=== PATIENT | female | born 1945 | race Caucasian/White ===

== ENCOUNTER 2016-05-26 06:30 | Day surgery (SDC) | payer MEDICARE, OTHER ==
[~2016-05-26] VITALS: Ht 168.9 cm; Wt 72.6 kg
[~2016-05-26 06:30] MED LIST: ASPI-808 PO; INSU100V6 SQ; MAGN250T13 PO; METF1000 PO; OMG1KC PO; POTA99TA7 PO; PRAV40TA2 PO
--- NOTE | 2016-05-26 06:47 | Progress Note-Pre Operative ---
Pre-Operative Progress Note H&P Reviewed The H&P was reviewed, patient examined and no changes noted. Date H&P Reviewed: May 26, 2016 Time H&P Reviewed: 06:35 Pre-Operative Diagnosis: Deviated Nasal Septum, Bialt HYper of INf Turbs NELA CHAVEZ MD May 26, 2016 6:47 am
[2016-05-26] MEDS ORDERED: LACTATED RINGERS 1,000 ML IV PRN (07:08)
[2016-05-26] MEDS ORDERED: NORMAL SALINE (BAXTER MINI) 50 ML IV ONE (07:16)
[2016-05-26] MEDS ORDERED: AMPICILL/SULB 1.5 GM VIAL (UNASYN) ONE (07:16)
[2016-05-26] MEDS ORDERED: AMPICILLIN/SULBACTAM 1.5 GM/NS 50 ML IVPB IV ONE ×2 (07:30)
[2016-05-26 07:32] VITALS: BP 140/63
[2016-05-26] MEDS ORDERED: BSS 15 ML ONE (07:41)
[2016-05-26] MEDS ORDERED: LIDOCAINE PF 2% 10 ML (XYLOCAINE) AMP ONE (07:44)
[2016-05-26] MEDS ORDERED: SUCCINYLCHOLINE INJ 100 MG/5 ML SYR ONE (07:44)
[2016-05-26] MEDS ORDERED: fentaNYL INJECTION 100 MCG/2 ML AMP ONE (07:44)
[2016-05-26] MEDS ORDERED: LACTATED RINGERS 1,000 ML IV ONE (07:44)
[2016-05-26] MEDS ORDERED: proPOfol 200 MG/20 ML (DIPRIVAN) VIAL IV ONE (07:44)
[2016-05-26] MEDS ORDERED: ROCURONIUM 50 MG/5 ML (ZEMURON) VIAL IV ONE (07:44)
[2016-05-26] MEDS ORDERED: ONDANSETRON 4 MG/2 ML (SDV) Z0FRAN ONE (07:44)
[2016-05-26] MEDS ORDERED: COCAINE HCL 4% 2 ML SYR TOP ONE (08:31)
[2016-05-26] MEDS ORDERED: LIDOCAINE/EPI 1%-1:100,000 (XYLOCAINE) 20ML INJ ONE (08:31)
[2016-05-26] MEDS ORDERED: PHENYLEPHRINE 0.5% NASAL SPR (NEO-SYNEPHRINE) REG ONE (08:32)
[2016-05-26] MEDS ORDERED: SEVOFLURANE (ULTANE) 15 ML INHAL SOLN ONE (09:02)
[2016-05-26] MEDS ORDERED: morphine INJ 10 MG/ML 1ML (SYR OR VIAL) ONE (09:04)
[2016-05-26] MEDS ORDERED: D5 1/2 NS W/KCL 20 MEQ/L 1,000 ML IV SCH (09:07)
--- NOTE | 2016-05-26 09:07 | Progress Note-Post Operative ---
Post-Operative Progess Note Pre-Operative Diagnosis Deviated Nasal Septum, Bialt HYper of INf Turbs Post-Operative Diagnosis same Post-Op Procedure Note Date of Procedure: May 26, 2016 Name of Procedure: Nasal Septoplasty, Bialt Red of INf Turbs Anesthesia Type get Estimated blood loss (mL): minimal Specimen(s) collected nasal septum NELA CHAVEZ MD May 26, 2016 9:07 am
[2016-05-26] MEDS ORDERED: ACETAMINOPHEN 325 MG TABLET/CAPLET (TYLENOL) PO PRN (09:15)
[2016-05-26] MEDS ORDERED: PROMETHAZINE INJ 25 MG/ML (PHENERGAN) AMP IVP PRN (09:15)
[2016-05-26] MEDS ORDERED: ONDANSETRON 4 MG/2 ML (SDV) Z0FRAN IVP PRN (09:30)
[2016-05-26] MEDS ORDERED: MEPERIDINE (DEMEROL) INJ 50 MG/ML IVP PRN (09:30)
[2016-05-26] MEDS ORDERED: morphine INJ 10 MG/ML 1ML (SYR OR VIAL) IVP PRN (09:30)
[2016-05-26 10:15] VITALS: BP 167/86
[2016-05-26] MEDS ORDERED: AMOX-355 PO (10:24)
[2016-05-26] MEDS ORDERED: TRAM50TA2 PO (10:24)
[2016-05-26 10:45] VITALS: BP 162/98
[2016-05-26 11:15] VITALS: BP 162/98
== END 2016-05-26 11:15 | disposition home or self-care (01) ==
LOC: SDC 06:30
PROVIDERS: ATTEND Otolaryngology Otolaryngology/Facial Plastic Surgery
DX: J34.2 Deviated nasal septum (principal); J34.3 Hypertrophy of nasal turbinates; E11.9 Type 2 diabetes mellitus without complications; Z79.84 Long term (current) use of oral hypoglycemic drugs
CPT/HCPCS: 82962

== ENCOUNTER 2020-11-28 09:30 | Inpatient (IN) | payer MEDICARE, OTHER ==
[~2020-11-28] VITALS: Ht 167.7 cm; Wt 70.6 kg
[~2020-11-28 09:30] MED LIST changes: +ACET-93 PO; +ACETAMINOPHEN 325 MG TABLET PO PRN; +ALPRAZolam 0.25 MG (XANAX) TAB PO PRN; +AMOX-355 PO; +APAP 300 MG/CODEINE 30 MG (TYLENOL #3) TAB PO PRN; +ASPI-1238 PO; +BISACODYL 10 MG SUPP (DULCOLAX) PR PRN; +CALC-901 PO; +CALCIUM CARBONATE 500 MG (TUMS) TAB.CHEW PO PRN; +CARV12.53 PO; +DOCU-143 PO; +DOCUSATE SODIUM 100 MG (COLACE) CAP PO PRN; +FLEET ENEMA ADULT 1 EA BTL PR PRN; +INSU100I10 SQ; +LACTULOSE SYRUP 10GM/15ML (ENULOSE) 30ML UDC PO PRN; +LISI40TA9 PO; +LOPERAMIDE 2 MG (IMODIUM) TABLET PO PRN; +MELA3TAB39 PO; +MELATONIN 3 MG TABLET PO PRN; +METF-397 PO; +METF-399 PO; -METF1000 PO; +MOM10U PO; +MULT-1136 PO; +PRAV80TA2 PO; +SENN-40 PO; +TRM50T PO; +diphenhydrAMINE 25 MG TAB (BENADRYL) PO PRN; +guaiFENesin/CODEINE (ROBITUSSIN AC) 10ML UDC PO PRN
[2020-11-28] MEDS: DOCUSATE SODIUM 100 MG (COLACE) CAP PO SCH ×3 (10:12→20:36)
[2020-11-28] MEDS: polyethylene glycoL POWDER 17 GM (MIRALAX) PACK PO SCH ×3 (10:12→20:36)
[2020-11-28] MEDS: SENNA W/DOCUSATE (SENOKOT S) TABLET PO SCH ×2 (10:13→20:36)
[2020-11-28] MEDS: MECLIZINE 25 MG (ANTIVERT) TAB PO SCH ×2 (11:22→20:36)
[2020-11-28] MEDS: metFORMIN 500 MG (GLUCOPHAGE) TAB PO SCH ×2 (11:57→17:47)
--- NOTE | 2020-11-28 13:05 | Physical Therapy Evaluation ---
PT Evaluation-General Medical Diagnosis Admission Date Nov 28, 2020 at 09:30 Medical Diagnosis: CVA Onset Date: Nov 21, 2020 Therapy Diagnosis Therapy Diagnosis: Impaired mobility Height/Weight Height (Feet): 5 Height (Inches): 6.50 Weight (Pounds): 160 Weight (Ounces): 1.0 Precautions Precautions/Isolations: Seizure, Fall Prevention, Standard Precautions Referral Physician: Dr. Sabiha Laboy DO Reason for Referral: Evaluation/Treatment Medical History Pertinent Medical History: CVA Current History Pt had a recent CVA and was treated at [facility] in . She was transferred this AM to our IP Rehab. Reviewed History: Yes Social History Home: Single Level Current Living Status: Significant Other Entry Into Home: Stairs With Railing PT Steps Into Home: 4 PT Steps Inside Home: 4 Prior Prior Level of Function SCALE: Activities may be completed with or without assistive devices. 2-Ccirtlgkva-qwnwztw completes the activity by him/herself with no assistance from a helper. 5-Set-up or Clean-up Assistance-helper sets up or cleans up; patient completes activity. [place] assists only prior to or following the activity. 4-Supervision or Touching Assistance-helper provides verbal cues and/or touching/steadying and/or contact guard assistance as patient completes activity. Assistance may be provided throughout the activity or intermittently. 3-Partial/Moderate Assistance-helper does LESS THAN HALF the effort. [place] lifts, holds or supports trunk or limbs, but provides less than half the effort. 2-Substantial/Maximal Assistance-helper does MORE THAN HALF the effort. [place] lifts or holds trunk or limbs and provides more than half the effort. 4-Cnxvmeckz-evpfzj does ALL the effort. Patient does none of the effort to complete the activity. Or, the assistance of 2 or more helpers is required for the patient to complete the activity. If activity was not attempted, code reason: 7-Patient Refused. 9-Not Applicable-not attempted and the patient did not perform the activity bef ore the current illness, exacerbation or injury. 10-Not Attempted due to Environmental Limitations-(lack of equipment, weather r estraints, etc.). 88-Not Attempted due to Medical Conditions or Safety Concerns. Bed Mobility: 6 Transfers (B,C,W/C): 6 Gait: 6 Stairs: 6 Indoor Mobility (Ambulation): Independent Stairs: Independent Prior Devices Use: None PT Evaluation-Current Subjective Pt reports dizziness with position change. No pain reported with evaluation. Pain Numeric Pain Scale: 0-No Pain Objective Patient Orientation: Person, Place, Time, Situation ROM/Strength ROM Upper Extremities WFL ROM Lower Extremities WFL Strength Upper Extremities WFL Strength Lower Extremities (B) hip flexion MMT 4-/5. All other (B) hip, knee, lower leg MMT 4+/5. Integumentary/Posture Bowel Incontinence: No Bladder Incontinence: No Neuromuscular (Tone, Coordination, Reflexes) Pt was able to perform ocular testing and tracking with consistency, but had issues with (L) neglect when ambulating. Sensory Vision: Neglect Left Hearing: Functional Hand Dominance: Right Sensation Right Upper Extremit: Intact Sensation Left Upper Extremity: Intact Sensation Right Lower Extremit: Intact Sensation Left Lower Extremity: Intact Transfers Roll Left & Right (QC): 6 Sit to Lying (QC): 6 Lying to Sitting/Side of Bed(Q: 6 Sit to Stand (QC): 3 Chair/Sdc-lq-Uwerg Xfer(QC): 3 Toilet Transfer (QC): 3 Car Transfer (QC): 3 Gait Does the Patient Walk?: Yes Mode of Locomotion: Walk Anticipated Mode of Locomotion: Walk Walk 10 feet (QC): 4 Walk 50 ft with 2 Turns(QC): 4 Walk 150 ft (QC): 88 Walking 10ft/uneven surface-QC: 4 Distance: 80ft Gait Assistive Device: FWW Comments/Gait Description Pt had multiple episodes of retropulsive loss of balance and to the left, requiring constant assistance. Wheelchair Training Does the Pt Use a Wheelchair?: No Wheel 50 ft with 2 turns (QC): 9 Wheel 150 ft (QC): 9 Stairs #of Steps: 1 1 Step (curb) (QC): 3 4 Steps (QC): 88 12 Steps (QC): 88 Walking Assistive Device: Walker Balance Sitting Static: Normal Sitting Dynamic: Normal Standing Static: Fair Standing Dynamic: Poor Picking up an Object (QC): 88 Special Test Comments Did not test for picking up an item due to dizziness with trunk flexion. Assessment/Needs Pt has diminished balance, (L) visual neglect, usteady gait, and (B) hip flexion weakness. Rehab Potential: Good PT Cargo Surveyor Goals Cargo Surveyor Goals PT Cargo Surveyor Goals Time Frame: Dec 19, 2020 Roll Left & Right (QC): 6 Sit to Lying (QC): 6 Lying-Sitting on Side/Bed(QC): 6 Sit to Stand (QC): 6 Chair/Tlg-ge-Kzmke Xfer(QC): 6 Toilet Transfer (QC): 6 Car Transfer (QC): 6 Does the Patient Walk: Yes Walk 10 feet (QC): 6 Walk 50ft with 2 Turns (QC): 6 Walk 150 ft (QC): 6 Walking 10ft on Uneven Surface: 6 1 Step (curb) (QC): 6 4 Steps (QC): 6 12 Steps (QC): 6 Picking up an Object (QC): 6 Does the Pt use WC or Scooter?: No Wheel 50 feet with 2 turns (QC: 9 Wheel 150 feet: 9 PT Plan Problem List Problem List: Activity Tolerance, Functional Strength, Safety, Balance, Gait, Transfer, Bed Mobility, ROM Treatment/Plan Treatment Plan: Continue Plan of Care Treatment Plan: Bed Mobility, Concurrent Therapy, Education, Functional Activity Miguel, Functional Strength, Group Therapy, Gait, Safety, Therapeutic Exercise, Transfers Treatment Duration: Dec 19, 2020 Frequency: At least 5 of 7 days/Wk (IRF) Estimated Hrs Per Day: 1.5 hours per day Patient and/or Family Agrees t: Yes Time/GCodes Time In: 1105 Time Out: 1135 Total Billed Treatment Time: 30 Total Billed Treatment 1, saleem 30 KAYLEE RUANO PT Nov 28, 2020 13:05
--- NOTE | 2020-11-28 14:17 | History & Physical-Hospitalist ---
History of Present Illness HPI/Chief Complaint Virgen Bermeo is a 75 year old female with PMH T2DM, HLD, who was admitted to with cerebrovascular accident and intracranial hemorhage. She was found to have a large right cerebellar hemorrhage. She was admitted to the ICU. She underwent craniotomy with hematoma evacuation and had an EVD placed. She was stabilized but remained debilitated. She was deemed to require ongoing acute cares along with PT/OT/ST. She was transferred from to the inpatient rehabilitation unit on 11/28/2020. Her course was complicated by hypertension and she was started on medication. She also had issues with orthostatic hypotension. Upon my examination, she had arrived in her room and was ordering food. She reports having some double vision. She also has some uncoordination and balance issues. She is not having any focal weakness. She denies headaches. She is not having fevers or chills. She denies chest pain and palpitations. She denies shortness of breath and cough. She denies abdominal pain. She had issues with nausea and vomiting while driving here due to motion sickness. She denies diarrhea. She denies dysuria. She previously had been on aspirin and a cholesterol medicine daily, as well as 18 units of long acting insulin daily. Source: patient Date Seen 11/28/20 Time Seen by a Provider: 11:30 Attending Physician Sabiha Laboy DO PCP No,Local Physician Referring Physician Date of Admission Nov 28, 2020 at 09:30 Home Medications & Allergies Home Medications Reviewed patient Home Medication Reconciliation performed by pharmacy medication reconciliations hospital technician and/or nursing. Patients Allergies have been reviewed. Allergies Allergies Coded Allergies hydrocodone (Verified Allergy, Intermediate, VOMITTING, 05/19/16) oxycodone (Verified Allergy, Intermediate, VOMITTING, 05/19/16) Past Tuwmugj-Mxysdp-Vhzyld Hx Patient Social History Tobacco Use?: No Substance use?: No Alcohol Use?: No Pt feels they are or have been: No Immunizations Up To Date Date of Influenza Vaccine: Mar 28, 2016 First/Initial COVID19 Vaccinat: HAS HAD BOTH COVID VACCINES Date of Pneumonia Vaccine: Mar 28, 2016 Seasonal Allergies Seasonal Allergies: No Current Status Advance Directives: Yes Communicates: Verbally Primary Language: Romansh Preferred Spoken Language: Romansh Is interpretation needed?: No Past Medical History High Cholesterol Headaches /Migraines, Stroke Sexually Transmitted Disease: No HIV/AIDS: No Polyps Chronic Back Pain Diabetes, Insulin dep Loss of Vision: Bilateral Hearing Impairment: Denies Adverse Reaction/Blood Tranf: No (N/A) Family Medical History No Pertinent Family Hx Review of Systems Constitutional: no symptoms reported EENTM: double vision Respiratory: no symptoms reported Cardiovascular: no symptoms reported Gastrointestinal: nausea, vomiting Genitourinary: no symptoms reported Musculoskeletal: no symptoms reported Skin: no symptoms reported Psychiatric/Neurological: No Symptoms Reported Physical Exam Physical Exam Vital Signs Vital Signs - First Documented 11/28/20 10:28 Pulse Ox 98 O2 Delivery Room Air Capillary Refill : Height, Weight, BMI Height: 5'6.50" Weight: 160lbs. 1.0oz. [id number]; 24.42 BMI Method: General Appearance: No Apparent Distress, WD/WN HEENT: PERRL/EOMI, Pharynx Normal; No Photophobia Neck: Normal Inspection, Non Tender, Supple Respiratory: Lungs Clear, Normal Breath Sounds, No Respiratory Distress Cardiovascular: Regular Rate, Rhythm, No Edema, No Murmur Gastrointestinal: Normal Bowel Sounds, Non Tender, Soft Extremity: Normal Inspection, Non Tender, No Pedal Edema Neurologic/Psychiatric: Alert, Oriented x3, Normal Mood/Affect, customer support analyst II-XII Norm as Tested, Other (dysmetria) Skin: Normal Color, Warm/Dry, Other (right parietal EVD incision and occipital craniotomy incision well appearing) Lymphatic: No Adenopathy Results Results/Procedures Labs Patient resulted labs reviewed. Imaging: Reviewed Imaging Report Assessment/Plan Admission Diagnosis CVA Admission Status: Inpatient Order (span 2 midnights) Reason for Inpatient Admission: Post-CVA/craniotomy/hematoma evacuation requiring ongoing PT/OT/ST Assessment and Plan CVA Intracranial hemorrhage s/p craniotomy s/p hematoma evacuation Diplopia Dysmetria Orthostatic hypotension HTN Debility T2DM HLD Admitted to with intracranial hemorrhage s/p craniotomy, hematoma evacuation and EVD Transferred for inpatient rehab 11/28 Lisinopril and Coreg for hypertension Metformin, Levemir and sliding scale for diabetes Lipitor for hyperlipidemia PT/OT/ST Diagnosis/Problems Diagnosis/Problems (1) CVA (cerebral vascular accident) Status: Acute (2) Intracranial hemorrhage Status: Acute (3) Status post craniotomy Status: Acute (4) Status post evacuation of hematoma Status: Acute (5) Dysmetria Status: Acute (6) Diplopia Status: Acute (7) HTN (hypertension) Status: Acute Qualifiers: Hypertension type: essential hypertension Qualified Codes: I10 - Essential (primary) hypertension (8) Orthostatic hypotension Status: Acute (9) Debility (10) HLD (hyperlipidemia) Status: Chronic (11) T2DM (type 2 diabetes mellitus) Status: Chronic Qualifiers: Diabetes mellitus snf insulin use: with snf use CHIKIS PEREZ MD Nov 28, 2020 14:16
[2020-11-28] MEDS: inSUlin ASPART (NovoLOG) 1 UNIT/0.01 ML (CHARGE PER UNIT) SC SCH ×2 (16:10→20:36)
[2020-11-28 20:00] VITALS: BP 174/78
[2020-11-28] MEDS: CALCIUM CARB + VIT D 600 MG (CALCARB + D) TAB PO SCH (20:35)
[2020-11-28] MEDS: MELATONIN 3 MG TABLET PO SCH (20:36)
[2020-11-28] MEDS ORDERED: NON-FORMULARY MEDICATION 1 EA EA (Magnesium Oxide (Magnesium) 250 MG) PO SCH (21:00)
[2020-11-29] MEDS: inSUlin ASPART (NovoLOG) 1 UNIT/0.01 ML (CHARGE PER UNIT) SC SCH ×4 (06:14→20:37)
[2020-11-29] MEDS: MULTIVIT W/MINERALS TAB (THERAGRAN M) PO SCH (06:14)
[2020-11-29 06:17] LABS: BASOPHILS # (AUTO) 0.1 10^3/uL (0.0-0.1); BASOPHILS % (AUTO) 1 % (0-10); EOSINOPHILS # (AUTO) 0.2 10^3/uL (0.0-0.3); EOSINOPHILS % (AUTO) 3 % (0-10); HEMATOCRIT 37 % (35-52); HEMOGLOBIN 11.8 g/dL (11.5-16.0); LYMPHOCYTES # (AUTO) 2.7 10^3/uL (1.0-4.0); LYMPHOCYTES % (AUTO) 30 % (12-44); MEAN CORPUSCULAR HEMOGLOBIN 28 pg (25-34); MEAN CORPUSCULAR HGB CONC 32 g/dL (32-36); MEAN CORPUSCULAR VOLUME 88 fL (80-99); MEAN PLATELET VOLUME 9.8 fL (9.0-12.2); MONOCYTES # (AUTO) 0.7 10^3/uL (0.0-1.0); MONOCYTES % (AUTO) 8 % (0-12); NEUTROPHILS % (AUTO) 56 % (42-75); PLATELET COUNT 343 10^3/uL (130-400); WHITE BLOOD COUNT 8.8 10^3/uL (4.3-11.0)
[2020-11-29 06:29] LABS: ALBUMIN 3.3 GM/DL (3.2-4.5); CHLORIDE 99 MMOL/L (98-107); POTASSIUM 4.2 MMOL/L (3.6-5.0); SODIUM 135 MMOL/L (135-145)
[2020-11-29 06:30] LABS: CALCIUM 9.6 MG/DL (8.5-10.1)
[2020-11-29 06:31] LABS: GLUCOSE 154 MG/DL (70-105); TOTAL PROTEIN 5.9 GM/DL (6.4-8.2)
[2020-11-29 06:32] LABS: CARBON DIOXIDE 26 MMOL/L (21-32)
[2020-11-29 06:33] LABS: BILIRUBIN,TOTAL 0.4 MG/DL (0.1-1.0)
[2020-11-29 06:35] LABS: ALKALINE PHOSPHATASE 59 U/L (40-136); GFR ESTIMATED > 60
[2020-11-29 06:36] LABS: BUN/CREATININE RATIO 14
[2020-11-29 06:38] LABS: ALANINE AMINOTRANSFERASE 25 U/L (0-55)
[2020-11-29 07:03] VITALS: BP 168/77
--- NOTE | 2020-11-29 07:39 | Progress Note ---
Progress Note REHAB/MEDICAL ASSESSMENT AND PLAN: REHAB IMPAIRMENT GROUP: CVA ETIOLOGIC DIAGNOSIS: CVA The comorbidities that impact the patients function and/or functional outcome by: Prior stroke effects, orthostatic hypotension, urinary retention, confusion REHAB PLAN: The patient is being admitted to our comprehensive inpatient rehabilitation facility and can tolerate the intensity of service consisting of at least: 180 minutes of therapy a day, 5 out of 7 days a week Rehab treatment will consist of: PT and OT will help with ambulatory skills and increase independence in ADLs in order to regain enough function to return to independent living The patient/family has a good understanding of our discharge process and will benefit from an interdisciplinary inpatient rehabilitation program. The patient has potential to make improvement and is in need of at least two of the following multidisciplinary therapies including but not limited to physical, occupational, speech, and prosthetics and orthotics. Additionally the patient will need services from respiratory, nutritional services, wound care, psychology, etc. (Customize this to each patient). Given the patients complex condition and risk of further medical complications, rehabilitation services cannot be safely or effectively provided at a lower level of care such as a alf facility. BARRIERS TO DISCHARGE: Confusion with severe balance dysfunction ESTIMATED LOS: 14 days DISPOSITION: Home with RELEVANT CHANGES SINCE PREADMISSION SCREENING: I have compared the patients medical and functional status at the time of the preadmission screening and there are: no changes PROGNOSIS: Fair REHABILITATION GOALS: 1. PT and OT will help with ambulatory skills and increase independence in ADLs in order to regain enough function to return to independent living All the above goals were reviewed with the patient and he/she is in agreement. By signing this document, I acknowledge that I have personally performed a full physical examination on this patient within 24 hours of admission to this inpatient rehabilitation facility and have determined the patient to be able to tolerate the above course of treatment at an intensive level for a reasonable period of time. I will be completing a detailed individualized Plan of Care for this patient by day #4 of the patients stay based upon the Preadmission Screen, the Post-Admission Evaluation, and the therapy evaluations. ELSY ORNELAS DO Nov 29, 2020 07:39
--- NOTE | 2020-11-29 07:42 | PM&R Progress Note ---
Subjective HPI/CC On Admission Date Seen by Provider: Nov 29, 2020 Time Seen by Provider: 12:45 Virgen Bermeo is a 75 year old female with PMH T2DM, HLD, who was admitted to with cerebrovascular accident and intracranial hemorhage. She was found to have a large right cerebellar hemorrhage. She was admitted to the ICU. She underwent craniotomy with hematoma evacuation and had an EVD placed. She was stabilized but remained debilitated. She was deemed to require ongoing acute cares along with PT/OT/ST. She was transferred from to the inpatient rehabilitation unit on 11/28/2020. Her course was complicated by hypertension and she was started on medication. She also had issues with orthostatic hypotension. Upon my examination, she had arrived in her room and was ordering food. She reports having some double vision. She also has some uncoordination and balance issues. She is not having any focal weakness. She denies headaches. She is not having fevers or chills. She denies chest pain and palpitations. She denies shortness of breath and cough. She denies abdominal pain. She had issues with nausea and vomiting while driving here due to motion sickness. She denies diarrhea. She denies dysuria. She previously had been on aspirin and a cholesterol medicine daily, as well as 18 units of long acting insulin daily. Subjective/Events-last exam 11/29/2020: This visit is via video chat due to Covid related restriction for this provider Reviewed history and physical information Met with nurse and discussed all meds and issues Patient feels pretty good No major concerns per patient Bowels are moving sluggishly will maintain laxatives No impulsiveness Balance is definitely deficient Had to straight cath her x1 due to urinary retention Low-grade fever 99.3 Urine is very cloudy We will obtain urine and urine culture from cath specimen and place on antibiotic empirically Monitoring closely Review of Systems General: Fatigue, Malaise Genitourinary: Frequency, Retention Neurological: Weakness, Incoordination, Confusion Objective Exam Vital Signs Vital Signs Date Time Temp Pulse Resp B/P (MAP) Pulse Ox O2 Delivery O2 Flow Rate FiO2 11/29/20 09:45 Room Air 11/29/20 08:16 92 148/64 (92) 11/29/20 07:03 36.9 16 96 Capillary Refill : General Appearance: No Apparent Distress, WD/WN HEENT: PERRL/EOMI, Pharynx Normal; No Photophobia Neck: Normal Inspection, Non Tender, Supple Respiratory: Lungs Clear, Normal Breath Sounds, No Respiratory Distress Cardiovascular: Regular Rate, Rhythm, No Edema, No Murmur Gastrointestinal: Normal Bowel Sounds, Non Tender, Soft Extremity: Normal Inspection, Non Tender, No Pedal Edema Neurologic/Psychiatric: Alert, Oriented x3, Normal Mood/Affect, clinical biochemical geneticist II-XII Norm as Tested, Other (dysmetria) Skin: Normal Color, Warm/Dry, Other (right parietal EVD incision and occipital craniotomy incision well appearing) Lymphatic: No Adenopathy Results/Procedures Lab Laboratory Tests 11/29/20 05:15 Patient resulted labs reviewed. Imaging: Reviewed Imaging Report FIM Transfers Therapy Code Descriptions/Definitions Functional [place] Measure: 0=Not Assessed/NA 4=Minimal Assistance 1=Total Assistance 5=Supervision or Setup 2=Maximal Assistance 6=Modified [place] 3=Moderate Assistance 7=Complete IndependenceSCALE: Activities may be completed with or without assistive devices. 8-Eujtntwvfa-gmdsjbo completes the activity by him/herself with no assistance from a helper. 5-Set-up or Clean-up Assistance-helper sets up or cleans up; patient completes activity. [place] assists only prior to or following the activity. 4-Supervision or Touching Assistance-helper provides verbal cues and/or touchin g/steadying and/or contact guard assistance as patient completes activity. Assistance may be provided throughout the activity or intermittently. 3-Partial/Moderate Assistance-helper does LESS THAN HALF the effort. [place] lifts, holds or supports trunk or limbs, but provides less than half the effort. 2-Substantial/Maximal Assistance-helper does MORE THAN HALF the effort. [place] lifts or holds trunk or limbs and provides more than half the effort. 9-Szgjiswgv-eedfys does ALL the effort. Patient does none of the effort to complete the activity. Or, the assistance of 2 or more helpers is required for the patient to complete the activity. If activity was not attempted, code reason: 7-Patient Refused. 9-Not Applicable-not attempted and the patient did not perform the activity before the current illness, exacerbation or injury. 10-Not Attempted due to Environmental Limitations-(lack of equipment, weather restraints, etc.). 88-Not Attempted due to Medical Conditions or Safety Concerns. Roll Left to Right (QC): 6 Sit to Lying (QC): 6 Sit to Stand (QC): 3 Chair/Rlm-sc-Znwbp Xfer(QC): 3 Car Transfer (QC): 3 Gait Training Does the Patient Walk?: Yes Walk 10 feet (QC): 4 Walk 50 ft with 2 Turns(QC): 4 Walk 150 ft (QC): 88 Walking 10ft/uneven surface-QC: 4 Gait Assistive Device: FWW Wheelchair Training Does the Pt Use a Wheelchair?: No Wheel 50 ft with 2 turns (QC): 9 Wheel 150 ft (QC): 9 Stair Training #of Steps: 1 1 Step (curb) (QC): 3 4 Steps (QC): 88 12 Steps (QC): 88 Balance Picking up an Object (QC): 88 Assessment/Plan Assessment and Plan Assess & Plan/Chief Complaint Assessment: (1) CVA (cerebral vascular accident) (2) Intracranial hemorrhage (3) Status post craniotomy (4) Status post evacuation of hematoma (5) Dysmetria (6) Diplopia (7) HTN (hypertension) (8) Orthostatic hypotension (9) Debility (10) HLD (hyperlipidemia) (11) T2DM (type 2 diabetes mellitus) (12) Acute UTI placed on antibiotic empirically on 11/29/2020 (13) acute urinary retention requiring caths Plan: Intensive rehab protocol Empiric antibiotic treatment Monitor sugar Add Urecholine (1) CVA (cerebral vascular accident) Status: Acute (2) Intracranial hemorrhage Status: Acute (3) Status post craniotomy Status: Acute (4) Status post evacuation of hematoma Status: Acute (5) Dysmetria Status: Acute (6) Diplopia Status: Acute (7) HTN (hypertension) Status: Acute Qualifiers: Hypertension type: essential hypertension Qualified Codes: I10 - Essential (primary) hypertension (8) Orthostatic hypotension Status: Acute (9) Debility (10) HLD (hyperlipidemia) Status: Chronic (11) T2DM (type 2 diabetes mellitus) Status: Chronic Qualifiers: Diabetes mellitus terminal operations manager insulin use: with senior care use ELSY ORNELAS DO Nov 29, 2020 07:42
[2020-11-29] MEDS: DOCUSATE SODIUM 100 MG (COLACE) CAP PO SCH ×2 (08:10→20:56)
[2020-11-29] MEDS: lisINopril 40 MG (PRINIVIL) TABLET PO SCH (08:10)
[2020-11-29] MEDS: CALCIUM CARB + VIT D 600 MG (CALCARB + D) TAB PO SCH ×2 (08:10→20:56)
[2020-11-29] MEDS: ASPIRIN E.C. 81 MG (ECOTRIN) TAB PO SCH (08:10)
[2020-11-29] MEDS: MECLIZINE 25 MG (ANTIVERT) TAB PO SCH ×3 (08:10→20:56)
[2020-11-29] MEDS: SENNA W/DOCUSATE (SENOKOT S) TABLET PO SCH ×2 (08:11→20:56)
[2020-11-29] MEDS: polyethylene glycoL POWDER 17 GM (MIRALAX) PACK PO SCH ×2 (08:11→22:20)
[2020-11-29] MEDS: ACETAMINOPHEN 500 MG TAB (TYLENOL) PO SCH (08:11)
[2020-11-29] MEDS: metFORMIN 500 MG (GLUCOPHAGE) TAB PO SCH ×3 (08:11→17:55)
[2020-11-29] MEDS: MILK OF MAGNESIA 400 MG/5 ML 30 ML UDC PO SCH (08:11)
[2020-11-29] MEDS: MAGNESIUM OXIDE (MAG-OX)400 MG TAB PO SCH (08:11)
[2020-11-29 08:16] VITALS: BP 148/64
[2020-11-29] MEDS: BETHANECHOL 10 MG (URECHOLINE) TAB PO SCH ×2 (15:57→20:57)
[2020-11-29 17:28] LABS: BILIRUBIN,URINE NEGATIVE (NEGATIVE); CLARITY,URINE SL CLOUDY; COLOR,URINE YELLOW; GLUCOSE, URINE (UA) NEGATIVE (NEGATIVE); KETONES,URINE NEGATIVE (NEGATIVE); LEUKOCYTE ESTERASE ,URINE 1+ (NEGATIVE); NITRITE,URINE NEGATIVE (NEGATIVE); PROTEIN,URINE NEGATIVE (NEGATIVE)
[2020-11-29 17:35] LABS: BACTERIA,URINE MODERATE /HPF; SQUAMOUS EPITHELIAL CELL,UR 0-2 /HPF; WBC,URINE 50-100 /HPF
[2020-11-29 20:00] VITALS: BP 141/65
[2020-11-29] MEDS ORDERED: NITROFURANTOIN 50 MG (MACRODANTIN) CAP ONE (20:47)
[2020-11-29] MEDS: NITROFURANTOIN 100 MG (MACROBID) CAPSULE PO SCH (20:56)
[2020-11-29] MEDS: MELATONIN 3 MG TABLET PO SCH (20:57)
[2020-11-30] MEDS: inSUlin ASPART (NovoLOG) 1 UNIT/0.01 ML (CHARGE PER UNIT) SC SCH ×4 (05:40→21:55)
[2020-11-30] MEDS: MULTIVIT W/MINERALS TAB (THERAGRAN M) PO SCH (06:42)
[2020-11-30] MEDS: BETHANECHOL 10 MG (URECHOLINE) TAB PO SCH ×4 (06:42→21:52)
--- NOTE | 2020-11-30 07:03 | PM&R Progress Note ---
Subjective HPI/CC On Admission Date Seen by Provider: Nov 30, 2020 Time Seen by Provider: 12:45 Virgen Bermeo is a 75 year old female with PMH T2DM, HLD, who was admitted to with cerebrovascular accident and intracranial hemorhage. She was found to have a large right cerebellar hemorrhage. She was admitted to the ICU. She underwent craniotomy with hematoma evacuation and had an EVD placed. She was stabilized but remained debilitated. She was deemed to require ongoing acute cares along with PT/OT/ST. She was transferred from to the inpatient rehabilitation unit on 11/28/2020. Her course was complicated by hypertension and she was started on medication. She also had issues with orthostatic hypotension. Upon my examination, she had arrived in her room and was ordering food. She reports having some double vision. She also has some uncoordination and balance issues. She is not having any focal weakness. She denies headaches. She is not having fe vers or chills. She denies chest pain and palpitations. She denies shortness of breath and cough. She denies abdominal pain. She had issues with nausea and vomiting while driving here due to motion sickness. She denies diarrhea. She denies dysuria. She previously had been on aspirin and a cholesterol medicine daily, as well as 18 units of long acting insulin daily. Subjective/Events-last exam 11/30/2020: This visit is via video chat due to Covid related restriction for this provider Patient doing well No major concerns Macrobid empirically started, UCx pending Updated patient on the UTI treatment wanted Melatonin Xanax and Codeine DC so I did that In/Out cath once per 24 hours Urecholine started BM 11/2911/29/2020: This visit is via video chat due to Covid related restriction for this provider Reviewed history and physical information Met with nurse and discussed all meds and issues Patient feels pretty good No major concerns per patient Bowels are moving sluggishly will maintain laxatives No impulsiveness Balance is definitely deficient Had to straight cath her x1 due to urinary retention Low-grade fever 99.3 Urine is very cloudy We will obtain urine and urine culture from cath specimen and place on antibiotic empirically Monitoring closely Review of Systems General: Fatigue, Malaise Genitourinary: Retention Neurological: Weakness, Incoordination Objective Exam Vital Signs Vital Signs Date Time Temp Pulse Resp B/P (MAP) Pulse Ox O2 Delivery O2 Flow Rate FiO2 11/30/20 09:00 Room Air 11/30/20 07:24 36.8 76 12 161/72 (101) 96 Capillary Refill : General Appearance: No Apparent Distress, WD/WN, Chronically ill HEENT: PERRL/EOMI, Normal ENT Inspection, Pharynx Normal; No Photophobia Neck: Normal Inspection, Non Tender, Supple Respiratory: Lungs Clear, Normal Breath Sounds, No Respiratory Distress Cardiovascular: Regular Rate, Rhythm, No Edema, No Murmur Gastrointestinal: Normal Bowel Sounds, Non Tender, Soft Extremity: Normal Inspection, Non Tender, No Pedal Edema Neurologic/Psychiatric: Alert, Oriented x3, Normal Mood/Affect, e learning manager II-XII Norm as Tested, Motor Weakness (generalized), Other (dysmetria) Skin: Normal Color, Warm/Dry, Other (right parietal EVD incision and occipital craniotomy incision well appearing) Lymphatic: No Adenopathy Results/Procedures Lab Patient resulted labs reviewed. Imaging: Reviewed Imaging Report FIM Transfers Therapy Code Descriptions/Definitions Functional [place] Measure: 0=Not Assessed/NA 4=Minimal Assistance 1=Total Assistance 5=Supervision or Setup 2=Maximal Assistance 6=Modified [place] 3=Moderate Assistance 7=Complete IndependenceSCALE: Activities may be completed with or without assistive devices. 9-Hnpnngmgtd-bairmdw completes the activity by him/herself with no assistance from a helper. 5-Set-up or Clean-up Assistance-helper sets up or cleans up; patient completes activity. [place] assists only prior to or following the activity. 4-Supervision or Touching Assistance-helper provides verbal cues and/or touching/steadying and/or contact guard assistance as patient completes activity. Assistance may be provided throughout the activity or intermittently. 3-Partial/Moderate Assistance-helper does LESS THAN HALF the effort. [place] lifts, holds or supports trunk or limbs, but provides less than half the effort. 2-Substantial/Maximal Assistance-helper does MORE THAN HALF the effort. [place] lifts or holds trunk or limbs and provides more than half the effort. 2-Wwzwkgcsd-zppaua does ALL the effort. Patient does none of the effort to complete the activity. Or, the assistance of 2 or more helpers is required for the patient to complete the activity. If activity was not attempted, code reason: 7-Patient Refused. 9-Not Applicable-not attempted and the patient did not perform the activity before the current illness, exacerbation or injury. 10-Not Attempted due to Environmental Limitations-(lack of equipment, weather restraints, etc.). 88-Not Attempted due to Medical Conditions or Safety Concerns. Roll Left to Right (QC): 6 Sit to Lying (QC): 6 Sit to Stand (QC): 3 Chair/Ujm-gj-Nmkwi Xfer(QC): 3 Car Transfer (QC): 3 Gait Training Does the Patient Walk?: Yes Walk 10 feet (QC): 4 Walk 50 ft with 2 Turns(QC): 4 Walk 150 ft (QC): 88 Walking 10ft/uneven surface-QC: 4 Gait Assistive Device: FWW Wheelchair Training Does the Pt Use a Wheelchair?: No Wheel 50 ft with 2 turns (QC): 9 Wheel 150 ft (QC): 9 Stair Training #of Steps: 1 1 Step (curb) (QC): 3 4 Steps (QC): 88 12 Steps (QC): 88 Balance Picking up an Object (QC): 88 Assessment/Plan Assessment and Plan Assess & Plan/Chief Complaint Assessment: (1) CVA (cerebral vascular accident) (2) Intracranial hemorrhage (3) Status post craniotomy (4) Status post evacuation of hematoma (5) Dysmetria (6) Diplopia (7) HTN (hypertension) (8) Orthostatic hypotension (9) Debility (10) HLD (hyperlipidemia) (11) T2DM (type 2 diabetes mellitus) (12) Acute UTI placed on antibiotic empirically on 11/29/2020 (13) acute urinary retention requiring caths Plan: Intensive rehab protocol Empiric antibiotic treatment Monitor sugar Add Urecholine 11/30/20: Urecholine maintained In/Out caths prn Abx empirically DC meds at request (1) CVA (cerebral vascular accident) Status: Acute (2) Intracranial hemorrhage Status: Acute (3) Status post craniotomy Status: Acute (4) Status post evacuation of hematoma Status: Acute (5) Dysmetria Status: Acute (6) Diplopia Status: Acute (7) HTN (hypertension) Status: Acute Qualifiers: Hypertension type: essential hypertension Qualified Codes: I10 - Essential (primary) hypertension (8) Orthostatic hypotension Status: Acute (9) Debility (10) HLD (hyperlipidemia) Status: Chronic (11) T2DM (type 2 diabetes mellitus) Status: Chronic Qualifiers: Diabetes mellitus chcf insulin use: with chcf use ELSY ORNELAS DO Nov 30, 2020 07:03
[2020-11-30 07:24] VITALS: BP 161/72
[2020-11-30] MEDS: polyethylene glycoL POWDER 17 GM (MIRALAX) PACK PO SCH ×2 (08:52→21:50)
[2020-11-30] MEDS: NITROFURANTOIN 100 MG (MACROBID) CAPSULE PO SCH ×2 (09:22→21:51)
[2020-11-30] MEDS: CALCIUM CARB + VIT D 600 MG (CALCARB + D) TAB PO SCH ×2 (09:22→21:52)
[2020-11-30] MEDS: lisINopril 40 MG (PRINIVIL) TABLET PO SCH (09:22)
[2020-11-30] MEDS: MECLIZINE 25 MG (ANTIVERT) TAB PO SCH ×3 (09:22→21:52)
[2020-11-30] MEDS: SENNA W/DOCUSATE (SENOKOT S) TABLET PO SCH ×2 (09:22→21:52)
[2020-11-30] MEDS: ACETAMINOPHEN 500 MG TAB (TYLENOL) PO SCH (09:22)
[2020-11-30] MEDS: DOCUSATE SODIUM 100 MG (COLACE) CAP PO SCH ×2 (09:22→21:52)
[2020-11-30] MEDS: MAGNESIUM OXIDE (MAG-OX)400 MG TAB PO SCH (09:22)
[2020-11-30] MEDS: ASPIRIN E.C. 81 MG (ECOTRIN) TAB PO SCH (09:22)
[2020-11-30] MEDS: metFORMIN 500 MG (GLUCOPHAGE) TAB PO SCH ×3 (09:23→18:29)
[2020-11-30] MEDS: MILK OF MAGNESIA 400 MG/5 ML 30 ML UDC PO SCH (09:23)
--- NOTE | 2020-11-30 09:33 | ST Cognitive Linguistic Eval ---
Speech Evaluation-General Medical Diagnosis CVA Onset Date: Nov 21, 2020 Therapy Diagnosis Therapy Diagnosis: Cognitive-communication Referral Referring Physician: Dr. Laboy Medical History Pertinent Medical History: CVA Reviewed History: Yes Social History Current Living Status: Spouse Speech PLF-Current Status Prior Level of Function Patient lives in her home with her who assists her when needed. Subjective Patient was resting in her recliner when I entered her room. Patient was plea vivian and cooperative with the cognitive assessment. Language Eval: Auditory Comprehends Simple Yes/No Ques: Functional Indent/Objects [place]: Functional Ident/Pics in [place]: Mild Follows 1-Step Commands: Mild Follows Complex Directions: Moderate Follows General Conversations: Moderate Language Eval: Verbal Language Completes Spontaneous Greeting: Functional Produces Auto, Serial Info: Functional Imitates Simple Words/Phrases: Moderate Word Finding: Mild Requests Basic Needs: Moderate Expresses Complex Ideas: Severe Objective Cognitive Domain Attention: Mild Memory: Moderate Problem Solving: Mild Executive Functions: Moderate Visuospatial Skills: Moderate Composite Severity Rating: Moderate Clock Drawing Severity Rating: Moderate Objective Formal/Standardized Tests [facility] Mental Status ([facility]) Results 8/30, Moderate Dementia range of function Oral Motor/Speech Production Within Normal Limits Impression Patient is a pleasant 75 y/o female who was admitted to the ARU s/p CVA , craniotomy due to intracranial hemorrhage. Patient states she's had trouble with her memory since her first CVA 5 yrs. ago. Patient was given the SLUMS with a score of 8/30 obtained. This score is within the moderate dementia range of function. Patient is noted to realize she is confused and tries to correct her answers to simple questions. Patient's level of function would benefit from skilled ST services with focus on safety awareness and memory strategies for a safer return home. Speech Patient Assess Expression of Ideas/Wants: Frequently (2) Understanding Verbal Content: Usually Understands (3) Brief Interview-Mental Status: Yes Repetition of Three Words: Two (2) Temporal Orientation: Year: Correct (3) Temporal Orientation: Month: Accurate within 5 days(2) Temporal Orientation: Day: Incorrect or No Answer(0) Recall : Wear to say "Sock": No, could not recall (0) Recall : Color: No, could not recall (0) Recall : Bed: No, could not recall (0) Memory/Recall Ability: That he or she is in a hsp/hsp unit Speech Short Term Goals Short Term Goals Short Term Goals 1) Patient will complete memory tasks related to her daily needs with 75% or greater given minimal cues. 2) Patient will complete safety awareness tasks related to her daily needs with 75% or greater given minimal cues. Speech Prison Goals Medical Assembly Goals Patient will utilize memory and safety awareness strategies as trained in order to require decreased assist. Speech-Plan Patient/Family Goals Patient/Family Goals: Patient plans on returning to her home where she lives with her . Treatment Plan Speech Therapy Treatment Plan: Continue Plan of Care Treatment Duration: Dec 11, 2020 Frequency: 4 times per week (Patient will receive skilled ST services 4-5x per week) Estimated Hrs Per Day: .5 hour per day Rehab Potential: Good Barriers to Learning: Patient's moderate memory/cognitive deficits Pt/Family Agrees to Plan: Yes Safety Risks/Education Teaching Recipient: Patient Teaching Methods: Discussion Response to Teaching: Verbalize Understanding Education Topics Provided: Safety within her room, utilization of call light for wants/needs Time Speech Therapy Time In: 08:30 Speech Therapy Time Out: 09:00 Total Billed Time: 30 Billed Treatment Time 1, HOME [facility] Nov 30, 2020 09:33
--- NOTE | 2020-11-30 09:54 | Physical Therapy Daily Note ---
PT Daily Note-Current Subjective Pt sitting in recliner upon arrival. Pt agrees to PT and asks to use BR. Mental Status Patient Orientation: Person, Place Attachments: IV Pt is confused and needs VC & TC for tasks at times. Transfers SCALE: Activities may be completed with or without assistive devices. 8-Amqvxwgvjk-lhoesqv completes the activity by him/herself with no assistance from a helper. 5-Set-up or Clean-up Assistance-helper sets up or cleans up; patient completes activity. [place] assists only prior to or following the activity. 4-Supervision or Touching Assistance-helper provides verbal cues and/or touching/steadying and/or contact guard assistance as patient completes activity. Assistance may be provided throughout the activity or intermittently. 3-Partial/Moderate Assistance-helper does LESS THAN HALF the effort. [place] lifts, holds or supports trunk or limbs, but provides less than half the effort. 2-Substantial/Maximal Assistance-helper does MORE THAN HALF the effort. [place] lifts or holds trunk or limbs and provides more than half the effort. 4-Ttmhsopnn-sfpldo does ALL the effort. Patient does none of the effort to complete the activity. Or, the assistance of 2 or more helpers is required for the patient to complete the activity. If activity was not attempted, code reason: 7-Patient Refused. 9-Not Applicable-not attempted and the patient did not perform the activity before the current illness, exacerbation or injury. 10-Not Attempted due to Environmental Limitations-(lack of equipment, weather restraints, etc.). 88-Not Attempted due to Medical Conditions or Safety Concerns. Sit to Stand (QC): 4 Toilet Transfer (QC): 4 Weight Bearing Full Weight Bearing Full Weight Bearing Gait Training Does the Patient Walk?: Yes Distance: 100' Walk 10 feet (QC): 4 Walk 50 ft with 2 Turns(QC): 4 Gait Persons Needed: 1 Gait Assistive Device: FWW VC for sequencing of task. Wheelchair Training Does the Pt Use a Wheelchair?: No Exercises Seated Therapy Exercises: Ankle pumps, Long arc quads, Hip flexion, Glut set Seated Reps: 15 Treatments TF to standing and uses BR. Pt returns to recliner to rest and take morning meds. Pt reports dizziness so vitals monitored during tx. Pt completes Seated Ex. Pt takes short amb. in hallway before OT arrives. All needs met, call light in hand. Assessment Current Status: Fair Progress Pt reports dizziness when standing. BP is monitored (Seated- 169/77 & Pulse- 75, O2-97%; Standing- 153/67, Pulse- 88). PT Television Script Writer Goals Television Script Writer Goals PT Television Script Writer Goals Time Frame: Dec 19, 2020 Roll Left & Right (QC): 6 Sit to Lying (QC): 6 Lying-Sitting on Side/Bed(QC): 6 Sit to Stand (QC): 6 Chair/Bcx-iv-Nloqj Xfer(QC): 6 Toilet Transfer (QC): 6 Car Transfer (QC): 6 Does the Patient Walk: Yes Walk 10 feet (QC): 6 Walk 50ft with 2 Turns (QC): 6 Walk 150 ft (QC): 6 Walking 10ft on Uneven Surface: 6 1 Step (curb) (QC): 6 4 Steps (QC): 6 12 Steps (QC): 6 Picking up an Object (QC): 6 Does the Pt use WC or Scooter?: No Wheel 50 feet with 2 turns (QC: 9 Wheel 150 feet: 9 PT Plan Problem List Problem List: Activity Tolerance, Safety, Balance Treatment/Plan Treatment Plan: Continue Plan of Care Treatment Plan: Bed Mobility, Concurrent Therapy, Education, Functional Activity Miguel, Functional Strength, Group Therapy, Gait, Safety, Therapeutic Exercise, Transfers Treatment Duration: Dec 19, 2020 Frequency: At least 5 of 7 days/Wk (IRF) Estimated Hrs Per Day: 1.5 hours per day Patient and/or Family Agrees t: Yes Safety Risks/Education Patient Education: Gait Training, Transfer Techniques, Correct Positioning, Safety Issues Teaching Recipient: Patient Teaching Methods: Discussion Response to Teaching: Reinforcement Needed Time/GCodes Time In: 900 Time Out: 945 Total Billed Treatment Time: 45 Total Billed Treatment 1, FA x2 (25m) & EX (20m) HAYLEE ERYES PTA Nov 30, 2020 09:54
--- NOTE | 2020-11-30 10:43 | Occupational Therapy Eval ---
OT Evaluation-General/PLF Medical Diagnosis Admission Date Nov 28, 2020 at 09:30 Medical Diagnosis: CVA Onset Date: Nov 21, 2020 Therapy Diagnosis Therapy Diagnosis: Decreased ADL status Height/Weight Height (Feet): 5 Height (Inches): 6.50 Weight (Pounds): 160 Weight (Ounces): 1.0 Precautions Precautions/Isolations: Seizure, Fall Prevention, Standard Precautions Referral Physician: Dr. Sabiha Laboy DO Referral Reason: Activity Tolerance, Self Care, Evaluation/Treatment, Strengthening/ROM Medical History Pertinent Medical History: CVA Current History R cerebellar CVA with craniotomy and hematoma evacuation. EVD placement. Able to wash stitches. Admits November 28, from [facility]. Reviewed History: Yes Social History Home: Single Level Current Living Status: Spouse Entry Into Home: Stairs With Railing Steps Into Home: 4 Steps Inside Home: 4 ADL-Prior Level of Function SCALE: Activities may be completed with or without assistive devices. 2-Brpeuwpnqk-idalify completes the activity by him/herself with no assistance from a helper. 5-Set-up or Clean-up Assistance-helper sets up or cleans up; patient completes activity. [place] assists only prior to or following the activity. 4-Supervision or Touching Assistance-helper provides verbal cues and/or touching/steadying and/or contact guard assistance as patient completes activity. Assistance may be provided throughout the activity or intermittently. 3-Partial/Moderate Assistance-helper does LESS THAN HALF the effort. [place] lifts, holds or supports trunk or limbs, but provides less than half the effort. 2-Substantial/Maximal Assistance-helper does MORE THAN HALF the effort. [place] lifts or holds trunk or limbs and provides more than half the effort. 6-Nsvhhpsug-yepqgz does ALL the effort. Patient does none of the effort to complete the activity. Or, the assistance of 2 or more helpers is required for the patient to complete the activity. If activity was not attempted, code reason: 7-Patient Refused. 9-Not Applicable-not attempted and the patient did not perform the activity before the current illness, exacerbation or injury. 10-Not Attempted due to Environmental Limitations-(lack of equipment, weather restraints, etc.). 88-Not Attempted due to Medical Conditions or Safety Concerns. ADL PLOF Comments Expresses IND without AD. Unsure if she still has walker or not from knee surg toshia. Responsible for driving (both her and spouse drive), grocery shopping, cooking/ cleaning/ laundry and self care. Self Care: Independent Functional Cognition: Independent DME/Equipment: Tub/Shower DME/Equipment Comments none, unsure of walker. Occupation: retired Drive Self: Yes OT Current Status Subjective Pt seen from [id number], pt alert/ oriented, though forgetful intermittently. Pt agrees to tx post-PT session. Pt expresses dizziness in sit and in stance/ movement, nauseated and vomits during session. Nursing notified and sprite zero given. Pt's PT addresses BP due to dizziness with 169/77 in sit and 153/67 in stance (slight ortho hypotension). Mental Status/Objective Patient Orientation: Person, Place, Situation Current Glasses/Contacts: Yes Hearing Aids: No Dentures/Partials: No Hand Dominance: Right Upper Extremity ROM WFL BUE Upper Extremity Coordination WFL BUE Upper Extremity Sensation WFL BUE Upper Extremity Strength WFL BUE (4/5 bilaterally) Edema: none noted. ADL-Treatment Eating (QC): 6 Oral Hygiene (QC): 4 Shower/Bathe Self (QC): 4 Upper Body Dressing (QC): 5 Lower Body Dressing (QC): 4 On/Off Footwear (QC): 4 Toileting Hygiene (QC): 4 Other Treatments Educated on ARU and OT role. Pt expresses she understands why she is in rehab, expresses she is aware of slight memory issues and tells people to "Tell Isai," as he will remember. Pt expresses no issues with MMT, WFL seen. Pt states she is "always dizzy," in sit and in stance. Pt ambulates with CGA, slight retropulsion. Pt runs into door frame on R side, able to correct without cues. Sits with increased cues for problem solving on sc. Pt completes showering with good ability to reach all areas, however, becomes nauseous and vomits during shower. Pt requires increased time. Pt dresses in shower after RB, expresses water does not assist in N/V but sprite 0 does. Pt is given this. Pt places deodorant on 2x, forgetting first session. Stands at sink to complete oral care with SBA / CGA- decreased safety in stance, grabbing at sink intermittent due to slight LOB. Denies sitting. Returns to chair: Pt's vision assessed: able to scan WFL and track, decreased L eye convergence, c/o double vision intermittently though not consistent, decreased L side peripheral vision though scans L to R WFL and able to state items placed at 90* with good ability. No L side neglect noted during session. Education OT Patient Education: Correct positioning, Modified ADL techniques, Purpose of tx/functional activities, Rehab process, Safety issues, Transfer techniques Teaching Recipient: Patient Teaching Methods: Demonstration, Discussion Response to Teaching: Verbalize Understanding, Return Demonstration, Reinforcement Needed OT [place] Goals Senior Living Goals Time Frame: Dec 14, 2020 Eating (QC): 6 Oral Hygiene (QC): 6 Toileting Hygiene (QC): 6 Shower/Bathe Self (QC): 6 Upper Body Dressing (QC): 6 Lower Body Dressing (QC): 6 On/Off Footwear (QC): 6 Additional Goals: 1-Demonstrate ADL Tasks, 2-Verbalize Understanding, 3- ImproveStrength/Miguel 1=Demonstrate adherence to instructed precautions during ADL tasks. 2=Patient will verbalize/demonstrate understanding of assistive devices/modif ications for ADL. 3=Patient will improve strength/tolerance for activity to enable patient to perform ADL's. OT Education/Plan Problem List/Assessment Assessment: Decreased Activ Tolerance, Decreased Safety Aware, Dependent Transfers, Impaired Cognition, Impaired Funct Balance, Impaired I ADL's, Impaired Self-Care Skills Discharge Recommendations Plan/Recommendations: Continue POC Therapy Discharge Recommendati: Home & Family, Post Acute OT Equpiment Recommendations-D/C: Extended Bath Bench, Rails on Tub/Shower Treatment Plan/Plan of Care Treatment,Training & Education: Yes Patient would benefit from OT for education, treatment and training to promote independence in ADL's, mobility, safety and/or upper extremity function for AD L's. Plan of Care: ADL Retraining, Caregiver Training, Cognitive Retraining, Functional Mobility, Group Exercise/Act as Ind, UE Funct Exercise/Act, UE Neuromus Re-Ed/Coord, Visual/Perceptual Retrain, W/C Management Training Treatment Duration: Dec 14, 2020 Frequency: At least 5 of 7 days/Wk (IRF) Estimated Hrs Per Day: .25 hour per day Agreement: Yes Rehab Potential: Fair Time/GCodes Start Time: 09:45 Stop Time: 10:45 Total Time Billed (hr/min): 60 Billed Treatment Time 1, EVM, ADL 3 (60) MARCIO OCONENLL OTR Nov 30, 2020 10:43
--- NOTE | 2020-11-30 12:26 | Individualized Plan of Care ---
Individualized Plan of Care Rehab Nursing IPOC Order Admission Date Nov 28, 2020 at 09:30 Current Orders Orders Admission Order(Inpt,Obs,Sdc) (11/27/20 16:15) Vital Signs: Per Unit Policy ( ,,00 (11/27/20 16:15) Solomon Troncoso (11/27/20 16:15) Sequential Compression Device .admit (11/27/20 16:15) Green Plumber-Inpt Rehab Con (11/27/20 16:15) Rehab Nursing Orders-Ipoc (11/27/20 16:15) Physical Therapy Rehab Orders (11/27/20 16:15) Occupational Therapy Rehab Ord (11/27/20 16:15) Speech Therapy Rehab Orders (11/27/20 16:15) Cbc With Automated Diff (11/29/20 06:00) Comprehensive Metabolic Panel (11/29/20 06:00) Precautions (Aru) (11/27/20 16:15) Seizure Precautions (11/27/20 16:15) Rehab-Intensity Of Therapy (11/27/20 16:15) Initiate Admission Nursing Pro .admission (11/27/20 16:15) Acetaminophen Tablet/Caplet (Tylenol T (11/27/20 16:15) Alprazolam Tablet (Xanax Tablet) (11/27/20 16:15) Calcium Carbonate Chew Tablet (Antacid C (11/27/20 16:15) Diphenhydramine Tablet (Benadryl Tablet) (11/27/20 16:15) Docusate Sodium Capsule (Colace Capsule) (11/27/20 21:00) Docusate Sodium Capsule (Colace Capsule) (11/27/20 16:15) Bisacodyl Suppository (Dulcolax Supposit (11/27/20 16:15) Lactulose Oral Solution (Enulose Oral So (11/27/20 16:15) Na Phos/Na Biphos Enema (Fleet Enema Jay (11/27/20 16:15) Guaifenesin/Codeine Syrup (Robitussin Ac (11/27/20 16:15) Loperamide Tablet (Imodium Tablet) (11/27/20 16:15) Melatonin Tablet (Melatonin Tablet) (11/27/20 16:15) Polyethylene Glycol Powder Pkt (Miralax (11/27/20 21:00) Ondansetron Oral Dissolve Tab (Zofran (11/27/20 16:15) Senna S Tablet (Senokot S Tablet) (11/27/20 21:00) Initiate Admission Nursing Pro .admission (11/27/20 16:15) Acetaminophen/Codeine Tablet (Tylenol W/ (11/27/20 16:15) Admission Arrival Bed Request (11/28/20 09:37) Acetaminophen Tablet (Tylenol Tablet) (11/29/20 09:00) Aspirin Enteric Coated Tablet (Ecotrin T (11/29/20 09:00) Carvedilol Tablet (Coreg Tablet) (11/28/20 21:00) Docusate Sodium Capsule (Colace Capsule) (11/28/20 21:00) Lisinopril Tablet (Zestril Tablet) (11/29/20 09:00) Melatonin Tablet (Melatonin Tablet) (11/28/20 21:00) Metformin Tablet (Glucophage Tablet) (11/28/20 12:00) Senna S Tablet (Senokot S Tablet) (11/28/20 21:00) Calcium Carbonate W/Vitamin D3 (Calcarb (11/28/20 21:00) Insulin Determir (Per Unit) (Levemir (Pe (11/29/20 09:00) Magnesium Hydroxide Oral Susp (Mom Oral (11/29/20 09:00) (Nf) Magnesium Oxide (Magnesium) (11/28/20 21:00) Metformin Tablet (Glucophage Tablet) (11/28/20 18:00) Therapeutic Multivitamin Tab (Vitamins, (11/29/20 07:00) Atorvastatin Tablet (Lipitor Tablet) (11/28/20 21:00) Meclizine Tablet (Antivert Tablet) (11/28/20 13:00) General/Regular (11/28/20 Lunch) Follow-Up Appointment (11/28/20 11:17) Nursing Communication (Order) (11/28/20 11:17) Patient Visit (11/28/20 ) Pt Eval Low Complexity (11/28/20 ) Bladder Scan-Straight Cath-Pos (11/28/20 12:34) Accucheck Achs ACHS (11/28/20 12:35) Insulin Aspart (Novolog) (Novolog (Charg (11/28/20 16:00) Magnesium Oxide Tablet (Mag Ox Tablet) (11/29/20 09:00) Urinalysis (11/29/20 17:21) Straight Cath (Urinary) (11/29/20 12:36) Bethanechol Tablet (Urecholine Tablet) (11/29/20 16:00) Urine Culture (11/29/20 17:21) Nitrofurantoin Capsule,Macro (Macrobid C (11/29/20 21:00) Nitrofurantoin Capsule (Macrodantin Caps (11/29/20 20:47) Patient Visit (11/30/20 ) Functional Activities, Ea 15 (11/30/20 ) Exercise Therap, Ea 15 Min (11/30/20 ) Patient Visit (11/30/20 ) Speech Sound Lang Comp (11/30/20 ) Treat. Speech/Lang/Voice (11/30/20 ) Patient Visit (11/30/20 ) Therapeutic, Group (11/30/20 ) Rehab Nursing Orders: Ongoing Assess. of Cognitive Status, Ongoing Assess. of Function Status, Bladder Management, Bladder Scan, Bladder Training, Bowel Management, Bowel Training, Disease Management & Educaiton, DVT Prophylaxis, Fall Prevention, Fluid/Electrolyte/Nutrition Mgmt, Infection Prevention, Medication Management & Education, Management of Risks & Complications, Management of Skin Intergrity, Nutrition Management, Pain Management, Patient/Family Support, Safety Management, Swallow Precautions Intensity of Therapy to be met Patient to be seen: Min.3h per day/5 of 7d PT IPOC Problem List: Activity Tolerance, Safety, Balance Treatment Plan: Continue Plan of Care Bed Mobility, Concurrent Therapy, Education, Functional Activity Miguel, Functional Strength, Group Therapy, Gait, Safety, Therapeutic Exercise, Transfers Treatment Duration: Dec 19, 2020 Frequency: At least 5 of 7 days/Wk (IRF) Estimated Hrs Per Day: 1.5 hours per day OT IPOC Problems: Decreased Activ Tolerance, Decreased Safety Aware, Dependent Transfers, Impaired Cognition, Impaired Funct Balance, Impaired I ADL's, Impaired Self-Care Skills OT Treatment, Training and Edu: Yes Plan of Care: ADL Retraining, Caregiver Training, Cognitive Retraining, Functional Mobility, Group Exercise/Act as Ind, UE Funct Exercise/Act, UE Logan romus Re-Ed/Coord, Visual/Perceptual Retrain, W/C Management Training Treatment Duration: Dec 14, 2020 Frequency: At least 5 of 7 days/Wk (IRF) Estimated Hrs Per Day: .[address] IPOC Speech Therapy Treatment Plan: Continue Plan of Care Treatment Duration: Dec 11, 2020 Frequency: 4 times per week (Patient will receive skilled ST services 4-5x per week) Estimated Hrs Per Day: .5 hour per day Green Plumber/Case Mgmt Green Plumber/Case Managemen: Discharge Planning Dietitian/Supervisor Poultry Farm Dietitian/Supervisor [employer]oultry [employer] to monitor nutritional status and make changes and/or recommendations as needed and work with speech pathology on dietary upgrades as the occur. Physician IPOC Medical Issues being managed closely and that require the 24 hour availability of a physician: Recent CVA with h/o CVA 6 yrs ago will be at high risk for decompensation especially given the fact of orthostasis and fall risk due to CVA. Medical Issues: Bowel/Bladder Function, DVT Prophylaxis, Falls Precautions, Fluid/Electrolyte/Nutrition Balance, Infection Protection, Pain Management Brief Synthesis of Preadmission Screen, Post-Admission Evaluation, and Therapy Evaluations: PT OT will focus on regaining function and ambulation in order to return to independent living while focusing on fall risk due to orthostasis and chronic on-going dizziness since CVA Medical Prognosis: Fair Anticipated Length of Stay: 14 days ELSY ORNELAS DO Nov 30, 2020 12:26
--- NOTE | 2020-11-30 14:37 | Therapy Group Daily Note ---
Therapy Daily Group Note Patient Education Topic Other List Below (Transfers, Hospital Bed Education & Mobility) Exercises LE Seated Exercise, UE Exercise Session Ratio (pt:therapist): 4:1 Goal of Session: UE/LE Strengthing, Use of Adaptive Equipment Goal Met for this Session: No Pt Benefit of Group: Contributions to Others, F/U Use of Strategies @Home, I ncreased Functional Safety, Increased Functional Strength, Improved Cognition, Recognition of Peers, Socialization Other/Notes Pt ambulated using FWW to [facility] for OT/PT group. Group consisted of introductions (name, place born, favorite restaurant), socialization, B LE/UE seated exercises, transfers, education on hospital bed and mobility. Pt needed VC & TC at times for both Seated LE/UE Exercises as well as Introductions for what to say. Pt needed woken up as pt continued to nod off during Group. After session, pt sitting in recliner with call light/phone in reach. All needs met in room. Start Time: 13:00 Stop Time: 14:00 Total Billed Treatment Time: 60 Total Billed Treatment 1, GRP (60m) HAYLEE REYES TABLE AND DESK FINISHER Nov 30, 2020 14:37
[2020-11-30] MEDS: ONDANSETRON 4 MG (ZOFRAN) ORAL DISSOLVE TAB PO PRN ×2 (16:41→22:58)
[2020-11-30 20:00] VITALS: BP 140/63
[2020-12-01] MEDS: ONDANSETRON 4 MG (ZOFRAN) ORAL DISSOLVE TAB PO PRN ×2 (05:46→12:26)
[2020-12-01] MEDS: inSUlin ASPART (NovoLOG) 1 UNIT/0.01 ML (CHARGE PER UNIT) SC SCH ×4 (06:00→20:46)
[2020-12-01] MEDS: MULTIVIT W/MINERALS TAB (THERAGRAN M) PO SCH (06:33)
[2020-12-01] MEDS: BETHANECHOL 10 MG (URECHOLINE) TAB PO SCH ×2 (06:33→11:17)
[2020-12-01 07:45] VITALS: BP 152/62
--- NOTE | 2020-12-01 08:06 | Speech Therapy Daily Note ---
Speech Daily Progress Note Subjective Date Seen by Provider: Dec 01, 2020 Time Seen by Provider: 00:30 Patient was resting in bed after getting ill. She states when her BP goes up she typically gets sick like this. Objective Patient completed a series of questions related to her daily needs with 85% given minimal cues. The patient is much more lucid this am. Assessment Assessment Current Status: Good Progress Treatment Plan Continue Plan of Care Speech Short Term Goals Short Term Goals Short Term Goals 1) Patient will complete memory tasks related to her daily needs with 75% or greater given minimal cues. 2) Patient will complete safety awareness tasks related to her daily needs with 75% or greater given minimal cues. Speech Director Of Global Marketing Goals Assisted Goals Patient will utilize memory and safety awareness strategies as trained in order to require decreased assist. Speech-Plan Patient/Family Goals Patient/Family Goals: Patient plans on returning to her home where she lives with her . Treatment Plan Speech Therapy Treatment Plan: Continue Plan of Care Treatment Duration: Dec 11, 2020 Frequency: 4 times per week (Patient will receive skilled ST services 4-5x per week) Estimated Hrs Per Day: .5 hour per day Rehab Potential: Fair Barriers to Learning: Patient's recent CVA with brain surgery, times of confusion Pt/Family Agrees to Plan: Yes Safety Risks/Education Teaching Recipient: Patient Teaching Methods: Demonstration, Discussion Response to Teaching: Verbalize Understanding, Return Demonstration Education Topics Provided: Continued safety within her room, communication Time Speech Therapy Time In: 08:00 Speech Therapy Time Out: 08:30 Total Billed Time: 30 Billed Treatment Time 1, YAMILA Bellamy Dec 01, 2020 08:06
[2020-12-01] MEDS: lisINopril 40 MG (PRINIVIL) TABLET PO SCH (08:27)
[2020-12-01] MEDS: MAGNESIUM OXIDE (MAG-OX)400 MG TAB PO SCH (08:27)
[2020-12-01] MEDS: SENNA W/DOCUSATE (SENOKOT S) TABLET PO SCH ×2 (08:27→21:27)
[2020-12-01] MEDS: ASPIRIN E.C. 81 MG (ECOTRIN) TAB PO SCH (08:27)
[2020-12-01] MEDS: MECLIZINE 25 MG (ANTIVERT) TAB PO SCH ×3 (08:27→21:27)
[2020-12-01] MEDS: NITROFURANTOIN 100 MG (MACROBID) CAPSULE PO SCH (08:27)
[2020-12-01] MEDS: CALCIUM CARB + VIT D 600 MG (CALCARB + D) TAB PO SCH ×2 (08:27→21:27)
[2020-12-01] MEDS: DOCUSATE SODIUM 100 MG (COLACE) CAP PO SCH ×2 (08:27→21:27)
[2020-12-01] MEDS: ACETAMINOPHEN 500 MG TAB (TYLENOL) PO SCH (08:27)
[2020-12-01] MEDS: metFORMIN 500 MG (GLUCOPHAGE) TAB PO SCH ×3 (08:27→18:11)
[2020-12-01] MEDS: MILK OF MAGNESIA 400 MG/5 ML 30 ML UDC PO SCH (08:28)
[2020-12-01] MEDS: polyethylene glycoL POWDER 17 GM (MIRALAX) PACK PO SCH ×2 (08:28→19:39)
--- NOTE | 2020-12-01 09:04 | PM&R Progress Note ---
Subjective HPI/CC On Admission Date Seen by Provider: Dec 01, 2020 Time Seen by Provider: 12:45 Virgen Bermeo is a 75 year old female with PMH T2DM, HLD, who was admitted to with cerebrovascular accident and intracranial hemorhage. She was found to have a large right cerebellar hemorrhage. She was admitted to the ICU. She underwent craniotomy with hematoma evacuation and had an EVD placed. She was stabilized but remained debilitated. She was deemed to require ongoing acute cares along with PT/OT/ST. She was transferred from to the inpatient rehabilitation unit on 11/28/2020. Her course was complicated by hypertension and she was started on medication. She also had issues with orthostatic hypotension. Upon my examination, she had arrived in her room and was ordering food. She reports having some double vision. She also has some uncoordination and balance issues. She is not having any focal weakness. She denies headaches. She is not having fevers or chills. She denies chest pain and palpitations. She denies shortness of breath and cough. She denies abdominal pain. She had issues with nausea and vomiting while driving here due to motion sickness. She denies diarrhea. She denies dysuria. She previously had been on aspirin and a cholesterol medicine daily, as well as 18 units of long acting insulin daily. Subjective/Events-last exam 12/01/2020: This visit is via video chat due to Covid related restriction for this provider Patient having some issues today Nausea and vomiting noted Severe vertigo We will shift to Rocephin IV and give gentle IV fluids Scopolamine patch was replaced Check meds and labs Updated patient on the plan The vertigo and severe dizziness from the stroke because the reluctance of admission to the inpatient rehab unit so we will monitor closely Neuro was not very optimistic the symptoms would resolve quickly or at all and may very well require wheelchair bound status Urine culture showed Morganella Davidgagni 11/30/2020: This visit is via video chat due to Covid related restriction for this provider Patient doing well No major concerns Macrobid empirically started, UCx pending Updated patient on the UTI treatment wanted Melatonin Xanax and Codeine DC so I did that In/Out cath once per 24 hours Urecholine started BM 11/2911/29/2020: This visit is via video chat due to Covid related restriction for this provider Reviewed history and physical information Met with nurse and discussed all meds and issues Patient feels pretty good No major concerns per patient Bowels are moving sluggishly will maintain laxatives No impulsiveness Balance is definitely deficient Had to straight cath her x1 due to urinary retention Low-grade fever 99.3 Urine is very cloudy We will obtain urine and urine culture from cath specimen and place on antibiotic empirically Monitoring closely Review of Systems General: Fatigue, Malaise Neurological: Weakness, Incoordination Focused Exam Lactate Level 12/01/20 13:30: Lactic Acid Level 0.94 Objective Exam Vital Signs Vital Signs Date Time Temp Pulse Resp B/P (MAP) Pulse Ox O2 Delivery O2 Flow Rate FiO2 12/01/20 21:36 Room Air 12/01/20 20:11 36.9 88 18 177/83 (114) 95 Capillary Refill : General Appearance: No Apparent Distress, WD/WN, Chronically ill HEENT: PERRL/EOMI, Normal ENT Inspection, Pharynx Normal; No Photophobia Neck: Normal Inspection, Non Tender, Supple Respiratory: Lungs Clear, Normal Breath Sounds, No Respiratory Distress Cardiovascular: Regular Rate, Rhythm, No Edema, No Murmur Gastrointestinal: Normal Bowel Sounds, Non Tender, Soft Extremity: Normal Inspection, Non Tender, No Pedal Edema Neurologic/Psychiatric: Alert, Oriented x3, Normal Mood/Affect, residential nurse II-XII Norm as Tested, Motor Weakness (generalized), Other (dysmetria) Skin: Normal Color, Warm/Dry, Other (right parietal EVD incision and occipital craniotomy incision well appearing) Lymphatic: No Adenopathy Results/Procedures Lab Laboratory Tests 12/01/20 13:30 Patient resulted labs reviewed. Imaging: Reviewed Imaging Report FIM Transfers Therapy Code Descriptions/Definitions Functional [place] Measure: 0=Not Assessed/NA 4=Minimal Assistance 1=Total Assistance 5=Supervision or Setup 2=Maximal Assistance 6=Modified [place] 3=Moderate Assistance 7=Complete IndependenceSCALE: Activities may be completed with or without assistive devices. 6-Fhfstxhmlw-jlantbl completes the activity by him/herself with no assistance from a helper. 5-Set-up or Clean-up Assistance-helper sets up or cleans up; patient completes activity. [place] assists only prior to or following the activity. 4-Supervision or Touching Assistance-helper provides verbal cues and/or touching/steadying and/or contact guard assistance as patient completes activity. Assistance may be provided throughout the activity or intermittently. 3-Partial/Moderate Assistance-helper does LESS THAN HALF the effort. [place] lifts, holds or supports trunk or limbs, but provides less than half the effort. 2-Substantial/Maximal Assistance-helper does MORE THAN HALF the effort. [place] lifts or holds trunk or limbs and provides more than half the effort. 1-Mlgkszuep-yxpbns does ALL the effort. Patient does none of the effort to complete the activity. Or, the assistance of 2 or more helpers is required for the patient to complete the activity. If activity was not attempted, code reason: 7-Patient Refused. 9-Not Applicable-not attempted and the patient did not perform the activity before the current illness, exacerbation or injury. 10-Not Attempted due to Environmental Limitations-(lack of equipment, weather restraints, etc.). 88-Not Attempted due to Medical Conditions or Safety Concerns. Roll Left to Right (QC): 6 Sit to Lying (QC): 6 Sit to Stand (QC): 4 Chair/Lrv-rc-Mlkdx Xfer(QC): 3 Car Transfer (QC): 3 Gait Training Does the Patient Walk?: Yes Distance: 100' Walk 10 feet (QC): 4 Walk 50 ft with 2 Turns(QC): 4 Walk 150 ft (QC): 88 Walking 10ft/uneven surface-QC: 4 Gait Persons Needed: 1 Gait Assistive Device: FWW Wheelchair Training Does the Pt Use a Wheelchair?: No Wheel 50 ft with 2 turns (QC): 9 Wheel 150 ft (QC): 9 Stair Training #of Steps: 1 1 Step (curb) (QC): 3 4 Steps (QC): 88 12 Steps (QC): 88 Balance Picking up an Object (QC): 88 ADL-Treatment Eating (QC): 6 Oral Hygiene (QC): 4 Shower/Bathe Self (QC): 4 Upper Body Dressing (QC): 5 Lower Body Dressing (QC): 4 On/Off Footwear (QC): 4 Toileting Hygiene (QC): 4 Assessment/Plan Assessment and Plan Assess & Plan/Chief Complaint Assessment: (1) CVA (cerebral vascular accident) (2) Intracranial hemorrhage (3) Status post craniotomy (4) Status post evacuation of hematoma (5) Dysmetria (6) Diplopia (7) HTN (hypertension) (8) Orthostatic hypotension (9) Debility (10) HLD (hyperlipidemia) (11) T2DM (type 2 diabetes mellitus) (12) Acute UTI placed on antibiotic empirically on 11/29/2020 but DC'd Macrobid due to resistance of Morganella Davidgagni placed on Omnicef then shifted to Rocephin due to nausea and vomiting 12/01/2020 (13) acute urinary retention requiring caths (14) nausea and vomiting episode requiring IV fluids 12/01/2020 Plan: Intensive rehab protocol Empiric antibiotic treatment Monitor sugar Add Urecholine 11/30/20: Urecholine maintained In/Out caths prn Abx empirically DC meds at request 12/01/2020: IV fluids IV antibiotics DC Macrobid due to resistance on urine culture Very complex case Scopolamine patch (1) CVA (cerebral vascular accident) Status: Acute (2) Intracranial hemorrhage Status: Acute (3) Status post craniotomy Status: Acute (4) Status post evacuation of hematoma Status: Acute (5) Dysmetria Status: Acute (6) Diplopia Status: Acute (7) HTN (hypertension) Status: Acute Qualifiers: Hypertension type: essential hypertension Qualified Codes: I10 - Essential (primary) hypertension (8) Orthostatic hypotension Status: Acute (9) Debility (10) HLD (hyperlipidemia) Status: Chronic (11) T2DM (type 2 diabetes mellitus) Status: Chronic Qualifiers: Diabetes mellitus termite treater insulin use: with fpc use ELSY ORNELAS DO Dec 01, 2020 09:04
--- NOTE | 2020-12-01 10:22 | Physical Therapy Daily Note ---
PT Daily Note-Current Subjective Pt agreeable, denies pain. Pt became nauseated during therapy. Pt vomited 2x after positional change. Pt agreeable to ther ex in bed this morning. Able to complete therapy in supine. Nurse was notified. Mental Status Patient Orientation: Person, Place, Situation Transfers SCALE: Activities may be completed with or without assistive devices. 1-Zcutdjiyan-dqisatq completes the activity by him/herself with no assistance from a helper. 5-Set-up or Clean-up Assistance-helper sets up or cleans up; patient completes activity. [place] assists only prior to or following the activity. 4-Supervision or Touching Assistance-helper provides verbal cues and/or touching/steadying and/or contact guard assistance as patient completes activity. Assistance may be provided throughout the activity or intermittently. 3-Partial/Moderate Assistance-helper does LESS THAN HALF the effort. [place] lifts, holds or supports trunk or limbs, but provides less than half the effort. 2-Substantial/Maximal Assistance-helper does MORE THAN HALF the effort. [place] lifts or holds trunk or limbs and provides more than half the effort. 7-Wbjwpziyz-yusshv does ALL the effort. Patient does none of the effort to complete the activity. Or, the assistance of 2 or more helpers is required for the patient to complete the activity. If activity was not attempted, code reason: 7-Patient Refused. 9-Not Applicable-not attempted and the patient did not perform the activity before the current illness, exacerbation or injury. 10-Not Attempted due to Environmental Limitations-(lack of equipment, weather restraints, etc.). 88-Not Attempted due to Medical Conditions or Safety Concerns. Pt transfered to EOB mod (I), became nauseated and layed back down. Weight Bearing Full Weight Bearing Full Weight Bearing Exercises Supine Ex: Ankle pumps, Pelvic tilt, Quad Set, Glut sets, Lower trunk rotation, Heel Slides, Short Arc Quads, Straight leg raise, Hip abd/add Supine Reps: 20 Treatments Pt performed resisted PF, S/L clamshell and hip abd, TA contraction, Bent knee fall out, hooklying july all x 20 reps. Assessment Current Status: Good Progress, Fair Progress Limited participation due to nausea. Pt able to complete therapy in supine position. Pt resting with call light and all needs met. PT Usp Goals Usp Goals PT Carder Blankets Goals Time Frame: Dec 19, 2020 Roll Left & Right (QC): 6 Sit to Lying (QC): 6 Lying-Sitting on Side/Bed(QC): 6 Sit to Stand (QC): 6 Chair/Flt-wq-Rvmbh Xfer(QC): 6 Toilet Transfer (QC): 6 Car Transfer (QC): 6 Does the Patient Walk: Yes Walk 10 feet (QC): 6 Walk 50ft with 2 Turns (QC): 6 Walk 150 ft (QC): 6 Walking 10ft on Uneven Surface: 6 1 Step (curb) (QC): 6 4 Steps (QC): 6 12 Steps (QC): 6 Picking up an Object (QC): 6 Does the Pt use WC or Scooter?: No Wheel 50 feet with 2 turns (QC: 9 Wheel 150 feet: 9 PT Plan Treatment/Plan Treatment Plan: Continue Plan of Care Treatment Plan: Bed Mobility, Concurrent Therapy, Education, Functional Activity Miguel, Functional Strength, Group Therapy, Gait, Safety, Therapeutic Exercise, Transfers Treatment Duration: Dec 19, 2020 Frequency: At least 5 of 7 days/Wk (IRF) Estimated Hrs Per Day: 1.5 hours per day Patient and/or Family Agrees t: Yes Time/GCodes Time In: 845 Time Out: 945 Total Billed Treatment Time: 60 Total Billed Treatment 1, ther ex 60' KATI REED CPTA Dec 01, 2020 10:22
[2020-12-01] MEDS ORDERED: CEFDINIR 300 MG (OMNICEF) CAP PO SCH (11:00)
[2020-12-01] MEDS ORDERED: SCOPOLAMINE 1.5 MG (TRANSDERM-SCOP) PATCH TD NR (13:00)
--- NOTE | 2020-12-01 13:12 | Occupational Ther Daily Note ---
OT Current Status-Daily Note Subjective Pt. states that she is very nauseated. She has already vomited twice this a.m. Nursing aware and will speak with physician. Appearance Pt. in bed. Pt. has basin next to her. Does agree to UE exercises at bed level only. Mental Status/Objective Patient Orientation: Person ADL-Treatment Therapy Code Descriptions/Definitions Functional [place] Measure: 0=Not Assessed/NA 4=Minimal Assistance 1=Total Assistance 5=Supervision or Setup 2=Maximal Assistance 6=Modified [place] 3=Moderate Assistance 7=Complete IndependenceSCALE: Activities may be completed with or without assistive devices. 5-Jcmsmpvnln-mlrdmqx completes the activity by him/herself with no assistance from a helper. 5-Set-up or Clean-up Assistance-helper sets up or cleans up; patient completes activity. [place] assists only prior to or following the activity. 4-Supervision or Touching Assistance-helper provides verbal cues and/or touching/steadying and/or contact guard assistance as patient completes activity. Assistance may be provided throughout the activity or intermittently. 3-Partial/Moderate Assistance-helper does LESS THAN HALF the effort. [place] lifts, holds or supports trunk or limbs, but provides less than half the effort. 2-Substantial/Maximal Assistance-helper does MORE THAN HALF the effort. [place] lifts or holds trunk or limbs and provides more than half the effort. 6-Ugicsorfo-isbvrk does ALL the effort. Patient does none of the effort to complete the activity. Or, the assistance of 2 or more helpers is required for the patient to complete the activity. If activity was not attempted, code reason: 7-Patient Refused. 9-Not Applicable-not attempted and the patient did not perform the activity before the current illness, exacerbation or injury. 10-Not Attempted due to Environmental Limitations-(lack of equipment, weather restraints, etc.). 88-Not Attempted due to Medical Conditions or Safety Concerns. Toileting Hygiene (QC): 4 (CGA seated on toilet.) Toilet Transfer (QC): 3 (Min assist for balance.) Other Treatment Pt. completed 4 bilateral UE exercises with pink therapy sponge, and then red theraband, x 20 reps, in all planes for increased UE strengthening. Pt. encouraged to take her time, keeping head straight. Pt. verbalizes that when she turns her head to the right, she becomes very nauseated. Pt. does indicate that she needs to use the bathroom. Transfers supine-sit with min assist. Stands with min assist, and then ambulates with walker slowly into bathroom with min assist for balance. After toileting, pt washes hands and then transfers back to bed. Pt. immediately requests vomit basin as she is becoming ill again. Nursing aware and all needs are met. Education OT Patient Education: Correct positioning, Modified ADL techniques, Progress toward Goal/Update tx plan, Purpose of tx/functional activities, Reviewed precautions, Rehab process, Transfer techniques Teaching Recipient: Patient Teaching Methods: Demonstration, Discussion Response to Teaching: Verbalize Understanding, Return Demonstration OT Electroplating Technician Goals [facility] Goals Time Frame: Dec 14, 2020 Eating (QC): 6 Oral Hygiene (QC): 6 Toileting Hygiene (QC): 6 Shower/Bathe Self (QC): 6 Upper Body Dressing (QC): 6 Lower Body Dressing (QC): 6 On/Off Footwear (QC): 6 Additional Goals: 1-Demonstrate ADL Tasks, 2-Verbalize Understanding, 3- ImproveStrength/Miguel 1=Demonstrate adherence to instructed precautions during ADL tasks. 2=Patient will verbalize/demonstrate understanding of assistive devices/modifications for ADL. 3=Patient will improve strength/tolerance for activity to enable patient to perform ADL's. OT Education/Plan Problem List/Assessment Assessment: Decreased Activ Tolerance, Dependent Transfers, Impaired Funct Balance, Impaired I ADL's, Impaired Self-Care Skills Discharge Recommendations Plan/Recommendations: Continue POC Therapy Discharge Recommendati: Post Acute OT Treatment Plan/Plan of Care Treatment,Training & Education: Yes Patient would benefit from OT for education, treatment and training to promote independence in ADL's, mobility, safety and/or upper extremity function for ADL's. Plan of Care: ADL Retraining, Caregiver Training, Cognitive Retraining, Functional Mobility, Group Exercise/Act as Ind, UE Funct Exercise/Act, UE Neuromus Re-Ed/Coord, Visual/Perceptual Retrain, W/C Management Training Treatment Duration: Dec 14, 2020 Frequency: At least 5 of 7 days/Wk (IRF) Estimated Hrs Per Day: .25 hour per day Agreement: Yes Rehab Potential: Fair Time/GCodes Start Time: 10:15 Stop Time: 10:45 Total Time Billed (hr/min): 30 Billed Treatment Time 1, Ex x 15minutes, ADL x 15minutes JASMINE PONCE OT Dec 01, 2020 13:12
[2020-12-01] MEDS: NS IV 1000 ML 1,000 ML IV SCH (13:23)
[2020-12-01 13:43] LABS: BASOPHILS # (AUTO) 0.1 10^3/uL (0.0-0.1); BASOPHILS % (AUTO) 1 % (0-10); EOSINOPHILS # (AUTO) 0.2 10^3/uL (0.0-0.3); EOSINOPHILS % (AUTO) 2 % (0-10); HEMATOCRIT 39 % (35-52); HEMOGLOBIN 12.7 g/dL (11.5-16.0); LYMPHOCYTES # (AUTO) 1.8 10^3/uL (1.0-4.0); LYMPHOCYTES % (AUTO) 20 % (12-44); MEAN CORPUSCULAR HEMOGLOBIN 29 pg (25-34); MEAN CORPUSCULAR HGB CONC 32 g/dL (32-36); MEAN CORPUSCULAR VOLUME 90 fL (80-99); MEAN PLATELET VOLUME 9.5 fL (9.0-12.2); MONOCYTES # (AUTO) 0.5 10^3/uL (0.0-1.0); MONOCYTES % (AUTO) 6 % (0-12); NEUTROPHILS # (AUTO) 6.6 10^3/uL (1.8-7.8); NEUTROPHILS % (AUTO) 71 % (42-75); PLATELET COUNT 358 10^3/uL (130-400); WHITE BLOOD COUNT 9.2 10^3/uL (4.3-11.0)
[2020-12-01 13:55] LABS: ALBUMIN 3.7 GM/DL (3.2-4.5); CHLORIDE 93 MMOL/L (98-107); POTASSIUM 4.1 MMOL/L (3.6-5.0); SODIUM 137 MMOL/L (135-145)
[2020-12-01 13:56] LABS: CALCIUM 9.9 MG/DL (8.5-10.1)
[2020-12-01 13:57] LABS: GLUCOSE 135 MG/DL (70-105)
[2020-12-01 13:58] LABS: TOTAL PROTEIN 6.6 GM/DL (6.4-8.2)
[2020-12-01 13:59] LABS: BILIRUBIN,TOTAL 0.4 MG/DL (0.1-1.0); CARBON DIOXIDE 31 MMOL/L (21-32)
[2020-12-01 14:01] LABS: ALKALINE PHOSPHATASE 66 U/L (40-136); CREATININE SERUM 0.74 MG/DL (0.60-1.30); GFR ESTIMATED > 60
[2020-12-01 14:02] LABS: BUN/CREATININE RATIO 14
[2020-12-01] MEDS: ONDANSETRON 4 MG/2 ML (SDV) Z0FRAN IVP PRN (14:02)
[2020-12-01] MEDS: cefTRIAXone 1,000 MG in WATER (STERILE) FOR INJECTION 10 ML IV SCH (14:03)
[2020-12-01 14:04] LABS: ALANINE AMINOTRANSFERASE 22 U/L (0-55)
--- NOTE | 2020-12-01 14:31 | Physical Therapy Daily Note ---
PT Daily Note-Current Subjective Pt denies pain and nausea upon arrival. Pt has not had Meclizine yet as she was vomiting. Opted to perform ther ex in bed only. No c/o during ther ex. At end of treatment pt requested BR privileges. Once pt returned to bed pt became nauseated and vomited. Nurse present and aware. Mental Status Patient Orientation: Person, Place Attachments: IV Transfers SCALE: Activities may be completed with or without assistive devices. 0-Haiezwncxn-tpgaecb completes the activity by him/herself with no assistance from a helper. 5-Set-up or Clean-up Assistance-helper sets up or cleans up; patient completes activity. [place] assists only prior to or following the activity. 4-Supervision or Touching Assistance-helper provides verbal cues and/or touching/steadying and/or contact guard assistance as patient completes activity. Assistance may be provided throughout the activity or intermittently. 3-Partial/Moderate Assistance-helper does LESS THAN HALF the effort. [place] lifts, holds or supports trunk or limbs, but provides less than half the effort. 2-Substantial/Maximal Assistance-helper does MORE THAN HALF the effort. [place] lifts or holds trunk or limbs and provides more than half the effort. 5-Xmrbvmeij-gsufny does ALL the effort. Patient does none of the effort to complete the activity. Or, the assistance of 2 or more helpers is required for the patient to complete the activity. If activity was not attempted, code reason: 7-Patient Refused. 9-Not Applicable-not attempted and the patient did not perform the activity before the current illness, exacerbation or injury. 10-Not Attempted due to Environmental Limitations-(lack of equipment, weather restraints, etc.). 88-Not Attempted due to Medical Conditions or Safety Concerns. Min A -Mod A to steady during transfers and ambulation Weight Bearing Full Weight Bearing Full Weight Bearing Gait Training Gait Assistive Device: FWW Pt amb with FWW 2 x 15ft, min A to steady pt Exercises Supine Ex: Ankle pumps, Quad Set, Heel Slides, Short Arc Quads, Straight leg raise, Hip abd/add Supine Reps: 20 Assessment Current Status: Poor Progress Poor tolerance to upright activity. Pt limited by nausea. Pt back to bed with call light and all needs met. Nurse present. PT Branch Account Executive Goals Branch Account Executive Goals PT Branch Account Executive Goals Time Frame: Dec 19, 2020 Roll Left & Right (QC): 6 Sit to Lying (QC): 6 Lying-Sitting on Side/Bed(QC): 6 Sit to Stand (QC): 6 Chair/Seb-mx-[place] Xfer(QC): 6 Toilet Transfer (QC): 6 Car Transfer (QC): 6 Does the Patient Walk: Yes Walk 10 feet (QC): 6 Walk 50ft with 2 Turns (QC): 6 Walk 150 ft (QC): 6 Walking 10ft on Uneven Surface: 6 1 Step (curb) (QC): 6 4 Steps (QC): 6 12 Steps (QC): 6 Picking up an Object (QC): 6 Does the Pt use WC or Scooter?: No Wheel 50 feet with 2 turns (QC: 9 Wheel 150 feet: 9 PT Plan Treatment/Plan Treatment Plan: Continue Plan of Care Treatment Plan: Bed Mobility, Concurrent Therapy, Education, Functional Activity Miguel, Functional Strength, Group Therapy, Gait, Safety, Therapeutic Exercise, Transfers Treatment Duration: Dec 19, 2020 Frequency: At least 5 of 7 days/Wk (IRF) Estimated Hrs Per Day: 1.5 hours per day Patient and/or Family Agrees t: Yes Time/GCodes Time In: 1330 Time Out: 1405 Total Billed Treatment Time: 35 Total Billed Treatment 1, ther ex 15', FA 20' KATI REED CPTA Dec 01, 2020 14:31
[2020-12-01 15:19] VITALS: BP_SYST 151; BP_SYST 188; BP_SYST 189; BP_SYST 191; BP_SYST 198; BP_DIAS 75; BP_DIAS 88; BP_DIAS 91; BP_DIAS 93
--- NOTE | 2020-12-01 15:38 | Occupational Ther Daily Note ---
OT Current Status-Daily Note Subjective Pt. states that she is still nauseated. Agrees to work with OT to have blood pressures taken during transfers. These were reported to nursing. Appearance Pt. in bed. Agrees to work with OT. Mental Status/Objective Patient Orientation: Person, Place ADL-Treatment Therapy Code Descriptions/Definitions Functional [place] Measure: 0=Not Assessed/NA 4=Minimal Assistance 1=Total Assistance 5=Supervision or Setup 2=Maximal Assistance 6=Modified [place] 3=Moderate Assistance 7=Complete IndependenceSCALE: Activities may be completed with or without assistive devices. 0-Unytyutxzz-swjdgjz completes the activity by him/herself with no assistance from a helper. 5-Set-up or Clean-up Assistance-helper sets up or cleans up; patient completes activity. [place] assists only prior to or following the activity. 4-Supervision or Touching Assistance-helper provides verbal cues and/or touching/steadying and/or contact guard assistance as patient completes activity. Assistance may be provided throughout the activity or intermittently. 3-Partial/Moderate Assistance-helper does LESS THAN HALF the effort. [place] lifts, holds or supports trunk or limbs, but provides less than half the effort. 2-Substantial/Maximal Assistance-helper does MORE THAN HALF the effort. [place] lifts or holds trunk or limbs and provides more than half the effort. 4-Gpcmgpfhc-mwezoa does ALL the effort. Patient does none of the effort to complete the activity. Or, the assistance of 2 or more helpers is required for the patient to complete the activity. If activity was not attempted, code reason: 7-Patient Refused. 9-Not Applicable-not attempted and the patient did not perform the activity before the current illness, exacerbation or injury. 10-Not Attempted due to Environmental Limitations-(lack of equipment, weather restraints, etc.). 88-Not Attempted due to Medical Conditions or Safety Concerns. Pt. in bed. OT takes bp. Supine it is 198/88. Pt. transfers supine-sit with min assist. BP is 191/91. After sitting for a little bit, she is able to stand at walker with CGA. BP is taken again and it is 151/75. Pt. sits and BP is 189/93. She rests and then lays down. Pt.'s BP is taken one more time and is 188/93. Pt. reports feeling nauseated the whole time during transfers. Declines further treatment or food. Pt. currently getting IV fluids. BP readings given to nursing. All needs met in room. Education OT Patient Education: Correct positioning, Modified ADL techniques, Progress toward Goal/Update tx plan, Purpose of tx/functional activities, Reviewed precautions, Rehab process, Transfer techniques Teaching Recipient: Patient, Family Teaching Methods: Demonstration, Discussion Response to Teaching: Verbalize Understanding OT Flower Shop Manager Goals Flower Shop Manager Goals Time Frame: Dec 14, 2020 Eating (QC): 6 Oral Hygiene (QC): 6 Toileting Hygiene (QC): 6 Shower/Bathe Self (QC): 6 Upper Body Dressing (QC): 6 Lower Body Dressing (QC): 6 On/Off Footwear (QC): 6 Additional Goals: 1-Demonstrate ADL Tasks, 2-Verbalize Understanding, 3- ImproveStrength/Miguel 1=Demonstrate adherence to instructed precautions during ADL tasks. 2=Patient will verbalize/demonstrate understanding of assistive devices/modifications for ADL. 3=Patient will improve strength/tolerance for activity to enable patient to perform ADL's. OT Education/Plan Problem List/Assessment Assessment: Decreased Activ Tolerance Discharge Recommendations Plan/Recommendations: Continue POC Therapy Discharge Recommendati: Post Acute OT Treatment Plan/Plan of Care Treatment,Training & Education: Yes Patient would benefit from OT for education, treatment and training to promote independence in ADL's, mobility, safety and/or upper extremity function for ADL's. Plan of Care: ADL Retraining, Caregiver Training, Cognitive Retraining, Functional Mobility, Group Exercise/Act as Ind, UE Funct Exercise/Act, UE Neuromus Re-Ed/Coord, Visual/Perceptual Retrain, W/C Management Training Treatment Duration: Dec 14, 2020 Frequency: At least 5 of 7 days/Wk (IRF) Estimated Hrs Per Day: .25 hour per day Agreement: Yes Rehab Potential: Fair Time/GCodes Start Time: 14:50 Stop Time: 15:15 Total Time Billed (hr/min): 25 Billed Treatment Time 1, FA x 2 JASMINE PONCE OT Dec 01, 2020 15:38
[2020-12-01 20:11] VITALS: BP 177/83
[2020-12-02] MEDS: NS IV 1000 ML 1,000 ML IV SCH (03:45)
[2020-12-02] MEDS: inSUlin ASPART (NovoLOG) 1 UNIT/0.01 ML (CHARGE PER UNIT) SC SCH ×4 (06:22→20:27)
[2020-12-02] MEDS: MULTIVIT W/MINERALS TAB (THERAGRAN M) PO SCH (06:26)
[2020-12-02 07:54] VITALS: BP 138/68
--- NOTE | 2020-12-02 08:23 | PM&R Progress Note ---
Subjective HPI/CC On Admission Date Seen by Provider: Dec 02, 2020 Time Seen by Provider: 12:45 Virgen Bermeo is a 75 year old female with PMH T2DM, HLD, who was admitted to with cerebrovascular accident and intracranial hemorhage. She was found to have a large right cerebellar hemorrhage. She was admitted to the ICU. She underwent craniotomy with hematoma evacuation and had an EVD placed. She was stabilized but remained debilitated. She was deemed to require ongoing acute cares along with PT/OT/ST. She was transferred from to the inpatient rehabilitation unit on 11/28/2020. Her course was complicated by hypertension and she was started on medication. She also had issues with orthostatic hypotension. Upon my examination, she had arrived in her room and was ordering food. She reports having some double vision. She also has some uncoordination and balance issues. She is not having any focal weakness. She denies headaches. She is not having fevers or chills. She denies chest pain and palpitations. She denies shortness of breath and cough. She denies abdominal pain. She had issues with nausea and vomiting while driving here due to motion sickness. She denies diarrhea. She denies dysuria. She previously had been on aspirin and a cholesterol medicine daily, as well as 18 units of long acting insulin daily. Subjective/Events-last exam 12/02/2020: This visit is via video chat due to Covid related restriction for this provider Improved status today She ate bfast today Zofran given prophylactically before PT Rocephin IV started and maintained due to inadequate PO intake from N/V yesterday E coli noted as second organism so will need to evaluate that for ESBL BM treatment maintained, she seems to nort recall if her bowels are moving well or not very attentive 12/01/2020: This visit is via video chat due to Covid related restriction for this provider Patient having some issues today Nausea and vomiting noted Severe vertigo We will shift to Rocephin IV and give gentle IV fluids Scopolamine patch was replaced Check meds and labs Updated patient on the plan The vertigo and severe dizziness from the stroke because the reluctance of admission to the inpatient rehab unit so we will monitor closely Neuro was not very optimistic the symptoms would resolve quickly or at all and may very well require wheelchair bound status Urine culture showed Morganella Morgagni 11/30/2020: This visit is via video chat due to Covid related restriction for this provider Patient doing well No major concerns Macrobid empirically started, UCx pending Updated patient on the UTI treatment wanted Melatonin Xanax and Codeine DC so I did that In/Out cath once per 24 hours Urecholine started BM 11/2911/29/2020: This visit is via video chat due to Covid related restriction for this provider Reviewed history and physical information Met with nurse and discussed all meds and issues Patient feels pretty good No major concerns per patient Bowels are moving sluggishly will maintain laxatives No impulsiveness Balance is definitely deficient Had to straight cath her x1 due to urinary retention Low-grade fever 99.3 Urine is very cloudy We will obtain urine and urine culture from cath specimen and place on antibiotic empirically Monitoring closely Review of Systems General: Fatigue, Malaise Neurological: Weakness, Incoordination Focused Exam Lactate Level 12/01/20 13:30: Lactic Acid Level 0.94 Objective Exam Vital Signs Vital Signs Date Time Temp Pulse Resp B/P (MAP) Pulse Ox O2 Delivery O2 Flow Rate FiO2 12/02/20 11:11 63 18 178/74 (108) 94 Room Air 12/02/20 07:54 36.4 Capillary Refill : General Appearance: No Apparent Distress, WD/WN, Chronically ill HEENT: PERRL/EOMI, Normal ENT Inspection, Pharynx Normal; No Photophobia Neck: Normal Inspection, Non Tender, Supple Respiratory: Lungs Clear, Normal Breath Sounds, No Respiratory Distress Cardiovascular: Regular Rate, Rhythm, No Edema, No Murmur Gastrointestinal: Normal Bowel Sounds, Non Tender, Soft Extremity: Normal Inspection, Non Tender, No Pedal Edema Neurologic/Psychiatric: Alert, Oriented x3, Normal Mood/Affect, base remover II-XII Norm as Tested, Motor Weakness (generalized), Other (dysmetria) Skin: Normal Color, Warm/Dry, Other (right parietal EVD incision and occipital craniotomy incision well appearing) Lymphatic: No Adenopathy Results/Procedures Lab Laboratory Tests 12/02/20 08:08 Patient resulted labs reviewed. Imaging: Reviewed Imaging Report FIM Transfers Therapy Code Descriptions/Definitions Functional [place] Measure: 0=Not Assessed/NA 4=Minimal Assistance 1=Total Assistance 5=Supervision or Setup 2=Maximal Assistance 6=Modified [place] 3=Moderate Assistance 7=Complete IndependenceSCALE: Activities may be completed with or without assistive devices. 0-Oycnqetvuq-rnccxdn completes the activity by him/herself with no assistance from a helper. 5-Set-up or Clean-up Assistance-helper sets up or cleans up; patient completes a ctivity. [place] assists only prior to or following the activity. 4-Supervision or Touching Assistance-helper provides verbal cues and/or touching/steadying and/or contact guard assistance as patient completes activity. Assistance may be provided throughout the activity or intermittently. 3-Partial/Moderate Assistance-helper does LESS THAN HALF the effort. [place] lifts, holds or supports trunk or limbs, but provides less than half the effort. 2-Substantial/Maximal Assistance-helper does MORE THAN HALF the effort. [place] lifts or holds trunk or limbs and provides more than half the effort. 5-Mouuapdwd-oyqrvo does ALL the effort. Patient does none of the effort to complete the activity. Or, the assistance of 2 or more helpers is required for the patient to complete the activity. If activity was not attempted, code reason: 7-Patient Refused. 9-Not Applicable-not attempted and the patient did not perform the activity before the current illness, exacerbation or injury. 10-Not Attempted due to Environmental Limitations-(lack of equipment, weather restraints, etc.). 88-Not Attempted due to Medical Conditions or Safety Concerns. Roll Left to Right (QC): 6 Sit to Lying (QC): 6 Sit to Stand (QC): 4 Chair/Qpw-iz-Rdjvj Xfer(QC): 3 Car Transfer (QC): 3 Gait Training Does the Patient Walk?: Yes Distance: 100' Walk 10 feet (QC): 4 Walk 50 ft with 2 Turns(QC): 4 Walk 150 ft (QC): 88 Walking 10ft/uneven surface-QC: 4 Gait Persons Needed: 1 Gait Assistive Device: FWW Wheelchair Training Does the Pt Use a Wheelchair?: No Wheel 50 ft with 2 turns (QC): 9 Wheel 150 ft (QC): 9 Stair Training #of Steps: 1 1 Step (curb) (QC): 3 4 Steps (QC): 88 12 Steps (QC): 88 Balance Picking up an Object (QC): 88 ADL-Treatment Eating (QC): 6 Oral Hygiene (QC): 4 Shower/Bathe Self (QC): 4 Upper Body Dressing (QC): 5 Lower Body Dressing (QC): 4 On/Off Footwear (QC): 4 Toileting Hygiene (QC): 4 (CGA seated on toilet.) Toilet Transfer (QC): 3 (Min assist for balance.) Assessment/Plan Assessment and Plan Assess & Plan/Chief Complaint Assessment: (1) CVA (cerebral vascular accident) (2) Intracranial hemorrhage (3) Status post craniotomy (4) Status post evacuation of hematoma (5) Dysmetria (6) Diplopia (7) HTN (hypertension) (8) Orthostatic hypotension (9) Debility (10) HLD (hyperlipidemia) (11) T2DM (type 2 diabetes mellitus) (12) Acute UTI placed on antibiotic empirically on 11/29/2020 but DC'd Macrobid due to resistance of Morganella Morgagni placed on Omnicef then shifted to Rocephin due to nausea and vomiting 12/01/2020 (13) Acute urinary retention requiring caths (14) Nausea and vomiting episode requiring IV fluids 12/01/2020 and heplocked 12/02/20 Plan: Intensive rehab protocol Empiric antibiotic treatment Monitor sugar Add Urecholine 11/30/20: Urecholine maintained In/Out caths prn Abx empirically DC meds at request 12/01/2020: IV fluids IV antibiotics DC Macrobid due to resistance on urine culture Very complex case Scopolamine patch 12/02/20: HLIVF IV abx Await second gram negative organism on UCx just noted today on report BM regimen (1) CVA (cerebral vascular accident) Status: Acute (2) Intracranial hemorrhage Status: Acute (3) Status post craniotomy Status: Acute (4) Status post evacuation of hematoma Status: Acute (5) Dysmetria Status: Acute (6) Diplopia Status: Acute (7) HTN (hypertension) Status: Acute Qualifiers: Hypertension type: essential hypertension Qualified Codes: I10 - Essential (primary) hypertension (8) Orthostatic hypotension Status: Acute (9) Debility (10) HLD (hyperlipidemia) Status: Chronic (11) T2DM (type 2 diabetes mellitus) Status: Chronic Qualifiers: Diabetes mellitus senior care insulin use: with senior care use ELSY ORNELAS DO Dec 02, 2020 08:23
[2020-12-02 08:27] LABS: BASOPHILS # (AUTO) 0.1 10^3/uL (0.0-0.1); BASOPHILS % (AUTO) 1 % (0-10); EOSINOPHILS # (AUTO) 0.2 10^3/uL (0.0-0.3); EOSINOPHILS % (AUTO) 2 % (0-10); HEMATOCRIT 36 % (35-52); HEMOGLOBIN 11.6 g/dL (11.5-16.0); LYMPHOCYTES # (AUTO) 1.6 X 10^3 (1.0-4.0); LYMPHOCYTES % (AUTO) 19 % (12-44); MEAN CORPUSCULAR HEMOGLOBIN 29 pg (25-34); MEAN CORPUSCULAR HGB CONC 32 g/dL (32-36); MEAN CORPUSCULAR VOLUME 90 fL (80-99); MEAN PLATELET VOLUME 9.2 fL (9.0-12.2); MONOCYTES # (AUTO) 0.5 X 10^3 (0.0-1.0); MONOCYTES % (AUTO) 6 % (0-12); NEUTROPHILS % (AUTO) 72 % (42-75); PLATELET COUNT 333 10^3/uL (130-400); WHITE BLOOD COUNT 8.4 10^3/uL (4.3-11.0)
[2020-12-02] MEDS: ASPIRIN E.C. 81 MG (ECOTRIN) TAB PO SCH (08:28)
[2020-12-02] MEDS: MAGNESIUM OXIDE (MAG-OX)400 MG TAB PO SCH (08:28)
[2020-12-02] MEDS: MECLIZINE 25 MG (ANTIVERT) TAB PO SCH ×3 (08:28→20:27)
[2020-12-02] MEDS: ACETAMINOPHEN 500 MG TAB (TYLENOL) PO SCH (08:29)
[2020-12-02] MEDS: CALCIUM CARB + VIT D 600 MG (CALCARB + D) TAB PO SCH ×2 (08:29→20:27)
[2020-12-02] MEDS: metFORMIN 500 MG (GLUCOPHAGE) TAB PO SCH ×3 (08:29→17:48)
[2020-12-02] MEDS: SENNA W/DOCUSATE (SENOKOT S) TABLET PO SCH ×2 (08:37→20:27)
[2020-12-02] MEDS: DOCUSATE SODIUM 100 MG (COLACE) CAP PO SCH ×2 (08:37→20:27)
[2020-12-02] MEDS: MILK OF MAGNESIA 400 MG/5 ML 30 ML UDC PO SCH (08:38)
[2020-12-02 08:39] VITALS: BP 196/87
[2020-12-02] MEDS: lisINopril 40 MG (PRINIVIL) TABLET PO SCH (08:39)
[2020-12-02 08:45] LABS: ALANINE AMINOTRANSFERASE 20 U/L (0-55); ALBUMIN 3.5 GM/DL (3.2-4.5); ALKALINE PHOSPHATASE 57 U/L (40-136); BILIRUBIN,TOTAL 0.4 MG/DL (0.1-1.0); BUN/CREATININE RATIO 14; CALCIUM 9.3 MG/DL (8.5-10.1); CARBON DIOXIDE 30 MMOL/L (21-32); CHLORIDE 95 MMOL/L (98-107); CREATININE SERUM 0.78 MG/DL (0.60-1.30); GFR ESTIMATED > 60; GLUCOSE 180 MG/DL (70-105); POTASSIUM 3.7 MMOL/L (3.6-5.0); SODIUM 135 MMOL/L (135-145); TOTAL PROTEIN 6.3 GM/DL (6.4-8.2)
[2020-12-02] MEDS: polyethylene glycoL POWDER 17 GM (MIRALAX) PACK PO SCH ×2 (08:46→21:22)
[2020-12-02] MEDS: ONDANSETRON 4 MG/2 ML (SDV) Z0FRAN IVP PRN (08:46)
--- NOTE | 2020-12-02 09:47 | Speech Therapy Daily Note ---
Speech Daily Progress Note Subjective Date Seen by Provider: Dec 02, 2020 Time Seen by Provider: 00:30 Patient was resting in her recliner following her PT session. Patient is having high BP and nausea issues today. Objective Patient completed memory skills related to her personal information at 80% with 20% cues. Assessment Assessment Current Status: Good Progress Treatment Plan Continue Plan of Care Speech Short Term Goals Short Term Goals Short Term Goals 1) Patient will complete memory tasks related to her daily needs with 75% or greater given minimal cues. 2) Patient will complete safety awareness tasks related to her daily needs with 75% or greater given minimal cues. Speech Group Home Goals Group Home Goals Patient will utilize memory and safety awareness strategies as trained in order to require decreased assist. Speech-Plan Patient/Family Goals Patient/Family Goals: Patient will return home where she lives with her . She will have other family/friends support. Treatment Plan Speech Therapy Treatment Plan: Continue Plan of Care Treatment Duration: Dec 11, 2020 Frequency: 4 times per week (Patient will receive skilled ST services 4-5x per week) Estimated Hrs Per Day: .5 hour per day Rehab Potential: Fair Barriers to Learning: Patient's recent CVA, brain surgery Pt/Family Agrees to Plan: Yes Safety Risks/Education Teaching Recipient: Patient Teaching Methods: Demonstration, Discussion Response to Teaching: Verbalize Understanding, Return Demonstration Education Topics Provided: Continued safety within her room, communication of wants/needs Time Speech Therapy Time In: 09:30 Speech Therapy Time Out: 10:00 Total Billed Time: 30 Billed Treatment Time [address] Dec 02, 2020 09:47
--- NOTE | 2020-12-02 10:05 | Physical Therapy Daily Note ---
PT Daily Note-Current Subjective Pt reports she is doing "okay". Pt continues to experience double vision and blurry vision. Pt denied nausea throughout but did experience dizziness. present for therapy session. Pt denied pain. Mental Status Patient Orientation: Person, Place, Situation Transfers SCALE: Activities may be completed with or without assistive devices. 5-Nhvhvwrxtq-cjbgwor completes the activity by him/herself with no assistance from a helper. 5-Set-up or Clean-up Assistance-helper sets up or cleans up; patient completes activity. [place] assists only prior to or following the activity. 4-Supervision or Touching Assistance-helper provides verbal cues and/or touching/steadying and/or contact guard assistance as patient completes activity. Assistance may be provided throughout the activity or intermittently. 3-Partial/Moderate Assistance-helper does LESS THAN HALF the effort. [place] lifts, holds or supports trunk or limbs, but provides less than half the effort. 2-Substantial/Maximal Assistance-helper does MORE THAN HALF the effort. [place] lifts or holds trunk or limbs and provides more than half the effort. 6-Edmjdeptw-nvfxmz does ALL the effort. Patient does none of the effort to complete the activity. Or, the assistance of 2 or more helpers is required for the patient to complete the activity. If activity was not attempted, code reason: 7-Patient Refused. 9-Not Applicable-not attempted and the patient did not perform the activity before the current illness, exacerbation or injury. 10-Not Attempted due to Environmental Limitations-(lack of equipment, weather restraints, etc.). 88-Not Attempted due to Medical Conditions or Safety Concerns. CGA for all sit to stand transfers. Mod (I) bed mobility Weight Bearing Full Weight Bearing Full Weight Bearing Gait Training Gait Assistive Device: FWW Pt amb with FWW and CGA 6ft to recliner. Pt stood at recliner and walked in place x 2' after a rest. Exercises Supine Ex: Ankle pumps, Quad Set, Glut sets, Heel Slides, Short Arc Quads, Straight leg raise, Hip abd/add Supine Reps: 20 Seated Therapy Exercises: Ankle pumps, Long arc quads, Hip abd/add Seated Reps: 20 Treatments Pt was able to dress self with set up only and assist hooking bra at EOB. BP and Pulse rate monitored throughout treatment: Prior to beginning therapy pt supine 196/87 at 77bpm, sitting 191/84, 71bpm at 0900,standing 127/95, 88bpm at 0910, reclined position 203/89 and sitting BP 190/93 at 0930. Assessment Current Status: Good Progress Improved tolerance to activity today. Monitored BP throuhout treatment. Nursing notified of BPs taken. Pt up in recliner with call light and all needs met. PT Nutrition Associate Goals Nutrition Associate Goals PT Nutrition Associate Goals Time Frame: Dec 19, 2020 Roll Left & Right (QC): 6 Sit to Lying (QC): 6 Lying-Sitting on Side/Bed(QC): 6 Sit to Stand (QC): 6 Chair/Nxx-gj-Jhfxv Xfer(QC): 6 Toilet Transfer (QC): 6 Car Transfer (QC): 6 Does the Patient Walk: Yes Walk 10 feet (QC): 6 Walk 50ft with 2 Turns (QC): 6 Walk 150 ft (QC): 6 Walking 10ft on Uneven Surface: 6 1 Step (curb) (QC): 6 4 Steps (QC): 6 12 Steps (QC): 6 Picking up an Object (QC): 6 Does the Pt use WC or Scooter?: No Wheel 50 feet with 2 turns (QC: 9 Wheel 150 feet: 9 PT Plan Treatment/Plan Treatment Plan: Continue Plan of Care Treatment Plan: Bed Mobility, Concurrent Therapy, Education, Functional Activity Miguel, Functional Strength, Group Therapy, Gait, Safety, Therapeutic Exercise, Transfers Treatment Duration: Dec 19, 2020 Frequency: At least 5 of 7 days/Wk (IRF) Estimated Hrs Per Day: 1.5 hours per day Patient and/or Family Agrees t: Yes Time/GCodes Time In: 830 Time Out: 930 Total Billed Treatment Time: 60 Total Billed Treatment 1, ther ex 30', gait 15', FA 15' KATI REED CPTA Dec 02, 2020 10:05
[2020-12-02 11:11] VITALS: BP 178/74
--- NOTE | 2020-12-02 11:51 | Occupational Ther Daily Note ---
OT Current Status-Daily Note Subjective Pt. does not report pain, but states that she is having nausea at end of treatment. Nursing notified. Mental Status/Objective Patient Orientation: Person Attachments: IV ADL-Treatment Therapy Code Descriptions/Definitions Functional [place] Measure: 0=Not Assessed/NA 4=Minimal Assistance 1=Total Assistance 5=Supervision or Setup 2=Maximal Assistance 6=Modified [place] 3=Moderate Assistance 7=Complete IndependenceSCALE: Activities may be completed with or without assistive devices. 4-Tubtkldorw-ujpsdxx completes the activity by him/herself with no assistance from a helper. 5-Set-up or Clean-up Assistance-helper sets up or cleans up; patient completes activity. [place] assists only prior to or following the activity. 4-Supervision or Touching Assistance-helper provides verbal cues and/or touching/steadying and/or contact guard assistance as patient completes activity. Assistance may be provided throughout the activity or intermittently. 3-Partial/Moderate Assistance-helper does LESS THAN HALF the effort. [place] lifts, holds or supports trunk or limbs, but provides less than half the effort. 2-Substantial/Maximal Assistance-helper does MORE THAN HALF the effort. [place] lifts or holds trunk or limbs and provides more than half the effort. 6-Ogqduysfg-bmonbx does ALL the effort. Patient does none of the effort to complete the activity. Or, the assistance of 2 or more helpers is required for the patient to complete the activity. If activity was not attempted, code reason: 7-Patient Refused. 9-Not Applicable-not attempted and the patient did not perform the activity before the current illness, exacerbation or injury. 10-Not Attempted due to Environmental Limitations-(lack of equipment, weather restraints, etc.). 88-Not Attempted due to Medical Conditions or Safety Concerns. On/Off Footwear: 4 (SBA and cues for sequencing to use sock aide and dressing stick to doff/don slipper socks. This is to ensure that pt. does not have to bend over, making her more nauseated and dizzy.) Toileting Hygiene (QC): 4 (CGA during toileting.) Toilet Transfer (QC): 3 (Min assist.) Other Treatment Pt. up in chair. She is already dressed. States that PT assisted her. Pt. declines showering or practicing clothing. Agrees to work with OT in therapy gym. Stands with CGA and ambulates with min assist due to balance into bathroom. Toilets with CGA, and stands to wash hands. Pt. encouraged to take her time and ambulate slowly, keeping eyes forward. Noted several small losses of balance, but able to correct self. In therapy gym, OT took BP twice while seated. They were 182/77, and then 188/85. Pt. completed 3 bilateral UE exercises x 15 reps each, x 2 lb. dumbbells in all planes. Practiced socks with AE, and encouraged to not bend over. Pt. has increased difficulty sequencing steps with new activities. Requires frequent cues to use sock aide, even after it is shown to her. Pt. ambulates back to room with CGA. BP taken again and is 200/84. Nursing notified and all needs met. Education OT Patient Education: Correct positioning, Exercise program, Modified ADL techniques, Progress toward Goal/Update tx plan, Purpose of tx/functional activities, Reviewed precautions, Rehab process, Transfer techniques, Use of adapted equipment Teaching Recipient: Patient Teaching Methods: Demonstration, Discussion Response to Teaching: Verbalize Understanding, Return Demonstration OT Environmental Studies Program Director Goals Environmental Studies Program Director Goals Time Frame: Dec 14, 2020 Eating (QC): 6 Oral Hygiene (QC): 6 Toileting Hygiene (QC): 6 Shower/Bathe Self (QC): 6 Upper Body Dressing (QC): 6 Lower Body Dressing (QC): 6 On/Off Footwear (QC): 6 Additional Goals: 1-Demonstrate ADL Tasks, 2-Verbalize Understanding, 3- ImproveStrength/Miguel 1=Demonstrate adherence to instructed precautions during ADL tasks. 2=Patient will verbalize/demonstrate understanding of assistive devices/modifications for ADL. 3=Patient will improve strength/tolerance for activity to enable patient to perform ADL's. OT Education/Plan Problem List/Assessment Assessment: Decreased Activ Tolerance, Impaired Cognition, Impaired Funct Balance, Impaired I ADL's, Impaired Self-Care Skills Discharge Recommendations Plan/Recommendations: Continue POC Therapy Discharge Recommendati: Post Acute OT Treatment Plan/Plan of Care Treatment,Training & Education: Yes Patient would benefit from OT for education, treatment and training to promote independence in ADL's, mobility, safety and/or upper extremity function for ADL's. Plan of Care: ADL Retraining, Caregiver Training, Cognitive Retraining, Functional Mobility, Group Exercise/Act as Ind, UE Funct Exercise/Act, UE Neuromus Re-Ed/Coord, Visual/Perceptual Retrain, W/C Management Training Treatment Duration: Dec 14, 2020 Frequency: At least 5 of 7 days/Wk (IRF) Estimated Hrs Per Day: .25 hour per day Agreement: Yes Rehab Potential: Fair Time/GCodes Start Time: 10:00 Stop Time: 10:45 Total Time Billed (hr/min): 45 Billed Treatment Time 1, FA x 30minutes, ADL x 15minutes JASMINE PONCE OT Dec 02, 2020 11:51
[2020-12-02] MEDS: cefTRIAXone 1,000 MG in WATER (STERILE) FOR INJECTION 10 ML IV SCH (13:52)
--- NOTE | 2020-12-02 13:52 | Physical Therapy Daily Note ---
PT Daily Note-Current Subjective Pt denies pain and nausea. Pt does c/o dizziness upon sitting EOB. Pt requests to not go to group at this time. Pt agreeable to co-treat with OT/EVENT MARKETING REPRESENTATIVE performing ther ex in bed. Mental Status Patient Orientation: Person, Place Transfers SCALE: Activities may be completed with or without assistive devices. 4-Oclivmjpud-pstzsxo completes the activity by him/herself with no assistance from a helper. 5-Set-up or Clean-up Assistance-helper sets up or cleans up; patient completes activity. [place] assists only prior to or following the activity. 4-Supervision or Touching Assistance-helper provides verbal cues and/or touching/steadying and/or contact guard assistance as patient completes activity. Assistance may be provided throughout the activity or intermittently. 3-Partial/Moderate Assistance-helper does LESS THAN HALF the effort. [place] lifts, holds or supports trunk or limbs, but provides less than half the effort. 2-Substantial/Maximal Assistance-helper does MORE THAN HALF the effort. [place] lifts or holds trunk or limbs and provides more than half the effort. 8-Ttriiehhy-xojbwu does ALL the effort. Patient does none of the effort to complete the activity. Or, the assistance of 2 or more helpers is required for the patient to complete the activity. If activity was not attempted, code reason: 7-Patient Refused. 9-Not Applicable-not attempted and the patient did not perform the activity before the current illness, exacerbation or injury. 10-Not Attempted due to Environmental Limitations-(lack of equipment, weather restraints, etc.). 88-Not Attempted due to Medical Conditions or Safety Concerns. Mod (I) with transfers supine <-> EOB. Pt dizzy upon sitting EOB so pt layed back down. Weight Bearing Full Weight Bearing Full Weight Bearing Exercises Supine Ex: Ankle pumps, Quad Set, Short Arc Quads, Hip abd/add Supine Reps: 20 Treatments Pt became dizzy with sitting EOB and BP found to be elevated. Treatment modified. OT/PT Co-treat and BP monitored throughout treatment due to elevated BP with positional change and subsequent dizziness. Pt seen for UE strengthening by OT and LE strengthening by EVENT MARKETING REPRESENTATIVE in supine. BP monitored: sitting EOB 204/87, 87bpm at 1300, supine BP 132/92, 77bpm [id number], supine 178/ 79, 74bpm at 1335. Nurse notified. Assessment Current Status: Fair Progress Pt limited by elevated BP with positional changes. Pt iglesia ther ex in supine well without complaint. Pt resting with call light and all needs met post therapy. PT Jail Goals Jail Goals PT Jail Goals Time Frame: Dec 19, 2020 Roll Left & Right (QC): 6 Sit to Lying (QC): 6 Lying-Sitting on Side/Bed(QC): 6 Sit to Stand (QC): 6 Chair/Clu-ol-Bysoi Xfer(QC): 6 Toilet Transfer (QC): 6 Car Transfer (QC): 6 Does the Patient Walk: Yes Walk 10 feet (QC): 6 Walk 50ft with 2 Turns (QC): 6 Walk 150 ft (QC): 6 Walking 10ft on Uneven Surface: 6 1 Step (curb) (QC): 6 4 Steps (QC): 6 12 Steps (QC): 6 Picking up an Object (QC): 6 Does the Pt use WC or Scooter?: No Wheel 50 feet with 2 turns (QC: 9 Wheel 150 feet: 9 PT Plan Treatment/Plan Treatment Plan: Continue Plan of Care Treatment Plan: Bed Mobility, Concurrent Therapy, Education, Functional Activity Miguel, Functional Strength, Group Therapy, Gait, Safety, Therapeutic Exercise, Transfers Treatment Duration: Dec 19, 2020 Frequency: At least 5 of 7 days/Wk (IRF) Estimated Hrs Per Day: 1.5 hours per day Patient and/or Family Agrees t: Yes Time/GCodes Time In: 1300 Time Out: 1340 Total Billed Treatment Time: 40 Total Billed Treatment 1, Ther ex 40' (Co- treat with OT x 30' [id number]) KATI REED CPTA Dec 02, 2020 13:52
[2020-12-02] MEDS ORDERED: METF-399 PO (14:18)
[2020-12-02] MEDS ORDERED: INSU100I34 SC (14:18)
[2020-12-02] MEDS ORDERED: ACET-2267 PO (14:19)
--- NOTE | 2020-12-02 15:33 | Occupational Ther Daily Note ---
OT Current Status-Daily Note Subjective Pt AxO, seen with PT this afternoon 2* BP issues. Pt sitting BP: 204/87, supine: 132/92 and post session: 178/79. OT/ PT co-treat with OT addressing UE ex and PT addressing LE ex. Mental Status/Objective Patient Orientation: Person, Place, Situation ADL-Treatment Therapy Code Descriptions/Definitions Functional [place] Measure: 0=Not Assessed/NA 4=Minimal Assistance 1=Total Assistance 5=Supervision or Setup 2=Maximal Assistance 6=Modified [place] 3=Moderate Assistance 7=Complete IndependenceSCALE: Activities may be completed with or without assistive devices. 9-Yiaqbzqxjp-subevuc completes the activity by him/herself with no assistance from a helper. 5-Set-up or Clean-up Assistance-helper sets up or cleans up; patient completes activity. [place] assists only prior to or following the activity. 4-Supervision or Touching Assistance-helper provides verbal cues and/or touching/steadying and/or contact guard assistance as patient completes activity. Assistance may be provided throughout the activity or intermittently. 3-Partial/Moderate Assistance-helper does LESS THAN HALF the effort. [place] lifts, holds or supports trunk or limbs, but provides less than half the effort. 2-Substantial/Maximal Assistance-helper does MORE THAN HALF the effort. [place] lifts or holds trunk or limbs and provides more than half the effort. 0-Zseiitkxr-tjflec does ALL the effort. Patient does none of the effort to complete the activity. Or, the assistance of 2 or more helpers is required for the patient to complete the activity. If activity was not attempted, code reason: 7-Patient Refused. 9-Not Applicable-not attempted and the patient did not perform the activity before the current illness, exacerbation or injury. 10-Not Attempted due to Environmental Limitations-(lack of equipment, weather restraints, etc.). 88-Not Attempted due to Medical Conditions or Safety Concerns. Toileting Hygiene (QC): 7 Toilet Transfer (QC): 7 Other Treatment Pt sit to supine with increased time, SBA. Pt completes ther ex in bed as outlined, alternating between OT/ PT with LE/ UE ex: backflies, forward shoulder flexion, bicep curls (doubled over) and ext shoulder rotation. Pt completes 10- 15 reps bilaterally with increased time. Senior Reactor Operator strength assessed: R: 38/ L: 36 lbs. Pt expresses her dedicated regional driver "feels fine" though utilizes sponge throughout session to address squeezing/ hand strength. Pt left in bed end of session with WFL BP readings (178/79). Call light in reach, all needs met. Education OT Patient Education: Correct positioning, Exercise program, Home exercise program, Purpose of tx/functional activities Teaching Recipient: Patient Teaching Methods: Demonstration, Discussion Response to Teaching: Verbalize Understanding, Return Demonstration OT House Supervisor Goals House Supervisor Goals Time Frame: Dec 14, 2020 Eating (QC): 6 Oral Hygiene (QC): 6 Toileting Hygiene (QC): 6 Shower/Bathe Self (QC): 6 Upper Body Dressing (QC): 6 Lower Body Dressing (QC): 6 On/Off Footwear (QC): 6 Additional Goals: 1-Demonstrate ADL Tasks, 2-Verbalize Understanding, 3- ImproveStrength/Miguel 1=Demonstrate adherence to instructed precautions during ADL tasks. 2=Patient will verbalize/demonstrate understanding of assistive devices/ modifications for ADL. 3=Patient will improve strength/tolerance for activity to enable patient to perform ADL's. OT Education/Plan Problem List/Assessment Assessment: Decreased Activ Tolerance, Decreased Safety Aware, Decreased UE Strength, Dependent Transfers, Impaired Bed Mobility, Impaired Cognition, Impaired Funct Balance, Impaired I ADL's, Impaired Self-Care Skills, Visual- Perceptual Deficit Discharge Recommendations Plan/Recommendations: Continue POC Therapy Discharge Recommendati: Home & Family, Post Acute OT Treatment Plan/Plan of Care Treatment,Training & Education: Yes Patient would benefit from OT for education, treatment and training to promote independence in ADL's, mobility, safety and/or upper extremity function for ADL's. Plan of Care: ADL Retraining, Caregiver Training, Cognitive Retraining, Functional Mobility, Group Exercise/Act as Ind, UE Funct Exercise/Act, UE Neuromus Re-Ed/Coord, Visual/Perceptual Retrain, W/C Management Training Treatment Duration: Dec 14, 2020 Frequency: At least 5 of 7 days/Wk (IRF) Estimated Hrs Per Day: .25 hour per day Agreement: Yes Rehab Potential: Fair Time/GCodes Start Time: 13:10 Stop Time: 13:40 Total Time Billed (hr/min): 30 Billed Treatment Time 1, EX 2 (30) OT/ PT co-treat with OT addressing UE ex and PT addressing LE ex. MARCIO OCONNELL OTR Dec 02, 2020 15:33
[2020-12-02 20:00] VITALS: BP 141/62
[2020-12-03] MEDS: inSUlin ASPART (NovoLOG) 1 UNIT/0.01 ML (CHARGE PER UNIT) SC SCH ×4 (05:56→21:58)
[2020-12-03] MEDS: MULTIVIT W/MINERALS TAB (THERAGRAN M) PO SCH (06:20)
[2020-12-03] MEDS: ONDANSETRON 4 MG (ZOFRAN) ORAL DISSOLVE TAB PO PRN ×2 (06:29→14:56)
[2020-12-03 07:54] VITALS: BP 171/71
[2020-12-03] MEDS: MAGNESIUM OXIDE (MAG-OX)400 MG TAB PO SCH (08:15)
[2020-12-03] MEDS: metFORMIN 500 MG (GLUCOPHAGE) TAB PO SCH ×3 (08:16→17:56)
[2020-12-03] MEDS: lisINopril 40 MG (PRINIVIL) TABLET PO SCH (08:16)
[2020-12-03] MEDS: SENNA W/DOCUSATE (SENOKOT S) TABLET PO SCH ×2 (08:16→22:15)
[2020-12-03] MEDS: ASPIRIN E.C. 81 MG (ECOTRIN) TAB PO SCH (08:16)
[2020-12-03] MEDS: CALCIUM CARB + VIT D 600 MG (CALCARB + D) TAB PO SCH ×2 (08:16→22:14)
[2020-12-03] MEDS: MECLIZINE 25 MG (ANTIVERT) TAB PO SCH ×4 (08:16→22:15)
[2020-12-03] MEDS: ACETAMINOPHEN 500 MG TAB (TYLENOL) PO SCH (08:16)
[2020-12-03] MEDS: MILK OF MAGNESIA 400 MG/5 ML 30 ML UDC PO SCH (08:17)
[2020-12-03] MEDS: polyethylene glycoL POWDER 17 GM (MIRALAX) PACK PO SCH ×2 (08:24→21:00)
[2020-12-03] MEDS: DOCUSATE SODIUM 100 MG (COLACE) CAP PO SCH ×2 (08:24→22:14)
--- NOTE | 2020-12-03 08:36 | PM&R Progress Note ---
Subjective HPI/CC On Admission Date Seen by Provider: Dec 03, 2020 Time Seen by Provider: 12:45 Virgen Bermeo is a 75 year old female with PMH T2DM, HLD, who was admitted to with cerebrovascular accident and intracranial hemorhage. She was found to have a large right cerebellar hemorrhage. She was admitted to the ICU. She underwent craniotomy with hematoma evacuation and had an EVD placed. She was stabilized but remained debilitated. She was deemed to require ongoing acute cares along with PT/OT/ST. She was transferred from to the inpatient rehabilitation unit on 11/28/2020. Her course was complicated by hypertension and she was started on medication. She also had issues with orthostatic hypotension. Upon my examination, she had arrived in her room and was ordering food. She reports having some double vision. She also has some uncoordination and balance issues. She is not having any focal weakness. She denies headaches. She is not having fe vers or chills. She denies chest pain and palpitations. She denies shortness of breath and cough. She denies abdominal pain. She had issues with nausea and vomiting while driving here due to motion sickness. She denies diarrhea. She denies dysuria. She previously had been on aspirin and a cholesterol medicine daily, as well as 18 units of long acting insulin daily. Subjective/Events-last exam 12/03/2020: This visit is via video chat due to Covid related restriction for this provider Patient doing pretty well today Eating and drinking better Rocephin will be given last dose IV this afternoon and then switch over to Omnicef Walking with physical therapy Not as impulsive Decreasing balance issues Antivert given scheduled Straight cath required x1 so we will consult urology Bowels are still a bit sluggish so will get aggressive regimen for that 12/02/2020: This visit is via video chat due to Covid related restriction for this provider Improved status today She ate bfast today Zofran given prophylactically before PT Rocephin IV started and maintained due to inadequate PO intake from N/V yesterday E coli noted as second organism so will need to evaluate that for ESBL BM treatment maintained, she seems to nort recall if her bowels are moving well or not very attentive 12/01/2020: This visit is via video chat due to Covid related restriction for this provider Patient having some issues today Nausea and vomiting noted Severe vertigo We will shift to Rocephin IV and give gentle IV fluids Scopolamine patch was replaced Check meds and labs Updated patient on the plan The vertigo and severe dizziness from the stroke because the reluctance of admission to the inpatient rehab unit so we will monitor closely Neuro was not very optimistic the symptoms would resolve quickly or at all and may very well require wheelchair bound status Urine culture showed Franklyn Agustin 11/30/2020: This visit is via video chat due to Covid related restriction for this provider Patient doing well No major concerns Macrobid empirically started, UCx pending Updated patient on the UTI treatment wanted Melatonin Xanax and Codeine DC so I did that In/Out cath once per 24 hours Urecholine started BM 11/2911/29/2020: This visit is via video chat due to Covid related restriction for this provider Reviewed history and physical information Met with nurse and discussed all meds and issues Patient feels pretty good No major concerns per patient Bowels are moving sluggishly will maintain laxatives No impulsiveness Balance is definitely deficient Had to straight cath her x1 due to urinary retention Low-grade fever 99.3 Urine is very cloudy We will obtain urine and urine culture from cath specimen and place on antibiotic empirically Monitoring closely Review of Systems General: Fatigue, Malaise Genitourinary: Retention Neurological: Weakness, Incoordination, Confusion Focused Exam Lactate Level 12/01/20 13:30: Lactic Acid Level 0.94 Objective Exam Vital Signs Vital Signs Date Time Temp Pulse Resp B/P (MAP) Pulse Ox O2 Delivery O2 Flow Rate FiO2 12/04/20 07:42 36.0 64 16 183/78 (113) 97 Room Air Capillary Refill : General Appearance: No Apparent Distress, WD/WN, Chronically ill HEENT: PERRL/EOMI, Normal ENT Inspection, Pharynx Normal; No Photophobia Neck: Normal Inspection, Non Tender, Supple Respiratory: Lungs Clear, Normal Breath Sounds, No Respiratory Distress Cardiovascular: Regular Rate, Rhythm, No Edema, No Murmur Gastrointestinal: Normal Bowel Sounds, Non Tender, Soft Extremity: Normal Inspection, Non Tender, No Pedal Edema Neurologic/Psychiatric: Alert, Oriented x3, Normal Mood/Affect, outside industrial sales representative II-XII Norm as Tested, Motor Weakness (generalized), Other (dysmetria) Skin: Normal Color, Warm/Dry, Other (right parietal EVD incision and occipital craniotomy incision well appearing) Lymphatic: No Adenopathy Results/Procedures Lab Patient resulted labs reviewed. Imaging: Reviewed Imaging Report FIM Transfers Therapy Code Descriptions/Definitions Functional [place] Measure: 0=Not Assessed/NA 4=Minimal Assistance 1=Total Assistance 5=Supervision or Setup 2=Maximal Assistance 6=Modified [place] 3=Moderate Assistance 7=Complete IndependenceSCALE: Activities may be completed with or without assistive devices. 3-Tfnpaiydyg-mcaniqf completes the activity by him/herself with no assistance from a helper. 5-Set-up or Clean-up Assistance-helper sets up or cleans up; patient completes activity. [place] assists only prior to or following the activity. 4-Supervision or Touching Assistance-helper provides verbal cues and/or touching/steadying and/or contact guard assistance as patient completes activity. Assistance may be provided throughout the activity or intermittently. 3-Partial/Moderate Assistance-helper does LESS THAN HALF the effort. [place] lifts, holds or supports trunk or limbs, but provides less than half the effort. 2-Substantial/Maximal Assistance-helper does MORE THAN HALF the effort. [place] lifts or holds trunk or limbs and provides more than half the effort. 0-Jprzkscfb-bvswnr does ALL the effort. Patient does none of the effort to complete the activity. Or, the assistance of 2 or more helpers is required for the patient to complete the activity. If activity was not attempted, code reason: 7-Patient Refused. 9-Not Applicable-not attempted and the patient did not perform the activity before the current illness, exacerbation or injury. 10-Not Attempted due to Environmental Limitations-(lack of equipment, weather restraints, etc.). 88-Not Attempted due to Medical Conditions or Safety Concerns. Roll Left to Right (QC): 6 Sit to Lying (QC): 6 Sit to Stand (QC): 4 Chair/Orw-vm-Uncmh Xfer(QC): 3 Car Transfer (QC): 3 Gait Training Does the Patient Walk?: Yes Distance: 100' Walk 10 feet (QC): 4 Walk 50 ft with 2 Turns(QC): 4 Walk 150 ft (QC): 88 Walking 10ft/uneven surface-QC: 4 Gait Persons Needed: 1 Gait Assistive Device: FWW Wheelchair Training Does the Pt Use a Wheelchair?: No Wheel 50 ft with 2 turns (QC): 9 Wheel 150 ft (QC): 9 Stair Training #of Steps: 1 1 Step (curb) (QC): 3 4 Steps (QC): 88 12 Steps (QC): 88 Balance Picking up an Object (QC): 88 ADL-Treatment Eating (QC): 6 Oral Hygiene (QC): 4 Shower/Bathe Self (QC): 4 Upper Body Dressing (QC): 5 Lower Body Dressing (QC): 4 On/Off Footwear (QC): 4 (SBA and cues for sequencing to use sock aide and dressing stick to doff/don slipper socks. This is to ensure that pt. does not have to bend over, making her more nauseated and dizzy.) Toileting Hygiene (QC): 7 Toilet Transfer (QC): 7 Assessment/Plan Assessment and Plan Assess & Plan/Chief Complaint Assessment: (1) CVA (cerebral vascular accident) (2) Intracranial hemorrhage (3) Status post craniotomy (4) Status post evacuation of hematoma (5) Dysmetria (6) Diplopia (7) HTN (hypertension) (8) Orthostatic hypotension (9) Debility (10) HLD (hyperlipidemia) (11) T2DM (type 2 diabetes mellitus) (12) Acute UTI placed on antibiotic empirically on 11/29/2020 but DC'd Macrobid due to resistance of Morganella Morgagni placed on Omnicef then shifted to Rocephin due to nausea and vomiting 12/01/2020 (13) Acute urinary retention requiring caths (14) Nausea and vomiting episode requiring IV fluids 12/01/2020 and heplocked 12/02/20 Plan: Intensive rehab protocol Empiric antibiotic treatment Monitor sugar Add Urecholine 11/30/20: Urecholine maintained In/Out caths prn Abx empirically DC meds at request 12/01/2020: IV fluids IV antibiotics DC Macrobid due to resistance on urine culture Very complex case Scopolamine patch 12/02/20: HLIVF IV abx Await second gram negative organism on UCx just noted today on report BM regimen 12/03/2020: Discontinue Rocephin after dose this afternoon and switch to Omnicef p.o. Continue aggressive treatment (1) CVA (cerebral vascular accident) Status: Acute (2) Intracranial hemorrhage Status: Acute (3) Status post craniotomy Status: Acute (4) Status post evacuation of hematoma Status: Acute (5) Dysmetria Status: Acute (6) Diplopia Status: Acute (7) HTN (hypertension) Status: Acute Qualifiers: Hypertension type: essential hypertension Qualified Codes: I10 - Essential (primary) hypertension (8) Orthostatic hypotension Status: Acute (9) Debility (10) HLD (hyperlipidemia) Status: Chronic (11) T2DM (type 2 diabetes mellitus) Status: Chronic Qualifiers: Diabetes mellitus senior care insulin use: with lobsterman use ELSY ORNELAS DO Dec 03, 2020 08:35
--- NOTE | 2020-12-03 09:43 | Speech Therapy Daily Note ---
Speech Daily Progress Note Subjective Date Seen by Provider: Dec 03, 2020 Time Seen by Provider: 00:30 Patient resting in her recliner following her OT and PT sessions. She states she was feeling a little better. Objective Patient completed simple cognitive tasks with 50%. She couldn't remember if she had eaten breakfast which she had. Assessment Assessment Current Status: Fair Progress Treatment Plan Continue Plan of Care Speech Short Term Goals Short Term Goals Short Term Goals 1) Patient will complete memory tasks related to her daily needs with 75% or greater given minimal cues. 2) Patient will complete safety awareness tasks related to her daily needs with 75% or greater given minimal cues. Speech Intermediate Goals Fruit Coordinator Goals Patient will utilize memory and safety awareness strategies as trained in order to require decreased assist. Speech-Plan Patient/Family Goals Patient/Family Goals: Patient plans on returning to her home where she lives with her . She has other family/friends who will be involved with her care as well as receiving home health. Treatment Plan Speech Therapy Treatment Plan: Continue Plan of Care Treatment Duration: Dec 11, 2020 Frequency: 4 times per week (Patient will receive skilled ST services 4-5x per week) Estimated Hrs Per Day: .5 hour per day Rehab Potential: Fair Barriers to Learning: Patient's recent CVA, brain surgery, moderate cognitive/memory deficit Pt/Family Agrees to Plan: Yes Safety Risks/Education Teaching Recipient: Patient Teaching Methods: Demonstration, Discussion Response to Teaching: Verbalize Understanding, Return Demonstration, Reinforcement Needed Education Topics Provided: Continued safety within her room, communication of wants/needs Time Speech Therapy Time In: 09:30 Speech Therapy Time Out: 10:00 Total Billed Time: 30 Billed Treatment Time 1[address] [facility] Dec 03, 2020 09:43
--- NOTE | 2020-12-03 10:12 | Physical Therapy Daily Note ---
PT Daily Note-Current Subjective Pt states "I dont feel good but I am okay." Pt denies pain. Pt reports she has some dizziness with moving her head. Pt denies nausea. Mental Status Patient Orientation: Person, Place, Situation Transfers SCALE: Activities may be completed with or without assistive devices. 1-Glkvggomct-umxydll completes the activity by him/herself with no assistance from a helper. 5-Set-up or Clean-up Assistance-helper sets up or cleans up; patient completes activity. [place] assists only prior to or following the activity. 4-Supervision or Touching Assistance-helper provides verbal cues and/or touching/steadying and/or contact guard assistance as patient completes activity. Assistance may be provided throughout the activity or intermittently. 3-Partial/Moderate Assistance-helper does LESS THAN HALF the effort. [place] lifts, holds or supports trunk or limbs, but provides less than half the effort. 2-Substantial/Maximal Assistance-helper does MORE THAN HALF the effort. [place] lifts or holds trunk or limbs and provides more than half the effort. 1-Dgdfqzvfm-irixoz does ALL the effort. Patient does none of the effort to complete the activity. Or, the assistance of 2 or more helpers is required for the patient to complete the activity. If activity was not attempted, code reason: 7-Patient Refused. 9-Not Applicable-not attempted and the patient did not perform the activity before the current illness, exacerbation or injury. 10-Not Attempted due to Environmental Limitations-(lack of equipment, weather restraints, etc.). 88-Not Attempted due to Medical Conditions or Safety Concerns. Trnsfers mod (I) bed mobility and sit<-> stands with vc's for hand placement. Weight Bearing Full Weight Bearing Full Weight Bearing Gait Training Gait Assistive Device: FWW Pt amb with FWW and CGA 2 x 10ft, 3 x 100ft with close f/u of w/c. Rest breaks between Exercises Supine Ex: Ankle pumps, Quad Set, Glut sets, Heel Slides, Short Arc Quads, Straight leg raise, Hip abd/add Supine Reps: 20 Seated Therapy Exercises: Ankle pumps, Long arc quads, Hip abd/add Seated Reps: 20 Treatments Pt toileted mod (I) with CGA in BR. BP monitored throughout treatment: supine 0840 BP 156/72, 75bm; sitting EOB 0855 BP 158/106, 82bpm; sitting EOB 0900 161/72, 73bpm; After BR break sitting 0910: BP 148/68, 71bpm; After walking 100ft: 150/66, 70bpm; after treatment 163/70, 73bpm. Assessment Current Status: Good Progress Much improved tolerance to upright acitivity today. Pt is still experiencing dizziness and varying BP's but improved overall. Pt unsteady during ambulation and transfers, pt does fatigue easily with ambulation of 100ft. Pt iglesia well with frequent rest breaks. Pt resting in recliner with call light and all needs met. PT Advanced Manufacturing Vice President Goals Penit[facility]iary Goals PT Advanced Manufacturing Vice President Goals Time Frame: Dec 19, 2020 Roll Left & Right (QC): 6 Sit to Lying (QC): 6 Lying-Sitting on Side/Bed(QC): 6 Sit to Stand (QC): 6 Chair/Lgb-dm-Gqgtm Xfer(QC): 6 Toilet Transfer (QC): 6 Car Transfer (QC): 6 Does the Patient Walk: Yes Walk 10 feet (QC): 6 Walk 50ft with 2 Turns (QC): 6 Walk 150 ft (QC): 6 Walking 10ft on Uneven Surface: 6 1 Step (curb) (QC): 6 4 Steps (QC): 6 12 Steps (QC): 6 Picking up an Object (QC): 6 Does the Pt use WC or Scooter?: No Wheel 50 feet with 2 turns (QC: 9 Wheel 150 feet: 9 PT Plan Treatment/Plan Treatment Plan: Continue Plan of Care Treatment Plan: Bed Mobility, Concurrent Therapy, Education, Functional Activity Miguel, Functional Strength, Group Therapy, Gait, Safety, Therapeutic Exercise, Transfers Treatment Duration: Dec 19, 2020 Frequency: At least 5 of 7 days/Wk (IRF) Estimated Hrs Per Day: 1.5 hours per day Patient and/or Family Agrees t: Yes Time/GCodes Time In: 830 Time Out: 930 Total Billed Treatment Time: 60 Total Billed Treatment 1, ther ex 30', FA 15', Gait 15' KATI REED CPTA Dec 03, 2020 10:12
[2020-12-03] MEDS: cefTRIAXone 1,000 MG in WATER (STERILE) FOR INJECTION 10 ML IV SCH (13:28)
--- NOTE | 2020-12-03 14:15 | Occupational Ther Daily Note ---
OT Current Status-Daily Note Subjective No pain reported this date. Appearance Pt. up in chair. Agrees to work with OT. Mental Status/Objective Patient Orientation: Person Attachments: IV ADL-Treatment Therapy Code Descriptions/Definitions Functional [place] Measure: 0=Not Assessed/NA 4=Minimal Assistance 1=Total Assistance 5=Supervision or Setup 2=Maximal Assistance 6=Modified [place] 3=Moderate Assistance 7=Complete IndependenceSCALE: Activities may be completed with or without assistive devices. 4-Exxjmtovbg-eqjsqia completes the activity by him/herself with no assistance from a helper. 5-Set-up or Clean-up Assistance-helper sets up or cleans up; patient completes activity. [place] assists only prior to or following the activity. 4-Supervision or Touching Assistance-helper provides verbal cues and/or touching/steadying and/or contact guard assistance as patient completes activity. Assistance may be provided throughout the activity or intermittently. 3-Partial/Moderate Assistance-helper does LESS THAN HALF the effort. [place] lifts, holds or supports trunk or limbs, but provides less than half the effort. 2-Substantial/Maximal Assistance-helper does MORE THAN HALF the effort. [place] lifts or holds trunk or limbs and provides more than half the effort. 0-Rhtlvobbt-drkcxa does ALL the effort. Patient does none of the effort to complete the activity. Or, the assistance of 2 or more helpers is required for the patient to complete the activity. If activity was not attempted, code reason: 7-Patient Refused. 9-Not Applicable-not attempted and the patient did not perform the activity before the current illness, exacerbation or injury. 10-Not Attempted due to Environmental Limitations-(lack of equipment, weather restraints, etc.). 88-Not Attempted due to Medical Conditions or Safety Concerns. Oral Hygiene (QC): 5 (Set up seated at sink.) Shower/Bathe Self (QC): 4 (CGA in shower for balance and safety at times. Cues for sequencing and memory. Pt. declines washing hair, stating that she washed it yesterday. Pt. gently reminded that she did not shower yesterday or day before because of severe nausea. Pt. agrees to wash hair.) Upper Body Dressing (QC): 4 Lower Body Dressing (QC): 3 (Min assist and cues to doff/don underwear and pants.) On/Off Footwear: 3 (Cues for sequencing/adjusting sock aide to don sock. Min assist to don shoes.) Other Treatment Pt. requires cues to complete shower/dressing tasks due to safety and decreased balance. Utilized sock aide but unable to remember how to use it from yesterday. Pt. agrees to ambulate to laundry room to do laundry. Slow methodical steps taken with walker and slight losses of balance noted during ambulation. OT carried laundry in bag and completed task for her, as when laundry room was reached, pt. had to lean up against wall for balance. Does not report dizziness. Ambulated to dining area and completed visual perceptual task with drawing/copying shape on paper. Pt. had great difficulty with this, and was unable to complete in legible fashion. Pt. aware that she is unable to draw shapes, and states, "it looks like a bunch of scribbles." Pt. ambulates back to room with min assist for balance. All needs met. Education OT Patient Education: Correct positioning, Modified ADL techniques, Progress toward Goal/Update tx plan, Purpose of tx/functional activities, Reviewed precautions, Rehab process, Transfer techniques Teaching Recipient: Patient Teaching Methods: Demonstration, Discussion Response to Teaching: Verbalize Understanding, Return Demonstration, Reinforcement Needed OT Prison Goals Prison Goals Time Frame: Dec 14, 2020 Eating (QC): 6 Oral Hygiene (QC): 6 Toileting Hygiene (QC): 6 Shower/Bathe Self (QC): 6 Upper Body Dressing (QC): 6 Lower Body Dressing (QC): 6 On/Off Footwear (QC): 6 Additional Goals: 1-Demonstrate ADL Tasks, 2-Verbalize Understanding, 3-ImproveStrength/Miguel 1=Demonstrate adherence to instructed precautions during ADL tasks. 2=Patient will verbalize/demonstrate understanding of assistive devices/modifications for ADL. 3=Patient will improve strength/tolerance for activity to enable patient to perform ADL's. OT Education/Plan Problem List/Assessment Assessment: Decreased Activ Tolerance, Decreased Safety Aware, Dependent Transfers, Impaired Funct Balance, Impaired I ADL's, Impaired Self-Care Skills, Visual-Perceptual Deficit Discharge Recommendations Plan/Recommendations: Continue POC Therapy Discharge Recommendati: 24 Hour Supervision Treatment Plan/Plan of Care Treatment,Training & Education: Yes Patient would benefit from OT for education, treatment and training to promote independence in ADL's, mobility, safety and/or upper extremity function for ADL's. Plan of Care: ADL Retraining, Caregiver Training, Cognitive Retraining, Functional Mobility, Group Exercise/Act as Ind, UE Funct Exercise/Act, UE Neuromus Re-Ed/Coord, Visual/Perceptual Retrain, W/C Management Training Treatment Duration: Dec 14, 2020 Frequency: At least 5 of 7 days/Wk (IRF) Estimated Hrs Per Day: .25 hour per day Agreement: Yes Rehab Potential: Fair Time/GCodes Start Time: 10:05 Stop Time: 11:20 Total Time Billed (hr/min): 75 Billed Treatment Time 1, ADL x 60minutes, FA x 15minutes JASMINE PONCE OT Dec 03, 2020 14:15
--- NOTE | 2020-12-03 14:36 | Physical Therapy Daily Note ---
PT Daily Note-Current Subjective Pt up in recliner, agreeable to treatment. Pt denies pain. Pt reports "I am fpc dizzy" upon standing. Pt became sick and vomited upon return to bed due to sit->supine positional change. Mental Status Patient Orientation: Person, Place Transfers SCALE: Activities may be completed with or without assistive devices. 7-Buotwyllvf-lzxbpcv completes the activity by him/herself with no assistance from a helper. 5-Set-up or Clean-up Assistance-helper sets up or cleans up; patient completes activity. [place] assists only prior to or following the activity. 4-Supervision or Touching Assistance-helper provides verbal cues and/or touching/steadying and/or contact guard assistance as patient completes activity. Assistance may be provided throughout the activity or intermittently. 3-Partial/Moderate Assistance-helper does LESS THAN HALF the effort. [place] lifts, holds or supports trunk or limbs, but provides less than half the effort. 2-Substantial/Maximal Assistance-helper does MORE THAN HALF the effort. [place] lifts or holds trunk or limbs and provides more than half the effort. 6-Debrwrtwx-samxsq does ALL the effort. Patient does none of the effort to complete the activity. Or, the assistance of 2 or more helpers is required for the patient to complete the activity. If activity was not attempted, code reason: 7-Patient Refused. 9-Not Applicable-not attempted and the patient did not perform the activity before the current illness, exacerbation or injury. 10-Not Attempted due to Environmental Limitations-(lack of equipment, weather restraints, etc.). 88-Not Attempted due to Medical Conditions or Safety Concerns. Transfers mod (I) chair and bed level Weight Bearing Full Weight Bearing Full Weight Bearing Gait Training Gait Assistive Device: FWW Pt amb in room per pt request x 75ft with CGA Exercises Supine Ex: Ankle pumps, Quad Set, Heel Slides, Hip abd/add Supine Reps: 20 Treatments Pt seen for LE ther ex in recliner. Pt able to amb in room without c/o. Pt requested to return to bed following therapy. Upon return to her bed pt became ill and vomited. BPs monitored: before treatment 150/72, 71bpm; 1350 standing 164/75, 78 bpm; 1355 after walk 189/88, 69bpm; 1410 supine 187/86, 69bpm Assessment Current Status: Good Progress Pt was able to complete all therex and gait training without complaint. Pt vomited at end of treatment. Pt shirt changed, cleaned and all needs met. Call light in hand. Pt resting in bed. Nurse notified. PT Residential Goals Residential Goals PT Inverter And Clipper Goals Time Frame: Dec 19, 2020 Roll Left & Right (QC): 6 Sit to Lying (QC): 6 Lying-Sitting on Side/Bed(QC): 6 Sit to Stand (QC): 6 Chair/Ato-lf-Ioemv Xfer(QC): 6 Toilet Transfer (QC): 6 Car Transfer (QC): 6 Does the Patient Walk: Yes Walk 10 feet (QC): 6 Walk 50ft with 2 Turns (QC): 6 Walk 150 ft (QC): 6 Walking 10ft on Uneven Surface: 6 1 Step (curb) (QC): 6 4 Steps (QC): 6 12 Steps (QC): 6 Picking up an Object (QC): 6 Does the Pt use WC or Scooter?: No Wheel 50 feet with 2 turns (QC: 9 Wheel 150 feet: 9 PT Plan Treatment/Plan Treatment Plan: Continue Plan of Care Treatment Plan: Bed Mobility, Concurrent Therapy, Education, Functional Activity Miguel, Functional Strength, Group Therapy, Gait, Safety, Therapeutic Exercise, Transfers Treatment Duration: Dec 19, 2020 Frequency: At least 5 of 7 days/Wk (IRF) Estimated Hrs Per Day: 1.5 hours per day Patient and/or Family Agrees t: Yes Time/GCodes Time In: 1330 Time Out: 1410 Total Billed Treatment Time: 40 Total Billed Treatment 1, ther ex 15', gait 15', FA 10' KATI REED CPTA Dec 03, 2020 14:35
[2020-12-03 20:10] VITALS: BP 152/66
[2020-12-04] MEDS: MECLIZINE 25 MG (ANTIVERT) TAB PO SCH ×3 (06:22→21:50)
[2020-12-04] MEDS: MULTIVIT W/MINERALS TAB (THERAGRAN M) PO SCH (06:22)
[2020-12-04] MEDS: inSUlin ASPART (NovoLOG) 1 UNIT/0.01 ML (CHARGE PER UNIT) SC SCH ×4 (06:22→21:00)
[2020-12-04] MEDS: ACETAMINOPHEN 500 MG TAB (TYLENOL) PO SCH (07:34)
[2020-12-04] MEDS: metFORMIN 500 MG (GLUCOPHAGE) TAB PO SCH ×3 (07:34→12:51)
[2020-12-04] MEDS: SENNA W/DOCUSATE (SENOKOT S) TABLET PO SCH ×2 (07:34→21:50)
[2020-12-04] MEDS: DOCUSATE SODIUM 100 MG (COLACE) CAP PO SCH ×2 (07:34→21:50)
[2020-12-04] MEDS: polyethylene glycoL POWDER 17 GM (MIRALAX) PACK PO SCH ×2 (07:34→21:55)
[2020-12-04] MEDS: CEFDINIR 300 MG (OMNICEF) CAP PO SCH ×2 (07:35→21:50)
[2020-12-04] MEDS: MAGNESIUM OXIDE (MAG-OX)400 MG TAB PO SCH (07:35)
[2020-12-04] MEDS: CALCIUM CARB + VIT D 600 MG (CALCARB + D) TAB PO SCH ×2 (07:35→21:50)
[2020-12-04] MEDS: ASPIRIN E.C. 81 MG (ECOTRIN) TAB PO SCH (07:35)
[2020-12-04] MEDS: MILK OF MAGNESIA 400 MG/5 ML 30 ML UDC PO SCH (07:36)
[2020-12-04] MEDS: lisINopril 40 MG (PRINIVIL) TABLET PO SCH (07:36)
[2020-12-04 07:42] VITALS: BP 183/78
[2020-12-04] MEDS ORDERED: SCOPOLAMINE 1.5 MG (TRANSDERM-SCOP) PATCH TD SCH (08:00)
--- NOTE | 2020-12-04 08:02 | PM&R Progress Note ---
Subjective HPI/CC On Admission Date Seen by Provider: Dec 04, 2020 Time Seen by Provider: 12:45 Virgen Bermeo is a 75 year old female with PMH T2DM, HLD, who was admitted to with cerebrovascular accident and intracranial hemorhage. She was found to have a large right cerebellar hemorrhage. She was admitted to the ICU. She underwent craniotomy with hematoma evacuation and had an EVD placed. She was stabilized but remained debilitated. She was deemed to require ongoing acute cares along with PT/OT/ST. She was transferred from to the inpatient rehabilitation unit on 11/28/2020. Her course was complicated by hypertension and she was started on medication. She also had issues with orthostatic hypotension. Upon my examination, she had arrived in her room and was ordering food. She reports having some double vision. She also has some uncoordination and balance issues. She is not having any focal weakness. She denies headaches. She is not having fe vers or chills. She denies chest pain and palpitations. She denies shortness of breath and cough. She denies abdominal pain. She had issues with nausea and vomiting while driving here due to motion sickness. She denies diarrhea. She denies dysuria. She previously had been on aspirin and a cholesterol medicine daily, as well as 18 units of long acting insulin daily. Subjective/Events-last exam 12/04/2020: This visit is via video chat due to Covid related restriction for this provider Patient doing pretty well today Appears to be chronically ill Vomited 2 small amounts today Sugar is 85 so decreasing [employer] Metformin since she thinks that that is making her nauseated made it clear to social work yesterday that patient becomes very lethargic with any medication so he wants that closely watched 12/03/2020: This visit is via video chat due to Covid related restriction for this provider Patient doing pretty well today Eating and drinking better Rocephin will be given last dose IV this afternoon and then switch over to Omnicef Walking with physical therapy Not as impulsive Decreasing balance issues Antivert given scheduled Straight cath required x1 so we will consult urology Bowels are still a bit sluggish so will get aggressive regimen for that 12/02/2020: This visit is via video chat due to Covid related restriction for this provider Improved status today She ate bfast today Zofran given prophylactically before PT Rocephin IV started and maintained due to inadequate PO intake from N/V yesterday E coli noted as second organism so will need to evaluate that for ESBL BM treatment maintained, she seems to nort recall if her bowels are moving well or not very attentive 12/01/2020: This visit is via video chat due to Covid related restriction for this provider Patient having some issues today Nausea and vomiting noted Severe vertigo We will shift to Rocephin IV and give gentle IV fluids Scopolamine patch was replaced Check meds and labs Updated patient on the plan The vertigo and severe dizziness from the stroke because the reluctance of admission to the inpatient rehab unit so we will monitor closely Neuro was not very optimistic the symptoms would resolve quickly or at all and may very well require wheelchair bound status Urine culture showed Franklyn Agustin 11/30/2020: This visit is via video chat due to Covid related restriction for this provider Patient doing well No major concerns Macrobid empirically started, UCx pending Updated patient on the UTI treatment wanted Melatonin Xanax and Codeine DC so I did that In/Out cath once per 24 hours Urecholine started BM 11/2911/29/2020: This visit is via video chat due to Covid related restriction for this provider Reviewed history and physical information Met with nurse and discussed all meds and issues Patient feels pretty good No major concerns per patient Bowels are moving sluggishly will maintain laxatives No impulsiveness Balance is definitely deficient Had to straight cath her x1 due to urinary retention Low-grade fever 99.3 Urine is very cloudy We will obtain urine and urine culture from cath specimen and place on antibiotic empirically Monitoring closely Review of Systems General: Fatigue, Malaise Gastrointestinal: Nausea Focused Exam Lactate Level Objective Exam Vital Signs Vital Signs Date Time Temp Pulse Resp B/P (MAP) Pulse Ox O2 Delivery O2 Flow Rate FiO2 12/05/20 07:14 36.8 70 16 165/77 (106) 95 Room Air Capillary Refill : General Appearance: No Apparent Distress, WD/WN, Chronically ill HEENT: PERRL/EOMI, Normal ENT Inspection, Pharynx Normal; No Photophobia Neck: Normal Inspection, Non Tender, Supple Respiratory: Lungs Clear, Normal Breath Sounds, No Respiratory Distress Cardiovascular: Regular Rate, Rhythm, No Edema, No Murmur Gastrointestinal: Normal Bowel Sounds, Non Tender, Soft Extremity: Normal Inspection, Non Tender, No Pedal Edema Neurologic/Psychiatric: Alert, Oriented x3, Normal Mood/Affect, crm coordinator II-XII Norm as Tested, Motor Weakness (generalized), Other (dysmetria) Skin: Normal Color, Warm/Dry, Other (right parietal EVD incision and occipital craniotomy incision well appearing) Lymphatic: No Adenopathy Results/Procedures Lab Patient resulted labs reviewed. Imaging: Reviewed Imaging Report FIM Transfers Therapy Code Descriptions/Definitions Functional [place] Measure: 0=Not Assessed/NA 4=Minimal Assistance 1=Total Assistance 5=Supervision or Setup 2=Maximal Assistance 6=Modified [place] 3=Moderate Assistance 7=Complete IndependenceSCALE: Activities may be completed with or without assistive devices. 7-Zvuzjqfwzf-dvxhept completes the activity by him/herself with no assistance from a helper. 5-Set-up or Clean-up Assistance-helper sets up or cleans up; patient completes activity. [place] assists only prior to or following the activity. 4-Supervision or Touching Assistance-helper provides verbal cues and/or touching/steadying and/or contact guard assistance as patient completes activity. Assistance may be provided throughout the activity or intermittently. 3-Partial/Moderate Assistance-helper does LESS THAN HALF the effort. [place] lifts, holds or supports trunk or limbs, but provides less than half the effort. 2-Substantial/Maximal Assistance-helper does MORE THAN HALF the effort. [place] l ifts or holds trunk or limbs and provides more than half the effort. 4-Elhvmcfbg-boqpff does ALL the effort. Patient does none of the effort to complete the activity. Or, the assistance of 2 or more helpers is required for the patient to complete the activity. If activity was not attempted, code reason: 7-Patient Refused. 9-Not Applicable-not attempted and the patient did not perform the activity before the current illness, exacerbation or injury. 10-Not Attempted due to Environmental Limitations-(lack of equipment, weather restraints, etc.). 88-Not Attempted due to Medical Conditions or Safety Concerns. Roll Left to Right (QC): 6 Sit to Lying (QC): 6 Sit to Stand (QC): 4 Chair/Dli-kh-Gepql Xfer(QC): 3 Car Transfer (QC): 3 Gait Training Does the Patient Walk?: Yes Distance: 100' Walk 10 feet (QC): 4 Walk 50 ft with 2 Turns(QC): 4 Walk 150 ft (QC): 88 Walking 10ft/uneven surface-QC: 4 Gait Persons Needed: 1 Gait Assistive Device: FWW Wheelchair Training Does the Pt Use a Wheelchair?: No Wheel 50 ft with 2 turns (QC): 9 Wheel 150 ft (QC): 9 Stair Training #of Steps: 1 1 Step (curb) (QC): 3 4 Steps (QC): 88 12 Steps (QC): 88 Balance Picking up an Object (QC): 88 ADL-Treatment Eating (QC): 6 Oral Hygiene (QC): 5 (Set up seated at sink.) Shower/Bathe Self (QC): 4 (CGA in shower for balance and safety at times. Cues for sequencing and memory. Pt. declines washing hair, stating that she washed it yesterday. Pt. gently reminded that she did not shower yesterday or day before because of severe nausea. Pt. agrees to wash hair.) Upper Body Dressing (QC): 4 Lower Body Dressing (QC): 3 (Min assist and cues to doff/don underwear and pants.) On/Off Footwear (QC): 3 (Cues for sequencing/adjusting sock aide to don sock. Min assist to don shoes.) Toileting Hygiene (QC): 7 Toilet Transfer (QC): 7 Assessment/Plan Assessment and Plan Assess & Plan/Chief Complaint Assessment: (1) CVA (cerebral vascular accident) (2) Intracranial hemorrhage (3) Status post craniotomy (4) Status post evacuation of hematoma (5) Dysmetria (6) Diplopia (7) HTN (hypertension) (8) Orthostatic hypotension (9) Debility (10) HLD (hyperlipidemia) (11) T2DM (type 2 diabetes mellitus) (12) Acute UTI placed on antibiotic empirically on 11/29/2020 but DC'd Macrobid due to resistance of Morganella Morgagni placed on Omnicef then shifted to Rocephin due to nausea and vomiting 12/01/2020 (13) Acute urinary retention requiring caths (14) Nausea and vomiting episode requiring IV fluids 12/01/2020 and heplocked 12/02/20 Plan: Intensive rehab protocol Empiric antibiotic treatment Monitor sugar Add Urecholine 7/12/21: Urecholine maintained In/Out caths prn Abx empirically DC meds at request 12/01/2020: IV fluids IV antibiotics DC Macrobid due to resistance on urine culture Very complex case Scopolamine patch 12/02/20: HLIVF IV abx Await second gram negative organism on UCx just noted today on report BM regimen 12/03/2020: Discontinue Rocephin after dose this afternoon and switch to Omnicef p.o. Continue aggressive treatment 12/04/2020: Nausea treatment Scopolamine patch Blood pressure monitoring (1) CVA (cerebral vascular accident) Status: Acute (2) Intracranial hemorrhage Status: Acute (3) Status post craniotomy Status: Acute (4) Status post evacuation of hematoma Status: Acute (5) Dysmetria Status: Acute (6) Diplopia Status: Acute (7) HTN (hypertension) Status: Acute Qualifiers: Hypertension type: essential hypertension Qualified Codes: I10 - Essential (primary) hypertension (8) Orthostatic hypotension Status: Acute (9) Debility (10) HLD (hyperlipidemia) Status: Chronic (11) T2DM (type 2 diabetes mellitus) Status: Chronic Qualifiers: Diabetes mellitus halfway insulin use: with oil heaterman use ELSY ORNELAS DO Dec 04, 2020 08:02
--- NOTE | 2020-12-04 09:41 | Speech Therapy Daily Note ---
Speech Daily Progress Note Subjective Date Seen by Provider: Dec 04, 2020 Time Seen by Provider: 00:30 Patient was resting in her bed when I entered her room. She had not had any of her therapies as of yet today. Objective Patient completed general information cognitive tasks with 70% accuracy given mod to max cues and processing time for corrections. Assessment Assessment Current Status: Fair Progress Treatment Plan Continue Plan of Care Speech Short Term Goals Short Term Goals Short Term Goals 1) Patient will complete memory tasks related to her daily needs with 75% or greater given minimal cues. 2) Patient will complete safety awareness tasks related to her daily needs with 75% or greater given minimal cues. Speech Journeyman Apprentice [employer] Goals Journeyman [employer]ice [employer] Goals Patient will utilize memory and safety awareness strategies as trained in order to require decreased assist. Speech-Plan Patient/Family Goals Patient/Family Goals: Patient plans on returning to her home where she lives with her . She will have family and home health support upon her return home. 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
--- NOTE | 2020-12-04 11:08 | Occupational Ther Daily Note ---
OT Current Status-Daily Note Subjective Pt supine in bed. Pt expresses she is not very tired, ready to get up. Pt states she was up at 9 am (currently 10 am) and ate breakfast. Nursing assures pt she was up at 7am when nursing came on and was eating, then was helped back to bed. Pt continues to have BP issues and nausea/ vomiting. Mental Status/Objective Patient Orientation: Person, Place, Situation ADL-Treatment Therapy Code Descriptions/Definitions Functional [place] Measure: 0=Not Assessed/NA 4=Minimal Assistance 1=Total Assistance 5=Supervision or Setup 2=Maximal Assistance 6=Modified [place] 3=Moderate Assistance 7=Complete IndependenceSCALE: Activities may be completed with or without assistive devices. 8-Rhhmjuddwl-wxuvezx completes the activity by him/herself with no assistance from a helper. 5-Set-up or Clean-up Assistance-helper sets up or cleans up; patient completes activity. [place] assists only prior to or following the activity. 4-Supervision or Touching Assistance-helper provides verbal cues and/or touching/steadying and/or contact guard assistance as patient completes activity. Assistance may be provided throughout the activity or intermittently. 3-Partial/Moderate Assistance-helper does LESS THAN HALF the effort. [place] lifts, holds or supports trunk or limbs, but provides less than half the effort. 2-Substantial/Maximal Assistance-helper does MORE THAN HALF the effort. [place] lifts or holds trunk or limbs and provides more than half the effort. 2-Bubixfvwz-yzmnzr does ALL the effort. Patient does none of the effort to complete the activity. Or, the assistance of 2 or more helpers is required for the patient to complete the activity. If activity was not attempted, code reason: 7-Patient Refused. 9-Not Applicable-not attempted and the patient did not perform the activity before the current illness, exacerbation or injury. 10-Not Attempted due to Environmental Limitations-(lack of equipment, weather restraints, etc.). 88-Not Attempted due to Medical Conditions or Safety Concerns. Eating (QC): 6 (IND) Oral Hygiene (QC): 5 (s/u EOB, pt misses toothbrush with toothpaste minimally this session.) Shower/Bathe Self (QC): 7 Upper Body Dressing (QC): 5 (s/u, bra and shirt.) Lower Body Dressing (QC): 4 (CGA, use of AE due to N/V, however, pt expresses, "I'll be honest, I will probably not use this at home." Pt educated on just utilizing to decrease movements for increased sx, however, pt completes without AE and does not express increased nausea post actiity.) Toileting Hygiene (QC): 7 (denies toileting needs.) Other Treatment Pt bed mob with SBA, sits EOB and BP assessed: 208/83. Pt expresses minimal nausea. Pt sits ~3 min and then this is reassessed: 189/84. Pt completes dressing in sit/ stance BP is assessed with 176/77. Pt returns to sit, immediately expresses need for vomiting. Pt vomits in bucket for ~3 min. Pt sits EOB, for most of session, takes time to dress LB with and without AE (see LB dressing QC). Pt stands and ambulates to chair. No N/V c/o. Pt completes writing tasks in sit, completing name with great legibility; however, when writing alphabet pt's letters range in size, becomes frustrated and states, "My glasses must be messing me up (doffing)," and then finishes with multiple instances of starting one part of the alphabet over once more (decreased attn to task). Pt is educated on results, all needs met, call light in reach. Pt's bucket close to pt. Education OT Patient Education: Correct positioning, Modified ADL techniques, Purpose of tx/functional activities, Safety issues, Use of adapted equipment Teaching Recipient: Patient Teaching Methods: Demonstration, Discussion Response to Teaching: Verbalize Understanding, Return Demonstration, Reinforcement Needed OT Melter Operator Goals Melter Operator Goals Time Frame: Dec 14, 2020 Eating (QC): 6 Oral Hygiene (QC): 6 Toileting Hygiene (QC): 6 Shower/Bathe Self (QC): 6 Upper Body Dressing (QC): 6 Lower Body Dressing (QC): 6 On/Off Footwear (QC): 6 Additional Goals: 1-Demonstrate ADL Tasks, 2-Verbalize Understanding, 3- ImproveStrength/Miguel 1=Demonstrate adherence to instructed precautions during ADL tasks. 2=Patient will verbalize/demonstrate understanding of assistive devices/modifications for ADL. 3=Patient will improve strength/tolerance for activity to enable patient to perform ADL's. OT Education/Plan Problem List/Assessment Assessment: Decreased Activ Tolerance, Decreased Safety Aware, Decreased UE Strength, Dependent Transfers, Impaired Cognition, Impaired Funct Balance, Impaired I ADL's, Impaired Self-Care Skills, Visual-Perceptual Deficit Discharge Recommendations Plan/Recommendations: Continue POC Therapy Discharge Recommendati: Home & Family, Post Acute OT Treatment Plan/Plan of Care Treatment,Training & Education: Yes Patient would benefit from OT for education, treatment and training to promote independence in ADL's, mobility, safety and/or upper extremity function for ADL's. Plan of Care: ADL Retraining, Caregiver Training, Cognitive Retraining, Functional Mobility, Group Exercise/Act as Ind, UE Funct Exercise/Act, UE Neuromus Re-Ed/Coord, Visual/Perceptual Retrain, W/C Management Training Treatment Duration: Dec 14, 2020 Frequency: At least 5 of 7 days/Wk (IRF) Estimated Hrs Per Day: .25 hour per day Agreement: Yes Rehab Potential: Fair Time/GCodes Start Time: 10:00 Stop Time: 11:00 Total Time Billed (hr/min): 60 Billed Treatment Time 1, ADL 2, FA 2 (60) MARCIO OCONNELL OTR Dec 04, 2020 11:08
[2020-12-04] MEDS ORDERED: SCOPOLAMINE PATCH REMOVAL TP SCH (13:00)
[2020-12-04] MEDS: ONDANSETRON 4 MG/2 ML (SDV) Z0FRAN IVP PRN ×2 (13:10→17:19)
--- NOTE | 2020-12-04 13:17 | CONSULTATION REPORT ---
DATE OF SERVICE: ATTENDING PHYSICIAN: Dr. Laboy. SUMMARY: A 75-year-old lady recovering from a craniotomy and evacuation of hematoma from intracranial bleed. She has been having some urinary retention. She was on the Urecholine 25 mg q.i.d., but was stopped because of possibly creating nausea, which she has been suffering from it since surgery. She denies any previous problem with urination at home before the cerebral incident. She denies any incontinence. IMPRESSION: Neurogenic bladder with retention. PLAN: We will keep her off the Urecholine for now, we will start her on Flomax 0.4 mg daily. Continue doing a bladder scan postvoid residual every shift and straight cath if over 300. Job ID: [id number] DocumentID: [id number] Dictated Date: 12/04/2020 13:11:46 Silverlight Developer Date: 12/04/2020 13:17:08 Dictated By: ZAY JAFFE MD MTDD
--- NOTE | 2020-12-04 13:46 | Physical Therapy Daily Note ---
PT Daily Note-Current Subjective Pt denies pain. Pt reports she is dizzy "especially on the R side". Pt agreeable to treatment. Mental Status Patient Orientation: Person, Place, Situation Transfers SCALE: Activities may be completed with or without assistive devices. 4-Cdklbqjiko-klemdhp completes the activity by him/herself with no assistance from a helper. 5-Set-up or Clean-up Assistance-helper sets up or cleans up; patient completes activity. [place] assists only prior to or following the activity. 4-Supervision or Touching Assistance-helper provides verbal cues and/or touching/steadying and/or contact guard assistance as patient completes activity. Assistance may be provided throughout the activity or intermittently. 3-Partial/Moderate Assistance-helper does LESS THAN HALF the effort. [place] lifts, holds or supports trunk or limbs, but provides less than half the effort. 2-Substantial/Maximal Assistance-helper does MORE THAN HALF the effort. [place] lifts or holds trunk or limbs and provides more than half the effort. 7-Ruurigbzi-tytyan does ALL the effort. Patient does none of the effort to complete the activity. Or, the assistance of 2 or more helpers is required for the patient to complete the activity. If activity was not attempted, code reason: 7-Patient Refused. 9-Not Applicable-not attempted and the patient did not perform the activity before the current illness, exacerbation or injury. 10-Not Attempted due to Environmental Limitations-(lack of equipment, weather restraints, etc.). 88-Not Attempted due to Medical Conditions or Safety Concerns. Chair level mod (I) with all transfers Weight Bearing Full Weight Bearing Full Weight Bearing Gait Training Gait Assistive Device: FWW Pt amb with FWW and CGA x 100ft Exercises Supine Ex: Ankle pumps, Quad Set, Heel Slides, Short Arc Quads, Straight leg raise, Hip abd/add Supine Reps: 20 Seated Therapy Exercises: Ankle pumps, Long arc quads, Hip flexion, Hip abd/add Seated Reps: 20 Treatments Pt performed standing walk in place x 20 steps, static balance without hands x 60sec, tandem balance x [address] BP monitored throughout treatment: prior to treatment: 1110am sitting BP 176/83, 66bpm; 1120 am standing BP 168/84, 75bpm; 1130am sitting after walk BP 202/91, 67bpm; 1150 am sitting 163/77, 65bpm; 1155am standing BP 177/79, 67bpm, 1200pm end of treatment BP 178/81, 59bpm Assessment Current Status: Fair Progress Better tolerance to activity by no c/o voiced during above treatment session. Pt demonstrates subtle unsteadiness during standing activity but no LOB. Pt participated in conversation throughout treatment. Pt resting in recliner with call light and all needs met. PT Usp Goals Usp Goals PT Fiberglass Insulation Installer Goals Time Frame: Dec 19, 2020 Roll Left & Right (QC): 6 Sit to Lying (QC): 6 Lying-Sitting on Side/Bed(QC): 6 Sit to Stand (QC): 6 Chair/Tof-av-Tmcbz Xfer(QC): 6 Toilet Transfer (QC): 6 Car Transfer (QC): 6 Does the Patient Walk: Yes Walk 10 feet (QC): 6 Walk 50ft with 2 Turns (QC): 6 Walk 150 ft (QC): 6 Walking 10ft on Uneven Surface: 6 1 Step (curb) (QC): 6 4 Steps (QC): 6 12 Steps (QC): 6 Picking up an Object (QC): 6 Does the Pt use WC or Scooter?: No Wheel 50 feet with 2 turns (QC: 9 Wheel 150 feet: 9 PT Plan Treatment/Plan Treatment Plan: Continue Plan of Care Treatment Plan: Bed Mobility, Concurrent Therapy, Education, Functional Activity Miguel, Functional Strength, Group Therapy, Gait, Safety, Therapeutic Exercise, Transfers Treatment Duration: Dec 19, 2020 Frequency: At least 5 of 7 days/Wk (IRF) Estimated Hrs Per Day: 1.5 hours per day Patient and/or Family Agrees t: Yes Time/GCodes Time In: 1100 Time Out: 1200 Total Billed Treatment Time: 60 Total Billed Treatment 1, Ther ex 45', Gait 15' KATI REED CPTA Dec 04, 2020 13:46
--- NOTE | 2020-12-04 14:24 | Therapy Group Daily Note ---
Therapy Daily Group Note Patient Education Topic Home Safety, Other List Below (Pain management) Session Ratio (pt:therapist): 8:2 Goal of Session: Education on ARU Expectations, Home Safety Strategies, UE/LE Strengthing, Other (list) (pain management) Goal Met for this Session: Yes Pt Benefit of Group: Contributions to Others, F/U Use of Strategies @Home, Increased Functional Safety, Increased Functional Strength, Improved Cognition, Recognition of Peers, Socialization Other/Notes Pt transported via w/c to therapy gym for OT/PT group. Group consisted of introductions (name, place living, childhood memory), socialization, B UE/LE seated exercises, education of pain management and home safety activity. Pt introduced self appropriately and actively listened to peers. Pt was able to complete B UE/LE seated exercises though fatigued quickly. Pt acknowledged understanding of pain management education by nodding/gesturing affirmatively. Pt attended to home safety activity though did not attempt to answer questions. After therapy, pt sitting in recliner with call light/phone in reach. All needs met in room. Start Time: 13:00 Stop Time: 14:00 Total Billed Treatment Time: 60 Total Billed Treatment 1-GRP MAX WARE Dec 04, 2020 14:24
[2020-12-04] MEDS: TAMSULOSIN 0.4 MG (FLOMAX) CAP PO SCH (17:12)
[2020-12-04 20:13] VITALS: BP 151/69
[2020-12-05] MEDS: inSUlin ASPART (NovoLOG) 1 UNIT/0.01 ML (CHARGE PER UNIT) SC SCH ×4 (06:00→22:03)
[2020-12-05] MEDS: MULTIVIT W/MINERALS TAB (THERAGRAN M) PO SCH (06:12)
[2020-12-05] MEDS: MECLIZINE 25 MG (ANTIVERT) TAB PO SCH ×3 (06:12→22:04)
[2020-12-05 07:14] VITALS: BP 165/77
--- NOTE | 2020-12-05 08:35 | PM&R Progress Note ---
Subjective HPI/CC On Admission Date Seen by Provider: Dec 05, 2020 Time Seen by Provider: 12:45 Virgen Bermeo is a 75 year old female with PMH T2DM, HLD, who was admitted to with cerebrovascular accident and intracranial hemorhage. She was found to have a large right cerebellar hemorrhage. She was admitted to the ICU. She underwent craniotomy with hematoma evacuation and had an EVD placed. She was stabilized but remained debilitated. She was deemed to require ongoing acute cares along with PT/OT/ST. She was transferred from to the inpatient rehabilitation unit on 11/28/2020. Her course was complicated by hypertension and she was started on medication. She also had issues with orthostatic hypotension. Upon my examination, she had arrived in her room and was ordering food. She reports having some double vision. She also has some uncoordination and balance issues. She is not having any focal weakness. She denies headaches. She is not having fe vers or chills. She denies chest pain and palpitations. She denies shortness of breath and cough. She denies abdominal pain. She had issues with nausea and vomiting while driving here due to motion sickness. She denies diarrhea. She denies dysuria. She previously had been on aspirin and a cholesterol medicine daily, as well as 18 units of long acting insulin daily. Subjective/Events-last exam 12/05/2020: This visit is via video chat due to Covid related restriction for this provider Patient doing a little better today Ate a full breakfast and eating lunch currently Bowels move 3 days ago so laxatives given Voiding at night pretty well and voided 600 cc of urine this morning but bladder scan showed another 400 retained so perform straight in and out cath Sleeps better here than at home Holding Metformin currently 12/04/2020: This visit is via video chat due to Covid related restriction for this provider Patient doing pretty well today Appears to be chronically ill Vomited 2 small amounts today Sugar is 85 so decreasing Levemir Holding Metformin since she thinks that that is making her nauseated made it clear to social work yesterday that patient becomes very lethargic with any medication so he wants that closely watched 12/03/2020: This visit is via video chat due to Covid related restriction for this provider Patient doing pretty well today Eating and drinking better Rocephin will be given last dose IV this afternoon and then switch over to Omnicef Walking with physical therapy Not as impulsive Decreasing balance issues Antivert given scheduled Straight cath required x1 so we will consult urology Bowels are still a bit sluggish so will get aggressive regimen for that 12/02/2020: This visit is via video chat due to Covid related restriction for this provider Improved status today She ate bfast today Zofran given prophylactically before PT Rocephin IV started and maintained due to inadequate PO intake from N/V yesterday E coli noted as second organism so will need to evaluate that for ESBL BM treatment maintained, she seems to nort recall if her bowels are moving well or not very attentive 12/01/2020: This visit is via video chat due to Covid related restriction for this provider Patient having some issues today Nausea and vomiting noted Severe vertigo We will shift to Rocephin IV and give gentle IV fluids Scopolamine patch was replaced Check meds and labs Updated patient on the plan The vertigo and severe dizziness from the stroke because the reluctance of admission to the inpatient rehab unit so we will monitor closely Neuro was not very optimistic the symptoms would resolve quickly or at all and may very well require wheelchair bound status Urine culture showed Franklyn Bonillani 11/30/2020: This visit is via video chat due to Covid related restriction for this provider Patient doing well No major concerns Macrobid empirically started, UCx pending Updated patient on the UTI treatment wanted Melatonin Xanax and Codeine DC so I did that In/Out cath once per 24 hours Urecholine started BM 11/2911/29/2020: This visit is via video chat due to Covid related restriction for this provider Reviewed history and physical information Met with nurse and discussed all meds and issues Patient feels pretty good No major concerns per patient Bowels are moving sluggishly will maintain laxatives No impulsiveness Balance is definitely deficient Had to straight cath her x1 due to urinary retention Low-grade fever 99.3 Urine is very cloudy We will obtain urine and urine culture from cath specimen and place on antibiotic empirically Monitoring closely Review of Systems General: Fatigue Objective Exam Vital Signs Vital Signs Date Time Temp Pulse Resp B/P (MAP) Pulse Ox O2 Delivery O2 Flow Rate FiO2 12/05/20 09:20 Room Air 12/05/20 07:14 36.8 70 16 165/77 (106) 95 Capillary Refill : General Appearance: No Apparent Distress, WD/WN, Chronically ill HEENT: PERRL/EOMI, Normal ENT Inspection, Pharynx Normal; No Photophobia Neck: Normal Inspection, Non Tender, Supple Respiratory: Lungs Clear, Normal Breath Sounds, No Respiratory Distress Cardiovascular: Regular Rate, Rhythm, No Edema, No Murmur Gastrointestinal: Normal Bowel Sounds, Non Tender, Soft Extremity: Normal Inspection, Non Tender, No Pedal Edema Neurologic/Psychiatric: Alert, Oriented x3, Normal Mood/Affect, crotch piece baster II-XII Norm as Tested, Motor Weakness (generalized), Other (dysmetria) Skin: Normal Color, Warm/Dry, Other (right parietal EVD incision and occipital craniotomy incision well appearing) Lymphatic: No Adenopathy Results/Procedures Lab Patient resulted labs reviewed. Imaging: Reviewed Imaging Report FIM Transfers Therapy Code Descriptions/Definitions Functional [place] Measure: 0=Not Assessed/NA 4=Minimal Assistance 1=Total Assistance 5=Supervision or Setup 2=Maximal Assistance 6=Modified [place] 3=Moderate Assistance 7=Complete IndependenceSCALE: Activities may be completed with or without assistive devices. 1-Qrxgdabtta-rkaocsj completes the activity by him/herself with no assistance from a helper. 5-Set-up or Clean-up Assistance-helper sets up or cleans up; patient completes activity. [place] assists only prior to or following the activity. 4-Supervision or Touching Assistance-helper provides verbal cues and/or touching/steadying and/or contact guard assistance as patient completes activity. Assistance may be provided throughout the activity or intermittently. 3-Partial/Moderate Assistance-helper does LESS THAN HALF the effort. [place] lifts, holds or supports trunk or limbs, but provides less than half the effort. 2-Substantial/Maximal Assistance-helper does MORE THAN HALF the effort. [place] lifts or holds trunk or limbs and provides more than half the effort. 3-Ksfdaqago-uffwpl does ALL the effort. Patient does none of the effort to complete the activity. Or, the assistance of 2 or more helpers is required for the patient to complete the activity. If activity was not attempted, code reason: 7-Patient Refused. 9-Not Applicable-not attempted and the patient did not perform the activity before the current illness, exacerbation or injury. 10-Not Attempted due to Environmental Limitations-(lack of equipment, weather restraints, etc.). 88-Not Attempted due to Medical Conditions or Safety Concerns. Roll Left to Right (QC): 6 Sit to Lying (QC): 6 Sit to Stand (QC): 4 Chair/Moz-tg-Ynxmw Xfer(QC): 3 Car Transfer (QC): 3 Gait Training Does the Patient Walk?: Yes Distance: 100' Walk 10 feet (QC): 4 Walk 50 ft with 2 Turns(QC): 4 Walk 150 ft (QC): 88 Walking 10ft/uneven surface-QC: 4 Gait Persons Needed: 1 Gait Assistive Device: FWW Wheelchair Training Does the Pt Use a Wheelchair?: No Wheel 50 ft with 2 turns (QC): 9 Wheel 150 ft (QC): 9 Stair Training #of Steps: 1 1 Step (curb) (QC): 3 4 Steps (QC): 88 12 Steps (QC): 88 Balance Picking up an Object (QC): 88 ADL-Treatment Eating (QC): 6 (IND) Oral Hygiene (QC): 5 (s/u EOB, pt misses toothbrush with toothpaste minimally this session.) Shower/Bathe Self (QC): 7 Upper Body Dressing (QC): 5 (s/u, bra and shirt.) Lower Body Dressing (QC): 4 (CGA, use of AE due to N/V, however, pt expresses, "I'll be honest, I will probably not use this at home." Pt educated on just utilizing to decrease movements for increased sx, however, pt completes without AE and does not express increased nausea post actiity.) On/Off Footwear (QC): 3 (Cues for sequencing/adjusting sock aide to don sock. Min assist to don shoes.) Toileting Hygiene (QC): 7 (denies toileting needs.) Toilet Transfer (QC): 7 Assessment/Plan Assessment and Plan Assess & Plan/Chief Complaint Assessment: (1) CVA (cerebral vascular accident) (2) Intracranial hemorrhage (3) Status post craniotomy (4) Status post evacuation of hematoma (5) Dysmetria (6) Diplopia (7) HTN (hypertension) (8) Orthostatic hypotension (9) Debility (10) HLD (hyperlipidemia) (11) T2DM (type 2 diabetes mellitus) (12) Acute UTI placed on antibiotic empirically on 11/29/2020 but DC'd Macrobid due to resistance of Morganella Morgagni placed on Omnicef then shifted to Rocephin due to nausea and vomiting 12/01/2020 (13) Acute urinary retention requiring caths (14) Nausea and vomiting episode requiring IV fluids 12/01/2020 and heplocked 12/02/20 Plan: Intensive rehab protocol Empiric antibiotic treatment Monitor sugar Add Urecholine 11/30/20: Urecholine maintained In/Out caths prn Abx empirically DC meds at request 12/01/2020: IV fluids IV antibiotics DC Macrobid due to resistance on urine culture Very complex case Scopolamine patch 12/02/20: HLIVF IV abx Await second gram negative organism on UCx just noted today on report BM regimen 12/03/2020: Discontinue Rocephin after dose this afternoon and switch to Omnicef p.o. Continue aggressive treatment 12/04/2020: Nausea treatment Scopolamine patch Blood pressure monitoring 12/05/2020: Monitor for nausea Hold Metformin Monitor blood sugar only (1) CVA (cerebral vascular accident) Status: Acute (2) Intracranial hemorrhage Status: Acute (3) Status post craniotomy Status: Acute (4) Status post evacuation of hematoma Status: Acute (5) Dysmetria Status: Acute (6) Diplopia Status: Acute (7) HTN (hypertension) Status: Acute Qualifiers: Hypertension type: essential hypertension Qualified Codes: I10 - Essential (primary) hypertension (8) Orthostatic hypotension Status: Acute (9) Debility (10) HLD (hyperlipidemia) Status: Chronic (11) T2DM (type 2 diabetes mellitus) Status: Chronic Qualifiers: Diabetes mellitus custodial insulin use: with intermediate designer use ELSY ORNELAS DO Dec 05, 2020 08:35
[2020-12-05] MEDS: SENNA W/DOCUSATE (SENOKOT S) TABLET PO SCH ×2 (09:07→22:04)
[2020-12-05] MEDS: ASPIRIN E.C. 81 MG (ECOTRIN) TAB PO SCH (09:07)
[2020-12-05] MEDS: ACETAMINOPHEN 500 MG TAB (TYLENOL) PO SCH (09:07)
[2020-12-05] MEDS: MAGNESIUM OXIDE (MAG-OX)400 MG TAB PO SCH (09:07)
[2020-12-05] MEDS: DOCUSATE SODIUM 100 MG (COLACE) CAP PO SCH ×2 (09:07→22:04)
[2020-12-05] MEDS: CEFDINIR 300 MG (OMNICEF) CAP PO SCH ×2 (09:07→22:04)
[2020-12-05] MEDS: CALCIUM CARB + VIT D 600 MG (CALCARB + D) TAB PO SCH ×2 (09:07→22:04)
[2020-12-05] MEDS: lisINopril 40 MG (PRINIVIL) TABLET PO SCH (09:08)
[2020-12-05] MEDS: polyethylene glycoL POWDER 17 GM (MIRALAX) PACK PO SCH ×2 (09:08→22:00)
[2020-12-05] MEDS: MILK OF MAGNESIA 400 MG/5 ML 30 ML UDC PO SCH (09:13)
--- NOTE | 2020-12-05 13:00 | Physical Therapy Daily Note ---
PT Daily Note-Current Subjective Pt up in chair, reports she continues to feel "a little dizzy on the (R) side but I do feel better than I did yesterday". Mental Status Patient Orientation: Person, Place, Time, Situation Transfers SCALE: Activities may be completed with or without assistive devices. 0-Tswmrblegf-rxukjob completes the activity by him/herself with no assistance from a helper. 5-Set-up or Clean-up Assistance-helper sets up or cleans up; patient completes activity. [place] assists only prior to or following the activity. 4-Supervision or Touching Assistance-helper provides verbal cues and/or touching/steadying and/or contact guard assistance as patient completes activity. Assistance may be provided throughout the activity or intermittently. 3-Partial/Moderate Assistance-helper does LESS THAN HALF the effort. [place] lifts, holds or supports trunk or limbs, but provides less than half the effort. 2-Substantial/Maximal Assistance-helper does MORE THAN HALF the effort. [place] lifts or holds trunk or limbs and provides more than half the effort. 4-Ocysqlxxk-zsvwau does ALL the effort. Patient does none of the effort to complete the activity. Or, the assistance of 2 or more helpers is required for the patient to complete the activity. If activity was not attempted, code reason: 7-Patient Refused. 9-Not Applicable-not attempted and the patient did not perform the activity before the current illness, exacerbation or injury. 10-Not Attempted due to Environmental Limitations-(lack of equipment, weather restraints, etc.). 88-Not Attempted due to Medical Conditions or Safety Concerns. Sit to Stand (QC): 4 Weight Bearing Right Lower Extremity: Right Full Weight Bearing Left Lower Extremity: Left Full Weight Bearing Gait Training Does the Patient Walk?: Yes Exercises Supine Ex: Ankle pumps, Quad Set, Glut sets, Heel Slides, Straight leg raise, Hip abd/add Supine Reps: 20 Standing: Heel/toe raises, 3 way Ex=Flex, Abd, Ext (Flexion only), Marching Standing Reps: 15 Treatments BP seated: 160/69, post standing exercise 162/72 LE functional strengthening in sitting and standing. Returned to chair with needs met. Assessment Current Status: Good Progress Pt tolerated fair-well. Reports less nausea and dizziness. Mildly unsteady with standing tasks, no nino LOB. PT Mcfp Goals Mcfp Goals PT Mcfp Goals Time Frame: Dec 19, 2020 Roll Left & Right (QC): 6 Sit to Lying (QC): 6 Lying-Sitting on Side/Bed(QC): 6 Sit to Stand (QC): 6 Chair/Jwn-hy-Huvmj Xfer(QC): 6 Toilet Transfer (QC): 6 Car Transfer (QC): 6 Does the Patient Walk: Yes Walk 10 feet (QC): 6 Walk 50ft with 2 Turns (QC): 6 Walk 150 ft (QC): 6 Walking 10ft on Uneven Surface: 6 1 Step (curb) (QC): 6 4 Steps (QC): 6 12 Steps (QC): 6 Picking up an Object (QC): 6 Does the Pt use WC or Scooter?: No Wheel 50 feet with 2 turns (QC: 9 Wheel 150 feet: 9 PT Plan Problem List Problem List: Activity Tolerance, Functional Strength, Safety, Balance, Gait, Transfer, Bed Mobility Treatment/Plan Treatment Plan: Continue Plan of Care Treatment Plan: Bed Mobility, Concurrent Therapy, Education, Functional Activity Miguel, Functional Strength, Group Therapy, Gait, Safety, Therapeutic Exercise, Transfers Treatment Duration: Dec 19, 2020 Frequency: At least 5 of 7 days/Wk (IRF) Estimated Hrs Per Day: 1.5 hours per day Patient and/or Family Agrees t: Yes Time/GCodes Time In: 1148 Time Out: 1208 Total Billed Treatment Time: 20 Total Billed Treatment 1, Ex x 20' ADÁN SALINAS DPAgnes Dec 05, 2020 13:00
[2020-12-05] MEDS: TAMSULOSIN 0.4 MG (FLOMAX) CAP PO SCH (18:01)
[2020-12-05] MEDS: CATHETER FLUSH 10 ML SYR IV PRN (18:01)
[2020-12-05 20:00] VITALS: BP 152/67
[2020-12-05] MEDS: CATHETER FLUSH 10 ML SYR IV SCH (22:06)
[2020-12-06] MEDS: inSUlin ASPART (NovoLOG) 1 UNIT/0.01 ML (CHARGE PER UNIT) SC SCH ×4 (05:46→21:32)
[2020-12-06] MEDS: MULTIVIT W/MINERALS TAB (THERAGRAN M) PO SCH (06:24)
[2020-12-06] MEDS: MECLIZINE 25 MG (ANTIVERT) TAB PO SCH ×3 (06:24→21:31)
[2020-12-06] MEDS: CATHETER FLUSH 10 ML SYR IV SCH ×3 (06:25→22:55)
--- NOTE | 2020-12-06 06:59 | PM&R Progress Note ---
Subjective HPI/CC On Admission Date Seen by Provider: Dec 06, 2020 Time Seen by Provider: 10:00 Virgen Bermeo is a 75 year old female with PMH T2DM, HLD, who was admitted to with cerebrovascular accident and intracranial hemorhage. She was found to have a large right cerebellar hemorrhage. She was admitted to the ICU. She underwent craniotomy with hematoma evacuation and had an EVD placed. She was stabilized but remained debilitated. She was deemed to require ongoing acute cares along with PT/OT/ST. She was transferred from to the inpatient rehabilitation unit on 11/28/2020. Her course was complicated by hypertension and she was started on medication. She also had issues with orthostatic hypotension. Upon my examination, she had arrived in her room and was ordering food. She reports having some double vision. She also has some uncoordination and balance issues. She is not having any focal weakness. She denies headaches. She is not having fe vers or chills. She denies chest pain and palpitations. She denies shortness of breath and cough. She denies abdominal pain. She had issues with nausea and vomiting while driving here due to motion sickness. She denies diarrhea. She denies dysuria. She previously had been on aspirin and a cholesterol medicine daily, as well as 18 units of long acting insulin daily. Subjective/Events-last exam 12/06/2020: Patient doing pretty well today Had a little bit of vomiting today but was able to eat all of breakfast Daughter is at the bedside today Walking pretty well but balance is an issue Had a small bowel movement last night so gave laxatives today Urology did see patient and recommended to restart Urecholine and Place [place] if she continues to have retention Staple removal will be assessed by and we will remove if needed 12/05/2020: This visit is via video chat due to Covid related restriction for this provider Patient doing a little better today Ate a full breakfast and eating lunch currently Bowels move 3 days ago so laxatives given Voiding at night pretty well and voided 600 cc of urine this morning but bladder scan showed another 400 retained so perform straight in and out cath Sleeps better here than at home Holding Metformin currently 12/04/2020: This visit is via video chat due to Covid related restriction for this provider Patient doing pretty well today Appears to be chronically ill Vomited 2 small amounts today Sugar is 85 so decreasing Levemir Holding Metformin since she thinks that that is making her nauseated made it clear to social work yesterday that patient becomes very lethargic with any medication so he wants that closely watched 12/03/2020: This visit is via video chat due to Covid related restriction for this provider Patient doing pretty well today Eating and drinking better Rocephin will be given last dose IV this afternoon and then switch over to Omnicef Walking with physical therapy Not as impulsive Decreasing balance issues Antivert given scheduled Straight cath required x1 so we will consult urology Bowels are still a bit sluggish so will get aggressive regimen for that 12/02/2020: This visit is via video chat due to Covid related restriction for this provider Improved status today She ate bfast today Zofran given prophylactically before PT Rocephin IV started and maintained due to inadequate PO intake from N/V yesterday E coli noted as second organism so will need to evaluate that for ESBL BM treatment maintained, she seems to nort recall if her bowels are moving well or not very attentive 12/01/2020: This visit is via video chat due to Covid related restriction for this provider Patient having some issues today Nausea and vomiting noted Severe vertigo We will shift to Rocephin IV and give gentle IV fluids Scopolamine patch was replaced Check meds and labs Updated patient on the plan The vertigo and severe dizziness from the stroke because the reluctance of admission to the inpatient rehab unit so we will monitor closely Neuro was not very optimistic the symptoms would resolve quickly or at all and may very well require wheelchair bound status Urine culture showed Morganella Davidgagni 11/30/2020: This visit is via video chat due to Covid related restriction for this provider Patient doing well No major concerns Macrobid empirically started, UCx pending Updated patient on the UTI treatment wanted Melatonin Xanax and Codeine DC so I did that In/Out cath once per 24 hours Urecholine started BM 11/2911/29/2020: This visit is via video chat due to Covid related restriction for this provider Reviewed history and physical information Met with nurse and discussed all meds and issues Patient feels pretty good No major concerns per patient Bowels are moving sluggishly will maintain laxatives No impulsiveness Balance is definitely deficient Had to straight cath her x1 due to urinary retention Low-grade fever 99.3 Urine is very cloudy We will obtain urine and urine culture from cath specimen and place on antibiotic empirically Monitoring closely Review of Systems General: Fatigue, Malaise Neurological: Weakness, Incoordination Objective Exam Vital Signs Vital Signs Date Time Temp Pulse Resp B/P (MAP) Pulse Ox O2 Delivery O2 Flow Rate FiO2 12/06/20 20:00 36.4 65 14 142/65 (90) 95 Room Air Capillary Refill : General Appearance: No Apparent Distress, WD/WN, Chronically ill HEENT: PERRL/EOMI, Normal ENT Inspection, Pharynx Normal; No Photophobia Neck: Normal Inspection, Non Tender, Supple Respiratory: Lungs Clear, Normal Breath Sounds, No Respiratory Distress Cardiovascular: Regular Rate, Rhythm, No Edema, No Murmur Gastrointestinal: Normal Bowel Sounds, Non Tender, Soft Extremity: Normal Inspection, Non Tender, No Pedal Edema Neurologic/Psychiatric: Alert, Oriented x3, Normal Mood/Affect, quality control checker II-XII Norm as Tested, Motor Weakness (generalized), Other (dysmetria) Skin: Normal Color, Warm/Dry, Other (right parietal EVD incision and occipital craniotomy incision well appearing) Lymphatic: No Adenopathy Results/Procedures Lab Patient resulted labs reviewed. Imaging: Reviewed Imaging Report FIM Transfers Therapy Code Descriptions/Definitions Functional [place] Measure: 0=Not Assessed/NA 4=Minimal Assistance 1=Total Assistance 5=Supervision or Setup 2=Maximal Assistance 6=Modified [place] 3=Moderate Assistance 7=Complete IndependenceSCALE: Activities may be completed with or without assistive devices. 6-Irmohbhvxs-bplkhig completes the activity by him/herself with no assistance from a helper. 5-Set-up or Clean-up Assistance-helper sets up or cleans up; patient completes activity. [place] assists only prior to or following the activity. 4-Supervision or Touching Assistance-helper provides verbal cues and/or touching/steadying and/or contact guard assistance as patient completes activity. Assistance may be provided throughout the activity or intermittently. 3-Partial/Moderate Assistance-helper does LESS THAN HALF the effort. [place] lifts, holds or supports trunk or limbs, but provides less than half the effort. 2-Substantial/Maximal Assistance-helper does MORE THAN HALF the effort. [place] lifts or holds trunk or limbs and provides more than half the effort. 8-Hbotsmxdt-izmadz does ALL the effort. Patient does none of the effort to complete the activity. Or, the assistance of 2 or more helpers is required for the patient to complete the activity. If activity was not attempted, code reason: 7-Patient Refused. 9-Not Applicable-not attempted and the patient did not perform the activity before the current illness, exacerbation or injury. 10-Not Attempted due to Environmental Limitations-(lack of equipment, weather restraints, etc.). 88-Not Attempted due to Medical Conditions or Safety Concerns. Roll Left to Right (QC): 6 Sit to Lying (QC): 6 Sit to Stand (QC): 4 Chair/Iku-wm-Tmjse Xfer(QC): 3 Car Transfer (QC): 3 Gait Training Does the Patient Walk?: Yes Distance: 100' Walk 10 feet (QC): 4 Walk 50 ft with 2 Turns(QC): 4 Walk 150 ft (QC): 88 Walking 10ft/uneven surface-QC: 4 Gait Persons Needed: 1 Gait Assistive Device: FWW Wheelchair Training Does the Pt Use a Wheelchair?: No Wheel 50 ft with 2 turns (QC): 9 Wheel 150 ft (QC): 9 Stair Training #of Steps: 1 1 Step (curb) (QC): 3 4 Steps (QC): 88 12 Steps (QC): 88 Balance Picking up an Object (QC): 88 ADL-Treatment Eating (QC): 6 (IND) Oral Hygiene (QC): 5 (s/u EOB, pt misses toothbrush with toothpaste minimally this session.) Shower/Bathe Self (QC): 7 Upper Body Dressing (QC): 5 (s/u, bra and shirt.) Lower Body Dressing (QC): 4 (CGA, use of AE due to N/V, however, pt expresses, "I'll be honest, I will probably not use this at home." Pt educated on just utilizing to decrease movements for increased sx, however, pt completes without AE and does not express increased nausea post actiity.) On/Off Footwear (QC): 3 (Cues for sequencing/adjusting sock aide to don sock. Min assist to don shoes.) Toileting Hygiene (QC): 7 (denies toileting needs.) Toilet Transfer (QC): 7 Assessment/Plan Assessment and Plan Assess & Plan/Chief Complaint Assessment: (1) CVA (cerebral vascular accident) (2) Intracranial hemorrhage (3) Status post craniotomy (4) Status post evacuation of hematoma (5) Dysmetria (6) Diplopia (7) HTN (hypertension) (8) Orthostatic hypotension (9) Debility (10) HLD (hyperlipidemia) (11) T2DM (type 2 diabetes mellitus) (12) Acute UTI placed on antibiotic empirically on 11/29/2020 but DC'd Macrobid due to resistance of Morganella Morgagni placed on Omnicef then shifted to Rocephin due to nausea and vomiting 12/01/2020 (13) Acute urinary retention requiring caths thin urology consulted on 12/05/2020 (14) Nausea and vomiting episode requiring IV fluids 12/01/2020 and heplocked 12/02/20 Plan: Intensive rehab protocol Empiric antibiotic treatment Monitor sugar Add Urecholine 11/30/20: Urecholine maintained In/Out caths prn Abx empirically DC meds at request 12/01/2020: IV fluids IV antibiotics DC Macrobid due to resistance on urine culture Very complex case Scopolamine patch 12/02/20: HLIVF IV abx Await second gram negative organism on UCx just noted today on report BM regimen 12/03/2020: Discontinue Rocephin after dose this afternoon and switch to Omnicef p.o. Continue aggressive treatment 12/04/2020: Nausea treatment Scopolamine patch Blood pressure monitoring 12/05/2020: Monitor for nausea Hold Metformin Monitor blood sugar only 12/06/2020: Urecholine Urology consultation appreciated Bowel regimen Monitor closely (1) CVA (cerebral vascular accident) Status: Acute (2) Intracranial hemorrhage Status: Acute (3) Status post craniotomy Status: Acute (4) Status post evacuation of hematoma Status: Acute (5) Dysmetria Status: Acute (6) Diplopia Status: Acute (7) HTN (hypertension) Status: Acute Qualifiers: Hypertension type: essential hypertension Qualified Codes: I10 - Essential (primary) hypertension (8) Orthostatic hypotension Status: Acute (9) Debility (10) HLD (hyperlipidemia) Status: Chronic (11) T2DM (type 2 diabetes mellitus) Status: Chronic Qualifiers: Diabetes mellitus terminal operator insulin use: with [facility] use ELSY ORNELAS DO Dec 06, 2020 06:59
[2020-12-06 07:18] VITALS: BP 153/77
[2020-12-06] MEDS: ASPIRIN E.C. 81 MG (ECOTRIN) TAB PO SCH (08:25)
[2020-12-06] MEDS: MAGNESIUM OXIDE (MAG-OX)400 MG TAB PO SCH (08:25)
[2020-12-06] MEDS: CALCIUM CARB + VIT D 600 MG (CALCARB + D) TAB PO SCH ×2 (08:25→21:30)
[2020-12-06] MEDS: MILK OF MAGNESIA 400 MG/5 ML 30 ML UDC PO SCH (08:25)
[2020-12-06] MEDS: polyethylene glycoL POWDER 17 GM (MIRALAX) PACK PO SCH ×2 (08:25→21:36)
[2020-12-06] MEDS: ACETAMINOPHEN 500 MG TAB (TYLENOL) PO SCH (08:26)
[2020-12-06] MEDS: SENNA W/DOCUSATE (SENOKOT S) TABLET PO SCH ×2 (08:26→21:36)
[2020-12-06] MEDS: DOCUSATE SODIUM 100 MG (COLACE) CAP PO SCH ×2 (08:26→21:35)
[2020-12-06] MEDS: CEFDINIR 300 MG (OMNICEF) CAP PO SCH ×2 (08:26→21:30)
[2020-12-06] MEDS: lisINopril 40 MG (PRINIVIL) TABLET PO SCH (08:30)
--- NOTE | 2020-12-06 09:59 | Progress Note - Urology ---
Progress Note-Urology Progress Notes/Assess & Plan Progress/Assessment & Plan STILL NOT EMPTYING WELL. WE WILL START URECHOLINE AND IF NEEDS CATH WE WILL LEAVE MYLES IN Final Diagnosis URINE RETENTION ZAY JAFFE MD Dec 06, 2020 09:59
[2020-12-06] MEDS: BETHANECHOL 25 MG (URECHOLINE) TAB PO SCH ×3 (11:31→21:31)
[2020-12-06] MEDS: ONDANSETRON 4 MG/2 ML (SDV) Z0FRAN IVP PRN (16:33)
[2020-12-06] MEDS: CATHETER FLUSH 10 ML SYR IV PRN (16:33)
[2020-12-06] MEDS: TAMSULOSIN 0.4 MG (FLOMAX) CAP PO SCH (18:03)
[2020-12-06 20:00] VITALS: BP 142/65
--- NOTE | 2020-12-07 05:59 | PM&R Progress Note ---
Subjective HPI/CC On Admission Date Seen by Provider: Dec 07, 2020 Time Seen by Provider: 09:00 Virgen Bermeo is a 75 year old female with PMH T2DM, HLD, who was admitted to with cerebrovascular accident and intracranial hemorhage. She was found to have a large right cerebellar hemorrhage. She was admitted to the ICU. She underwent craniotomy with hematoma evacuation and had an EVD placed. She was stabilized but remained debilitated. She was deemed to require ongoing acute cares along with PT/OT/ST. She was transferred from to the inpatient rehabilitation unit on 11/28/2020. Her course was complicated by hypertension and she was started on medication. She also had issues with orthostatic hypotension. Upon my examination, she had arrived in her room and was ordering food. She reports having some double vision. She also has some uncoordination and balance issues. She is not having any focal weakness. She denies headaches. She is not having fevers or chills. She denies chest pain and palpitations. She denies shortness of breath and cough. She denies abdominal pain. She had issues with nausea and vomiting while driving here due to motion sickness. She denies diarrhea. She denies dysuria. She previously had been on aspirin and a cholesterol medicine daily, as well as 18 units of long acting insulin daily. Subjective/Events-last exam 12/07/2020: Pt doing pretty well will be contacted regarding the suture removal date No emesis today A few pills at a time seems to help her In and out cath was not needed, if she needs another one she will have a castaneda placed Last dose of antibiotics is today 12/06/2020: Patient doing pretty well today Had a little bit of vomiting today but was able to eat all of breakfast Daughter is at the bedside today Walking pretty well but balance is an issue Had a small bowel movement last night so gave laxatives today Urology did see patient and recommended to restart Urecholine and Place Castaneda if she continues to have retention Staple removal will be assessed by and we will remove if needed 12/05/2020: This visit is via video chat due to Covid related restriction for this provider Patient doing a little better today Ate a full breakfast and eating lunch currently Bowels move 3 days ago so laxatives given Voiding at night pretty well and voided 600 cc of urine this morning but bladder scan showed another 400 retained so perform straight in and out cath Sleeps better here than at home Holding Metformin currently 12/04/2020: This visit is via video chat due to Covid related restriction for this provider Patient doing pretty well today Appears to be chronically ill Vomited 2 small amounts today Sugar is 85 so decreasing Levemir Holding Metformin since she thinks that that is making her nauseated made it clear to social work yesterday that patient becomes very lethargic with any medication so he wants that closely watched 12/03/2020: This visit is via video chat due to Covid related restriction for this provider Patient doing pretty well today Eating and drinking better Rocephin will be given last dose IV this afternoon and then switch over to Omnicef Walking with physical therapy Not as impulsive Decreasing balance issues Antivert given scheduled Straight cath required x1 so we will consult urology Bowels are still a bit sluggish so will get aggressive regimen for that 12/02/2020: This visit is via video chat due to Covid related restriction for this provider Improved status today She ate bfast today Zofran given prophylactically before PT Rocephin IV started and maintained due to inadequate PO intake from N/V E coli noted as second organism so will need to evaluate that for ESBL BM treatment maintained, she seems to nort recall if her bowels are moving well or not very attentive 12/01/2020: This visit is via video chat due to Covid related restriction for this provider Patient having some issues today Nausea and vomiting noted Severe vertigo We will shift to Rocephin IV and give gentle IV fluids Scopolamine patch was replaced Check meds and labs Updated patient on the plan The vertigo and severe dizziness from the stroke because the reluctance of admission to the inpatient rehab unit so we will monitor closely Neuro was not very optimistic the symptoms would resolve quickly or at all and may very well require wheelchair bound status Urine culture showed Morganella Morgagni 11/30/2020: This visit is via video chat due to Covid related restriction for this provider Patient doing well No major concerns Macrobid empirically started, UCx pending Updated patient on the UTI treatment wanted Melatonin Xanax and Codeine DC so I did that In/Out cath once per 24 hours Urecholine started BM 11/2911/29/2020: This visit is via video chat due to Covid related restriction for this provider Reviewed history and physical information Met with nurse and discussed all meds and issues Patient feels pretty good No major concerns per patient Bowels are moving sluggishly will maintain laxatives No impulsiveness Balance is definitely deficient Had to straight cath her x1 due to urinary retention Low-grade fever 99.3 Urine is very cloudy We will obtain urine and urine culture from cath specimen and place on antibiotic empirically Monitoring closely Review of Systems General: Fatigue, Malaise Gastrointestinal: Nausea, Vomiting Neurological: Weakness, Incoordination Objective Exam Vital Signs Vital Signs Date Time Temp Pulse Resp B/P (MAP) Pulse Ox O2 Delivery O2 Flow Rate FiO2 12/07/20 21:00 Room Air 12/07/20 20:00 36.2 67 16 120/50 (73) 97 Capillary Refill : General Appearance: No Apparent Distress, WD/WN, Chronically ill HEENT: PERRL/EOMI, Normal ENT Inspection, Pharynx Normal; No Photophobia Neck: Normal Inspection, Non Tender, Supple Respiratory: Lungs Clear, Normal Breath Sounds, No Respiratory Distress Cardiovascular: Regular Rate, Rhythm, No Edema, No Murmur Gastrointestinal: Normal Bowel Sounds, Non Tender, Soft Extremity: Normal Inspection, Non Tender, No Pedal Edema Neurologic/Psychiatric: Alert, Oriented x3, Normal Mood/Affect, chemic mangler II-XII Norm as Tested, Motor Weakness (generalized), Other (dysmetria) Skin: Normal Color, Warm/Dry, Other (right parietal EVD incision and occipital craniotomy incision well appearing) Lymphatic: No Adenopathy Results/Procedures Lab Laboratory Tests 12/07/20 05:28 Patient resulted labs reviewed. Imaging: Reviewed Imaging Report FIM Transfers Therapy Code Descriptions/Definitions Functional [place] Measure: 0=Not Assessed/NA 4=Minimal Assistance 1=Total Assistance 5=Supervision or Setup 2=Maximal Assistance 6=Modified [place] 3=Moderate Assistance 7=Complete IndependenceSCALE: Activities may be completed with or without assistive devices. 5-Jqmmrnbdnb-bjieafj completes the activity by him/herself with no assistance from a helper. 5-Set-up or Clean-up Assistance-helper sets up or cleans up; patient completes activity. [place] assists only prior to or following the activity. 4-Supervision or Touching Assistance-helper provides verbal cues and/or touching/steadying and/or contact guard assistance as patient completes activity. Assistance may be provided throughout the activity or intermittently. 3-Partial/Moderate Assistance-helper does LESS THAN HALF the effort. [place] lifts, holds or supports trunk or limbs, but provides less than half the effort. 2-Substantial/Maximal Assistance-helper does MORE THAN HALF the effort. [place] lifts or holds trunk or limbs and provides more than half the effort. 8-Dbqfzfwxk-qcsquk does ALL the effort. Patient does none of the effort to complete the activity. Or, the assistance of 2 or more helpers is required for the patient to complete the activity. If activity was not attempted, code reason: 7-Patient Refused. 9-Not Applicable-not attempted and the patient did not perform the activity before the current illness, exacerbation or injury. 10-Not Attempted due to Environmental Limitations-(lack of equipment, weather restraints, etc.). 88-Not Attempted due to Medical Conditions or Safety Concerns. Roll Left to Right (QC): 6 Sit to Lying (QC): 6 Sit to Stand (QC): 4 Chair/Asd-wc-Lcwgx Xfer(QC): 3 Car Transfer (QC): 3 Gait Training Does the Patient Walk?: Yes Distance: 100' Walk 10 feet (QC): 4 Walk 50 ft with 2 Turns(QC): 4 Walk 150 ft (QC): 88 Walking 10ft/uneven surface-QC: 4 Gait Persons Needed: 1 Gait Assistive Device: FWW Wheelchair Training Does the Pt Use a Wheelchair?: No Wheel 50 ft with 2 turns (QC): 9 Wheel 150 ft (QC): 9 Stair Training #of Steps: 1 1 Step (curb) (QC): 3 4 Steps (QC): 88 12 Steps (QC): 88 Balance Picking up an Object (QC): 88 ADL-Treatment Eating (QC): 6 (IND) Oral Hygiene (QC): 5 (s/u EOB, pt misses toothbrush with toothpaste minimally this session.) Shower/Bathe Self (QC): 7 Upper Body Dressing (QC): 5 (s/u, bra and shirt.) Lower Body Dressing (QC): 4 (CGA, use of AE due to N/V, however, pt expresses, "I'll be honest, I will probably not use this at home." Pt educated on just utilizing to decrease movements for increased sx, however, pt completes without AE and does not express increased nausea post actiity.) On/Off Footwear (QC): 3 (Cues for sequencing/adjusting sock aide to don sock. Min assist to don shoes.) Toileting Hygiene (QC): 7 (denies toileting needs.) Toilet Transfer (QC): 7 Assessment/Plan Assessment and Plan Assess & Plan/Chief Complaint Assessment: (1) CVA (cerebral vascular accident) (2) Intracranial hemorrhage (3) Status post craniotomy (4) Status post evacuation of hematoma (5) Dysmetria (6) Diplopia (7) HTN (hypertension) (8) Orthostatic hypotension (9) Debility (10) HLD (hyperlipidemia) (11) T2DM (type 2 diabetes mellitus) (12) Acute UTI placed on antibiotic empirically on 11/29/2020 but DC'd Macrobid due to resistance of Morganella Morgagni placed on Omnicef then shifted to Rocephin due to nausea and vomiting 12/01/2020 (13) Acute urinary retention requiring caths thin urology consulted on 12/05/2020 (14) Nausea and vomiting episode requiring IV fluids 12/01/2020 and heplocked 12/02/20 Plan: Intensive rehab protocol Empiric antibiotic treatment Monitor sugar Add Urecholine 11/30/20: Urecholine maintained In/Out caths prn Abx empirically DC meds at request 12/01/2020: IV fluids IV antibiotics DC Macrobid due to resistance on urine culture Very complex case Scopolamine patch 12/02/20: HLIVF IV abx Await second gram negative organism on UCx just noted today on report BM regimen 12/03/2020: Discontinue Rocephin after dose this afternoon and switch to Omnicef p.o. Continue aggressive treatment 12/04/2020: Nausea treatment Scopolamine patch Blood pressure monitoring 12/05/2020: Monitor for nausea Hold Metformin Monitor blood sugar only 12/06/2020: Urecholine Urology consultation appreciated Bowel regimen Monitor closely 12/07/2020: Appreciate urology consultation Monitor blood pressure Suture removal per [facility] recommendations (1) CVA (cerebral vascular accident) Status: Acute (2) Intracranial hemorrhage Status: Acute (3) Status post craniotomy Status: Acute (4) Status post evacuation of hematoma Status: Acute (5) Dysmetria Status: Acute (6) Diplopia Status: Acute (7) HTN (hypertension) Status: Acute Qualifiers: Hypertension type: essential hypertension Qualified Codes: I10 - Essential (primary) hypertension (8) Orthostatic hypotension Status: Acute (9) Debility (10) HLD (hyperlipidemia) Status: Chronic (11) T2DM (type 2 diabetes mellitus) Status: Chronic Qualifiers: Diabetes mellitus nursing home insulin use: with nursing home use ELSY ORNELAS DO Dec 07, 2020 05:59
[2020-12-07] MEDS: BETHANECHOL 25 MG (URECHOLINE) TAB PO SCH ×4 (06:01→21:38)
[2020-12-07] MEDS: MULTIVIT W/MINERALS TAB (THERAGRAN M) PO SCH (06:01)
[2020-12-07] MEDS: MECLIZINE 25 MG (ANTIVERT) TAB PO SCH ×3 (06:02→21:39)
[2020-12-07] MEDS: CATHETER FLUSH 10 ML SYR IV SCH ×3 (06:03→21:39)
[2020-12-07] MEDS: inSUlin ASPART (NovoLOG) 1 UNIT/0.01 ML (CHARGE PER UNIT) SC SCH ×4 (06:03→21:38)
[2020-12-07 06:35] LABS: BASOPHILS # (AUTO) 0.1 10^3/uL (0.0-0.1); BASOPHILS % (AUTO) 1 % (0-10); EOSINOPHILS # (AUTO) 0.3 10^3/uL (0.0-0.3); EOSINOPHILS % (AUTO) 5 % (0-10); HEMATOCRIT 37 % (35-52); HEMOGLOBIN 11.6 g/dL (11.5-16.0); LYMPHOCYTES # (AUTO) 1.8 10^3/uL (1.0-4.0); LYMPHOCYTES % (AUTO) 35 % (12-44); MEAN CORPUSCULAR HEMOGLOBIN 28 pg (25-34); MEAN CORPUSCULAR HGB CONC 31 g/dL (32-36); MEAN CORPUSCULAR VOLUME 91 fL (80-99); MEAN PLATELET VOLUME 10.2 fL (9.0-12.2); MONOCYTES # (AUTO) 0.4 10^3/uL (0.0-1.0); MONOCYTES % (AUTO) 8 % (0-12); NEUTROPHILS # (AUTO) 2.6 10^3/uL (1.8-7.8); NEUTROPHILS % (AUTO) 50 % (42-75); PLATELET COUNT 326 10^3/uL (130-400); WHITE BLOOD COUNT 5.1 10^3/uL (4.3-11.0)
[2020-12-07 06:50] LABS: ALANINE AMINOTRANSFERASE 21 U/L (0-55); ALBUMIN 3.2 GM/DL (3.2-4.5); ALKALINE PHOSPHATASE 55 U/L (40-136); BILIRUBIN,TOTAL 0.3 MG/DL (0.1-1.0); BUN/CREATININE RATIO 9; CALCIUM 9.4 MG/DL (8.5-10.1); CARBON DIOXIDE 29 MMOL/L (21-32); CHLORIDE 101 MMOL/L (98-107); CREATININE SERUM 0.74 MG/DL (0.60-1.30); GFR ESTIMATED > 60; GLUCOSE 153 MG/DL (70-105); POTASSIUM 4.1 MMOL/L (3.6-5.0); SODIUM 139 MMOL/L (135-145); TOTAL PROTEIN 5.8 GM/DL (6.4-8.2)
[2020-12-07 07:44] VITALS: BP 140/65
[2020-12-07] MEDS: ASPIRIN E.C. 81 MG (ECOTRIN) TAB PO SCH (08:28)
[2020-12-07] MEDS: CEFDINIR 300 MG (OMNICEF) CAP PO SCH (08:28)
[2020-12-07] MEDS: lisINopril 40 MG (PRINIVIL) TABLET PO SCH (08:28)
[2020-12-07] MEDS: DOCUSATE SODIUM 100 MG (COLACE) CAP PO SCH ×2 (08:28→21:38)
[2020-12-07] MEDS: polyethylene glycoL POWDER 17 GM (MIRALAX) PACK PO SCH ×2 (08:29→21:39)
[2020-12-07] MEDS: MILK OF MAGNESIA 400 MG/5 ML 30 ML UDC PO SCH (08:29)
--- NOTE | 2020-12-07 09:13 | Progress Note - Urology ---
Progress Note-Urology Progress Notes/Assess & Plan Progress/Assessment & Plan VOIDING BETTER ON URECHOLINE. TOLERATES IT WELL Final Diagnosis RETENTION ZAY JAFFE MD Dec 07, 2020 09:12
--- NOTE | 2020-12-07 09:14 | Progress Note - Urology ---
Progress Note-Urology Progress Notes/Assess & Plan Progress/Assessment & Plan VOIDING BETTER O FLOMAX AND LOW DOSE URECHOLINE. TOLERATES THEM WELL. HOME TODAY Final Diagnosis RETENTION ZAY JAFFE MD Dec 07, 2020 09:14
[2020-12-07] MEDS: MAGNESIUM OXIDE (MAG-OX)400 MG TAB PO SCH (09:15)
[2020-12-07] MEDS: ACETAMINOPHEN 500 MG TAB (TYLENOL) PO SCH (09:15)
[2020-12-07] MEDS: SENNA W/DOCUSATE (SENOKOT S) TABLET PO SCH ×2 (09:15→21:38)
[2020-12-07] MEDS: CALCIUM CARB + VIT D 600 MG (CALCARB + D) TAB PO SCH ×2 (09:15→21:39)
--- NOTE | 2020-12-07 09:23 | Speech Therapy Daily Note ---
Speech Daily Progress Note Subjective Date Seen by Provider: Dec 07, 2020 Time Seen by Provider: 00:30 Patient was feeling much better nausea [place] today. Patient states her weekend was good and some of her children came to visit. Objective Patient completed memory tasks at 90% with minimal cues. Assessment Assessment Current Status: Good Progress Treatment Plan Continue Plan of Care Speech Short Term Goals Short Term Goals Short Term Goals 1) Patient will complete memory tasks related to her daily needs with 75% or greater given minimal cues. 2) Patient will complete safety awareness tasks related to her daily needs with 75% or greater given minimal cues. Speech Half-Way Goals Hydrotel Operator Goals Patient will utilize memory and safety awareness strategies as trained in order to require decreased assist. Speech-Plan Patient/Family Goals Patient/Family Goals: Patient plans on returning to her home where she lives with her . She will receive home health as well as family/friends support. Treatment Plan Speech Therapy Treatment Plan: Continue Plan of Care Treatment Duration: Dec 11, 2020 Frequency: 4 times per week (Patient will receive skilled ST services 4-5x per week) Estimated Hrs Per Day: .5 hour per day Rehab Potential: Fair Barriers to Learning: Patient's recent CVA, moderate cognitive deficits Pt/Family Agrees to Plan: Yes Safety Risks/Education Teaching Recipient: Patient Teaching Methods: Demonstration, Discussion Response to Teaching: Verbalize Understanding, Return Demonstration Education Topics Provided: Continued safety within her room, communication of wants/needs Time Speech Therapy Time In: 09:00 Speech Therapy Time Out: 09:30 Total Billed Time: 30 Billed Treatment Time 1, YAMILA Bellamy Dec 07, 2020 09:23
[2020-12-07] MEDS: ONDANSETRON 4 MG/2 ML (SDV) Z0FRAN IVP PRN (10:41)
--- NOTE | 2020-12-07 12:09 | Physical Therapy Daily Note ---
PT Daily Note-Current Subjective Pt up in chair, agreeable to PT. Pt states "When I woke up this morning I wasn't dizzy at all. That was maybe the first time." Pt states she is "a little dizzy" upon arrival. Pt did not verbalize any complaint or say anything but took her bed [place] and began to vomit at the end of treatment. Mental Status Patient Orientation: Person, Place Transfers SCALE: Activities may be completed with or without assistive devices. 7-Fjeqraarar-gwsllsg completes the activity by him/herself with no assistance from a helper. 5-Set-up or Clean-up Assistance-helper sets up or cleans up; patient completes activity. [place] assists only prior to or following the activity. 4-Supervision or Touching Assistance-helper provides verbal cues and/or touching/steadying and/or contact guard assistance as patient completes activity. Assistance may be provided throughout the activity or intermittently. 3-Partial/Moderate Assistance-helper does LESS THAN HALF the effort. [place] lifts, holds or supports trunk or limbs, but provides less than half the effort. 2-Substantial/Maximal Assistance-helper does MORE THAN HALF the effort. [place] lifts or holds trunk or limbs and provides more than half the effort. 1-Cnyuqeina-xfjcwu does ALL the effort. Patient does none of the effort to complete the activity. Or, the assistance of 2 or more helpers is required for the patient to complete the activity. If activity was not attempted, code reason: 7-Patient Refused. 9-Not Applicable-not attempted and the patient did not perform the activity before the current illness, exacerbation or injury. 10-Not Attempted due to Environmental Limitations-(lack of equipment, weather restraints, etc.). 88-Not Attempted due to Medical Conditions or Safety Concerns. Chair level mod (I) Weight Bearing Right Lower Extremity: Right Full Weight Bearing Left Lower Extremity: Left Full Weight Bearing Gait Training Gait Assistive Device: FWW Pt amb with FWW and CGA 3 x 100ft with rest breaks between. Exercises Supine Ex: Ankle pumps, Quad Set, Heel Slides, Hip abd/add Supine Reps: 20 Standing: Heel/toe raises, 3 way Ex=Flex, Abd, Ext, Weight shifts Standing Reps: 10 Treatments Practiced static balance x 1min without hands. Pt had no sway and no unsteadiness. Practiced tandem stance each ways x 30 sec each, some unsteadiness but no LOB. Practiced weight shift heel/toe x 10 BP monitored throughout treatment. prior to treatment BP 151/74 69bpm 1105; Standing Bp 139/88, 77bpm at 1120; after walk 165/71, 67bpm at 1130; after walk 138/67 71bpm 1140; end of treatment 162/75, 70 bpm at 1211pm. Assessment Current Status: Good Progress Improved BP today and good tolerance througout treatment by no complaints voiced. Pt pariticipating in conversation. Pt became sick at end of the treatment without warning. Pt resting in chair with call light and all needs met. Meal arrived, pt began to eat. PT Detention Goals Repairer Screen Crusher Goals PT Repairer Screen Crusher Goals Time Frame: Dec 19, 2020 Roll Left & Right (QC): 6 Sit to Lying (QC): 6 Lying-Sitting on Side/Bed(QC): 6 Sit to Stand (QC): 6 Chair/Rfa-dx-Yzqbp Xfer(QC): 6 Toilet Transfer (QC): 6 Car Transfer (QC): 6 Does the Patient Walk: Yes Walk 10 feet (QC): 6 Walk 50ft with 2 Turns (QC): 6 Walk 150 ft (QC): 6 Walking 10ft on Uneven Surface: 6 1 Step (curb) (QC): 6 4 Steps (QC): 6 12 Steps (QC): 6 Picking up an Object (QC): 6 Does the Pt use WC or Scooter?: No Wheel 50 feet with 2 turns (QC: 9 Wheel 150 feet: 9 PT Plan Treatment/Plan Treatment Plan: Continue Plan of Care Treatment Plan: Bed Mobility, Concurrent Therapy, Education, Functional Activity Miguel, Functional Strength, Group Therapy, Gait, Safety, Therapeutic Exercise, Transfers Treatment Duration: Dec 19, 2020 Frequency: At least 5 of 7 days/Wk (IRF) Estimated Hrs Per Day: 1.5 hours per day Patient and/or Family Agrees t: Yes Time/GCodes Time In: 1100 Time Out: 1215 Total Billed Treatment Time: 75 Total Billed Treatment 1, ther ex 30', FA 15', gait 30' KATI REED CPTA Dec 07, 2020 12:09
--- NOTE | 2020-12-07 13:15 | Occupational Ther Daily Note ---
OT Current Status-Daily Note Subjective Pt. did not report pain or nausea at beginning of treatment, but became nauseated after shower. Pt. vomited. OT reported to nursing. Nursing administered Pamellaan. Mental Status/Objective Patient Orientation: Person Attachments: IV ADL-Treatment Therapy Code Descriptions/Definitions Functional [place] Measure: 0=Not Assessed/NA 4=Minimal Assistance 1=Total Assistance 5=Supervision or Setup 2=Maximal Assistance 6=Modified [place] 3=Moderate Assistance 7=Complete IndependenceSCALE: Activities may be completed with or without assistive devices. 9-Ggcmgkprng-sdhlpmn completes the activity by him/herself with no assistance from a helper. 5-Set-up or Clean-up Assistance-helper sets up or cleans up; patient completes activity. [place] assists only prior to or following the activity. 4-Supervision or Touching Assistance-helper provides verbal cues and/or touching/steadying and/or contact guard assistance as patient completes activity. Assistance may be provided throughout the activity or intermittently. 3-Partial/Moderate Assistance-helper does LESS THAN HALF the effort. [place] lifts, holds or supports trunk or limbs, but provides less than half the effort. 2-Substantial/Maximal Assistance-helper does MORE THAN HALF the effort. [place] lifts or holds trunk or limbs and provides more than half the effort. 4-Ceppxilwi-tvymnz does ALL the effort. Patient does none of the effort to complete the activity. Or, the assistance of 2 or more helpers is required for the patient to complete the activity. If activity was not attempted, code reason: 7-Patient Refused. 9-Not Applicable-not attempted and the patient did not perform the activity be fore the current illness, exacerbation or injury. 10-Not Attempted due to Environmental Limitations-(lack of equipment, weather restraints, etc.). 88-Not Attempted due to Medical Conditions or Safety Concerns. Shower/Bathe Self (QC): 4 (CGA in stance to shower wash smiley area and dry.) Upper Body Dressing (QC): 5 Lower Body Dressing (QC): 4 (CGA in stance to don over hips. Pt. bends over to don pants over feet. Cues for safety. ) On/Off Footwear: 3 (Min assist. Pt. able to doff slipper socks. Pt. able to don bilateral slipper socks, and don right shoe. She was unable to don left shoe.) Other Treatment After showering and dressing, while still in shower, pt. became nauseated and vomited. OT reports to nursing. Pt. encouraged to not bend over so much during ADLs, as change of head position in space could cause dizziness/nausea. BP taken after ambulation to chair with CGA. It was 162/75. All needs met up in chair. Education OT Patient Education: Correct positioning, Modified ADL techniques, Progress toward Goal/Update tx plan, Purpose of tx/functional activities, Reviewed precautions, Rehab process, Transfer techniques Teaching Recipient: Patient Teaching Methods: Demonstration, Discussion Response to Teaching: Verbalize Understanding, Return Demonstration OT Fill Technician Goals Fill Technician Goals Time Frame: Dec 14, 2020 Eating (QC): 6 Oral Hygiene (QC): 6 Toileting Hygiene (QC): 6 Shower/Bathe Self (QC): 6 Upper Body Dressing (QC): 6 Lower Body Dressing (QC): 6 On/Off Footwear (QC): 6 Additional Goals: 1-Demonstrate ADL Tasks, 2-Verbalize Understanding, 3- ImproveStrength/Miguel 1=Demonstrate adherence to instructed precautions during ADL tasks. 2=Patient will verbalize/demonstrate understanding of assistive device s/modifications for ADL. 3=Patient will improve strength/tolerance for activity to enable patient to perform ADL's. OT Education/Plan Problem List/Assessment Assessment: Decreased Activ Tolerance, Dependent Transfers, Impaired Cognition, Impaired Coordination, Impaired Funct Balance, Impaired I ADL's, Impaired Self- Care Skills Discharge Recommendations Plan/Recommendations: Continue POC Therapy Discharge Recommendati: Post Acute OT Treatment Plan/Plan of Care Treatment,Training & Education: Yes Patient would benefit from OT for education, treatment and training to promote independence in ADL's, mobility, safety and/or upper extremity function for ADL's. Plan of Care: ADL Retraining, Caregiver Training, Cognitive Retraining, Func tional Mobility, Group Exercise/Act as Ind, UE Funct Exercise/Act, UE Neuromus Re-Ed/Coord, Visual/Perceptual Retrain, W/C Management Training Treatment Duration: Dec 14, 2020 Frequency: At least 5 of 7 days/Wk (IRF) Estimated Hrs Per Day: 1.5 hours per day Agreement: Yes Rehab Potential: Fair Time/GCodes Start Time: 10:00 Stop Time: 11:00 Total Time Billed (hr/min): 60 Billed Treatment Time 1, ADL x 60minutes JASMINE PONCE OT Dec 07, 2020 13:14
[2020-12-07] MEDS: SCOPOLAMINE PATCH REMOVAL TP SCH (14:24)
--- NOTE | 2020-12-07 14:38 | Therapy Group Daily Note ---
Therapy Daily Group Note Patient Education Topic Fall Prevention, Exercises Exercises LE Seated Exercise, UE Exercise Session Ratio (pt:therapist): 4:1 Goal of Session: UE/LE Strengthing, Other (list) (fall prevention) Goal Met for this Session: Yes Pt Benefit of Group: Contributions to Others, F/U Use of Strategies @Home, Increased Functional Safety, Increased Functional Strength, Improved Cognition, Recognition of Peers, Socialization Other/Notes Pt was transported via w/c to [facility] for OT/PT group. Group consisted of introductions (name, place living, rolling dice for random question), socialization, pt led B UE/LE seated exercises and fall prevention. Pt required verbal prompts for introductions, able to actively listen to peers introduce themselves. Pt able to lead one exercise using exercise card then was able to complete other exercises lead by peers with minimal verbal prompts to focus. Pt then acknowledged understanding of fall prevention by nodding head affirmatively. After group, pt lying in bed with call light/phone in reach. All needs met in room. Start Time: 13:00 Stop Time: 14:00 Total Billed Treatment Time: 60 Total Billed Treatment 1 visit-GRP MAX WARE Dec 07, 2020 14:38
[2020-12-07] MEDS: SCOPOLAMINE 1.5 MG (TRANSDERM-SCOP) PATCH TD SCH (15:42)
[2020-12-07] MEDS: TAMSULOSIN 0.4 MG (FLOMAX) CAP PO SCH (17:19)
[2020-12-07 20:00] VITALS: BP 120/50
--- NOTE | 2020-12-08 05:24 | PM&R Progress Note ---
Subjective HPI/CC On Admission Date Seen by Provider: Dec 08, 2020 Time Seen by Provider: 09:00 Virgen Bermeo is a 75 year old female with PMH T2DM, HLD, who was admitted to with cerebrovascular accident and intracranial hemorhage. She was found to have a large right cerebellar hemorrhage. She was admitted to the ICU. She underwent craniotomy with hematoma evacuation and had an EVD placed. She was stabilized but remained debilitated. She was deemed to require ongoing acute cares along with PT/OT/ST. She was transferred from to the inpatient rehabilitation unit on 11/28/2020. Her course was complicated by hypertension and she was started on medication. She also had issues with orthostatic hypotension. Upon my examination, she had arrived in her room and was ordering food. She reports having some double vision. She also has some uncoordination and balance issues. She is not having any focal weakness. She denies headaches. She is not having fe vers or chills. She denies chest pain and palpitations. She denies shortness of breath and cough. She denies abdominal pain. She had issues with nausea and vomiting while driving here due to motion sickness. She denies diarrhea. She denies dysuria. She previously had been on aspirin and a cholesterol medicine daily, as well as 18 units of long acting insulin daily. Subjective/Events-last exam 12/08/2020: Pt doing pretty well Bladder scanning showed 300 after post-void residual Fogginess noted She didnt know when she was born, what year Denies any pain Blood sugar checks are monitored 12/07/2020: Pt doing pretty well will be contacted regarding the suture removal date No emesis today A few pills at a time seems to help her In and out cath was not needed, if she needs another one she will have a castaneda placed Last dose of antibiotics is today 12/06/2020: Patient doing pretty well today Had a little bit of vomiting today but was able to eat all of breakfast Daughter is at the bedside today Walking pretty well but balance is an issue Had a small bowel movement last night so gave laxatives today Urology did see patient and recommended to restart Urecholine and Place Castaneda if she continues to have retention Staple removal will be assessed by TIMA and we will remove if needed 12/05/2020: This visit is via video chat due to Covid related restriction for this provider Patient doing a little better today Ate a full breakfast and eating lunch currently Bowels move 3 days ago so laxatives given Voiding at night pretty well and voided 600 cc of urine this morning but bladder scan showed another 400 retained so perform straight in and out cath Sleeps better here than at home Holding Metformin currently 12/04/2020: This visit is via video chat due to Covid related restriction for this provider Patient doing pretty well today Appears to be chronically ill Vomited 2 small amounts today Sugar is 85 so decreasing Levemir Holding Metformin since she thinks that that is making her nauseated made it clear to social work yesterday that patient becomes very lethargic with any medication so he wants that closely watched 12/03/2020: This visit is via video chat due to Covid related restriction for this provider Patient doing pretty well today Eating and drinking better Rocephin will be given last dose IV this afternoon and then switch over to Omnicef Walking with physical therapy Not as impulsive Decreasing balance issues Antivert given scheduled Straight cath required x1 so we will consult urology Bowels are still a bit sluggish so will get aggressive regimen for that 12/02/2020: This visit is via video chat due to Covid related restriction for this provider Improved status today She ate bfast today Zofran given prophylactically before PT Rocephin IV started and maintained due to inadequate PO intake from N/V yesterday E coli noted as second organism so will need to evaluate that for ESBL BM treatment maintained, she seems to nort recall if her bowels are moving well or not very attentive 12/01/2020: This visit is via video chat due to Covid related restriction for this provider Patient having some issues today Nausea and vomiting noted Severe vertigo We will shift to Rocephin IV and give gentle IV fluids Scopolamine patch was replaced Check meds and labs Updated patient on the plan The vertigo and severe dizziness from the stroke because the reluctance of admission to the inpatient rehab unit so we will monitor closely Neuro was not very optimistic the symptoms would resolve quickly or at all and may very well require wheelchair bound status Urine culture showed Morganella Ireneni 11/30/2020: This visit is via video chat due to Covid related restriction for this provider Patient doing well No major concerns Macrobid empirically started, UCx pending Updated patient on the UTI treatment wanted Melatonin Xanax and Codeine DC so I did that In/Out cath once per 24 hours Urecholine started BM 11/2911/29/2020: This visit is via video chat due to Covid related restriction for this provider Reviewed history and physical information Met with nurse and discussed all meds and issues Patient feels pretty good No major concerns per patient Bowels are moving sluggishly will maintain laxatives No impulsiveness Balance is definitely deficient Had to straight cath her x1 due to urinary retention Low-grade fever 99.3 Urine is very cloudy We will obtain urine and urine culture from cath specimen and place on antibiotic empirically Monitoring closely Review of Systems General: Fatigue, Malaise Neurological: Weakness, Confusion Objective Exam Vital Signs Vital Signs Date Time Temp Pulse Resp B/P (MAP) Pulse Ox O2 Delivery O2 Flow Rate FiO2 12/08/20 21:00 Room Air 12/08/20 20:00 36.4 70 12 157/72 (100) 97 12/08/20 06:41 0.00 Capillary Refill : General Appearance: No Apparent Distress, WD/WN, Chronically ill HEENT: PERRL/EOMI, Normal ENT Inspection, Pharynx Normal; No Photophobia Neck: Normal Inspection, Non Tender, Supple Respiratory: Lungs Clear, Normal Breath Sounds, No Respiratory Distress Cardiovascular: Regular Rate, Rhythm, No Edema, No Murmur Gastrointestinal: Normal Bowel Sounds, Non Tender, Soft Extremity: Normal Inspection, Non Tender, No Pedal Edema Neurologic/Psychiatric: Alert, Oriented x3, Normal Mood/Affect, sugar drier II-XII Norm as Tested, Motor Weakness (generalized), Other (dysmetria) Skin: Normal Color, Warm/Dry, Other (right parietal EVD incision and occipital craniotomy incision well appearing) Lymphatic: No Adenopathy Results/Procedures Lab Patient resulted labs reviewed. Imaging: Reviewed Imaging Report FIM Transfers Therapy Code Descriptions/Definitions Functional [place] Measure: 0=Not Assessed/NA 4=Minimal Assistance 1=Total Assistance 5=Supervision or Setup 2=Maximal Assistance 6=Modified [place] 3=Moderate Assistance 7=Complete IndependenceSCALE: Activities may be completed with or without assistive devices. 4-Eidbilvrbd-moudjbt completes the activity by him/herself with no assistance from a helper. 5-Set-up or Clean-up Assistance-helper sets up or cleans up; patient completes activity. [place] assists only prior to or following the activity. 4-Supervision or Touching Assistance-helper provides verbal cues and/or touching/steadying and/or contact guard assistance as patient completes activity. Assistance may be provided throughout the activity or intermittently. 3-Partial/Moderate Assistance-helper does LESS THAN HALF the effort. [place] lifts, holds or supports trunk or limbs, but provides less than half the effort. 2-Substantial/Maximal Assistance-helper does MORE THAN HALF the effort. [place] lifts or holds trunk or limbs and provides more than half the effort. 3-Fasnbrabe-gopxua does ALL the effort. Patient does none of the effort to complete the activity. Or, the assistance of 2 or more helpers is required for the patient to complete the activity. If activity was not attempted, code reason: 7-Patient Refused. 9-Not Applicable-not attempted and the patient did not perform the activity before the current illness, exacerbation or injury. 10-Not Attempted due to Environmental Limitations-(lack of equipment, weather restraints, etc.). 88-Not Attempted due to Medical Conditions or Safety Concerns. Roll Left to Right (QC): 6 Sit to Lying (QC): 6 Sit to Stand (QC): 4 Chair/Fph-oq-Vdvyk Xfer(QC): 3 Car Transfer (QC): 3 Gait Training Does the Patient Walk?: Yes Distance: 100' Walk 10 feet (QC): 4 Walk 50 ft with 2 Turns(QC): 4 Walk 150 ft (QC): 88 Walking 10ft/uneven surface-QC: 4 Gait Persons Needed: 1 Gait Assistive Device: FWW Wheelchair Training Does the Pt Use a Wheelchair?: No Wheel 50 ft with 2 turns (QC): 9 Wheel 150 ft (QC): 9 Stair Training #of Steps: 1 1 Step (curb) (QC): 3 4 Steps (QC): 88 12 Steps (QC): 88 Balance Picking up an Object (QC): 88 ADL-Treatment Eating (QC): 6 (IND) Oral Hygiene (QC): 5 (s/u EOB, pt misses toothbrush with toothpaste minimally this session.) Shower/Bathe Self (QC): 4 (CGA in stance to shower wash smiley area and dry.) Upper Body Dressing (QC): 5 Lower Body Dressing (QC): 4 (CGA in stance to don over hips. Pt. bends over to don pants over feet. Cues for safety. ) On/Off Footwear (QC): 3 (Min assist. Pt. able to doff slipper socks. Pt. able to don bilateral slipper socks, and don right shoe. She was unable to don left shoe.) Toileting Hygiene (QC): 7 (denies toileting needs.) Toilet Transfer (QC): 7 Assessment/Plan Assessment and Plan Assess & Plan/Chief Complaint Assessment: (1) CVA (cerebral vascular accident) (2) Intracranial hemorrhage (3) Status post craniotomy (4) Status post evacuation of hematoma (5) Dysmetria (6) Diplopia (7) HTN (hypertension) (8) Orthostatic hypotension (9) Debility (10) HLD (hyperlipidemia) (11) T2DM (type 2 diabetes mellitus) (12) Acute UTI placed on antibiotic empirically on 11/29/2020 but DC'd Macrobid due to resistance of Morganella Morgagni placed on Omnicef then shifted to Rocephin due to nausea and vomiting 12/01/2020 (13) Acute urinary retention requiring caths thin urology consulted on 12/05/2020 (14) Nausea and vomiting episode requiring IV fluids 12/01/2020 and heplocked 12/02/20 Plan: Intensive rehab protocol Empiric antibiotic treatment Monitor sugar Add Urecholine 11/30/20: Urecholine maintained In/Out caths prn Abx empirically DC meds at request 12/01/2020: IV fluids IV antibiotics DC Macrobid due to resistance on urine culture Very complex case Scopolamine patch 12/02/20: HLIVF IV abx Await second gram negative organism on UCx just noted today on report BM regimen 12/03/2020: Discontinue Rocephin after dose this afternoon and switch to Omnicef p.o. Continue aggressive treatment 12/04/2020: Nausea treatment Scopolamine patch Blood pressure monitoring 12/05/2020: Monitor for nausea Hold Metformin Monitor blood sugar only 12/06/2020: Urecholine Urology consultation appreciated Bowel regimen Monitor closely 12/07/2020: Appreciate urology consultation Monitor blood pressure Suture removal per [facility] recommendations 12/08/2020: Continue aggressive rehab Appreciate urology Monitor closely (1) CVA (cerebral vascular accident) Status: Acute (2) Intracranial hemorrhage Status: Acute (3) Status post craniotomy Status: Acute (4) Status post evacuation of hematoma Status: Acute (5) Dysmetria Status: Acute (6) Diplopia Status: Acute (7) HTN (hypertension) Status: Acute Qualifiers: Hypertension type: essential hypertension Qualified Codes: I10 - Essential (primary) hypertension (8) Orthostatic hypotension Status: Acute (9) Debility (10) HLD (hyperlipidemia) Status: Chronic (11) T2DM (type 2 diabetes mellitus) Status: Chronic Qualifiers: Diabetes mellitus intermission coordinator insulin use: with intermission coordinator use ELSY ORNELAS DO Dec 08, 2020 05:24
[2020-12-08] MEDS: MULTIVIT W/MINERALS TAB (THERAGRAN M) PO SCH (06:10)
[2020-12-08] MEDS: inSUlin ASPART (NovoLOG) 1 UNIT/0.01 ML (CHARGE PER UNIT) SC SCH ×4 (06:10→21:00)
[2020-12-08] MEDS: MECLIZINE 25 MG (ANTIVERT) TAB PO SCH ×3 (06:10→22:30)
[2020-12-08] MEDS: CATHETER FLUSH 10 ML SYR IV SCH ×3 (06:10→22:30)
[2020-12-08] MEDS: BETHANECHOL 25 MG (URECHOLINE) TAB PO SCH ×4 (06:10→21:30)
[2020-12-08 07:31] VITALS: BP 130/60
--- NOTE | 2020-12-08 08:41 | Speech Therapy Daily Note ---
Speech Daily Progress Note Subjective Date Seen by Provider: Dec 08, 2020 Time Seen by Provider: 00:30 Patient was resting in her recliner following breakfast. She states she had a shower and feels better. Objective Patient completed cognitive tasks at the 80% accuracy range.with decreased cues. Assessment Assessment Current Status: Good Progress Treatment Plan Continue Plan of Care Speech Short Term Goals Short Term Goals Short Term Goals 1) Patient will complete memory tasks related to her daily needs with 75% or greater given minimal cues. 2) Patient will complete safety awareness tasks related to her daily needs with 75% or greater given minimal cues. Speech Skilled Nursing Goals Transplant Registered Nurse Goals Patient will utilize memory and safety awareness strategies as trained in order to require decreased assist. Speech-Plan Patient/Family Goals Patient/Family Goals: Patient plans on returning to her home where she lives with her . Patient will receive home health services as well as support from family/friends. Treatment Plan Speech Therapy Treatment Plan: Continue Plan of Care Treatment Duration: Dec 11, 2020 Frequency: 4 times per week (Patient will receive skilled ST services 4-5x per week) Estimated Hrs Per Day: .5 hour per day Rehab Potential: Fair Barriers to Learning: Patient's recent CVA, previous CVA, cognitive deficits Pt/Family Agrees to Plan: Yes Safety Risks/Education Teaching Recipient: Patient Teaching Methods: Demonstration, Discussion Response to Teaching: Verbalize Understanding, Return Demonstration Education Topics Provided: Continued safety within her room and upon her return home, memory strategies Time Speech Therapy Time In: 08:30 Speech Therapy Time Out: 09:00 Total Billed Time: 30 Billed Treatment Time 1, YAMILA Bellamy Dec 08, 2020 08:41
--- NOTE | 2020-12-08 09:03 | Progress Note - Urology ---
Progress Note-Urology Progress Notes/Assess & Plan Progress/Assessment & Plan VOIDING ON OWN BUT HAS PVR. TOLERATES MEDICINES WELL. KEEP SAME PLAN FOR NOW Final Diagnosis RETENTION ZAY JAFFE MD Dec 08, 2020 09:03
[2020-12-08] MEDS: ASPIRIN E.C. 81 MG (ECOTRIN) TAB PO SCH (09:22)
[2020-12-08] MEDS: ACETAMINOPHEN 500 MG TAB (TYLENOL) PO SCH (09:22)
[2020-12-08] MEDS: polyethylene glycoL POWDER 17 GM (MIRALAX) PACK PO SCH ×2 (09:23→21:00)
[2020-12-08] MEDS: SENNA W/DOCUSATE (SENOKOT S) TABLET PO SCH ×2 (09:23→21:34)
[2020-12-08] MEDS: MAGNESIUM OXIDE (MAG-OX)400 MG TAB PO SCH (09:23)
[2020-12-08] MEDS: MILK OF MAGNESIA 400 MG/5 ML 30 ML UDC PO SCH (09:23)
[2020-12-08] MEDS: ONDANSETRON 4 MG (ZOFRAN) ORAL DISSOLVE TAB PO PRN ×2 (09:23→19:07)
[2020-12-08] MEDS: DOCUSATE SODIUM 100 MG (COLACE) CAP PO SCH ×2 (09:23→21:34)
[2020-12-08] MEDS: CALCIUM CARB + VIT D 600 MG (CALCARB + D) TAB PO SCH ×2 (09:23→21:30)
[2020-12-08] MEDS: lisINopril 40 MG (PRINIVIL) TABLET PO SCH (09:23)
--- NOTE | 2020-12-08 12:00 | Physical Therapy Daily Note ---
PT Daily Note-Current Subjective Pt sitting in recliner upon arrival. Pt agrees to PT. Pain Location: No Pain Reported Mental Status Patient Orientation: Person, Confused, Place Transfers SCALE: Activities may be completed with or without assistive devices. 5-Xvdqqhowtl-kzeihlx completes the activity by him/herself with no assistance from a helper. 5-Set-up or Clean-up Assistance-helper sets up or cleans up; patient completes activity. [place] assists only prior to or following the activity. 4-Supervision or Touching Assistance-helper provides verbal cues and/or touching/steadying and/or contact guard assistance as patient completes activity. Assistance may be provided throughout the activity or intermittently. 3-Partial/Moderate Assistance-helper does LESS THAN HALF the effort. [place] lifts, holds or supports trunk or limbs, but provides less than half the effort. 2-Substantial/Maximal Assistance-helper does MORE THAN HALF the effort. [place] lifts or holds trunk or limbs and provides more than half the effort. 0-Ekrvhfxpi-tvjjjf does ALL the effort. Patient does none of the effort to complete the activity. Or, the assistance of 2 or more helpers is required for the patient to complete the activity. If activity was not attempted, code reason: 7-Patient Refused. 9-Not Applicable-not attempted and the patient did not perform the activity before the current illness, exacerbation or injury. 10-Not Attempted due to Environmental Limitations-(lack of equipment, weather restraints, etc.). 88-Not Attempted due to Medical Conditions or Safety Concerns. Sit to Stand (QC): 5 Toilet Transfer (QC): 5 Weight Bearing Right Lower Extremity: Right Full Weight Bearing Left Lower Extremity: Left Full Weight Bearing Gait Training Does the Patient Walk?: Yes Distance: 100' x3 Walk 10 feet (QC): 4 Walk 50 ft with 2 Turns(QC): 4 Walk 150 ft (QC): 4 Gait Persons Needed: 1 Gait Assistive Device: FWW Exercises Supine Ex: Ankle pumps, Quad Set, Glut sets, Heel Slides, Straight leg raise, Hip abd/add Supine Reps: 15 Standing: Hip Abduction, Hamstring curls, Marching, Mini squats, Retro gait, Weight shifts Standing Reps: 15 Treatments [id number]: TF to standing and amb. in hallway. Pt completes Standing & Supine Ex with RB as needed. Pt amb. in hallway before returning to room. Pt uses BR before resting in recliner with all needs met, call light in hand. [id number]: Pt finishing lunch upon arrival. Pt declines need for BR. Pt is more confused in afternoon tx. HOT IRON WORKER attempts giving VC for Seated EX but pt has difficulty following. Pt resting in recliner w/all needs met, call light in hand. Assessment Current Status: Fair Progress Pt is improving with transfers and mobility although still reporting dizziness and has a couple situations where pt catches self as LOB. PT Die Repairer Trimmer Dies Goals Die Repairer Trimmer Dies Goals PT Die Repairer Trimmer Dies Goals Time Frame: Dec 19, 2020 Roll Left & Right (QC): 6 Sit to Lying (QC): 6 Lying-Sitting on Side/Bed(QC): 6 Sit to Stand (QC): 6 Chair/Ogj-ya-Viyhu Xfer(QC): 6 Toilet Transfer (QC): 6 Car Transfer (QC): 6 Does the Patient Walk: Yes Walk 10 feet (QC): 6 Walk 50ft with 2 Turns (QC): 6 Walk 150 ft (QC): 6 Walking 10ft on Uneven Surface: 6 1 Step (curb) (QC): 6 4 Steps (QC): 6 12 Steps (QC): 6 Picking up an Object (QC): 6 Does the Pt use WC or Scooter?: No Wheel 50 feet with 2 turns (QC: 9 Wheel 150 feet: 9 PT Plan Problem List Problem List: Activity Tolerance, Safety, Balance Treatment/Plan Treatment Plan: Continue Plan of Care Treatment Plan: Bed Mobility, Concurrent Therapy, Education, Functional Activity Miguel, Functional Strength, Group Therapy, Gait, Safety, Therapeutic Exercise, Transfers Treatment Duration: Dec 19, 2020 Frequency: At least 5 of 7 days/Wk (IRF) Estimated Hrs Per Day: 1.5 hours per day Patient and/or Family Agrees t: Yes Safety Risks/Education Patient Education: Gait Training, Correct Positioning, Safety Issues Teaching Recipient: Patient Teaching Methods: Discussion Response to Teaching: Reinforcement Needed Time/GCodes Time In: 1100 Time Out: 1200 Total Billed Treatment Time: 60 Total Billed Treatment [id number]: 1, FA (15m), GT (15m) & EX x2 (30m) [id number]: 1, FA (15m) HAYLEE REYES HOT IRON WORKER Dec 08, 2020 12:00
--- NOTE | 2020-12-08 17:10 | Occupational Ther Daily Note ---
OT Current Status-Daily Note Subjective No pain reported. Mental Status/Objective Patient Orientation: Person ADL-Treatment Therapy Code Descriptions/Definitions Functional [place] Measure: 0=Not Assessed/NA 4=Minimal Assistance 1=Total Assistance 5=Supervision or Setup 2=Maximal Assistance 6=Modified [place] 3=Moderate Assistance 7=Complete IndependenceSCALE: Activities may be completed with or without assistive devices. 1-Jzfzsspdzn-ztkaxql completes the activity by him/herself with no assistance from a helper. 5-Set-up or Clean-up Assistance-helper sets up or cleans up; patient completes activity. [place] assists only prior to or following the activity. 4-Supervision or Touching Assistance-helper provides verbal cues and/or touching/steadying and/or contact guard assistance as patient completes activity. Assistance may be provided throughout the activity or intermittently. 3-Partial/Moderate Assistance-helper does LESS THAN HALF the effort. [place] lifts, holds or supports trunk or limbs, but provides less than half the effort. 2-Substantial/Maximal Assistance-helper does MORE THAN HALF the effort. [place] lifts or holds trunk or limbs and provides more than half the effort. 0-Xqfyrqblo-uypxea does ALL the effort. Patient does none of the effort to complete the activity. Or, the assistance of 2 or more helpers is required for the patient to complete the activity. If activity was not attempted, code reason: 7-Patient Refused. 9-Not Applicable-not attempted and the patient did not perform the activity before the current illness, exacerbation or injury. 10-Not Attempted due to Environmental Limitations-(lack of equipment, weather restraints, etc.). 88-Not Attempted due to Medical Conditions or Safety Concerns. Upper Body Dressing (QC): 5 Lower Body Dressing (QC): 4 On/Off Footwear: 4 Toileting Hygiene (QC): 4 Toilet Transfer (QC): 3 Pt. ambulated completed cognitive activities in room. Pt. has difficulty with scanning tasks, stating that she had difficulty concentrating. Able to make grocery list but had difficulty processing. All needs met up in chair at end of session. Education OT Patient Education: Correct positioning, Modified ADL techniques, Progress toward Goal/Update tx plan, Purpose of tx/functional activities, Reviewed precautions, Rehab process, Transfer techniques Teaching Recipient: Patient OT Switch Tender Goals Detention Goals Time Frame: Dec 14, 2020 Eating (QC): 6 Oral Hygiene (QC): 6 Toileting Hygiene (QC): 6 Shower/Bathe Self (QC): 6 Upper Body Dressing (QC): 6 Lower Body Dressing (QC): 6 On/Off Footwear (QC): 6 Additional Goals: 1-Demonstrate ADL Tasks, 2-Verbalize Understanding, 3- ImproveStrength/Miguel 1=Demonstrate adherence to instructed precautions during ADL tasks. 2=Patient will verbalize/demonstrate understanding of assistive devices/modifications for ADL. 3=Patient will improve strength/tolerance for activity to enable patient to perform ADL's. OT Education/Plan Discharge Recommendations Plan/Recommendations: Continue POC Treatment Plan/Plan of Care Patient would benefit from OT for education, treatment and training to promote independence in ADL's, mobility, safety and/or upper extremity function for ADL's. Plan of Care: ADL Retraining, Caregiver Training, Cognitive Retraining, Functional Mobility, Group Exercise/Act as Ind, UE Funct Exercise/Act, UE Neuromus Re-Ed/Coord, Visual/Perceptual Retrain, W/C Management Training Treatment Duration: Dec 14, 2020 Frequency: At least 5 of 7 days/Wk (IRF) Estimated Hrs Per Day: 1.5 hours per day Agreement: Yes Rehab Potential: Fair Time/GCodes Start Time: 09:30 Stop Time: 10:30 Total Time Billed (hr/min): 60 Billed Treatment Time 1, ADL x 30minutes, FA x 30minutes JASMINE PONCE OT Dec 08, 2020 17:10
--- NOTE | 2020-12-08 17:14 | Occupational Ther Daily Note ---
OT Current Status-Daily Note Subjective No pain reported. Mental Status/Objective Patient Orientation: Person, Place ADL-Treatment Therapy Code Descriptions/Definitions Functional [place] Measure: 0=Not Assessed/NA 4=Minimal Assistance 1=Total Assistance 5=Supervision or Setup 2=Maximal Assistance 6=Modified [place] 3=Moderate Assistance 7=Complete IndependenceSCALE: Activities may be completed with or without assistive devices. 0-Cbyaqlrwdc-fngwuiv completes the activity by him/herself with no assistance from a helper. 5-Set-up or Clean-up Assistance-helper sets up or cleans up; patient completes activity. [place] assists only prior to or following the activity. 4-Supervision or Touching Assistance-helper provides verbal cues and/or touching/steadying and/or contact guard assistance as patient completes activity. Assistance may be provided throughout the activity or intermittently. 3-Partial/Moderate Assistance-helper does LESS THAN HALF the effort. [place] lifts, holds or supports trunk or limbs, but provides less than half the effort. 2-Substantial/Maximal Assistance-helper does MORE THAN HALF the effort. [place] lifts or holds trunk or limbs and provides more than half the effort. 0-Dtrvzsjnn-bcjncl does ALL the effort. Patient does none of the effort to complete the activity. Or, the assistance of 2 or more helpers is required for the patient to complete the activity. If activity was not attempted, code reason: 7-Patient Refused. 9-Not Applicable-not attempted and the patient did not perform the activity before the current illness, exacerbation or injury. 10-Not Attempted due to Environmental Limitations-(lack of equipment, weather restraints, etc.). 88-Not Attempted due to Medical Conditions or Safety Concerns. Toileting Hygiene (QC): 4 Toilet Transfer (QC): 4 Other Treatment Pt. ambulated with CGA to therapy gym. Tolerated 10 minutes on armbike at mod resistance. Tolerated well for increased strength. Ambulated back to room with walker and increased time. Toileted with CGA. All needs met up in chair. Education OT Patient Education: Correct positioning, Exercise program, Transfer techniques Teaching Recipient: Patient OT Point Of Care Specialist Goals Point Of Care Specialist Goals Time Frame: Dec 14, 2020 Eating (QC): 6 Oral Hygiene (QC): 6 Toileting Hygiene (QC): 6 Shower/Bathe Self (QC): 6 Upper Body Dressing (QC): 6 Lower Body Dressing (QC): 6 On/Off Footwear (QC): 6 Additional Goals: 1-Demonstrate ADL Tasks, 2-Verbalize Understanding, 3- ImproveStrength/Miguel 1=Demonstrate adherence to instructed precautions during ADL tasks. 2=Patient will verbalize/demonstrate understanding of assistive devices/modifications for ADL. 3=Patient will improve strength/tolerance for activity to enable patient to perform ADL's. OT Education/Plan Discharge Recommendations Plan/Recommendations: Continue POC Treatment Plan/Plan of Care Patient would benefit from OT for education, treatment and training to promote independence in ADL's, mobility, safety and/or upper extremity function for ADL's. Plan of Care: ADL Retraining, Caregiver Training, Cognitive Retraining, Functional Mobility, Group Exercise/Act as Ind, UE Funct Exercise/Act, UE Neuromus Re-Ed/Coord, Visual/Perceptual Retrain, W/C Management Training Treatment Duration: Dec 14, 2020 Frequency: At least 5 of 7 days/Wk (IRF) Estimated Hrs Per Day: 1.5 hours per day Agreement: Yes Rehab Potential: Fair Time/GCodes Start Time: 13:30 Stop Time: 14:00 Total Time Billed (hr/min): 30 Billed Treatment Time 1, ADL x 15minutes, Ex x 15minutes JASMINE PONCE OT Dec 08, 2020 17:14
[2020-12-08] MEDS: TAMSULOSIN 0.4 MG (FLOMAX) CAP PO SCH (17:23)
[2020-12-08 20:00] VITALS: BP 157/72
[2020-12-09] MEDS: inSUlin ASPART (NovoLOG) 1 UNIT/0.01 ML (CHARGE PER UNIT) SC SCH ×4 (05:39→21:26)
--- NOTE | 2020-12-09 06:10 | PM&R Progress Note ---
Subjective HPI/CC On Admission Date Seen by Provider: Dec 09, 2020 Time Seen by Provider: 09:30 Virgen Bermeo is a 75 year old female with PMH T2DM, HLD, who was admitted to with cerebrovascular accident and intracranial hemorhage. She was found to have a large right cerebellar hemorrhage. She was admitted to the ICU. She underwent craniotomy with hematoma evacuation and had an EVD placed. She was stabilized but remained debilitated. She was deemed to require ongoing acute cares along with PT/OT/ST. She was transferred from to the inpatient rehabilitation unit on 11/28/2020. Her course was complicated by hypertension and she was started on medication. She also had issues with orthostatic hypotension. Upon my examination, she had arrived in her room and was ordering food. She reports having some double vision. She also has some uncoordination and balance issues. She is not having any focal weakness. She denies headaches. She is not having fe vers or chills. She denies chest pain and palpitations. She denies shortness of breath and cough. She denies abdominal pain. She had issues with nausea and vomiting while driving here due to motion sickness. She denies diarrhea. She denies dysuria. She previously had been on aspirin and a cholesterol medicine daily, as well as 18 units of long acting insulin daily. Subjective/Events-last exam 12/09/2020: Pt doing pretty well Bowels moved yesterday Has an emesis episode twice daily Sutures will be removed per today Discharge planned for 12/15/2020 12/08/2020: Pt doing pretty well Bladder scanning showed 300 after post-void residual Fogginess noted She didnt know when she was born, what year Denies any pain Blood sugar checks are monitored 12/07/2020: Pt doing pretty well will be contacted regarding the suture removal date No emesis today A few pills at a time seems to help her In and out cath was not needed, if she needs another one she will have a castaneda placed Last dose of antibiotics is today 12/06/2020: Patient doing pretty well today Had a little bit of vomiting today but was able to eat all of breakfast Daughter is at the bedside today Walking pretty well but balance is an issue Had a small bowel movement last night so gave laxatives today Urology did see patient and recommended to restart Urecholine and Place Castaneda if she continues to have retention Staple removal will be assessed by [facility] and we will remove if needed 12/05/2020: This visit is via video chat due to Covid related restriction for this provider Patient doing a little better today Ate a full breakfast and eating lunch currently Bowels move 3 days ago so laxatives given Voiding at night pretty well and voided 600 cc of urine this morning but bladder scan showed another 400 retained so perform straight in and out cath Sleeps better here than at home Holding Metformin currently 12/04/2020: This visit is via video chat due to Covid related restriction for this provider Patient doing pretty well today Appears to be chronically ill Vomited 2 small amounts today Sugar is 85 so decreasing Levemir Holding Metformin since she thinks that that is making her nauseated made it clear to social work yesterday that patient becomes very lethargic with any medication so he wants that closely watched 12/03/2020: This visit is via video chat due to Covid related restriction for this provider Patient doing pretty well today Eating and drinking better Rocephin will be given last dose IV this afternoon and then switch over to Omnicef Walking with physical therapy Not as impulsive Decreasing balance issues Antivert given scheduled Straight cath required x1 so we will consult urology Bowels are still a bit sluggish so will get aggressive regimen for that 12/02/2020: This visit is via video chat due to Covid related restriction for this provider Improved status today She ate bfast today Zofran given prophylactically before PT Rocephin IV started and maintained due to inadequate PO intake from N/V yesterday E coli noted as second organism so will need to evaluate that for ESBL BM treatment maintained, she seems to nort recall if her bowels are moving well or not very attentive 12/01/2020: This visit is via video chat due to Covid related restriction for this provider Patient having some issues today Nausea and vomiting noted Severe vertigo We will shift to Rocephin IV and give gentle IV fluids Scopolamine patch was replaced Check meds and labs Updated patient on the plan The vertigo and severe dizziness from the stroke because the reluctance of admission to the inpatient rehab unit so we will monitor closely Neuro was not very optimistic the symptoms would resolve quickly or at all and may very well require wheelchair bound status Urine culture showed Morganella Morgagni 11/30/2020: This visit is via video chat due to Covid related restriction for this provider Patient doing well No major concerns Macrobid empirically started, UCx pending Updated patient on the UTI treatment wanted Melatonin Xanax and Codeine DC so I did that In/Out cath once per 24 hours Urecholine started BM 11/2911/29/2020: This visit is via video chat due to Covid related restriction for this provider Reviewed history and physical information Met with nurse and discussed all meds and issues Patient feels pretty good No major concerns per patient Bowels are moving sluggishly will maintain laxatives No impulsiveness Balance is definitely deficient Had to straight cath her x1 due to urinary retention Low-grade fever 99.3 Urine is very cloudy We will obtain urine and urine culture from cath specimen and place on antibiotic empirically Monitoring closely Review of Systems Neurological: Weakness, Incoordination Objective Exam Vital Signs Vital Signs Date Time Temp Pulse Resp B/P (MAP) Pulse Ox O2 Delivery O2 Flow Rate FiO2 12/09/20 20:00 36.7 66 12 169/75 (106) 98 Room Air 12/08/20 06:41 0.00 Capillary Refill : General Appearance: No Apparent Distress, WD/WN, Chronically ill HEENT: PERRL/EOMI, Normal ENT Inspection, Pharynx Normal; No Photophobia Neck: Normal Inspection, Non Tender, Supple Respiratory: Lungs Clear, Normal Breath Sounds, No Respiratory Distress Cardiovascular: Regular Rate, Rhythm, No Edema, No Murmur Gastrointestinal: Normal Bowel Sounds, Non Tender, Soft Extremity: Normal Inspection, Non Tender, No Pedal Edema Neurologic/Psychiatric: Alert, Oriented x3, Normal Mood/Affect, monument mason II-XII Norm as Tested, Motor Weakness (generalized), Other (dysmetria) Skin: Normal Color, Warm/Dry, Other (right parietal EVD incision and occipital craniotomy incision well appearing) Lymphatic: No Adenopathy Results/Procedures Lab Patient resulted labs reviewed. Imaging: Reviewed Imaging Report FIM Transfers Therapy Code Descriptions/Definitions Functional [place] Measure: 0=Not Assessed/NA 4=Minimal Assistance 1=Total Assistance 5=Supervision or Setup 2=Maximal Assistance 6=Modified [place] 3=Moderate Assistance 7=Complete IndependenceSCALE: Activities may be completed with or without assistive devices. 5-Perbofnazr-dhampof completes the activity by him/herself with no assistance from a helper. 5-Set-up or Clean-up Assistance-helper sets up or cleans up; patient completes activity. [place] assists only prior to or following the activity. 4-Supervision or Touching Assistance-helper provides verbal cues and/or touching/steadying and/or contact guard assistance as patient completes activity. Assistance may be provided throughout the activity or intermittently. 3-Partial/Moderate Assistance-helper does LESS THAN HALF the effort. [place] lifts, holds or supports trunk or limbs, but provides less than half the effort. 2-Substantial/Maximal Assistance-helper does MORE THAN HALF the effort. [place] lifts or holds trunk or limbs and provides more than half the effort. 1-Bzucmucyl-dowosm does ALL the effort. Patient does none of the effort to complete the activity. Or, the assistance of 2 or more helpers is required for the patient to complete the activity. If activity was not attempted, code reason: 7-Patient Refused. 9-Not Applicable-not attempted and the patient did not perform the activity before the current illness, exacerbation or injury. 10-Not Attempted due to Environmental Limitations-(lack of equipment, weather restraints, etc.). 88-Not Attempted due to Medical Conditions or Safety Concerns. Roll Left to Right (QC): 6 Sit to Lying (QC): 6 Sit to Stand (QC): 5 Chair/Kgw-uf-Dnnnd Xfer(QC): 3 Car Transfer (QC): 3 Gait Training Does the Patient Walk?: Yes Distance: 100' x3 Walk 10 feet (QC): 4 Walk 50 ft with 2 Turns(QC): 4 Walk 150 ft (QC): 4 Walking 10ft/uneven surface-QC: 4 Gait Persons Needed: 1 Gait Assistive Device: FWW Wheelchair Training Does the Pt Use a Wheelchair?: No Wheel 50 ft with 2 turns (QC): 9 Wheel 150 ft (QC): 9 Stair Training #of Steps: 1 1 Step (curb) (QC): 3 4 Steps (QC): 88 12 Steps (QC): 88 Balance Picking up an Object (QC): 88 ADL-Treatment Eating (QC): 6 (IND) Oral Hygiene (QC): 5 (s/u EOB, pt misses toothbrush with toothpaste minimally this session.) Shower/Bathe Self (QC): 4 (CGA in stance to shower wash smiley area and dry.) Upper Body Dressing (QC): 5 Lower Body Dressing (QC): 4 On/Off Footwear (QC): 4 Toileting Hygiene (QC): 4 Toilet Transfer (QC): 4 Assessment/Plan Assessment and Plan Assess & Plan/Chief Complaint Assessment: (1) CVA (cerebral vascular accident) (2) Intracranial hemorrhage (3) Status post craniotomy (4) Status post evacuation of hematoma (5) Dysmetria (6) Diplopia (7) HTN (hypertension) (8) Orthostatic hypotension (9) Debility (10) HLD (hyperlipidemia) (11) T2DM (type 2 diabetes mellitus) (12) Acute UTI placed on antibiotic empirically on 11/29/2020 but DC'd Macrobid due to resistance of Morganella Morgagni placed on Omnicef then shifted to Rocephin due to nausea and vomiting 12/01/2020 (13) Acute urinary retention requiring caths thin urology consulted on 12/05/2020 (14) Nausea and vomiting episode requiring IV fluids 12/01/2020 and heplocked 12/02/20 Plan: Intensive rehab protocol Empiric antibiotic treatment Monitor sugar Add Urecholine 11/30/20: Urecholine maintained In/Out caths prn Abx empirically DC meds at request 12/01/2020: IV fluids IV antibiotics DC Macrobid due to resistance on urine culture Very complex case Scopolamine patch 12/02/20: HLIVF IV abx Await second gram negative organism on UCx just noted today on report BM regimen 12/03/2020: Discontinue Rocephin after dose this afternoon and switch to Omnicef p.o. Continue aggressive treatment 12/04/2020: Nausea treatment Scopolamine patch Blood pressure monitoring 12/05/2020: Monitor for nausea Hold Metformin Monitor blood sugar only 12/06/2020: Urecholine Urology consultation appreciated Bowel regimen Monitor closely 12/07/2020: Appreciate urology consultation Monitor blood pressure Suture removal per [facility] recommendations 12/08/2020: Continue aggressive rehab Appreciate urology Monitor closely 12/09/2020: Suture removal Continue aggressive treatment (1) CVA (cerebral vascular accident) Status: Acute (2) Intracranial hemorrhage Status: Acute (3) Status post craniotomy Status: Acute (4) Status post evacuation of hematoma Status: Acute (5) Dysmetria Status: Acute (6) Diplopia Status: Acute (7) HTN (hypertension) Status: Acute Qualifiers: Hypertension type: essential hypertension Qualified Codes: I10 - Essential (primary) hypertension (8) Orthostatic hypotension Status: Acute (9) Debility (10) HLD (hyperlipidemia) Status: Chronic (11) T2DM (type 2 diabetes mellitus) Status: Chronic Qualifiers: Diabetes mellitus intermodal customer service insulin use: with intermodal customer service use ELSY ORNELAS DO Dec 09, 2020 06:10
[2020-12-09] MEDS: BETHANECHOL 25 MG (URECHOLINE) TAB PO SCH ×4 (06:41→19:50)
[2020-12-09] MEDS: CATHETER FLUSH 10 ML SYR IV SCH ×3 (06:41→19:51)
[2020-12-09] MEDS: MECLIZINE 25 MG (ANTIVERT) TAB PO SCH ×3 (06:41→21:15)
[2020-12-09] MEDS: MULTIVIT W/MINERALS TAB (THERAGRAN M) PO SCH (06:41)
[2020-12-09 07:42] VITALS: BP 172/78
[2020-12-09] MEDS: CALCIUM CARB + VIT D 600 MG (CALCARB + D) TAB PO SCH ×2 (07:43→19:50)
[2020-12-09] MEDS: ASPIRIN E.C. 81 MG (ECOTRIN) TAB PO SCH (07:43)
[2020-12-09] MEDS: DOCUSATE SODIUM 100 MG (COLACE) CAP PO SCH ×2 (07:43→19:50)
[2020-12-09] MEDS: MILK OF MAGNESIA 400 MG/5 ML 30 ML UDC PO SCH (07:44)
[2020-12-09] MEDS: polyethylene glycoL POWDER 17 GM (MIRALAX) PACK PO SCH ×2 (07:44→19:32)
--- NOTE | 2020-12-09 08:36 | Speech Therapy Daily Note ---
Speech Daily Progress Note Subjective Date Seen by Provider: Dec 09, 2020 Time Seen by Provider: 00:30 Patient was sitting in her recliner taking a cat nap. She states she has a follow up at on . This clinician is unsure if this is accurate and will follow up. Objective Patient completed calendar exercises with regard to her timeline at 75% with min to mod verbal/visual cues. Assessment Assessment Current Status: Good Progress Treatment Plan Continue Plan of Care Speech Short Term Goals Short Term Goals Short Term Goals 1) Patient will complete memory tasks related to her daily needs with 75% or greater given minimal cues. 2) Patient will complete safety awareness tasks related to her daily needs with 75% or greater given minimal cues. Speech Sr. Director Product Management Goals Sr. Director Product Management Goals Patient will utilize memory and safety awareness strategies as trained in order to require decreased assist. Speech-Plan Patient/Family Goals Patient/Family Goals: Patient plans on returning to her home where she lives with her . She will receive home health services as well as having family/friends support for her needs. 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
[2020-12-09] MEDS: ACETAMINOPHEN 500 MG TAB (TYLENOL) PO SCH (09:02)
[2020-12-09] MEDS: MAGNESIUM OXIDE (MAG-OX)400 MG TAB PO SCH (09:02)
[2020-12-09] MEDS: lisINopril 40 MG (PRINIVIL) TABLET PO SCH (09:02)
[2020-12-09] MEDS: SENNA W/DOCUSATE (SENOKOT S) TABLET PO SCH ×2 (09:02→19:50)
[2020-12-09] MEDS: ONDANSETRON 4 MG/2 ML (SDV) Z0FRAN IVP PRN ×2 (09:24→17:27)
--- NOTE | 2020-12-09 11:19 | Progress Note - Urology ---
Progress Note-Urology Progress Notes/Assess & Plan Progress/Assessment & Plan CONTINUES BETTER VOIDING WITH LESS PVR. Final Diagnosis RETENTION (RESOLVING) ZAY JAFFE MD Dec 09, 2020 11:19
--- NOTE | 2020-12-09 11:20 | Occupational Ther Daily Note ---
OT Current Status-Daily Note Subjective Pt. up in chair. No pain reported at beginning of session. Pt. becomes nauseated in shower. Receives IV Zofran. Mental Status/Objective Patient Orientation: Person, Place Attachments: IV ADL-Treatment Therapy Code Descriptions/Definitions Functional [place] Measure: 0=Not Assessed/NA 4=Minimal Assistance 1=Total Assistance 5=Supervision or Setup 2=Maximal Assistance 6=Modified [place] 3=Moderate Assistance 7=Complete IndependenceSCALE: Activities may be completed with or without assistive devices. 0-Ledimjbglj-hevpshc completes the activity by him/herself with no assistance from a helper. 5-Set-up or Clean-up Assistance-helper sets up or cleans up; patient completes activity. [place] assists only prior to or following the activity. 4-Supervision or Touching Assistance-helper provides verbal cues and/or touching/steadying and/or contact guard assistance as patient completes activit y. Assistance may be provided throughout the activity or intermittently. 3-Partial/Moderate Assistance-helper does LESS THAN HALF the effort. [place] lifts, holds or supports trunk or limbs, but provides less than half the effort. 2-Substantial/Maximal Assistance-helper does MORE THAN HALF the effort. [place] lifts or holds trunk or limbs and provides more than half the effort. 1-Cpvwiziwv-aksqpv does ALL the effort. Patient does none of the effort to complete the activity. Or, the assistance of 2 or more helpers is required for the patient to complete the activity. If activity was not attempted, code reason: 7-Patient Refused. 9-Not Applicable-not attempted and the patient did not perform the activity before the current illness, exacerbation or injury. 10-Not Attempted due to Environmental Limitations-(lack of equipment, weather restraints, etc.). 88-Not Attempted due to Medical Conditions or Safety Concerns. Shower/Bathe Self (QC): 4 (SBA in shower.) Upper Body Dressing (QC): 5 (Set up for bra and shirt.) Lower Body Dressing (QC): 4 (SBA in stance to don pants over hips.) On/Off Footwear: 3 (Mod assist overall. Pt. able to don socks by putting feet on chair and turning sideways, but OT dons shoes, as pt. has become ill and having difficulty bending over.) Toileting Hygiene (QC): 4 Toilet Transfer (QC): 4 Other Treatment Pt. ambulating slower with walker, but with less LOB. After showering, and while dressing, pt. becomes ill and vomits profusely. Nursing notified immedi ately and gives pt. IV Zofran. After resting, pt. ambulates with walker to sink and brushes hair. Ambulates to chair in room, and all needs are met. Education OT Patient Education: Correct positioning, Modified ADL techniques, Progress toward Goal/Update tx plan, Purpose of tx/functional activities, Reviewed precautions, Rehab process, Transfer techniques Teaching Recipient: Patient Teaching Methods: Demonstration, Discussion Response to Teaching: Verbalize Understanding, Return Demonstration OT Head Butler Goals Head Butler Goals Time Frame: Dec 14, 2020 Eating (QC): 6 Oral Hygiene (QC): 6 Toileting Hygiene (QC): 6 Shower/Bathe Self (QC): 6 Upper Body Dressing (QC): 6 Lower Body Dressing (QC): 6 On/Off Footwear (QC): 6 Additional Goals: 1-Demonstrate ADL Tasks, 2-Verbalize Understanding, 3- ImproveStrength/Miguel 1=Demonstrate adherence to instructed precautions during ADL tasks. 2=Patient will verbalize/demonstrate understanding of assistive christiano raina/modifications for ADL. 3=Patient will improve strength/tolerance for activity to enable patient to perform ADL's. OT Education/Plan Problem List/Assessment Assessment: Decreased Activ Tolerance, Impaired I ADL's, Impaired Self-Care Skills Discharge Recommendations Plan/Recommendations: Continue POC Therapy Discharge Recommendati: Home & Family, Post Acute OT Treatment Plan/Plan of Care Treatment,Training & Education: Yes Patient would benefit from OT for education, treatment and training to promote independence in ADL's, mobility, safety and/or upper extremity function for ADL's. Plan of Care: ADL Retraining, Caregiver Training, Cognitive Retraining, Functional Mobility, Group Exercise/Act as Ind, UE Funct Exercise/Act, UE N euromus Re-Ed/Coord, Visual/Perceptual Retrain, W/C Management Training Treatment Duration: Dec 14, 2020 Frequency: At least 5 of 7 days/Wk (IRF) Estimated Hrs Per Day: 1.5 hours per day Agreement: Yes Rehab Potential: Fair Time/GCodes Start Time: 09:00 Stop Time: 09:45 Total Time Billed (hr/min): 45 Billed Treatment Time 1, ADL x 3 JASMINE PONCE OT Dec 09, 2020 11:19
--- NOTE | 2020-12-09 11:22 | Progress Note - Urology ---
Progress Note-Urology Progress Notes/Assess & Plan Progress/Assessment & Plan VOIDING WELL NO PVR. INCONTINENT WHICH IS A CHRONIC PROBLEM. PLAND START WEANING OFF URECHOLINE AND LATER OP IF WISHES TO DO SO AND RECOVERED FROM ORTHO SURGERIES WE CAN WORK HER UP AND HELP HER LEAKAGE ISSUES Final Diagnosis URINE RETENTION (RESOLVED) ZAY JAFFE MD Dec 09, 2020 11:22
--- NOTE | 2020-12-09 12:12 | Physical Therapy Daily Note ---
PT Daily Note-Current Subjective Pt sitting in recliner upon arrival. Pt agrees to PT. Pt still reporting dizziness with standing. Pain Location: No Pain Reported Mental Status Patient Orientation: Person, Place, Situation Attachments: Other-See Comments (Bucket in case of nausea/vomiting) Transfers SCALE: Activities may be completed with or without assistive devices. 9-Pzqtdyaxny-tkyoljw completes the activity by him/herself with no assistance from a helper. 5-Set-up or Clean-up Assistance-helper sets up or cleans up; patient completes activity. [place] assists only prior to or following the activity. 4-Supervision or Touching Assistance-helper provides verbal cues and/or touching/steadying and/or contact guard assistance as patient completes activity. Assistance may be provided throughout the activity or intermittently. 3-Partial/Moderate Assistance-helper does LESS THAN HALF the effort. [place] lifts, holds or supports trunk or limbs, but provides less than half the effort. 2-Substantial/Maximal Assistance-helper does MORE THAN HALF the effort. [place] lifts or holds trunk or limbs and provides more than half the effort. 6-Zrtudtguf-hjqmsy does ALL the effort. Patient does none of the effort to complete the activity. Or, the assistance of 2 or more helpers is required for the patient to complete the activity. If activity was not attempted, code reason: 7-Patient Refused. 9-Not Applicable-not attempted and the patient did not perform the activity be fore the current illness, exacerbation or injury. 10-Not Attempted due to Environmental Limitations-(lack of equipment, weather restraints, etc.). 88-Not Attempted due to Medical Conditions or Safety Concerns. Sit to Stand (QC): 5 Toilet Transfer (QC): 5 Weight Bearing Right Lower Extremity: Right Full Weight Bearing Left Lower Extremity: Left Full Weight Bearing Gait Training Does the Patient Walk?: Yes Distance: 150' , 100' Walk 10 feet (QC): 4 Walk 50 ft with 2 Turns(QC): 4 Walk 150 ft (QC): 4 Gait Assistive Device: FWW A couple of nino LOB. TIMBER HARVESTER OPERATOR assists with LOB to prevent fall. Exercises Seated Therapy Exercises: Long arc quads, Hip flexion, Glut set Seated Reps: 15 Standing: Hip Abduction, Hamstring curls, Heel/toe raises, Marching, Mini squats, Weight shifts Standing Reps: 15 Treatments TF to standing and uses BR. Pt amb. in hallway then completes Seated EX followed by Standing EX at //bars. Pt amb. in hallway before returning to room to rest in recliner. All needs met, call light in hand. Assessment Current Status: Fair Progress Pt is impulsive at times. CGA for transfers and ambulation for safety & couple LOB episodes during tx. PT Correction Goals Tube Fitter Goals PT Tube Fitter Goals Time Frame: Dec 19, 2020 Roll Left & Right (QC): 6 Sit to Lying (QC): 6 Lying-Sitting on Side/Bed(QC): 6 Sit to Stand (QC): 6 Chair/Nds-pe-Oxfvb Xfer(QC): 6 Toilet Transfer (QC): 6 Car Transfer (QC): 6 Does the Patient Walk: Yes Walk 10 feet (QC): 6 Walk 50ft with 2 Turns (QC): 6 Walk 150 ft (QC): 6 Walking 10ft on Uneven Surface: 6 1 Step (curb) (QC): 6 4 Steps (QC): 6 12 Steps (QC): 6 Picking up an Object (QC): 6 Does the Pt use WC or Scooter?: No Wheel 50 feet with 2 turns (QC: 9 Wheel 150 feet: 9 PT Plan Problem List Problem List: Activity Tolerance, Safety, Balance Treatment/Plan Treatment Plan: Continue Plan of Care Treatment Plan: Bed Mobility, Concurrent Therapy, Education, Functional Activity Miguel, Functional Strength, Group Therapy, Gait, Safety, Therapeutic Exercise, Transfers Treatment Duration: Dec 19, 2020 Frequency: At least 5 of 7 days/Wk (IRF) Estimated Hrs Per Day: 1.5 hours per day Patient and/or Family Agrees t: Yes Safety Risks/Education Patient Education: Gait Training, Transfer Techniques, Correct Positioning, Safety Issues Teaching Recipient: Patient Teaching Methods: Discussion Response to Teaching: Verbalize Understanding Time/GCodes Time In: 1100 Time Out: 1200 Total Billed Treatment Time: 60 Total Billed Treatment 1, FA x2 (25m), GT (15m) & EX (20m) HAYLEE REYES TIMBER HARVESTER OPERATOR Dec 09, 2020 12:12
--- NOTE | 2020-12-09 14:49 | Therapy Group Daily Note ---
Therapy Daily Group Note Patient Education Topic Energy Cons Exercises LE Seated Exercise, UE Exercise Session Ratio (pt:therapist): 4:1 Goal of Session: Energy Conservation Tech., UE/LE Strengthing Goal Met for this Session: Yes Pt Benefit of Group: Contributions to Others, F/U Use of Strategies @Home, Increased Functional Safety, Increased Functional Strength, Improved Cognition, Recognition of Peers, Socialization Other/Notes Pt ambulates to PT/OT Group using FWW. Group consists of Introductions (Name, Location & Favorite Childhood Summer Activity), Socialization, Seated UE/LE Exe rcises, Explanation of Weekly ARU Meeting as well as Energy Conservation Techniques. Pt participated in Group by actively listening to other patients, properly introducing self and completing UE/LE Exercises. Pt returns to room to rest in recliner at end of Group with all needs met, call light in hand. Start Time: 13:00 Stop Time: 14:00 Total Billed Treatment Time: 60 Total Billed Treatment 1, GRP HAYLEE REYES SNUFF GRINDER Dec 09, 2020 14:49
[2020-12-09] MEDS: TAMSULOSIN 0.4 MG (FLOMAX) CAP PO SCH (17:28)
[2020-12-09 20:00] VITALS: BP 169/75
[2020-12-10] MEDS: inSUlin ASPART (NovoLOG) 1 UNIT/0.01 ML (CHARGE PER UNIT) SC SCH ×4 (05:26→20:32)
[2020-12-10] MEDS: MULTIVIT W/MINERALS TAB (THERAGRAN M) PO SCH (05:45)
[2020-12-10] MEDS: CATHETER FLUSH 10 ML SYR IV SCH ×4 (05:45→23:34)
[2020-12-10] MEDS: MECLIZINE 25 MG (ANTIVERT) TAB PO SCH ×3 (05:45→21:33)
[2020-12-10] MEDS: BETHANECHOL 25 MG (URECHOLINE) TAB PO SCH ×2 (05:45→18:39)
--- NOTE | 2020-12-10 06:32 | PM&R Progress Note ---
Subjective HPI/CC On Admission Date Seen by Provider: Dec 10, 2020 Time Seen by Provider: 11:00 Virgen Bermeo is a 75 year old female with PMH T2DM, HLD, who was admitted to with cerebrovascular accident and intracranial hemorhage. She was found to have a large right cerebellar hemorrhage. She was admitted to the ICU. She underwent craniotomy with hematoma evacuation and had an EVD placed. She was stabilized but remained debilitated. She was deemed to require ongoing acute cares along with PT/OT/ST. She was transferred from to the inpatient rehabilitation unit on 11/28/2020. Her course was complicated by hypertension and she was started on medication. She also had issues with orthostatic hypotension. Upon my examination, she had arrived in her room and was ordering food. She reports having some double vision. She also has some uncoordination and balance issues. She is not having any focal weakness. She denies headaches. She is not having fe vers or chills. She denies chest pain and palpitations. She denies shortness of breath and cough. She denies abdominal pain. She had issues with nausea and vomiting while driving here due to motion sickness. She denies diarrhea. She denies dysuria. She previously had been on aspirin and a cholesterol medicine daily, as well as 18 units of long acting insulin daily. Subjective/Events-last exam 12/10/2020: Pt doing better Emesis at least BID Protonix ordered Doing well otherwise Dr. Curiel decreased Urecholine to BID from QID Bowels are moving okay 12/09/2020: Pt doing pretty well Bowels moved yesterday Has an emesis episode twice daily Sutures will be removed per today Discharge planned for 12/15/2020 12/08/2020: Pt doing pretty well Bladder scanning showed 300 after post-void residual Fogginess noted She didnt know when she was born, what year Denies any pain Blood sugar checks are monitored 12/07/2020: Pt doing pretty well will be contacted regarding the suture removal date No emesis today A few pills at a time seems to help her In and out cath was not needed, if she needs another one she will have a castaneda placed Last dose of antibiotics is today 12/06/2020: Patient doing pretty well today Had a little bit of vomiting today but was able to eat all of breakfast Daughter is at the bedside today Walking pretty well but balance is an issue Had a small bowel movement last night so gave laxatives today Urology did see patient and recommended to restart Urecholine and Place Castaneda if she continues to have retention Staple removal will be assessed by TIMA and we will remove if needed 12/05/2020: This visit is via video chat due to Covid related restriction for this provider Patient doing a little better today Ate a full breakfast and eating lunch currently Bowels move 3 days ago so laxatives given Voiding at night pretty well and voided 600 cc of urine this morning but bladder scan showed another 400 retained so perform straight in and out cath Sleeps better here than at home Holding Metformin currently 12/04/2020: This visit is via video chat due to Covid related restriction for this provider Patient doing pretty well today Appears to be chronically ill Vomited 2 small amounts today Sugar is 85 so decreasing Levemir Holding Metformin since she thinks that that is making her nauseated made it clear to social work yesterday that patient becomes very lethargic with any medication so he wants that closely watched 12/03/2020: This visit is via video chat due to Covid related restriction for this provider Patient doing pretty well today Eating and drinking better Rocephin will be given last dose IV this afternoon and then switch over to Omnicef Walking with physical therapy Not as impulsive Decreasing balance issues Antivert given scheduled Straight cath required x1 so we will consult urology Bowels are still a bit sluggish so will get aggressive regimen for that 12/02/2020: This visit is via video chat due to Covid related restriction for this provider Improved status today She ate bfast today Zofran given prophylactically before PT Rocephin IV started and maintained due to inadequate PO intake from N/V yesterday E coli noted as second organism so will need to evaluate that for ESBL BM treatment maintained, she seems to nort recall if her bowels are moving well or not very attentive 12/01/2020: This visit is via video chat due to Covid related restriction for this provider Patient having some issues today Nausea and vomiting noted Severe vertigo We will shift to Rocephin IV and give gentle IV fluids Scopolamine patch was replaced Check meds and labs Updated patient on the plan The vertigo and severe dizziness from the stroke because the reluctance of admission to the inpatient rehab unit so we will monitor closely Neuro was not very optimistic the symptoms would resolve quickly or at all and may very well require wheelchair bound status Urine culture showed Franklyn Agustin 11/30/2020: This visit is via video chat due to Covid related restriction for this provider Patient doing well No major concerns Macrobid empirically started, UCx pending Updated patient on the UTI treatment wanted Melatonin Xanax and Codeine DC so I did that In/Out cath once per 24 hours Urecholine started BM 11/2911/29/2020: This visit is via video chat due to Covid related restriction for this provider Reviewed history and physical information Met with nurse and discussed all meds and issues Patient feels pretty good No major concerns per patient Bowels are moving sluggishly will maintain laxatives No impulsiveness Balance is definitely deficient Had to straight cath her x1 due to urinary retention Low-grade fever 99.3 Urine is very cloudy We will obtain urine and urine culture from cath specimen and place on antibiotic empirically Monitoring closely Review of Systems General: Fatigue, Malaise Gastrointestinal: Nausea, Vomiting Neurological: Weakness, Incoordination Objective Exam Vital Signs Vital Signs Date Time Temp Pulse Resp B/P (MAP) Pulse Ox O2 Delivery O2 Flow Rate FiO2 12/10/20 20:30 Room Air 12/10/20 20:00 36.4 63 12 183/74 (110) 98 12/08/20 06:41 0.00 Capillary Refill : General Appearance: No Apparent Distress, WD/WN, Chronically ill HEENT: PERRL/EOMI, Normal ENT Inspection, Pharynx Normal; No Photophobia Neck: Normal Inspection, Non Tender, Supple Respiratory: Lungs Clear, Normal Breath Sounds, No Respiratory Distress Cardiovascular: Regular Rate, Rhythm, No Edema, No Murmur Gastrointestinal: Normal Bowel Sounds, Non Tender, Soft Extremity: Normal Inspection, Non Tender, No Pedal Edema Neurologic/Psychiatric: Alert, Oriented x3, Normal Mood/Affect, personal driver II-XII Norm as Tested, Motor Weakness (generalized), Other (dysmetria) Skin: Normal Color, Warm/Dry, Other (right parietal EVD incision and occipital craniotomy incision well appearing) Lymphatic: No Adenopathy Results/Procedures Lab Patient resulted labs reviewed. Imaging: Reviewed Imaging Report FIM Transfers Therapy Code Descriptions/Definitions Functional [place] Measure: 0=Not Assessed/NA 4=Minimal Assistance 1=Total Assistance 5=Supervision or Setup 2=Maximal Assistance 6=Modified [place] 3=Moderate Assistance 7=Complete IndependenceSCALE: Activities may be completed with or without assistive devices. 3-Qspcfzbzuu-plcbsoc completes the activity by him/herself with no assistance from a helper. 5-Set-up or Clean-up Assistance-helper sets up or cleans up; patient completes activity. [place] assists only prior to or following the activity. 4-Supervision or Touching Assistance-helper provides verbal cues and/or touching/steadying and/or contact guard assistance as patient completes activity. Assistance may be provided throughout the activity or intermittently. 3-Partial/Moderate Assistance-helper does LESS THAN HALF the effort. [place] lifts, holds or supports trunk or limbs, but provides less than half the effort. 2-Substantial/Maximal Assistance-helper does MORE THAN HALF the effort. [place] lifts or holds trunk or limbs and provides more than half the effort. 0-Sabedpfrd-ymdhdo does ALL the effort. Patient does none of the effort to complete the activity. Or, the assistance of 2 or more helpers is required for the patient to complete the activity. If activity was not attempted, code reason: 7-Patient Refused. 9-Not Applicable-not attempted and the patient did not perform the activity before the current illness, exacerbation or injury. 10-Not Attempted due to Environmental Limitations-(lack of equipment, weather restraints, etc.). 88-Not Attempted due to Medical Conditions or Safety Concerns. Roll Left to Right (QC): 6 Sit to Lying (QC): 6 Sit to Stand (QC): 5 Chair/Dqg-ik-Snonh Xfer(QC): 3 Car Transfer (QC): 3 Gait Training Does the Patient Walk?: Yes Distance: 150' , 100' Walk 10 feet (QC): 4 Walk 50 ft with 2 Turns(QC): 4 Walk 150 ft (QC): 4 Walking 10ft/uneven surface-QC: 4 Gait Persons Needed: 1 Gait Assistive Device: FWW Wheelchair Training Does the Pt Use a Wheelchair?: No Wheel 50 ft with 2 turns (QC): 9 Wheel 150 ft (QC): 9 Stair Training #of Steps: 1 1 Step (curb) (QC): 3 4 Steps (QC): 88 12 Steps (QC): 88 Balance Picking up an Object (QC): 88 ADL-Treatment Eating (QC): 6 (IND) Oral Hygiene (QC): 5 (s/u EOB, pt misses toothbrush with toothpaste minimally this session.) Shower/Bathe Self (QC): 4 (SBA in shower.) Upper Body Dressing (QC): 5 (Set up for bra and shirt.) Lower Body Dressing (QC): 4 (SBA in stance to don pants over hips.) On/Off Footwear (QC): 3 (Mod assist overall. Pt. able to don socks by putting feet on chair and turning sideways, but OT dons shoes, as pt. has become ill and having difficulty bending over.) Toileting Hygiene (QC): 4 Toilet Transfer (QC): 4 Assessment/Plan Assessment and Plan Assess & Plan/Chief Complaint Assessment: (1) CVA (cerebral vascular accident) (2) Intracranial hemorrhage (3) Status post craniotomy (4) Status post evacuation of hematoma (5) Dysmetria (6) Diplopia (7) HTN (hypertension) (8) Orthostatic hypotension (9) Debility (10) HLD (hyperlipidemia) (11) T2DM (type 2 diabetes mellitus) (12) Acute UTI placed on antibiotic empirically on 11/29/2020 but DC'd Macrobid due to resistance of Morganella Morgagni placed on Omnicef then shifted to Rocephin due to nausea and vomiting 12/01/2020 (13) Acute urinary retention requiring caths thin urology consulted on 12/05/2020 (14) Nausea and vomiting episode requiring IV fluids 12/01/2020 and heplocked 12/02/20 Plan: Intensive rehab protocol Empiric antibiotic treatment Monitor sugar Add Urecholine 11/30/20: Urecholine maintained In/Out caths prn Abx empirically DC meds at request 12/01/2020: IV fluids IV antibiotics DC Macrobid due to resistance on urine culture Very complex case Scopolamine patch 12/02/20: HLIVF IV abx Await second gram negative organism on UCx just noted today on report BM regimen 12/03/2020: Discontinue Rocephin after dose this afternoon and switch to Omnicef p.o. Continue aggressive treatment 12/04/2020: Nausea treatment Scopolamine patch Blood pressure monitoring 12/05/2020: Monitor for nausea Hold Metformin Monitor blood sugar only 12/06/2020: Urecholine Urology consultation appreciated Bowel regimen Monitor closely 12/07/2020: Appreciate urology consultation Monitor blood pressure Suture removal per [facility] recommendations 12/08/2020: Continue aggressive rehab Appreciate urology Monitor closely 12/09/2020: Suture removal Continue aggressive treatment 12/10/2020: Add Protonix to help sooth stomach Supportive care Decreasing Urecholine Bladder much improved (1) CVA (cerebral vascular accident) Status: Acute (2) Intracranial hemorrhage Status: Acute (3) Status post craniotomy Status: Acute (4) Status post evacuation of hematoma Status: Acute (5) Dysmetria Status: Acute (6) Diplopia Status: Acute (7) HTN (hypertension) Status: Acute Qualifiers: Hypertension type: essential hypertension Qualified Codes: I10 - Essential (primary) hypertension (8) Orthostatic hypotension Status: Acute (9) Debility (10) HLD (hyperlipidemia) Status: Chronic (11) T2DM (type 2 diabetes mellitus) Status: Chronic Qualifiers: Diabetes mellitus exterminator helper termite insulin use: with senior care use ELSY ORNELAS DO Dec 10, 2020 06:32
[2020-12-10 07:50] VITALS: BP 142/66
[2020-12-10] MEDS: DOCUSATE SODIUM 100 MG (COLACE) CAP PO SCH ×2 (07:51→20:27)
[2020-12-10] MEDS: CALCIUM CARB + VIT D 600 MG (CALCARB + D) TAB PO SCH ×2 (07:51→20:27)
[2020-12-10] MEDS: lisINopril 40 MG (PRINIVIL) TABLET PO SCH (07:51)
[2020-12-10] MEDS: MAGNESIUM OXIDE (MAG-OX)400 MG TAB PO SCH (07:51)
[2020-12-10] MEDS: ASPIRIN E.C. 81 MG (ECOTRIN) TAB PO SCH (07:51)
[2020-12-10] MEDS: ACETAMINOPHEN 500 MG TAB (TYLENOL) PO SCH (07:51)
[2020-12-10] MEDS: SENNA W/DOCUSATE (SENOKOT S) TABLET PO SCH ×2 (07:51→20:27)
[2020-12-10] MEDS: polyethylene glycoL POWDER 17 GM (MIRALAX) PACK PO SCH ×2 (09:05→20:32)
[2020-12-10] MEDS: MILK OF MAGNESIA 400 MG/5 ML 30 ML UDC PO SCH (09:05)
--- NOTE | 2020-12-10 10:46 | Progress Note - Urology ---
Progress Note-Urology Progress Notes/Assess & Plan Progress/Assessment & Plan VOIDING WELL NO PVR WEAN FROM URECHOLINE Final Diagnosis RETENTION ZAY JAFFE MD Dec 10, 2020 10:46
--- NOTE | 2020-12-10 10:55 | Speech Therapy Daily Note ---
Speech Daily Progress Note Subjective Date Seen by Provider: Dec 10, 2020 Time Seen by Provider: 00:30 Patient was resting in her recliner with her present following family training. Objective Patient completed a series of memory tasks related to her return home at 75% with moderate cues. Assessment Assessment Current Status: Good Progress Treatment Plan Continue Plan of Care Speech Short Term Goals Short Term Goals Short Term Goals 1) Patient will complete memory tasks related to her daily needs with 75% or greater given minimal cues. 2) Patient will complete safety awareness tasks related to her daily needs with 75% or greater given minimal cues. Speech Group Home Goals Cop Breaker Goals Patient will utilize memory and safety awareness strategies as trained in order to require decreased assist. Speech-Plan Patient/Family Goals Patient/Family Goals: Patient plans on returning home where she lives with her . Treatment Plan Speech Therapy Treatment Plan: Continue Plan of Care Treatment Duration: Dec 11, 2020 Frequency: 4 times per week (Patient will receive skilled ST services 4-5x per week) Estimated Hrs Per Day: .5 hour per day Rehab Potential: Fair Barriers to Learning: Patient's recent CVA with brain surgery, moderate cognitive deficits Pt/Family Agrees to Plan: Yes Safety Risks/Education Teaching Recipient: Patient, Significant Other Teaching Methods: Demonstration, Discussion Response to Teaching: Verbalize Understanding, Return Demonstration Education Topics Provided: Continued safety upon her return home Time Speech Therapy Time In: 10:30 Speech Therapy Time Out: 11:00 Total Billed Time: 30 Billed Treatment Time 1HOME [facility] Dec 10, 2020 10:55
--- NOTE | 2020-12-10 10:57 | Occupational Ther Daily Note ---
OT Current Status-Daily Note Subjective No pain reported. Appearance Pt. up in chair. Agrees to work with therapy. Spouse in room for family training. Mental Status/Objective Patient Orientation: Person, Place ADL-Treatment Therapy Code Descriptions/Definitions Functional [place] Measure: 0=Not Assessed/NA 4=Minimal Assistance 1=Total Assistance 5=Supervision or Setup 2=Maximal Assistance 6=Modified [place] 3=Moderate Assistance 7=Complete IndependenceSCALE: Activities may be completed with or without assistive devices. 3-Vxruagqhri-wbjiqby completes the activity by him/herself with no assistance from a helper. 5-Set-up or Clean-up Assistance-helper sets up or cleans up; patient completes activity. [place] assists only prior to or following the activity. 4-Supervision or Touching Assistance-helper provides verbal cues and/or touching/steadying and/or contact guard assistance as patient completes activity. Assistance may be provided throughout the activity or intermittently. 3-Partial/Moderate Assistance-helper does LESS THAN HALF the effort. [place] lifts, holds or supports trunk or limbs, but provides less than half the effort. 2-Substantial/Maximal Assistance-helper does MORE THAN HALF the effort. [place] lifts or holds trunk or limbs and provides more than half the effort. 3-Gohebowlh-zzezye does ALL the effort. Patient does none of the effort to complete the activity. Or, the assistance of 2 or more helpers is required for the patient to complete the activity. If activity was not attempted, code reason: 7-Patient Refused. 9-Not Applicable-not attempted and the patient did not perform the activity before the current illness, exacerbation or injury. 10-Not Attempted due to Environmental Limitations-(lack of equipment, weather restraints, etc.). 88-Not Attempted due to Medical Conditions or Safety Concerns. Upper Body Dressing (QC): 5 Lower Body Dressing (QC): 4 (SBA and cues for safety. ) On/Off Footwear: 3 (Min assist with use of sock aide. Pt. issued shoe horn for shoes.) Toileting Hygiene (QC): 4 Toilet Transfer (QC): 4 (CGA) Other Treatment PT/OT completed co-treatment due to need of skilled assist for family training. PT focused on education and training for mobility, balance, transfers, and equipment needed for ambulation. OT focused on education/training for ADL skills, safety, equipment needs for dressing/bathing, and education regarding cognition/vision moving forward. Pt. dressed EOB. Cues for safety in stance, as pt. will stand impulsively. Spouse does verbalize concern and awareness of impulsivity. Therapy also educated spouse on possible reasons for dizziness, vomiting, such as constant bending over during ADLS, changing head position in space. Education continued for completing ADLs without bending over, such as using AE. Pt. completed dressing tasks with equipment, and required cues. Spouse educated on equipment as well. Spouse to get hip kit for pt. Spouse educated on pt's balance issues, and practiced ambulation with her, holding onto gait belt. Managed well and aware of possible LOB. Noted that some assist will be present with pt's children. Both pt. and spouse educated on visual issues, and need later for follow up with eye DrJesús and possible neuro-opthamologist. Also educated about need for low stimulation with visitors, things to look for as far as mood changes, and process of healing. Pt. to follow up with neurologist soon. Pt. has both shower chair and tub transfer bench at home. Educated that pt. will need someone close during showering for safety. Both pt. and spouse verbalize understanding. All needs met in room in chair. Education OT Patient Education: Modified ADL techniques, Progress toward Goal/Update tx plan, Purpose of tx/functional activities, Reviewed precautions, Rehab process, Transfer techniques, Use of adapted equipment Teaching Recipient: Patient Teaching Methods: Demonstration, Discussion Response to Teaching: Verbalize Understanding, Return Demonstration OT Fuse Assembler Goals Custodial Goals Time Frame: Dec 14, 2020 Eating (QC): 6 Oral Hygiene (QC): 6 Toileting Hygiene (QC): 6 Shower/Bathe Self (QC): 6 Upper Body Dressing (QC): 6 Lower Body Dressing (QC): 6 On/Off Footwear (QC): 6 Additional Goals: 1-Demonstrate ADL Tasks, 2-Verbalize Understanding, 3-ImproveStrength/Miguel 1=Demonstrate adherence to instructed precautions during ADL tasks. 2=Patient will verbalize/demonstrate understanding of assistive devices/modifications for ADL. 3=Patient will improve strength/tolerance for activity to enable patient to perform ADL's. OT Education/Plan Problem List/Assessment Assessment: Decreased Activ Tolerance, Impaired I ADL's Discharge Recommendations Plan/Recommendations: Continue POC Therapy Discharge Recommendati: Home & Family, Post Acute OT Equpiment Recommendations-D/C: Hip Kit, Walker Bag or Basket Treatment Plan/Plan of Care Treatment,Training & Education: Yes Patient would benefit from OT for education, treatment and training to promote independence in ADL's, mobility, safety and/or upper extremity function for ADL's. Plan of Care: ADL Retraining, Caregiver Training, Cognitive Retraining, Functional Mobility, Group Exercise/Act as Ind, UE Funct Exercise/Act, UE Neuromus Re-Ed/Coord, Visual/Perceptual Retrain, W/C Management Training Treatment Duration: Dec 14, 2020 Frequency: At least 5 of 7 days/Wk (IRF) Estimated Hrs Per Day: 1.5 hours per day Agreement: Yes Rehab Potential: Fair Time/GCodes Start Time: 09:00 Stop Time: 10:15 Total Time Billed (hr/min): 75 Billed Treatment Time 1, ADL x 30minutes, FA x 45minutes- Co-treatment with PT. Please see above note for designated roles. JASMINE PONCE OT Dec 10, 2020 10:56
--- NOTE | 2020-12-10 11:45 | Physical Therapy Daily Note ---
PT Daily Note-Current Subjective Pt laying Supine in bed with Sp present upon arrival. Pt agrees to PT/OT co- treat for Family Training. Pain Location: No Pain Reported Mental Status Patient Orientation: Person, Place, Situation Transfers SCALE: Activities may be completed with or without assistive devices. 1-Rjjmeouufr-mgdlpha completes the activity by him/herself with no assistance from a helper. 5-Set-up or Clean-up Assistance-helper sets up or cleans up; patient completes activity. [place] assists only prior to or following the activity. 4-Supervision or Touching Assistance-helper provides verbal cues and/or touching/steadying and/or contact guard assistance as patient completes activity. Assistance may be provided throughout the activity or intermittently. 3-Partial/Moderate Assistance-helper does LESS THAN HALF the effort. [place] lifts, holds or supports trunk or limbs, but provides less than half the effort. 2-Substantial/Maximal Assistance-helper does MORE THAN HALF the effort. [place] lifts or holds trunk or limbs and provides more than half the effort. 4-Fvmdmpgos-mqenqv does ALL the effort. Patient does none of the effort to complete the activity. Or, the assistance of 2 or more helpers is required for the patient to complete the activity. If activity was not attempted, code reason: 7-Patient Refused. 9-Not Applicable-not attempted and the patient did not perform the activity before the current illness, exacerbation or injury. 10-Not Attempted due to Environmental Limitations-(lack of equipment, weather restraints, etc.). 88-Not Attempted due to Medical Conditions or Safety Concerns. Sit to Stand (QC): 5 Toilet Transfer (QC): 5 Close SBA for dizziness and occasional LOB Weight Bearing Right Lower Extremity: Right Full Weight Bearing Left Lower Extremity: Left Full Weight Bearing Gait Training Does the Patient Walk?: Yes Distance: 100' x2 Walk 10 feet (QC): 4 Walk 50 ft with 2 Turns(QC): 4 Walk 150 ft (QC): 4 Gait Persons Needed: 1 Gait Assistive Device: FWW Treatments PT/OT completed co-treatment due to need of skilled assist for family training. PT focused on education and training for mobility, balance, transfers, and equipment needed for ambulation. OT focused on education/training for ADL skills, safety, equipment needs for dressing/bathing, and education regarding cognition/vision moving forward. Pt. dressed EOB. Cues for safety in stance, as pt. will stand impulsively. Spouse does verbalize concern and awareness of impulsivity. Therapy also educated spouse on possible reasons for dizziness, vomiting, such as constant bending over during ADLS, changing head position in space. Education continued for completing ADLs without bending over, such as using AE. Pt. completed dressing tasks with equipment, and required cues. Spouse educated on equipment as well. Spouse to get hip kit for pt. Spouse educated on pt's balance issues, and practiced ambulation with her, holding onto gait belt. Managed well and aware of possible LOB. Noted that some assist will be present with pt's children. Both pt. and spouse educated on visual issues, and need later for follow up with eye Dr. and possible neuro-opthamologist. Also educated about need for low stimulation with visitors, things to look for as far as mood changes, and process of healing. Pt. to follow up with neurologist soon. Pt. has both shower chair and tub transfer bench at home. Educated that pt. will need someone close during showering for safety. Both pt. and spouse verbalize understanding. All needs met in room in chair. Assessment Current Status: Good Progress Pt is only limited by dizziness and sometimes nausea. PT Skilled Nursing Goals Biomedical Technician Goals PT Biomedical Technician Goals Time Frame: Dec 19, 2020 Roll Left & Right (QC): 6 Sit to Lying (QC): 6 Lying-Sitting on Side/Bed(QC): 6 Sit to Stand (QC): 6 Chair/Auo-uo-Oifzm Xfer(QC): 6 Toilet Transfer (QC): 6 Car Transfer (QC): 6 Does the Patient Walk: Yes Walk 10 feet (QC): 6 Walk 50ft with 2 Turns (QC): 6 Walk 150 ft (QC): 6 Walking 10ft on Uneven Surface: 6 1 Step (curb) (QC): 6 4 Steps (QC): 6 12 Steps (QC): 6 Picking up an Object (QC): 6 Does the Pt use WC or Scooter?: No Wheel 50 feet with 2 turns (QC: 9 Wheel 150 feet: 9 PT Plan Problem List Problem List: Activity Tolerance, Balance Treatment/Plan Treatment Plan: Continue Plan of Care Treatment Plan: Bed Mobility, Concurrent Therapy, Education, Functional Activity Miguel, Functional Strength, Group Therapy, Gait, Safety, Therapeutic Exercise, Transfers Treatment Duration: Dec 19, 2020 Frequency: At least 5 of 7 days/Wk (IRF) Estimated Hrs Per Day: 1.5 hours per day Patient and/or Family Agrees t: Yes Safety Risks/Education Patient Education: Correct Positioning, Safety Issues Teaching Recipient: Patient, Significant Other Teaching Methods: Discussion Response to Teaching: Verbalize Understanding Time/GCodes Time In: 900 Time Out: 1015 Total Billed Treatment Time: 75 Total Billed Treatment Co-treat for 75m (900-1015) 1, FA x5 (75m) HAYLEE REYES CUSTOMER CARE SPECIALIST Dec 10, 2020 11:45
[2020-12-10] MEDS ORDERED: PANTOPRAZOLE 40 MG (PROTONIX) TAB PO NR (12:30)
[2020-12-10] MEDS: SCOPOLAMINE 1.5 MG (TRANSDERM-SCOP) PATCH TD SCH (13:31)
[2020-12-10] MEDS: SCOPOLAMINE PATCH REMOVAL TP SCH (13:31)
[2020-12-10] MEDS: TAMSULOSIN 0.4 MG (FLOMAX) CAP PO SCH (18:38)
[2020-12-10 20:00] VITALS: BP 183/74
[2020-12-10] MEDS: ONDANSETRON 4 MG/2 ML (SDV) Z0FRAN IVP PRN (23:34)
[2020-12-11] MEDS: MULTIVIT W/MINERALS TAB (THERAGRAN M) PO SCH (05:50)
[2020-12-11] MEDS: MECLIZINE 25 MG (ANTIVERT) TAB PO SCH ×3 (05:50→21:17)
[2020-12-11] MEDS: inSUlin ASPART (NovoLOG) 1 UNIT/0.01 ML (CHARGE PER UNIT) SC SCH ×5 (05:50→21:21)
--- NOTE | 2020-12-11 06:19 | PM&R Progress Note ---
Subjective HPI/CC On Admission Date Seen by Provider: Dec 11, 2020 Time Seen by Provider: 10:00 Virgen Bermeo is a 75 year old female with PMH T2DM, HLD, who was admitted to with cerebrovascular accident and intracranial hemorhage. She was found to have a large right cerebellar hemorrhage. She was admitted to the ICU. She underwent craniotomy with hematoma evacuation and had an EVD placed. She was stabilized but remained debilitated. She was deemed to require ongoing acute cares along with PT/OT/ST. She was transferred from to the inpatient rehabilitation unit on 11/28/2020. Her course was complicated by hypertension and she was started on medication. She also had issues with orthostatic hypotension. Upon my examination, she had arrived in her room and was ordering food. She reports having some double vision. She also has some uncoordination and balance issues. She is not having any focal weakness. She denies headaches. She is not having fe vers or chills. She denies chest pain and palpitations. She denies shortness of breath and cough. She denies abdominal pain. She had issues with nausea and vomiting while driving here due to motion sickness. She denies diarrhea. She denies dysuria. She previously had been on aspirin and a cholesterol medicine daily, as well as 18 units of long acting insulin daily. Subjective/Events-last exam 12/11/20: No major issues Some residual on bladder scan Emesis is common with the severe vertigo that she has 12/10/2020: Pt doing better Emesis at least BID Protonix ordered Doing well otherwise Dr. Curiel decreased Urecholine to BID from QID Bowels are moving okay 12/09/2020: Pt doing pretty well Bowels moved yesterday Has an emesis episode twice daily Sutures will be removed per today Discharge planned for 12/15/2020 12/08/2020: Pt doing pretty well Bladder scanning showed 300 after post-void residual Fogginess noted She didnt know when she was born, what year Denies any pain Blood sugar checks are monitored 12/07/2020: Pt doing pretty well will be contacted regarding the suture removal date No emesis today A few pills at a time seems to help her In and out cath was not needed, if she needs another one she will have a castaneda placed Last dose of antibiotics is today 12/06/2020: Patient doing pretty well today Had a little bit of vomiting today but was able to eat all of breakfast Daughter is at the bedside today Walking pretty well but balance is an issue Had a small bowel movement last night so gave laxatives today Urology did see patient and recommended to restart Urecholine and Place Castaneda if she continues to have retention Staple removal will be assessed by [facility] and we will remove if needed 12/05/2020: This visit is via video chat due to Covid related restriction for this provider Patient doing a little better today Ate a full breakfast and eating lunch currently Bowels move 3 days ago so laxatives given Voiding at night pretty well and voided 600 cc of urine this morning but bladder scan showed another 400 retained so perform straight in and out cath Sleeps better here than at home Holding Metformin currently 12/04/2020: This visit is via video chat due to Covid related restriction for this provider Patient doing pretty well today Appears to be chronically ill Vomited 2 small amounts today Sugar is 85 so decreasing Levemir Holding Metformin since she thinks that that is making her nauseated made it clear to social work yesterday that patient becomes very lethargic with any medication so he wants that closely watched 12/03/2020: This visit is via video chat due to Covid related restriction for this provider Patient doing pretty well today Eating and drinking better Rocephin will be given last dose IV this afternoon and then switch over to Omnicef Walking with physical therapy Not as impulsive Decreasing balance issues Antivert given scheduled Straight cath required x1 so we will consult urology Bowels are still a bit sluggish so will get aggressive regimen for that 12/02/2020: This visit is via video chat due to Covid related restriction for this provider Improved status today She ate bfast today Zofran given prophylactically before PT Rocephin IV started and maintained due to inadequate PO intake from N/V yesterday E coli noted as second organism so will need to evaluate that for ESBL BM treatment maintained, she seems to nort recall if her bowels are moving well or not very attentive 12/01/2020: This visit is via video chat due to Covid related restriction for this provider Patient having some issues today Nausea and vomiting noted Severe vertigo We will shift to Rocephin IV and give gentle IV fluids Scopolamine patch was replaced Check meds and labs Updated patient on the plan The vertigo and severe dizziness from the stroke because the reluctance of admission to the inpatient rehab unit so we will monitor closely Neuro was not very optimistic the symptoms would resolve quickly or at all and may very well require wheelchair bound status Urine culture showed Franklyn Agustin 11/30/2020: This visit is via video chat due to Covid related restriction for this provider Patient doing well No major concerns Macrobid empirically started, UCx pending Updated patient on the UTI treatment wanted Melatonin Xanax and Codeine DC so I did that In/Out cath once per 24 hours Urecholine started BM 11/2911/29/2020: This visit is via video chat due to Covid related restriction for this provider Reviewed history and physical information Met with nurse and discussed all meds and issues Patient feels pretty good No major concerns per patient Bowels are moving sluggishly will maintain laxatives No impulsiveness Balance is definitely deficient Had to straight cath her x1 due to urinary retention Low-grade fever 99.3 Urine is very cloudy We will obtain urine and urine culture from cath specimen and place on antibiotic empirically Monitoring closely Review of Systems General: Fatigue, Malaise Gastrointestinal: Nausea, Vomiting Neurological: Weakness, Incoordination Objective Exam Vital Signs Vital Signs Date Time Temp Pulse Resp B/P (MAP) Pulse Ox O2 Delivery O2 Flow Rate FiO2 12/11/20 08:36 Room Air 12/11/20 07:48 36.8 84 12 143/65 (91) 95 12/08/20 06:41 0.00 Capillary Refill : General Appearance: No Apparent Distress, WD/WN, Chronically ill HEENT: PERRL/EOMI, Normal ENT Inspection, Pharynx Normal; No Photophobia Neck: Normal Inspection, Non Tender, Supple Respiratory: Lungs Clear, Normal Breath Sounds, No Respiratory Distress Cardiovascular: Regular Rate, Rhythm, No Edema, No Murmur Gastrointestinal: Normal Bowel Sounds, Non Tender, Soft Extremity: Normal Inspection, Non Tender, No Pedal Edema Neurologic/Psychiatric: Alert, Oriented x3, Normal Mood/Affect, health clinician II-XII Norm as Tested, Motor Weakness (generalized), Other (dysmetria) Skin: Normal Color, Warm/Dry, Other (right parietal EVD incision and occipital craniotomy incision well appearing) Lymphatic: No Adenopathy Results/Procedures Lab Patient resulted labs reviewed. Imaging: Reviewed Imaging Report FIM Transfers Therapy Code Descriptions/Definitions Functional [place] Measure: 0=Not Assessed/NA 4=Minimal Assistance 1=Total Assistance 5=Supervision or Setup 2=Maximal Assistance 6=Modified [place] 3=Moderate Assistance 7=Complete IndependenceSCALE: Activities may be completed with or without assistive devices. 7-Krnsugipcp-zqomfep completes the activity by him/herself with no assistance from a helper. 5-Set-up or Clean-up Assistance-helper sets up or cleans up; patient completes activity. [place] assists only prior to or following the activity. 4-Supervision or Touching Assistance-helper provides verbal cues and/or touching/steadying and/or contact guard assistance as patient completes activity. Assistance may be provided throughout the activity or intermittently. 3-Partial/Moderate Assistance-helper does LESS THAN HALF the effort. [place] lifts, holds or supports trunk or limbs, but provides less than half the effort. 2-Substantial/Maximal Assistance-helper does MORE THAN HALF the effort. [place] lifts or holds trunk or limbs and provides more than half the effort. 3-Fkexlggml-rpkajn does ALL the effort. Patient does none of the effort to complete the activity. Or, the assistance of 2 or more helpers is required for the patient to complete the activity. If activity was not attempted, code reason: 7-Patient Refused. 9-Not Applicable-not attempted and the patient did not perform the activity before the current illness, exacerbation or injury. 10-Not Attempted due to Environmental Limitations-(lack of equipment, weather restraints, etc.). 88-Not Attempted due to Medical Conditions or Safety Concerns. Roll Left to Right (QC): 6 Sit to Lying (QC): 6 Sit to Stand (QC): 5 Chair/Uew-xe-Svvim Xfer(QC): 3 Car Transfer (QC): 3 Gait Training Does the Patient Walk?: Yes Distance: 100' x2 Walk 10 feet (QC): 4 Walk 50 ft with 2 Turns(QC): 4 Walk 150 ft (QC): 4 Walking 10ft/uneven surface-QC: 4 Gait Persons Needed: 1 Gait Assistive Device: FWW Wheelchair Training Does the Pt Use a Wheelchair?: No Wheel 50 ft with 2 turns (QC): 9 Wheel 150 ft (QC): 9 Stair Training #of Steps: 1 1 Step (curb) (QC): 3 4 Steps (QC): 88 12 Steps (QC): 88 Balance Picking up an Object (QC): 88 ADL-Treatment Eating (QC): 6 (IND) Oral Hygiene (QC): 5 (s/u EOB, pt misses toothbrush with toothpaste minimally this session.) Shower/Bathe Self (QC): 4 (SBA in shower.) Upper Body Dressing (QC): 5 Lower Body Dressing (QC): 4 (SBA and cues for safety. ) On/Off Footwear (QC): 3 (Min assist with use of sock aide. Pt. issued shoe horn for shoes.) Toileting Hygiene (QC): 4 Toilet Transfer (QC): 4 (CGA) Assessment/Plan Assessment and Plan Assess & Plan/Chief Complaint Assessment: (1) CVA (cerebral vascular accident) (2) Intracranial hemorrhage (3) Status post craniotomy (4) Status post evacuation of hematoma (5) Dysmetria (6) Diplopia (7) HTN (hypertension) (8) Orthostatic hypotension (9) Debility (10) HLD (hyperlipidemia) (11) T2DM (type 2 diabetes mellitus) (12) Acute UTI placed on antibiotic empirically on 11/29/2020 but DC'd Macrobid due to resistance of Morganella Morgagni placed on Omnicef then shifted to Rocephin due to nausea and vomiting 12/01/2020 (13) Acute urinary retention requiring caths thin urology consulted on 12/05/2020 (14) Nausea and vomiting episode requiring IV fluids 12/01/2020 and heplocked 12/02/20 Plan: Intensive rehab protocol Empiric antibiotic treatment Monitor sugar Add Urecholine 11/30/20: Urecholine maintained In/Out caths prn Abx empirically DC meds at request 12/01/2020: IV fluids IV antibiotics DC Macrobid due to resistance on urine culture Very complex case Scopolamine patch 12/02/20: HLIVF IV abx Await second gram negative organism on UCx just noted today on report BM regimen 12/03/2020: Discontinue Rocephin after dose this afternoon and switch to Omnicef p.o. Continue aggressive treatment 12/04/2020: Nausea treatment Scopolamine patch Blood pressure monitoring 12/05/2020: Monitor for nausea Hold Metformin Monitor blood sugar only 12/06/2020: Urecholine Urology consultation appreciated Bowel regimen Monitor closely 12/07/2020: Appreciate urology consultation Monitor blood pressure Suture removal per [facility] recommendations 12/08/2020: Continue aggressive rehab Appreciate urology Monitor closely 12/09/2020: Suture removal Continue aggressive treatment 12/10/2020: Add Protonix to help soothe stomach Supportive care Decreasing Urecholine Bladder much improved 12/11/2020: Emesis is recurrent Monitor closely Supportive care (1) CVA (cerebral vascular accident) Status: Acute (2) Intracranial hemorrhage Status: Acute (3) Status post craniotomy Status: Acute (4) Status post evacuation of hematoma Status: Acute (5) Dysmetria Status: Acute (6) Diplopia Status: Acute (7) HTN (hypertension) Status: Acute Qualifiers: Hypertension type: essential hypertension Qualified Codes: I10 - Essential (primary) hypertension (8) Orthostatic hypotension Status: Acute (9) Debility (10) HLD (hyperlipidemia) Status: Chronic (11) T2DM (type 2 diabetes mellitus) Status: Chronic Qualifiers: Diabetes mellitus exterminator termite insulin use: with custodial use ELSY ORNELAS DO Dec 11, 2020 06:19
[2020-12-11 07:48] VITALS: BP 143/65
[2020-12-11] MEDS: polyethylene glycoL POWDER 17 GM (MIRALAX) PACK PO SCH ×2 (08:00→20:40)
[2020-12-11] MEDS: MILK OF MAGNESIA 400 MG/5 ML 30 ML UDC PO SCH (08:00)
[2020-12-11] MEDS: CALCIUM CARB + VIT D 600 MG (CALCARB + D) TAB PO SCH ×2 (08:01→21:17)
[2020-12-11] MEDS: BETHANECHOL 25 MG (URECHOLINE) TAB PO SCH ×2 (08:01→17:28)
[2020-12-11] MEDS: ACETAMINOPHEN 500 MG TAB (TYLENOL) PO SCH (08:01)
[2020-12-11] MEDS: lisINopril 40 MG (PRINIVIL) TABLET PO SCH (08:01)
[2020-12-11] MEDS: ASPIRIN E.C. 81 MG (ECOTRIN) TAB PO SCH (08:01)
[2020-12-11] MEDS: PANTOPRAZOLE 40 MG (PROTONIX) TAB PO SCH (08:01)
[2020-12-11] MEDS: MAGNESIUM OXIDE (MAG-OX)400 MG TAB PO SCH (08:02)
[2020-12-11] MEDS: SENNA W/DOCUSATE (SENOKOT S) TABLET PO SCH ×2 (08:02→21:17)
[2020-12-11] MEDS: DOCUSATE SODIUM 100 MG (COLACE) CAP PO SCH ×2 (08:02→21:17)
--- NOTE | 2020-12-11 10:08 | Occupational Ther Daily Note ---
OT Current Status-Daily Note Subjective Pt AxO, supine in bed. Expresses didn't sleep too well, but agrees to tx/ showering. Mental Status/Objective Patient Orientation: Person, Place, Situation ADL-Treatment Therapy Code Descriptions/Definitions Functional [place] Measure: 0=Not Assessed/NA 4=Minimal Assistance 1=Total Assistance 5=Supervision or Setup 2=Maximal Assistance 6=Modified [place] 3=Moderate Assistance 7=Complete IndependenceSCALE: Activities may be completed with or without assistive devices. 4-Rsfiimjqge-gaeqjuo completes the activity by him/herself with no assistance from a helper. 5-Set-up or Clean-up Assistance-helper sets up or cleans up; patient completes activity. [place] assists only prior to or following the activity. 4-Supervision or Touching Assistance-helper provides verbal cues and/or touching /steadying and/or contact guard assistance as patient completes activity. Assistance may be provided throughout the activity or intermittently. 3-Partial/Moderate Assistance-helper does LESS THAN HALF the effort. [place] lifts, holds or supports trunk or limbs, but provides less than half the effort. 2-Substantial/Maximal Assistance-helper does MORE THAN HALF the effort. [place] lifts or holds trunk or limbs and provides more than half the effort. 2-Rtrxxbhow-rdutbc does ALL the effort. Patient does none of the effort to complete the activity. Or, the assistance of 2 or more helpers is required for the patient to complete the activity. If activity was not attempted, code reason: 7-Patient Refused. 9-Not Applicable-not attempted and the patient did not perform the activity before the current illness, exacerbation or injury. 10-Not Attempted due to Environmental Limitations-(lack of equipment, weather restraints, etc.). 88-Not Attempted due to Medical Conditions or Safety Concerns. Eating (QC): 6 Oral Hygiene (QC): 4 (CGA in stance.) Bathing Location: L Arm, R Arm, L Upper Leg, R Upper Leg, L Lower Leg (including foot), R Lower Leg (including foot), Chest, Abdomen, Buttocks, Perineal Area Shower/Bathe Self (QC): 4 (SBA throughout, vomits in middle of shower.) Upper Body Dressing (QC): 5 Lower Body Dressing (QC): 4 On/Off Footwear: 4 Toileting Hygiene (QC): 6 Toilet Transfer (QC): 4 Other Treatment SBA-CGA during transfers, completes toileting and showering with SBA. Pt requires rest break for N/V, does not desire to continue shower after this. Dresses in sit/ in stance with SBA-CGA. Decreased safety in stance/ ambulation, requires mod cues for positioning in shower. Pt requires increased time 2* nausea. Pt stands at sink, completing hair/ oral care. Sits in chair to don shoes with SBA. Pt ambulates from chair to EOB, stating increased dizziness. BP assessed in sit, 181/84, 78 HR, 94% 02. Pt rests, states less dizzy. Pt stands to complete BP: 134/63 and 88 BPM. Pt encouraged to sit as c/o dizziness once more. Rests and sit to supine. Comforted in bed, pt states needs for vomiting. Vomits in bucket and given cool rag. Pt ceases, left in bed with all needs met, call light in reach, all needed items within reach. Education OT Patient Education: Correct positioning, Modified ADL techniques, Purpose of tx/functional activities, Safety issues, Transfer techniques Teaching Recipient: Patient Teaching Methods: Demonstration, Discussion Response to Teaching: Verbalize Understanding, Return Demonstration, Reinforcement Needed OT [facility] Goals Art Handler Goals Time Frame: Dec 14, 2020 Eating (QC): 6 Oral Hygiene (QC): 6 Toileting Hygiene (QC): 6 Shower/Bathe Self (QC): 6 Upper Body Dressing (QC): 6 Lower Body Dressing (QC): 6 On/Off Footwear (QC): 6 Additional Goals: 1-Demonstrate ADL Tasks, 2-Verbalize Understanding, 3- ImproveStrength/Miguel 1=Demonstrate adherence to instructed precautions during ADL tasks. 2=Patient will verbalize/demonstrate understanding of assistive devices/modifications for ADL. 3=Patient will improve strength/tolerance for activity to enable patient to perform ADL's. OT Education/Plan Problem List/Assessment Assessment: Decreased Activ Tolerance, Decreased UE Strength, Dependent Transfers, Impaired Funct Balance, Impaired I ADL's, Impaired Self-Care Skills Discharge Recommendations Plan/Recommendations: Continue POC Therapy Discharge Recommendati: Assisted Living, Post Acute OT Treatment Plan/Plan of Care Treatment,Training & Education: Yes Patient would benefit from OT for education, treatment and training to promote independence in ADL's, mobility, safety and/or upper extremity function for ADL's. Plan of Care: ADL Retraining, Caregiver Training, Cognitive Retraining, Functional Mobility, Group Exercise/Act as Ind, UE Funct Exercise/Act, UE Neuromus Re-Ed/Coord, Visual/Perceptual Retrain, W/C Management Training Treatment Duration: Dec 14, 2020 Frequency: At least 5 of 7 days/Wk (IRF) Estimated Hrs Per Day: 1.5 hours per day Agreement: Yes Rehab Potential: Fair Time/GCodes Start Time: 09:00 Stop Time: 10:00 Total Time Billed (hr/min): 60 Billed Treatment Time 1, ADL 3, FA (60) MARCIO OCONNELL OTR Dec 11, 2020 10:08
--- NOTE | 2020-12-11 10:17 | Progress Note - Urology ---
Progress Note-Urology Progress Notes/Assess & Plan Progress/Assessment & Plan KEEP SAME PLAN Final Diagnosis RETENTION ZAY JAFFE MD Dec 11, 2020 10:17
--- NOTE | 2020-12-11 10:58 | Speech Therapy Daily Note ---
Speech Daily Progress Note Subjective Date Seen by Provider: Dec 11, 2020 Time Seen by Provider: 00:30 Patient was resting in her bed with her marcelinais bucket close by. She states every time she gets up to go to the bathroom she gets sick. She was reported to have vomited while showering this morning. Objective Patient completed simple memory tasks related to her recent care with 80% with 10% cues and/or redirection. The patient was given medication for the n/v earlier which makes it difficult to keep the patient engaged. Assessment Assessment Current Status: Fair Progress Treatment Plan Continue Plan of Care Speech Short Term Goals Short Term Goals Short Term Goals 1) Patient will complete memory tasks related to her daily needs with 75% or greater given minimal cues. 2) Patient will complete safety awareness tasks related to her daily needs with 75% or greater given minimal cues. Speech Creative Specialist Goals Creative Specialist Goals Patient will utilize memory and safety awareness strategies as trained in order to require decreased assist. Speech-Plan Patient/Family Goals Patient/Family Goals: Patient plans on returning to her home where she lives with her . She also has family/friends who will stay with her for assistance as needed. She will also be receiving skilled home health services. 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
--- NOTE | 2020-12-11 12:10 | Physical Therapy Daily Note ---
PT Daily Note-Current Subjective Pt reports she has been nauseated this morning. Transfers SCALE: Activities may be completed with or without assistive devices. 1-Scaslqjpjd-oxolplg completes the activity by him/herself with no assistance from a helper. 5-Set-up or Clean-up Assistance-helper sets up or cleans up; patient completes activity. [place] assists only prior to or following the activity. 4-Supervision or Touching Assistance-helper provides verbal cues and/or touching/steadying and/or contact guard assistance as patient completes activity. Assistance may be provided throughout the activity or intermittently. 3-Partial/Moderate Assistance-helper does LESS THAN HALF the effort. [place] lifts, holds or supports trunk or limbs, but provides less than half the effort. 2-Substantial/Maximal Assistance-helper does MORE THAN HALF the effort. [place] lifts or holds trunk or limbs and provides more than half the effort. 1-Ylljgxozc-dcffij does ALL the effort. Patient does none of the effort to complete the activity. Or, the assistance of 2 or more helpers is required for the patient to complete the activity. If activity was not attempted, code reason: 7-Patient Refused. 9-Not Applicable-not attempted and the patient did not perform the activity before the current illness, exacerbation or injury. 10-Not Attempted due to Environmental Limitations-(lack of equipment, weather restraints, etc.). 88-Not Attempted due to Medical Conditions or Safety Concerns. Roll Left & Right (QC): 5 Sit to Lying (QC): 5 Lying to Sitting/Side of Bed(Q: 5 Sit to Stand (QC): 5 Chair/Tzl-vt-Kwizj Xfer(QC): 4 Transfers with verbal cues. She did require one steadying assist when moving from chair to standing. Weight Bearing Right Lower Extremity: Right Full Weight Bearing Left Lower Extremity: Left Full Weight Bearing Gait Training Gait Assistive Device: FWW Gait training bouts of 150-250ft using FWW and CGA. Ambulation 50ft with single hand held assist for obstacle course. Pt was unsafe and repeatedly lost balance to her right. Exercises Standing: Hip Abduction, Hamstring curls, Heel/toe raises, Marching, Mini squats, Sit to Stand, Stepping over objects Standing Reps: 20 NuStep Minutes: 10 NuStep Workload: 5 Neuromuscular Worked standing dynamic balance on foam, narrow base of support stance, and tandem stance. Worked on stepping over items and weaving trough cone obstacle course. Assessment Current Status: Good Progress Pt tolerated well with nausea during treatment. She had several loss of balance episodes when trying to walk with a single UE support. Walker is needed for safety during gait. PT Field Irrigation Worker Goals Snf Goals PT Snf Goals Time Frame: Dec 19, 2020 Roll Left & Right (QC): 6 Sit to Lying (QC): 6 Lying-Sitting on Side/Bed(QC): 6 Sit to Stand (QC): 6 Chair/Cyv-jv-Cwjov Xfer(QC): 6 Toilet Transfer (QC): 6 Car Transfer (QC): 6 Does the Patient Walk: Yes Walk 10 feet (QC): 6 Walk 50ft with 2 Turns (QC): 6 Walk 150 ft (QC): 6 Walking 10ft on Uneven Surface: 6 1 Step (curb) (QC): 6 4 Steps (QC): 6 12 Steps (QC): 6 Picking up an Object (QC): 6 Does the Pt use WC or Scooter?: No Wheel 50 feet with 2 turns (QC: 9 Wheel 150 feet: 9 PT Plan Treatment/Plan Treatment Plan: Continue Plan of Care Treatment Plan: Bed Mobility, Concurrent Therapy, Education, Functional Activity Miguel, Functional Strength, Group Therapy, Gait, Safety, Therapeutic Exercise, Transfers Treatment Duration: Dec 19, 2020 Frequency: At least 5 of 7 days/Wk (IRF) Estimated Hrs Per Day: 1.5 hours per day Patient and/or Family Agrees t: Yes Time/GCodes Time In: 1100 Time Out: 1200 Total Billed Treatment Time: 60 Total Billed Treatment visit, gait 15 min, NM 30 min, EX 15 min DIAMOND FLANAGAN PT Dec 11, 2020 12:10
--- NOTE | 2020-12-11 14:37 | Therapy Group Daily Note ---
Therapy Daily Group Note Patient Education Topic Other List Below (memory, ARU description/expectations) Exercises LE Seated Exercise, UE Exercise Session Ratio (pt:therapist): 8:2 Goal of Session: Education on ARU Expectations, Memory Strategies, UE/LE Strengthing Goal Met for this Session: Yes Pt Benefit of Group: Contributions to Others, F/U Use of Strategies @Home, Increased Functional Safety, Increased Functional Strength, Improved Cognition, Recognition of Peers, Socialization Other/Notes Pt transported via w/c to [facility] for OT/PT group. Group consisted of introductions (name, place living, memory of historical event), socialization, ARU description/expectation, seated B UE/LE exercises and memory strategies/activity. Pt introduced self appropriately and actively listened to peers. Pt participated in B UE/LE seated exercises and tolerated well. Pt acknowledged understanding of educational topics by giving own personal strategies and experiences. After therapy, pt lying in bed with call light/phone in reach. Start Time: 13:00 Stop Time: 14:00 Total Billed Treatment Time: 60 Total Billed Treatment 1-GRP MAX WARE Dec 11, 2020 14:37
[2020-12-11] MEDS: CATHETER FLUSH 10 ML SYR IV SCH ×2 (14:51→21:18)
[2020-12-11] MEDS: TAMSULOSIN 0.4 MG (FLOMAX) CAP PO SCH (17:28)
[2020-12-11 20:00] VITALS: BP 170/74
[2020-12-11] MEDS: ONDANSETRON 4 MG (ZOFRAN) ORAL DISSOLVE TAB PO PRN (21:16)
[2020-12-12] MEDS: inSUlin ASPART (NovoLOG) 1 UNIT/0.01 ML (CHARGE PER UNIT) SC SCH ×4 (06:39→21:58)
[2020-12-12] MEDS: CATHETER FLUSH 10 ML SYR IV SCH ×3 (06:44→22:01)
[2020-12-12] MEDS: MULTIVIT W/MINERALS TAB (THERAGRAN M) PO SCH (06:44)
[2020-12-12] MEDS: MECLIZINE 25 MG (ANTIVERT) TAB PO SCH ×3 (06:44→21:56)
[2020-12-12 07:03] VITALS: BP 159/72
--- NOTE | 2020-12-12 07:37 | PM&R Progress Note ---
Subjective HPI/CC On Admission Date Seen by Provider: Dec 12, 2020 Time Seen by Provider: 07:00 Virgen Bermeo is a 75 year old female with PMH T2DM, HLD, who was admitted to with cerebrovascular accident and intracranial hemorhage. She was found to have a large right cerebellar hemorrhage. She was admitted to the ICU. She underwent craniotomy with hematoma evacuation and had an EVD placed. She was stabilized but remained debilitated. She was deemed to require ongoing acute cares along with PT/OT/ST. She was transferred from to the inpatient rehabilitation unit on 11/28/2020. Her course was complicated by hypertension and she was started on medication. She also had issues with orthostatic hypotension. Upon my examination, she had arrived in her room and was ordering food. She reports having some double vision. She also has some uncoordination and balance issues. She is not having any focal weakness. She denies headaches. She is not having fe vers or chills. She denies chest pain and palpitations. She denies shortness of breath and cough. She denies abdominal pain. She had issues with nausea and vomiting while driving here due to motion sickness. She denies diarrhea. She denies dysuria. She previously had been on aspirin and a cholesterol medicine daily, as well as 18 units of long acting insulin daily. Subjective/Events-last exam 12/12/2020: Pt doing pretty well No major issues Glucose is good Up in a chair No emesis as of yet but she usually does BID 12/11/20: No major issues Some residual on bladder scan Emesis is common with the severe vertigo that she has 12/10/2020: Pt doing better Emesis at least BID Protonix ordered Doing well otherwise Dr. Curiel decreased Urecholine to BID from QID Bowels are moving okay 12/09/2020: Pt doing pretty well Bowels moved yesterday Has an emesis episode twice daily Sutures will be removed per today Discharge planned for 12/15/2020 12/08/2020: Pt doing pretty well Bladder scanning showed 300 after post-void residual Fogginess noted She didnt know when she was born, what year Denies any pain Blood sugar checks are monitored 12/07/2020: Pt doing pretty well [facility] will be contacted regarding the suture removal date No emesis today A few pills at a time seems to help her In and out cath was not needed, if she needs another one she will have a castaneda placed Last dose of antibiotics is today 12/06/2020: Patient doing pretty well today Had a little bit of vomiting today but was able to eat all of breakfast Daughter is at the bedside today Walking pretty well but balance is an issue Had a small bowel movement last night so gave laxatives today Urology did see patient and recommended to restart Urecholine and Place Castaneda if she continues to have retention Staple removal will be assessed by [facility] and we will remove if needed 12/05/2020: This visit is via video chat due to Covid related restriction for this provider Patient doing a little better today Ate a full breakfast and eating lunch currently Bowels move 3 days ago so laxatives given Voiding at night pretty well and voided 600 cc of urine this morning but bladder scan showed another 400 retained so perform straight in and out cath Sleeps better here than at home Holding Metformin currently 12/04/2020: This visit is via video chat due to Covid related restriction for this provider Patient doing pretty well today Appears to be chronically ill Vomited 2 small amounts today Sugar is 85 so decreasing Levemir Holding Metformin since she thinks that that is making her nauseated made it clear to social work yesterday that patient becomes very lethargic with any medication so he wants that closely watched 12/03/2020: This visit is via video chat due to Covid related restriction for this provider Patient doing pretty well today Eating and drinking better Rocephin will be given last dose IV this afternoon and then switch over to Omnicef Walking with physical therapy Not as impulsive Decreasing balance issues Antivert given scheduled Straight cath required x1 so we will consult urology Bowels are still a bit sluggish so will get aggressive regimen for that 12/02/2020: This visit is via video chat due to Covid related restriction for this provider Improved status today She ate bfast today Zofran given prophylactically before PT Rocephin IV started and maintained due to inadequate PO intake from N/V yesterday E coli noted as second organism so will need to evaluate that for ESBL BM treatment maintained, she seems to nort recall if her bowels are moving well or not very attentive 12/01/2020: This visit is via video chat due to Covid related restriction for this provider Patient having some issues today Nausea and vomiting noted Severe vertigo We will shift to Rocephin IV and give gentle IV fluids Scopolamine patch was replaced Check meds and labs Updated patient on the plan The vertigo and severe dizziness from the stroke because the reluctance of admission to the inpatient rehab unit so we will monitor closely Neuro was not very optimistic the symptoms would resolve quickly or at all and may very well require wheelchair bound status Urine culture showed Franklyn Agustin 11/30/2020: This visit is via video chat due to Covid related restriction for this provider Patient doing well No major concerns Macrobid empirically started, UCx pending Updated patient on the UTI treatment wanted Melatonin Xanax and Codeine DC so I did that In/Out cath once per 24 hours Urecholine started BM 11/2911/29/2020: This visit is via video chat due to Covid related restriction for this provider Reviewed history and physical information Met with nurse and discussed all meds and issues Patient feels pretty good No major concerns per patient Bowels are moving sluggishly will maintain laxatives No impulsiveness Balance is definitely deficient Had to straight cath her x1 due to urinary retention Low-grade fever 99.3 Urine is very cloudy We will obtain urine and urine culture from cath specimen and place on antibiotic empirically Monitoring closely Review of Systems General: Fatigue, Malaise Neurological: Weakness Objective Exam Vital Signs Vital Signs Date Time Temp Pulse Resp B/P (MAP) Pulse Ox O2 Delivery O2 Flow Rate FiO2 12/12/20 21:00 Room Air 12/12/20 20:00 36.1 72 18 146/60 (88) 97 12/08/20 06:41 0.00 Capillary Refill : General Appearance: No Apparent Distress, WD/WN, Chronically ill HEENT: PERRL/EOMI, Normal ENT Inspection, Pharynx Normal; No Photophobia Neck: Normal Inspection, Non Tender, Supple Respiratory: Lungs Clear, Normal Breath Sounds, No Respiratory Distress Cardiovascular: Regular Rate, Rhythm, No Edema, No Murmur Gastrointestinal: Normal Bowel Sounds, Non Tender, Soft Extremity: Normal Inspection, Non Tender, No Pedal Edema Neurologic/Psychiatric: Alert, Oriented x3, Normal Mood/Affect, mobile home lot utility worker II-XII Norm as Tested, Motor Weakness (generalized), Other (dysmetria) Skin: Normal Color, Warm/Dry, Other (right parietal EVD incision and occipital craniotomy incision well appearing) Lymphatic: No Adenopathy Results/Procedures Lab Patient resulted labs reviewed. Imaging: Reviewed Imaging Report [facility]IM Transfers Therapy Code Descriptions/Definitions Functional [place] Measure: 0=Not Assessed/NA 4=Minimal Assistance 1=Total Assistance 5=Supervision or Setup 2=Maximal Assistance 6=Modified [place] 3=Moderate Assistance 7=Complete IndependenceSCALE: Activities may be completed with or without assistive devices. 1-Hgqoyeclnd-cbkojkg completes the activity by him/herself with no assistance from a helper. 5-Set-up or Clean-up Assistance-helper sets up or cleans up; patient completes activity. [place] assists only prior to or following the activity. 4-Supervision or Touching Assistance-helper provides verbal cues and/or touching/steadying and/or contact guard assistance as patient completes activity. Assistance may be provided throughout the activity or intermittently. 3-Partial/Moderate Assistance-helper does LESS THAN HALF the effort. [place] lifts, holds or supports trunk or limbs, but provides less than half the effort. 2-Substantial/Maximal Assistance-helper does MORE THAN HALF the effort. [place] lifts or holds trunk or limbs and provides more than half the effort. 6-Ispeqfnax-yxjieq does ALL the effort. Patient does none of the effort to complete the activity. Or, the assistance of 2 or more helpers is required for the patient to complete the activity. If activity was not attempted, code reason: 7-Patient Refused. 9-Not Applicable-not attempted and the patient did not perform the activity before the current illness, exacerbation or injury. 10-Not Attempted due to Environmental Limitations-(lack of equipment, weather restraints, etc.). 88-Not Attempted due to Medical Conditions or Safety Concerns. Roll Left to Right (QC): 5 Sit to Lying (QC): 5 Sit to Stand (QC): 5 Chair/Pfc-mx-Hpwsk Xfer(QC): 4 Car Transfer (QC): 3 Gait Training Does the Patient Walk?: Yes Distance: 100' x2 Walk 10 feet (QC): 4 Walk 50 ft with 2 Turns(QC): 4 Walk 150 ft (QC): 4 Walking 10ft/uneven surface-QC: 4 Gait Persons Needed: 1 Gait Assistive Device: FWW Wheelchair Training Does the Pt Use a Wheelchair?: No Wheel 50 ft with 2 turns (QC): 9 Wheel 150 ft (QC): 9 Stair Training #of Steps: 1 1 Step (curb) (QC): 3 4 Steps (QC): 88 12 Steps (QC): 88 Balance Picking up an Object (QC): 88 ADL-Treatment Eating (QC): 6 Oral Hygiene (QC): 4 (CGA in stance.) Bathing Location: L Arm, R Arm, L Upper Leg, R Upper Leg, L Lower Leg (including foot), R Lower Leg (including foot), Chest, Abdomen, Buttocks, Perineal Area Shower/Bathe Self (QC): 4 (SBA throughout, vomits in middle of shower.) Upper Body Dressing (QC): 5 Lower Body Dressing (QC): 4 On/Off Footwear (QC): 4 Toileting Hygiene (QC): 6 Toilet Transfer (QC): 4 Assessment/Plan Assessment and Plan Assess & Plan/Chief Complaint Assessment: (1) CVA (cerebral vascular accident) (2) Intracranial hemorrhage (3) Status post craniotomy (4) Status post evacuation of hematoma (5) Dysmetria (6) Diplopia (7) HTN (hypertension) (8) Orthostatic hypotension (9) Debility (10) HLD (hyperlipidemia) (11) T2DM (type 2 diabetes mellitus) (12) Acute UTI placed on antibiotic empirically on 11/29/2020 but DC'd Macrobid due to resistance of Morganella Morgagni placed on Omnicef then shifted to Rocephin due to nausea and vomiting 12/01/2020 (13) Acute urinary retention requiring caths thin urology consulted on 12/05/2020 (14) Nausea and vomiting episode requiring IV fluids 12/01/2020 and heplocked 12/02/20 Plan: Intensive rehab protocol Empiric antibiotic treatment Monitor sugar Add Urecholine 11/30/20: Urecholine maintained In/Out caths prn Abx empirically DC meds at request 12/01/2020: IV fluids IV antibiotics DC Macrobid due to resistance on urine culture Very complex case Scopolamine patch 12/02/20: HLIVF IV abx Await second gram negative organism on UCx just noted today on report BM regimen 12/03/2020: Discontinue Rocephin after dose this afternoon and switch to Omnicef p.o. Continue aggressive treatment 12/04/2020: Nausea treatment Scopolamine patch Blood pressure monitoring 12/05/2020: Monitor for nausea Hold Metformin Monitor blood sugar only 12/06/2020: Urecholine Urology consultation appreciated Bowel regimen Monitor closely 12/07/2020: Appreciate urology consultation Monitor blood pressure Suture removal per [facility] recommendations 12/08/2020: Continue aggressive rehab Appreciate urology Monitor closely 12/09/2020: Suture removal Continue aggressive treatment 12/10/2020: Add Protonix to help soothe stomach Supportive care Decreasing Urecholine Bladder much improved 12/11/2020: Emesis is recurrent Monitor closely Supportive care 12/12/2020: Supportive care Monitor blood sugars Blood pressure variation is noted (1) CVA (cerebral vascular accident) Status: Acute (2) Intracranial hemorrhage Status: Acute (3) Status post craniotomy Status: Acute (4) Status post evacuation of hematoma Status: Acute (5) Dysmetria Status: Acute (6) Diplopia Status: Acute (7) HTN (hypertension) Status: Acute Qualifiers: Hypertension type: essential hypertension Qualified Codes: I10 - Essential (primary) hypertension (8) Orthostatic hypotension Status: Acute (9) Debility (10) HLD (hyperlipidemia) Status: Chronic (11) T2DM (type 2 diabetes mellitus) Status: Chronic Qualifiers: Diabetes mellitus halfway insulin use: with middle or intermediate school principal use ELSY ORNELAS DO Dec 12, 2020 07:36
[2020-12-12] MEDS: ASPIRIN E.C. 81 MG (ECOTRIN) TAB PO SCH (08:53)
[2020-12-12] MEDS: polyethylene glycoL POWDER 17 GM (MIRALAX) PACK PO SCH ×2 (08:53→21:00)
[2020-12-12] MEDS: MAGNESIUM OXIDE (MAG-OX)400 MG TAB PO SCH (08:53)
[2020-12-12] MEDS: CALCIUM CARB + VIT D 600 MG (CALCARB + D) TAB PO SCH ×2 (08:53→21:56)
[2020-12-12] MEDS: ACETAMINOPHEN 500 MG TAB (TYLENOL) PO SCH (08:53)
[2020-12-12] MEDS: SENNA W/DOCUSATE (SENOKOT S) TABLET PO SCH ×2 (08:53→21:56)
[2020-12-12] MEDS: lisINopril 40 MG (PRINIVIL) TABLET PO SCH (08:54)
[2020-12-12] MEDS: BETHANECHOL 25 MG (URECHOLINE) TAB PO SCH ×2 (08:54→17:08)
[2020-12-12] MEDS: DOCUSATE SODIUM 100 MG (COLACE) CAP PO SCH ×2 (08:54→21:56)
[2020-12-12] MEDS: MILK OF MAGNESIA 400 MG/5 ML 30 ML UDC PO SCH (08:54)
[2020-12-12] MEDS: PANTOPRAZOLE 40 MG (PROTONIX) TAB PO SCH (08:54)
--- NOTE | 2020-12-12 10:35 | Physical Therapy Daily Note ---
PT Daily Note-Current Subjective Pt up in chair, denies pain. Agrees to PT. Pt states "a little" when asked if she is dizzy today. Mental Status Patient Orientation: Person, Place, Situation Transfers SCALE: Activities may be completed with or without assistive devices. 4-Weldyfkhqz-vedimyt completes the activity by him/herself with no assistance from a helper. 5-Set-up or Clean-up Assistance-helper sets up or cleans up; patient completes activity. [place] assists only prior to or following the activity. 4-Supervision or Touching Assistance-helper provides verbal cues and/or touching/steadying and/or contact guard assistance as patient completes activi ty. Assistance may be provided throughout the activity or intermittently. 3-Partial/Moderate Assistance-helper does LESS THAN HALF the effort. [place] lifts, holds or supports trunk or limbs, but provides less than half the effort. 2-Substantial/Maximal Assistance-helper does MORE THAN HALF the effort. [place] lifts or holds trunk or limbs and provides more than half the effort. 5-Aybaoyios-adlelj does ALL the effort. Patient does none of the effort to complete the activity. Or, the assistance of 2 or more helpers is required for the patient to complete the activity. If activity was not attempted, code reason: 7-Patient Refused. 9-Not Applicable-not attempted and the patient did not perform the activity before the current illness, exacerbation or injury. 10-Not Attempted due to Environmental Limitations-(lack of equipment, weather restraints, etc.). 88-Not Attempted due to Medical Conditions or Safety Concerns. Transfers mod (I) Weight Bearing Right Lower Extremity: Right Full Weight Bearing Left Lower Extremity: Left Full Weight Bearing Gait Training Gait Assistive Device: FWW Pt amb with FWW and CGA x 110ft at steady speed Exercises Seated Therapy Exercises: Ankle pumps, Long arc quads, Hip flexion, Hip abd/add Seated Reps: 20 Treatments BP monitored: prior to treatment 184/88 and BP after treatment 177/75 Assessment Current Status: Good Progress Pt iglesia well without complaint. Pt demonstrated safe transfers and steady balance throughout treatment with use of FWW. Pt back to recliner with call light and all needs met. PT Hard Tile Setter Goals Hard Tile Setter Goals PT Hard Tile Setter Goals Time Frame: Dec 19, 2020 Roll Left & Right (QC): 6 Sit to Lying (QC): 6 Lying-Sitting on Side/Bed(QC): 6 Sit to Stand (QC): 6 Chair/Rlf-kb-Azxda Xfer(QC): 6 Toilet Transfer (QC): 6 Car Transfer (QC): 6 Does the Patient Walk: Yes Walk 10 feet (QC): 6 Walk 50ft with 2 Turns (QC): 6 Walk 150 ft (QC): 6 Walking 10ft on Uneven Surface: 6 1 Step (curb) (QC): 6 4 Steps (QC): 6 12 Steps (QC): 6 Picking up an Object (QC): 6 Does the Pt use WC or Scooter?: No Wheel 50 feet with 2 turns (QC: 9 Wheel 150 feet: 9 PT Plan Treatment/Plan Treatment Plan: Continue Plan of Care Treatment Plan: Bed Mobility, Concurrent Therapy, Education, Functional Activity Miguel, Functional Strength, Group Therapy, Gait, Safety, Therapeutic Exercise, Transfers Treatment Duration: Dec 19, 2020 Frequency: At least 5 of 7 days/Wk (IRF) Estimated Hrs Per Day: 1.5 hours per day Patient and/or Family Agrees t: Yes Time/GCodes Time In: 900 Time Out: 923 Total Billed Treatment Time: 23 Total Billed Treatment 1, ther ex 13', Gait 10' KATI REED CPTA Dec 12, 2020 10:35
[2020-12-12] MEDS: TAMSULOSIN 0.4 MG (FLOMAX) CAP PO SCH (17:08)
[2020-12-12] MEDS: ONDANSETRON 4 MG (ZOFRAN) ORAL DISSOLVE TAB PO PRN (18:28)
[2020-12-12 20:00] VITALS: BP 146/60
[2020-12-13] MEDS: MULTIVIT W/MINERALS TAB (THERAGRAN M) PO SCH (06:36)
[2020-12-13] MEDS: inSUlin ASPART (NovoLOG) 1 UNIT/0.01 ML (CHARGE PER UNIT) SC SCH ×4 (06:36→21:44)
[2020-12-13] MEDS: MECLIZINE 25 MG (ANTIVERT) TAB PO SCH ×3 (06:36→21:47)
[2020-12-13] MEDS: CATHETER FLUSH 10 ML SYR IV SCH ×3 (06:37→21:44)
--- NOTE | 2020-12-13 06:56 | PM&R Progress Note ---
Subjective HPI/CC On Admission Date Seen by Provider: Dec 13, 2020 Time Seen by Provider: 13:00 Virgen Bermeo is a 75 year old female with PMH T2DM, HLD, who was admitted to with cerebrovascular accident and intracranial hemorhage. She was found to have a large right cerebellar hemorrhage. She was admitted to the ICU. She underwent craniotomy with hematoma evacuation and had an EVD placed. She was stabilized but remained debilitated. She was deemed to require ongoing acute cares along with PT/OT/ST. She was transferred from to the inpatient rehabilitation unit on 11/28/2020. Her course was complicated by hypertension and she was started on medication. She also had issues with orthostatic hypotension. Upon my examination, she had arrived in her room and was ordering food. She reports having some double vision. She also has some uncoordination and balance issues. She is not having any focal weakness. She denies headaches. She is not having fe vers or chills. She denies chest pain and palpitations. She denies shortness of breath and cough. She denies abdominal pain. She had issues with nausea and vomiting while driving here due to motion sickness. She denies diarrhea. She denies dysuria. She previously had been on aspirin and a cholesterol medicine daily, as well as 18 units of long acting insulin daily. Subjective/Events-last exam 12/13/2020: Patient continues to have emesis 2 times daily Bladder scan appears to be less than 200 A little bit more alert today Flat affect continues Still confused Had a noninjury fall 12/12/2020: Pt doing pretty well No major issues Glucose is good Up in a chair No emesis as of yet but she usually does BID 12/11/20: No major issues Some residual on bladder scan Emesis is common with the severe vertigo that she has 12/10/2020: Pt doing better Emesis at least BID Protonix ordered Doing well otherwise Dr. Curiel decreased Urecholine to BID from QID Bowels are moving okay 12/09/2020: Pt doing pretty well Bowels moved yesterday Has an emesis episode twice daily Sutures will be removed per today Discharge planned for 12/15/2020 12/08/2020: Pt doing pretty well Bladder scanning showed 300 after post-void residual Fogginess noted She didnt know when she was born, what year Denies any pain Blood sugar checks are monitored 12/07/2020: Pt doing pretty well [facility] will be contacted regarding the suture removal date No emesis today A few pills at a time seems to help her In and out cath was not needed, if she needs another one she will have a castaneda placed Last dose of antibiotics is today 12/06/2020: Patient doing pretty well today Had a little bit of vomiting today but was able to eat all of breakfast Daughter is at the bedside today Walking pretty well but balance is an issue Had a small bowel movement last night so gave laxatives today Urology did see patient and recommended to restart Urecholine and Place Castaneda if she continues to have retention Staple removal will be assessed by TIMA and we will remove if needed 12/05/2020: This visit is via video chat due to Covid related restriction for this provider Patient doing a little better today Ate a full breakfast and eating lunch currently Bowels move 3 days ago so laxatives given Voiding at night pretty well and voided 600 cc of urine this morning but bladder scan showed another 400 retained so perform straight in and out cath Sleeps better here than at home Holding Metformin currently 12/04/2020: This visit is via video chat due to Covid related restriction for this provider Patient doing pretty well today Appears to be chronically ill Vomited 2 small amounts today Sugar is 85 so decreasing Levemir Holding Metformin since she thinks that that is making her nauseated made it clear to social work yesterday that patient becomes very lethargic with any medication so he wants that closely watched 12/03/2020: This visit is via video chat due to Covid related restriction for this provider Patient doing pretty well today Eating and drinking better Rocephin will be given last dose IV this afternoon and then switch over to Omnicef Walking with physical therapy Not as impulsive Decreasing balance issues Antivert given scheduled Straight cath required x1 so we will consult urology Bowels are still a bit sluggish so will get aggressive regimen for that 12/02/2020: This visit is via video chat due to Covid related restriction for this provider Improved status today She ate bfast today Zofran given prophylactically before PT Rocephin IV started and maintained due to inadequate PO intake from N/V yesterday E coli noted as second organism so will need to evaluate that for ESBL BM treatment maintained, she seems to nort recall if her bowels are moving well or not very attentive 12/01/2020: This visit is via video chat due to Covid related restriction for this provider Patient having some issues today Nausea and vomiting noted Severe vertigo We will shift to Rocephin IV and give gentle IV fluids Scopolamine patch was replaced Check meds and labs Updated patient on the plan The vertigo and severe dizziness from the stroke because the reluctance of admission to the inpatient rehab unit so we will monitor closely Neuro was not very optimistic the symptoms would resolve quickly or at all and may very well require wheelchair bound status Urine culture showed Franklyn Agustin 11/30/2020: This visit is via video chat due to Covid related restriction for this provider Patient doing well No major concerns Macrobid empirically started, UCx pending Updated patient on the UTI treatment wanted Melatonin Xanax and Codeine DC so I did that In/Out cath once per 24 hours Urecholine started BM 11/2911/29/2020: This visit is via video chat due to Covid related restriction for this provider Reviewed history and physical information Met with nurse and discussed all meds and issues Patient feels pretty good No major concerns per patient Bowels are moving sluggishly will maintain laxatives No impulsiveness Balance is definitely deficient Had to straight cath her x1 due to urinary retention Low-grade fever 99.3 Urine is very cloudy We will obtain urine and urine culture from cath specimen and place on antibiotic empirically Monitoring closely Review of Systems General: Fatigue, Malaise Neurological: Weakness, Incoordination, Confusion Objective Exam Vital Signs Vital Signs Date Time Temp Pulse Resp B/P (MAP) Pulse Ox O2 Delivery O2 Flow Rate FiO2 12/13/20 21:00 Room Air 12/13/20 20:00 36.6 77 16 154/68 (96) 97 12/08/20 06:41 0.00 Capillary Refill : General Appearance: No Apparent Distress, WD/WN, Chronically ill HEENT: PERRL/EOMI, Normal ENT Inspection, Pharynx Normal; No Photophobia Neck: Normal Inspection, Non Tender, Supple Respiratory: Lungs Clear, Normal Breath Sounds, No Respiratory Distress Cardiovascular: Regular Rate, Rhythm, No Edema, No Murmur Gastrointestinal: Normal Bowel Sounds, Non Tender, Soft Extremity: Normal Inspection, Non Tender, No Pedal Edema Neurologic/Psychiatric: Alert, Oriented x3, Normal Mood/Affect, flue lining dipper II-XII Norm as Tested, Motor Weakness (generalized), Other (dysmetria) Skin: Normal Color, Warm/Dry, Other (right parietal EVD incision and occipital craniotomy incision well appearing) Lymphatic: No Adenopathy Results/Procedures Lab Patient resulted labs reviewed. Imaging: Reviewed Imaging Report FIM Transfers Therapy Code Descriptions/Definitions Functional [place] Measure: 0=Not Assessed/NA 4=Minimal Assistance 1=Total Assistance 5=Supervision or Setup 2=Maximal Assistance 6=Modified [place] 3=Moderate Assistance 7=Complete IndependenceSCALE: Activities may be completed with or without assistive devices. 1-Taoclthdoe-ildnqmn completes the activity by him/herself with no assistance from a helper. 5-Set-up or Clean-up Assistance-helper sets up or cleans up; patient completes activity. [place] assists only prior to or following the activity. 4-Supervision or Touching Assistance-helper provides verbal cues and/or touching/steadying and/or contact guard assistance as patient completes activity. Assistance may be provided throughout the activity or intermittently. 3-Partial/Moderate Assistance-helper does LESS THAN HALF the effort. [place] lifts, holds or supports trunk or limbs, but provides less than half the effort. 2-Substantial/Maximal Assistance-helper does MORE THAN HALF the effort. [place] lifts or holds trunk or limbs and provides more than half the effort. 1-Ogxnkxpny-ctskay does ALL the effort. Patient does none of the effort to complete the activity. Or, the assistance of 2 or more helpers is required for the patient to complete the activity. If activity was not attempted, code reason: 7-Patient Refused. 9-Not Applicable-not attempted and the patient did not perform the activity before the current illness, exacerbation or injury. 10-Not Attempted due to Environmental Limitations-(lack of equipment, weather restraints, etc.). 88-Not Attempted due to Medical Conditions or Safety Concerns. Roll Left to Right (QC): 5 Sit to Lying (QC): 5 Sit to Stand (QC): 5 Chair/Gzq-cn-Dfdqe Xfer(QC): 4 Car Transfer (QC): 3 Gait Training Does the Patient Walk?: Yes Distance: 100' x2 Walk 10 feet (QC): 4 Walk 50 ft with 2 Turns(QC): 4 Walk 150 ft (QC): 4 Walking 10ft/uneven surface-QC: 4 Gait Persons Needed: 1 Gait Assistive Device: FWW Wheelchair Training Does the Pt Use a Wheelchair?: No Wheel 50 ft with 2 turns (QC): 9 Wheel 150 ft (QC): 9 Stair Training #of Steps: 1 1 Step (curb) (QC): 3 4 Steps (QC): 88 12 Steps (QC): 88 Balance Picking up an Object (QC): 88 ADL-Treatment Eating (QC): 6 Oral Hygiene (QC): 4 (CGA in stance.) Bathing Location: L Arm, R Arm, L Upper Leg, R Upper Leg, L Lower Leg (including foot), R Lower Leg (including foot), Chest, Abdomen, Buttocks, Perineal Area Shower/Bathe Self (QC): 4 (SBA throughout, vomits in middle of shower.) Upper Body Dressing (QC): 5 Lower Body Dressing (QC): 4 On/Off Footwear (QC): 4 Toileting Hygiene (QC): 6 Toilet Transfer (QC): 4 Assessment/Plan Assessment and Plan Assess & Plan/Chief Complaint Assessment: (1) CVA (cerebral vascular accident) (2) Intracranial hemorrhage (3) Status post craniotomy (4) Status post evacuation of hematoma (5) Dysmetria (6) Diplopia (7) HTN (hypertension) (8) Orthostatic hypotension (9) Debility (10) HLD (hyperlipidemia) (11) T2DM (type 2 diabetes mellitus) (12) Acute UTI placed on antibiotic empirically on 11/29/2020 but DC'd Macrobid due to resistance of Morganella Morgagni placed on Omnicef then shifted to Rocephin due to nausea and vomiting 12/01/2020 (13) Acute urinary retention requiring caths thin urology consulted on 12/05/2020 (14) Nausea and vomiting episode requiring IV fluids 12/01/2020 and heplocked 12/02/20 Plan: Intensive rehab protocol Empiric antibiotic treatment Monitor sugar Add Urecholine 11/30/20: Urecholine maintained In/Out caths prn Abx empirically DC meds at request 12/01/2020: IV fluids IV antibiotics DC Macrobid due to resistance on urine culture Very complex case Jtmine patch 12/02/20: HLIVF IV abx Await second gram negative organism on UCx just noted today on report BM regimen 12/03/2020: Discontinue Rocephin after dose this afternoon and switch to Omnicef p.o. Continue aggressive treatment 12/04/2020: Nausea treatment Scopolamine patch Blood pressure monitoring 12/05/2020: Monitor for nausea Hold Metformin Monitor blood sugar only 12/06/2020: Urecholine Urology consultation appreciated Bowel regimen Monitor closely 12/07/2020: Appreciate urology consultation Monitor blood pressure Suture removal per [facility] recommendations 12/08/2020: Continue aggressive rehab Appreciate urology Monitor closely 12/09/2020: Suture removal Continue aggressive treatment 12/10/2020: Add Protonix to help soothe stomach Supportive care Decreasing Urecholine Bladder much improved 12/11/2020: Emesis is recurrent Monitor closely Supportive care 12/12/2020: Supportive care Monitor blood sugars Blood pressure variation is noted 12/13/2020: Continue aggressive therapy Supportive care Fall risk (1) CVA (cerebral vascular accident) Status: Acute (2) Intracranial hemorrhage Status: Acute (3) Status post craniotomy Status: Acute (4) Status post evacuation of hematoma Status: Acute (5) Dysmetria Status: Acute (6) Diplopia Status: Acute (7) HTN (hypertension) Status: Acute Qualifiers: Hypertension type: essential hypertension Qualified Codes: I10 - Essential (primary) hypertension (8) Orthostatic hypotension Status: Acute (9) Debility (10) HLD (hyperlipidemia) Status: Chronic (11) T2DM (type 2 diabetes mellitus) Status: Chronic Qualifiers: Diabetes mellitus buttermaker insulin use: with halfway use ELSY ORNELAS DO Dec 13, 2020 06:56
[2020-12-13] MEDS: SENNA W/DOCUSATE (SENOKOT S) TABLET PO SCH ×2 (09:27→21:43)
[2020-12-13 09:28] VITALS: BP 171/91
[2020-12-13] MEDS: lisINopril 40 MG (PRINIVIL) TABLET PO SCH (09:28)
[2020-12-13] MEDS: ASPIRIN E.C. 81 MG (ECOTRIN) TAB PO SCH (09:28)
[2020-12-13] MEDS: BETHANECHOL 25 MG (URECHOLINE) TAB PO SCH ×2 (09:28→18:49)
[2020-12-13] MEDS: DOCUSATE SODIUM 100 MG (COLACE) CAP PO SCH ×2 (09:28→21:43)
[2020-12-13] MEDS: ACETAMINOPHEN 500 MG TAB (TYLENOL) PO SCH (09:28)
[2020-12-13] MEDS: CALCIUM CARB + VIT D 600 MG (CALCARB + D) TAB PO SCH ×2 (09:28→21:43)
[2020-12-13] MEDS: MAGNESIUM OXIDE (MAG-OX)400 MG TAB PO SCH (09:28)
[2020-12-13] MEDS: PANTOPRAZOLE 40 MG (PROTONIX) TAB PO SCH (09:28)
[2020-12-13] MEDS: polyethylene glycoL POWDER 17 GM (MIRALAX) PACK PO SCH ×2 (09:29→21:48)
[2020-12-13] MEDS: MILK OF MAGNESIA 400 MG/5 ML 30 ML UDC PO SCH (09:29)
[2020-12-13] MEDS: ONDANSETRON 4 MG/2 ML (SDV) Z0FRAN IVP PRN (13:00)
[2020-12-13 15:49] VITALS: BP 168/71
[2020-12-13] MEDS: SCOPOLAMINE 1.5 MG (TRANSDERM-SCOP) PATCH TD SCH (15:54)
[2020-12-13] MEDS: SCOPOLAMINE PATCH REMOVAL TP SCH (15:54)
[2020-12-13] MEDS: ONDANSETRON 4 MG (ZOFRAN) ORAL DISSOLVE TAB PO PRN (16:31)
[2020-12-13 18:46] VITALS: BP 161/76
[2020-12-13] MEDS: TAMSULOSIN 0.4 MG (FLOMAX) CAP PO SCH (18:49)
[2020-12-13 20:00] VITALS: BP 154/68
[2020-12-14] MEDS: ONDANSETRON 4 MG/2 ML (SDV) Z0FRAN IVP PRN (05:56)
[2020-12-14] MEDS: CATHETER FLUSH 10 ML SYR IV SCH ×3 (05:57→22:53)
--- NOTE | 2020-12-14 06:21 | PM&R Progress Note ---
Subjective HPI/CC On Admission Date Seen by Provider: Dec 14, 2020 Time Seen by Provider: 11:30 Virgen Bermeo is a 75 year old female with PMH T2DM, HLD, who was admitted to with cerebrovascular accident and intracranial hemorhage. She was found to have a large right cerebellar hemorrhage. She was admitted to the ICU. She underwent craniotomy with hematoma evacuation and had an EVD placed. She was stabilized but remained debilitated. She was deemed to require ongoing acute cares along with PT/OT/ST. She was transferred from to the inpatient rehabilitation unit on 11/28/2020. Her course was complicated by hypertension and she was started on medication. She also had issues with orthostatic hypotension. Upon my examination, she had arrived in her room and was ordering food. She reports having some double vision. She also has some uncoordination and balance issues. She is not having any focal weakness. She denies headaches. She is not having fevers or chills. She denies chest pain and palpitations. She denies shortness of breath and cough. She denies abdominal pain. She had issues with nausea and vomiting while driving here due to motion sickness. She denies diarrhea. She denies dysuria. She previously had been on aspirin and a cholesterol medicine daily, as well as 18 units of long acting insulin daily. Subjective/Events-last exam 12/14/2020: Pt pretty fatigued Lays in bed most of the time Antivert was given so she had emesis Sugars are okay Potassium 3.4 Bowels moved six days ago, will initiate regimen 12/13/2020: Patient continues to have emesis 2 times daily Bladder scan appears to be less than 200 A little bit more alert today Flat affect continues Still confused Had a noninjury fall 12/12/2020: Pt doing pretty well No major issues Glucose is good Up in a chair No emesis as of yet but she usually does BID 12/11/20: No major issues Some residual on bladder scan Emesis is common with the severe vertigo that she has 12/10/2020: Pt doing better Emesis at least BID Protonix ordered Doing well otherwise Dr. Curiel decreased Urecholine to BID from QID Bowels are moving okay 12/09/2020: Pt doing pretty well Bowels moved yesterday Has an emesis episode twice daily Sutures will be removed per today Discharge planned for 12/15/2020 12/08/2020: Pt doing pretty well Bladder scanning showed 300 after post-void residual Fogginess noted She didnt know when she was born, what year Denies any pain Blood sugar checks are monitored 12/07/2020: Pt doing pretty well [facility] will be contacted regarding the suture removal date No emesis today A few pills at a time seems to help her In and out cath was not needed, if she needs another one she will have a castaneda placed Last dose of antibiotics is today 12/06/2020: Patient doing pretty well today Had a little bit of vomiting today but was able to eat all of breakfast Daughter is at the bedside today Walking pretty well but balance is an issue Had a small bowel movement last night so gave laxatives today Urology did see patient and recommended to restart Urecholine and Place Castaneda if she continues to have retention Staple removal will be assessed by [facility] and we will remove if needed 12/05/2020: This visit is via video chat due to Covid related restriction for this provider Patient doing a little better today Ate a full breakfast and eating lunch currently Bowels move 3 days ago so laxatives given Voiding at night pretty well and voided 600 cc of urine this morning but bladder scan showed another 400 retained so perform straight in and out cath Sleeps better here than at home Holding Metformin currently 12/04/2020: This visit is via video chat due to Covid related restriction for this provider Patient doing pretty well today Appears to be chronically ill Vomited 2 small amounts today Sugar is 85 so decreasing Levemir Holding Metformin since she thinks that that is making her nauseated made it clear to social work yesterday that patient becomes very lethargic with any medication so he wants that closely watched 12/03/2020: This visit is via video chat due to Covid related restriction for this provider Patient doing pretty well today Eating and drinking better Rocephin will be given last dose IV this afternoon and then switch over to Omnicef Walking with physical therapy Not as impulsive Decreasing balance issues Antivert given scheduled Straight cath required x1 so we will consult urology Bowels are still a bit sluggish so will get aggressive regimen for that 12/02/2020: This visit is via video chat due to Covid related restriction for this provider Improved status today She ate bfast today Zofran given prophylactically before PT Rocephin IV started and maintained due to inadequate PO intake from N/V yesterday E coli noted as second organism so will need to evaluate that for ESBL BM treatment maintained, she seems to nort recall if her bowels are moving well or not very attentive 12/01/2020: This visit is via video chat due to Covid related restriction for this provider Patient having some issues today Nausea and vomiting noted Severe vertigo We will shift to Rocephin IV and give gentle IV fluids Scopolamine patch was replaced Check meds and labs Updated patient on the plan The vertigo and severe dizziness from the stroke because the reluctance of admission to the inpatient rehab unit so we will monitor closely Neuro was not very optimistic the symptoms would resolve quickly or at all and may very well require wheelchair bound status Urine culture showed Franklyn Agustin 11/30/2020: This visit is via video chat due to Covid related restriction for this provider Patient doing well No major concerns Macrobid empirically started, UCx pending Updated patient on the UTI treatment wanted Melatonin Xanax and Codeine DC so I did that In/Out cath once per 24 hours Urecholine started BM 11/2911/29/2020: This visit is via video chat due to Covid related restriction for this provider Reviewed history and physical information Met with nurse and discussed all meds and issues Patient feels pretty good No major concerns per patient Bowels are moving sluggishly will maintain laxatives No impulsiveness Balance is definitely deficient Had to straight cath her x1 due to urinary retention Low-grade fever 99.3 Urine is very cloudy We will obtain urine and urine culture from cath specimen and place on antibiotic empirically Monitoring closely Review of Systems General: Fatigue, Malaise Gastrointestinal: Constipation Neurological: Weakness Objective Exam Vital Signs Vital Signs Date Time Temp Pulse Resp B/P (MAP) Pulse Ox O2 Delivery O2 Flow Rate FiO2 12/14/20 20:00 Room Air 12/14/20 20:00 36.0 61 18 133/63 (86) 98 Capillary Refill : General Appearance: No Apparent Distress, WD/WN, Chronically ill HEENT: PERRL/EOMI, Normal ENT Inspection, Pharynx Normal; No Photophobia Neck: Normal Inspection, Non Tender, Supple Respiratory: Lungs Clear, Normal Breath Sounds, No Respiratory Distress Cardiovascular: Regular Rate, Rhythm, No Edema, No Murmur Gastrointestinal: Normal Bowel Sounds, Non Tender, Soft Extremity: Normal Inspection, Non Tender, No Pedal Edema Neurologic/Psychiatric: Alert, Oriented x3, Normal Mood/Affect, reaming machine operator II-XII Norm as Tested, Motor Weakness (generalized), Other (dysmetria) Skin: Normal Color, Warm/Dry, Other (right parietal EVD incision and occipital craniotomy incision well appearing) Lymphatic: No Adenopathy Results/Procedures Lab Laboratory Tests 12/14/20 06:53 Patient resulted labs reviewed. Imaging: Reviewed Imaging Report FIM Transfers Therapy Code Descriptions/Definitions Functional [place] Measure: 0=Not Assessed/NA 4=Minimal Assistance 1=Total Assistance 5=Supervision or Setup 2=Maximal Assistance 6=Modified [place] 3=Moderate Assistance 7=Complete IndependenceSCALE: Activities may be completed with or without assistive devices. 4-Qvfnsaxfol-jbqhsgq completes the activity by him/herself with no assistance from a helper. 5-Set-up or Clean-up Assistance-helper sets up or cleans up; patient completes activity. [place] assists only prior to or following the activity. 4-Supervision or Touching Assistance-helper provides verbal cues and/or touching/steadying and/or contact guard assistance as patient completes ac tivity. Assistance may be provided throughout the activity or intermittently. 3-Partial/Moderate Assistance-helper does LESS THAN HALF the effort. [place] lifts, holds or supports trunk or limbs, but provides less than half the effort. 2-Substantial/Maximal Assistance-helper does MORE THAN HALF the effort. [place] lifts or holds trunk or limbs and provides more than half the effort. 6-Bkcosadov-vnoymi does ALL the effort. Patient does none of the effort to complete the activity. Or, the assistance of 2 or more helpers is required for the patient to complete the activity. If activity was not attempted, code reason: 7-Patient Refused. 9-Not Applicable-not attempted and the patient did not perform the activity before the current illness, exacerbation or injury. 10-Not Attempted due to Environmental Limitations-(lack of equipment, weather restraints, etc.). 88-Not Attempted due to Medical Conditions or Safety Concerns. Roll Left to Right (QC): 5 Sit to Lying (QC): 5 Sit to Stand (QC): 5 Chair/Krb-ad-Pdmre Xfer(QC): 4 Car Transfer (QC): 3 Gait Training Does the Patient Walk?: Yes Distance: 100' x2 Walk 10 feet (QC): 4 Walk 50 ft with 2 Turns(QC): 4 Walk 150 ft (QC): 4 Walking 10ft/uneven surface-QC: 4 Gait Persons Needed: 1 Gait Assistive Device: FWW Wheelchair Training Does the Pt Use a Wheelchair?: No Wheel 50 ft with 2 turns (QC): 9 Wheel 150 ft (QC): 9 Stair Training #of Steps: 1 1 Step (curb) (QC): 3 4 Steps (QC): 88 12 Steps (QC): 88 Balance Picking up an Object (QC): 88 ADL-Treatment Eating (QC): 6 Oral Hygiene (QC): 4 (CGA in stance.) Bathing Location: L Arm, R Arm, L Upper Leg, R Upper Leg, L Lower Leg (including foot), R Lower Leg (including foot), Chest, Abdomen, Buttocks, Perineal Area Shower/Bathe Self (QC): 4 (SBA throughout, vomits in middle of shower.) Upper Body Dressing (QC): 5 Lower Body Dressing (QC): 4 On/Off Footwear (QC): 4 Toileting Hygiene (QC): 6 Toilet Transfer (QC): 4 Assessment/Plan Assessment and Plan Assess & Plan/Chief Complaint Assessment: (1) CVA (cerebral vascular accident) (2) Intracranial hemorrhage (3) Status post craniotomy (4) Status post evacuation of hematoma (5) Dysmetria (6) Diplopia (7) HTN (hypertension) (8) Orthostatic hypotension (9) Debility (10) HLD (hyperlipidemia) (11) T2DM (type 2 diabetes mellitus) (12) Acute UTI placed on antibiotic empirically on 11/29/2020 but DC'd Macrobid due to resistance of Morganella Morgagni placed on Omnicef then shifted to Rocephin due to nausea and vomiting 12/01/2020 (13) Acute urinary retention requiring caths thin urology consulted on 12/05/2020 (14) Nausea and vomiting episode requiring IV fluids 12/01/2020 and heplocked 12/02/20 Plan: Intensive rehab protocol Empiric antibiotic treatment Monitor sugar Add Urecholine 11/30/20: Urecholine maintained In/Out caths prn Abx empirically DC meds at request 12/01/2020: IV fluids IV antibiotics DC Macrobid due to resistance on urine culture Very complex case Scopolamine patch 12/02/20: HLIVF IV abx Await second gram negative organism on UCx just noted today on report BM regimen 12/03/2020: Discontinue Rocephin after dose this afternoon and switch to Omnicef p.o. Continue aggressive treatment 12/04/2020: Nausea treatment Scopolamine patch Blood pressure monitoring 12/05/2020: Monitor for nausea Hold Metformin Monitor blood sugar only 12/06/2020: Urecholine Urology consultation appreciated Bowel regimen Monitor closely 12/07/2020: Appreciate urology consultation Monitor blood pressure Suture removal per [facility] recommendations 12/08/2020: Continue aggressive rehab Appreciate urology Monitor closely 12/09/2020: Suture removal Continue aggressive treatment 12/10/2020: Add Protonix to help soothe stomach Supportive care Decreasing Urecholine Bladder much improved 12/11/2020: Emesis is recurrent Monitor closely Supportive care 12/12/2020: Supportive care Monitor blood sugars Blood pressure variation is noted 12/13/2020: Continue aggressive therapy Supportive care Fall risk 12/14/2020: Discharge plan for tomorrow Supportive care Overall prognosis is guarded (1) CVA (cerebral vascular accident) Status: Acute (2) Intracranial hemorrhage Status: Acute (3) Status post craniotomy Status: Acute (4) Status post evacuation of hematoma Status: Acute (5) Dysmetria Status: Acute (6) Diplopia Status: Acute (7) HTN (hypertension) Status: Acute Qualifiers: Hypertension type: essential hypertension Qualified Codes: I10 - Essential (primary) hypertension (8) Orthostatic hypotension Status: Acute (9) Debility (10) HLD (hyperlipidemia) Status: Chronic (11) T2DM (type 2 diabetes mellitus) Status: Chronic Qualifiers: Diabetes mellitus long-term insulin use: with long-term use ELSY ORNELAS DO Dec 14, 2020 06:21
[2020-12-14] MEDS: MECLIZINE 25 MG (ANTIVERT) TAB PO SCH ×3 (06:39→22:53)
[2020-12-14] MEDS: MULTIVIT W/MINERALS TAB (THERAGRAN M) PO SCH (06:39)
[2020-12-14] MEDS: inSUlin ASPART (NovoLOG) 1 UNIT/0.01 ML (CHARGE PER UNIT) SC SCH ×4 (06:53→22:38)
[2020-12-14 07:06] LABS: BASOPHILS % (AUTO) 0 % (0-10); EOSINOPHILS # (AUTO) 0.3 10^3/uL (0.0-0.3); EOSINOPHILS % (AUTO) 3 % (0-10); HEMATOCRIT 39 % (35-52); LYMPHOCYTES # (AUTO) 1.5 10^3/uL (1.0-4.0); LYMPHOCYTES % (AUTO) 15 % (12-44); MEAN CORPUSCULAR HEMOGLOBIN 28 pg (25-34); MEAN CORPUSCULAR HGB CONC 31 g/dL (32-36); MEAN CORPUSCULAR VOLUME 91 fL (80-99); MONOCYTES # (AUTO) 0.8 10^3/uL (0.0-1.0); MONOCYTES % (AUTO) 9 % (0-12); NEUTROPHILS # (AUTO) 7.1 10^3/uL (1.8-7.8); NEUTROPHILS % (AUTO) 73 % (42-75); PLATELET COUNT 274 10^3/uL (130-400); WHITE BLOOD COUNT 9.7 10^3/uL (4.3-11.0)
[2020-12-14 07:26] LABS: ALBUMIN 3.5 GM/DL (3.2-4.5)
[2020-12-14 07:27] LABS: POTASSIUM 3.4 MMOL/L (3.6-5.0)
[2020-12-14 07:28] LABS: CALCIUM 9.6 MG/DL (8.5-10.1)
[2020-12-14 07:29] LABS: TOTAL PROTEIN 6.4 GM/DL (6.4-8.2)
[2020-12-14 07:31] LABS: BILIRUBIN,TOTAL 0.4 MG/DL (0.1-1.0)
[2020-12-14 07:33] LABS: CREATININE SERUM 0.82 MG/DL (0.60-1.30)
[2020-12-14 07:45] VITALS: BP 157/70
[2020-12-14] MEDS: DOCUSATE SODIUM 100 MG (COLACE) CAP PO SCH ×2 (08:41→20:43)
[2020-12-14] MEDS: MAGNESIUM OXIDE (MAG-OX)400 MG TAB PO SCH (08:41)
[2020-12-14] MEDS: CALCIUM CARB + VIT D 600 MG (CALCARB + D) TAB PO SCH ×2 (08:41→20:43)
[2020-12-14] MEDS: lisINopril 40 MG (PRINIVIL) TABLET PO SCH (08:41)
[2020-12-14] MEDS: ASPIRIN E.C. 81 MG (ECOTRIN) TAB PO SCH (08:41)
[2020-12-14] MEDS: PANTOPRAZOLE 40 MG (PROTONIX) TAB PO SCH (08:41)
[2020-12-14] MEDS: ACETAMINOPHEN 500 MG TAB (TYLENOL) PO SCH (08:41)
[2020-12-14] MEDS: BETHANECHOL 25 MG (URECHOLINE) TAB PO SCH ×2 (08:41→18:24)
[2020-12-14] MEDS: SENNA W/DOCUSATE (SENOKOT S) TABLET PO SCH ×2 (08:41→20:44)
--- NOTE | 2020-12-14 09:20 | Speech Therapy Daily Note ---
Speech Short Term Goals Short Term Goals Short Term Goals 1) Patient will complete memory tasks related to her daily needs with 75% or greater given minimal cues. 2) Patient will complete safety awareness tasks related to her daily needs with 75% or greater given minimal cues. Speech Care Home Goals Sales Representative Printing Supplies Goals Patient will utilize memory and safety awareness strategies as trained in order to require decreased assist. Speech-Plan Treatment Plan Treatment Duration: Dec 18, 2020 Frequency: 4 times per week (Patient will receive skilled ST services 4-5x per week) Estimated Hrs Per Day: .5 hour per day Rehab Potential: YAMILA Ramirez Dec 14, 2020 09:20
[2020-12-14] MEDS: MILK OF MAGNESIA 400 MG/5 ML 30 ML UDC PO SCH (10:00)
[2020-12-14] MEDS: polyethylene glycoL POWDER 17 GM (MIRALAX) PACK PO SCH ×2 (10:00→22:37)
--- NOTE | 2020-12-14 10:18 | Speech Therapy Daily Note ---
Speech Daily Progress Note Subjective Date Seen by Provider: Dec 14, 2020 Time Seen by Provider: 00:30 Patient was sitting up in her recliner eating mashed potatoes and gravy when I entered her room. She is anxious to return to her home tomorrow. Objective Patient completed a series of sequencing for safety awareness to transition to her return home with 90% given 10% visual/verbal cues. Assessment Assessment Current Status: Good Progress Treatment Plan Discontinue ST, Goals Met Speech Short Term Goals Short Term Goals Short Term Goals 1) Patient will complete memory tasks related to her daily needs with 75% or greater given minimal cues. 2) Patient will complete safety awareness tasks related to her daily needs with 75% or greater given minimal cues. Speech Cleaner Industrial Goals Custodial Goals Patient will utilize memory and safety awareness strategies as trained in order to require decreased assist. Speech-Plan Patient/Family Goals Patient/Family Goals: Patient will return to her home tomorrow where she lives with her . She will be receiving home health services as well as have support from family/friends. 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
--- NOTE | 2020-12-14 11:25 | Physical Therapy Daily Note ---
PT Daily Note-Current Subjective Pt sitting in recliner upon arrival. Pt agree to PT. Pain Location: No Pain Reported Mental Status Patient Orientation: Person, Place Transfers SCALE: Activities may be completed with or without assistive devices. 3-Iustnhlfyg-egeereb completes the activity by him/herself with no assistance from a helper. 5-Set-up or Clean-up Assistance-helper sets up or cleans up; patient completes activity. [place] assists only prior to or following the activity. 4-Supervision or Touching Assistance-helper provides verbal cues and/or touching/steadying and/or contact guard assistance as patient completes activity. Assistance may be provided throughout the activity or intermittently. 3-Partial/Moderate Assistance-helper does LESS THAN HALF the effort. [place] lifts, holds or supports trunk or limbs, but provides less than half the effort. 2-Substantial/Maximal Assistance-helper does MORE THAN HALF the effort. [place] lifts or holds trunk or limbs and provides more than half the effort. 5-Dwqmyrqpx-gsjgmw does ALL the effort. Patient does none of the effort to complete the activity. Or, the assistance of 2 or more helpers is required for the patient to complete the activity. If activity was not attempted, code reason: 7-Patient Refused. 9-Not Applicable-not attempted and the patient did not perform the activity before the current illness, exacerbation or injury. 10-Not Attempted due to Environmental Limitations-(lack of equipment, weather restraints, etc.). 88-Not Attempted due to Medical Conditions or Safety Concerns. Roll Left & Right (QC): 6 Sit to Lying (QC): 6 Lying to Sitting/Side of Bed(Q: 6 Sit to Stand (QC): 6 Chair/Gox-kx-Bakdk Xfer(QC): 6 Toilet Transfer (QC): 6 Car Transfer (QC): 6 Mod I but safety concerns balance as pt LOB frequent but pt is able to catch self and thinks it is no big deal. Weight Bearing Right Lower Extremity: Right Full Weight Bearing Left Lower Extremity: Left Full Weight Bearing Gait Training Does the Patient Walk?: Yes Distance: 150' Walk 10 feet (QC): 5 Walk 50 ft with 2 Turns(QC): 5 Walk 150 ft (QC): 5 Walking 10ft/uneven surface-QC: 5 Gait Persons Needed: 1 Gait Assistive Device: FWW Close SBA for balance. Wheelchair Training Does the Pt Use a Wheelchair?: No Stair Training Stair Training: Handrails/: 2 handrails #of Steps: 4 1 Step (curb) (QC): 4 4 Steps (QC): 4 12 Steps (QC): 7 Stairs: Pattern: Step to Pt is socially unaware of balance. Balance Picking up an Object (QC): 88 Special Test Comments Pt is dizzy and nauseated when bending over so not attempted. Treatments Pt completes QC scoring items listed. Pt returns to room to rest in bed with all needs met, call light in hand. Assessment Current Status: Fair Progress Pt has to be encouraged to participate in tx today. Pt's balance limits her activities due to dizziness. PT Aqueduct And Reservoir Keeper Goals Aqueduct And Reservoir Keeper Goals PT Long-Term Goals Time Frame: Dec 19, 2020 Roll Left & Right (QC): 6 Sit to Lying (QC): 6 Lying-Sitting on Side/Bed(QC): 6 Sit to Stand (QC): 6 Chair/Ksz-vj-Rmote Xfer(QC): 6 Toilet Transfer (QC): 6 Car Transfer (QC): 6 Does the Patient Walk: Yes Walk 10 feet (QC): 6 Walk 50ft with 2 Turns (QC): 6 Walk 150 ft (QC): 6 Walking 10ft on Uneven Surface: 6 1 Step (curb) (QC): 6 4 Steps (QC): 6 12 Steps (QC): 6 Picking up an Object (QC): 6 Does the Pt use WC or Scooter?: No Wheel 50 feet with 2 turns (QC: 9 Wheel 150 feet: 9 PT Plan Problem List Problem List: Safety, Balance Treatment/Plan Treatment Plan: Continue Plan of Care Treatment Plan: Bed Mobility, Concurrent Therapy, Education, Functional Activit y Miguel, Functional Strength, Group Therapy, Gait, Safety, Therapeutic Exercise, Transfers Treatment Duration: Dec 19, 2020 Frequency: At least 5 of 7 days/Wk (IRF) Estimated Hrs Per Day: 1.5 hours per day Patient and/or Family Agrees t: Yes Safety Risks/Education Patient Education: Safety Issues Teaching Recipient: Patient Teaching Methods: Discussion Response to Teaching: Reinforcement Needed Time/GCodes Time In: 1030 Time Out: 1115 Total Billed Treatment Time: 45 Total Billed Treatment 1, FA x3 (45m) HAYLEE REYES ACUTE CARE OCCUPATIONAL THERAPIST Dec 14, 2020 11:25
[2020-12-14] MEDS: ONDANSETRON 4 MG (ZOFRAN) ORAL DISSOLVE TAB PO PRN (12:03)
--- NOTE | 2020-12-14 12:30 | Occupational Ther Daily Note ---
OT Current Status-Daily Note Subjective Pt. states that she has been nauseated all morning. She does not report pain, just nausea. Nursing gives pt. medication during treatment. Mental Status/Objective Patient Orientation: Person, Place ADL-Treatment Therapy Code Descriptions/Definitions Functional [place] Measure: 0=Not Assessed/NA 4=Minimal Assistance 1=Total Assistance 5=Supervision or Setup 2=Maximal Assistance 6=Modified [place] 3=Moderate Assistance 7=Complete IndependenceSCALE: Activities may be completed with or without assistive devices. 9-Peofeirtna-rxukusm completes the activity by him/herself with no assistance from a helper. 5-Set-up or Clean-up Assistance-helper sets up or cleans up; patient completes activity. Godfrey assists only prior to or following the activity. 4-Supervision or Touching Assistance-helper provides verbal cues and/or touching/steadying and/or contact guard assistance as patient completes activity. Assistance may be provided throughout the activity or intermittently. 3-Partial/Moderate Assistance-helper does LESS THAN HALF the effort. Godfrey lifts, holds or supports trunk or limbs, but provides less than half the effort. 2-Substantial/Maximal Assistance-helper does MORE THAN HALF the effort. Godfrey lifts or holds trunk or limbs and provides more than half the effort. 6-Fhsulmzgc-xbovfk does ALL the effort. Patient does none of the effort to complete the activity. Or, the assistance of 2 or more helpers is required for the patient to complete the activity. If activity was not attempted, code reason: 7-Patient Refused. 9-Not Applicable-not attempted and the patient did not perform the activity before the current illness, exacerbation or injury. 10-Not Attempted due to Environmental Limitations-(lack of equipment, weather restraints, etc.). 88-Not Attempted due to Medical Conditions or Safety Concerns. Shower/Bathe Self (QC): 4 (SBA during sponge bath EOB. Pt. did not shower, due to continued nausea.) Upper Body Dressing (QC): 5 Lower Body Dressing (QC): 4 (SBA and cues to use AE and take time. Pt. has some difficulty this date with processing and sequenincing, likely due to continued vomiting.) On/Off Footwear: 3 (Min assist. Pt. uses sock aide and forgets how to use it, and then requires min assist to put sock on appropriately.) Toileting Hygiene (QC): 3 (Min assist for balance and to don pants correctly over hips after toileting.) Toilet Transfer (QC): 4 Other Treatment Pt. agrees to sponge bathe and dress while seated EOB. Pt. uses AE so as to not bend over too much, causing further nausea. Pt. vomited throughout session, with rest breaks in between. Nursing aware and medication provided. Increased cues for problem solving and memory needed this date, as pt. not feeling well. Pt. stood and ambulated to chair in room with CGA at end of session. All needs met. Education OT Patient Education: Correct positioning, Modified ADL techniques, Progress toward Goal/Update tx plan, Purpose of tx/functional activities, Reviewed precautions, Rehab process, Transfer techniques, Use of adapted equipment Teaching Recipient: Patient Teaching Methods: Demonstration, Discussion Response to Teaching: Verbalize Understanding, Return Demonstration OT Long-Term Goals Graphic Design Manager Goals Time Frame: Dec 14, 2020 Eating (QC): 6 Oral Hygiene (QC): 6 Toileting Hygiene (QC): 6 Shower/Bathe Self (QC): 6 Upper Body Dressing (QC): 6 Lower Body Dressing (QC): 6 On/Off Footwear (QC): 6 Additional Goals: 1-Demonstrate ADL Tasks, 2-Verbalize Understanding, 3-ImproveStrength/Miguel 1=Demonstrate adherence to instructed precautions during ADL tasks. 2=Patient will verbalize/demonstrate understanding of assistive devices/modifications for ADL. 3=Patient will improve strength/tolerance for activity to enable patient to perform ADL's. OT Education/Plan Discharge Recommendations Plan/Recommendations: Continue POC Treatment Plan/Plan of Care Treatment,Training & Education: Yes Patient would benefit from OT for education, treatment and training to promote independence in ADL's, mobility, safety and/or upper extremity function for ADL's. Plan of Care: ADL Retraining, Caregiver Training, Cognitive Retraining, Functional Mobility, Group Exercise/Act as Ind, UE Funct Exercise/Act, UE Neuromus Re-Ed/Coord, Visual/Perceptual Retrain, W/C Management Training Treatment Duration: Dec 14, 2020 Frequency: At least 5 of 7 days/Wk (IRF) Estimated Hrs Per Day: 1.5 hours per day Agreement: Yes Rehab Potential: Fair Time/GCodes Start Time: 08:30 Stop Time: 09:15 Total Time Billed (hr/min): 45 Billed Treatment Time 1, ADL x 45minutes JASMINE PONCE OT Dec 14, 2020 12:30
--- NOTE | 2020-12-14 15:45 | Therapy Group Daily Note ---
Therapy Daily Group Note Patient Education Topic Home Safety Exercises LE Seated Exercise, UE Exercise Session Ratio (pt:therapist): 3:1 Goal of Session: Home Safety Strategies, UE/LE Strengthing Goal Met for this Session: Yes Pt Benefit of Group: Contributions to Others, F/U Use of Strategies @Home, Increased Functional Safety, Increased Functional Strength, Improved Cognition, Recognition of Peers, Socialization Other/Notes Pt ambulates to PT/OT Group but gets dizzy before leaving room and is propelled to Group in [facility]. Group consisted of Introductions (Name), Socialization, Seated UE/LE Exercises, Home Safety Activity and Home Safety Education. Pt participated in Group by introducing self appropriately, actively listening to peers and completing exercises. Pt returns to room at end of Group with all needs met. Spouse was present. Start Time: 13:00 Stop Time: 14:25 Total Billed Treatment Time: 85 Total Billed Treatment 1, GRP (85m) HAYLEE REYES ADVERTISING DISPATCH CLERKS SUPERVISOR Dec 14, 2020 15:45
[2020-12-14] MEDS: TAMSULOSIN 0.4 MG (FLOMAX) CAP PO SCH (18:24)
[2020-12-14 20:00] VITALS: BP 133/63
[2020-12-14] MEDS ORDERED: SCOP1PAT11 TD (21:29)
[2020-12-14] MEDS ORDERED: TMSL.4C PO (21:29)
[2020-12-14] MEDS ORDERED: LISI40TA9 PO (21:29)
[2020-12-14] MEDS ORDERED: BTH10T PO (21:29)
[2020-12-14] MEDS ORDERED: ONDA4TAB11 PO (21:29)
[2020-12-14] MEDS ORDERED: MECL-149 PO (21:29)
[2020-12-14] MEDS ORDERED: CARV12.53 PO (21:29)
[2020-12-14] MEDS ORDERED: PANT40TA52 PO (21:29)
--- NOTE | 2020-12-14 21:30 | D/C HH Face to Face Order ---
D/C Face to Face Orders Reconcile Patient Problems Problems Reviewed?: Yes Instructions for Patient [facility] Patient Instructions/FollowUp: PCP 1 week Physician to follow Patient: PCP Discharge Diet for Home: No Restrictions Patient Problems: CVA Patient Data-Allergies,Ht & Wt Patient Allergies: Coded Allergies: hydrocodone (Verified Allergy, Intermediate, VOMITTING, 05/19/16) oxycodone (Verified Allergy, Intermediate, VOMITTING, 05/19/16) Height (Feet): 5 Height (Inches): 6.50 Weight (Pounds): 160 Weight (Ounces): 1.0 Home Health Need/Face to Face Date of Face to Face: Dec 14, 2020 Clinical Findings: Instability, Muscle weakness, Unsteady gait I have seen Pt [id number]: Yes Discharged To: Home Diagnosis/Conditions: CVA Patient is Homebound due to: CognItive deficits, Deja fall risk due to instabilty, Muscle weakness Homebound Status Due to the above stated illness, injury or surgical procedure (medical condition or diagnosis) and associated clinical findings, the patient is homebound because of his/her inability to leave home except with aid of a supportive device and/or person AND leaving the home requires a considerable and taxing effort or is medically contraindicated. Pt req the following assistanc: [facility] Nursing Orders Home Health Services Order: Nursing Services, Help Desk Support Specialist-Evaluate & Treat, Physical Therapy-Evaluate & Treat Certify Stmt I certify that this patient is under my care and that I, a nurse practitioner or a physician; a assistant track coach working with me, had a face to face encounter that - meets the physician face to face encounter requirements with this patient as dated. ELSY ORNELAS DO Dec 14, 2020 21:30
[2020-12-14] MEDS ORDERED: INSU100I34 SC (21:32)
--- NOTE | 2020-12-15 05:26 | Discharge Summary ---
Diagnosis/Chief Complaint Date of Admission Nov 28, 2020 at 09:30 Date of Discharge Discharge Date: Dec 15, 2020 Discharge Diagnosis Assessment: (1) CVA (cerebral vascular accident) (2) Intracranial hemorrhage (3) Status post craniotomy (4) Status post evacuation of hematoma (5) Dysmetria (6) Diplopia (7) HTN (hypertension) (8) Orthostatic hypotension (9) Debility (10) HLD (hyperlipidemia) (11) T2DM (type 2 diabetes mellitus) (12) Acute UTI placed on antibiotic empirically on 11/29/2020 but DC'd Macrobid due to resistance of Morganella Morgagni placed on Omnicef then shifted to Rocephin due to nausea and vomiting 12/01/2020 (13) Acute urinary retention requiring caths thin urology consulted on 12/05/2020 (14) Nausea and vomiting episode requiring IV fluids 12/01/2020 and heplocked 12/02/20 Plan: Intensive rehab protocol Empiric antibiotic treatment Monitor sugar Add Urecholine 11/30/20: Urecholine maintained In/Out caths prn Abx empirically DC meds at request 12/01/2020: IV fluids IV antibiotics DC Macrobid due to resistance on urine culture Very complex case Scopolamine patch 12/02/20: HLIVF IV abx Await second gram negative organism on UCx just noted today on report BM regimen 12/03/2020: Discontinue Rocephin after dose this afternoon and switch to Omnicef p.o. Continue aggressive treatment 12/04/2020: Nausea treatment Scopolamine patch Blood pressure monitoring 12/05/2020: Monitor for nausea Hold Metformin Monitor blood sugar only 12/06/2020: Urecholine Urology consultation appreciated Bowel regimen Monitor closely 12/07/2020: Appreciate urology consultation Monitor blood pressure Suture removal per [facility] recommendations 12/08/2020: Continue aggressive rehab Appreciate urology Monitor closely 12/09/2020: Suture removal Continue aggressive treatment 12/10/2020: Add Protonix to help soothe stomach Supportive care Decreasing Urecholine Bladder much improved 12/11/2020: Emesis is recurrent Monitor closely Supportive care 12/12/2020: Supportive care Monitor blood sugars Blood pressure variation is noted 12/13/2020: Continue aggressive therapy Supportive care Fall risk 12/14/2020: Discharge plan for tomorrow Supportive care Overall prognosis is guarded (1) CVA (cerebral vascular accident) Status: Acute (2) Intracranial hemorrhage Status: Acute (3) Status post craniotomy Status: Acute (4) Status post evacuation of hematoma Status: Acute (5) Dysmetria Status: Acute (6) Diplopia Status: Acute (7) HTN (hypertension) Status: Acute Qualifiers: Hypertension type: essential hypertension Qualified Codes: I10 - Essential (primary) hypertension (8) Orthostatic hypotension Status: Acute (9) Debility (10) HLD (hyperlipidemia) Status: Chronic (11) T2DM (type 2 diabetes mellitus) Status: Chronic Qualifiers: 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 She was admitted after a stroke, s/p verbal and she had a long recovery. She did have severe reflexive hypertension with upright position in addition continued nausea and vomiting about twice per day even though she was on Meclizine and Scopolamine patch. Overall she stabilized, labs remained stable, blood sugars were managed with low dose of insulin. Discontinued Metformin due to possibility of GI upset. She will go home on home health and is her caregiver. Labs (last 24 hrs) Laboratory Tests 11/28/20 09:30: Lab Scanned Report Referred Lab Report 11/28/20 16:06: Glucometer 147H 11/28/20 19:58: Glucometer 170H 11/29/20 05:15: White Blood Count 8.8, Red Blood Count 4.16, Hemoglobin 11.8, Hematocrit 37, Mean Corpuscular Volume 88, Mean Corpuscular Hemoglobin 28, Mean Corpuscular Hemoglobin Concent 32, Red Cell Distribution Width 13.7, Platelet Count 343, Mean Platelet Volume 9.8, Immature Granulocyte % (Auto) 2, Neutrophils (%) (Auto) 56, Lymphocytes (%) (Auto) 30, Monocytes (%) (Auto) 8, Eosinophils (%) (Auto) 3, Basophils (%) (Auto) 1, Neutrophils # (Auto) 5.0, Lymphocytes # (Auto) 2.7, Monocytes # (Auto) 0.7, Eosinophils # (Auto) 0.2, Basophils # (Auto) 0.1, Immature Granulocyte # (Auto) 0.2H, Sodium Level 135, Potassium Level 4.2, Chloride Level 99, Carbon Dioxide Level 26, Anion Gap 10, Blood Urea Nitrogen 10, Creatinine 0.70, Estimat Glomerular Filtration Rate > 60, BUN/Creatinine Ratio 14, Glucose Level 154H, Calcium Level 9.6, Corrected Calcium 10.2H, Total Bilirubin 0.4, Aspartate Amino Transf (AST/SGOT) 20, Alanine Aminotransferase (ALT/SGPT) 25, Alkaline Phosphatase 59, Total Protein 5.9L, Albumin 3.3 11/29/20 06:12: Glucometer 149H 11/29/20 10:48: Glucometer 201H 11/29/20 15:55: Glucometer 122H 11/29/20 17:21: Urine Color YELLOW, Urine Clarity SL CLOUDY, Urine pH 7.0, Urine Specific Rosebud 1.010L, Urine Protein NEGATIVE, Urine Glucose (UA) NEGATIVE, Urine Ketones NEGATIVE, Urine Nitrite NEGATIVE, Urine Bilirubin NEGATIVE, Urine Urobilinogen 0.2, Urine Leukocyte Esterase 1+H, Urine RBC (Auto) NEGATIVE, Urine RBC NONE, Urine WBC 50-100H, Urine Squamous Epithelial Cells 0-2, Urine Crystals NONE, Urine Bacteria MODERATEH, Urine Casts NONE, Urine Mucus NEGATIVE, Urine Culture Indicated YES 11/29/20 20:33: Glucometer 149H 11/30/20 05:36: Glucometer 155H 11/30/20 10:47: Glucometer 170H 11/30/20 16:27: Glucometer 133H 11/30/20 21:49: Glucometer 106 12/01/20 05:30: Glucometer 124H 12/01/20 11:15: Glucometer 151H 12/01/20 13:30: White Blood Count 9.2, Red Blood Count 4.38, Hemoglobin 12.7, Hematocrit 39, Mean Corpuscular Volume 90, Mean Corpuscular Hemoglobin 29, Mean Corpuscular Hemoglobin Concent 32, Red Cell Distribution Width 13.6, Platelet Count 358, Mean Platelet Volume 9.5, Immature Granulocyte % (Auto) 1, Neutrophils (%) (Auto ) 71, Lymphocytes (%) (Auto) 20, Monocytes (%) (Auto) 6, Eosinophils (%) (Auto) 2, Basophils (%) (Auto) 1, Neutrophils # (Auto) 6.6, Lymphocytes # (Auto) 1.8, Monocytes # (Auto) 0.5, Eosinophils # (Auto) 0.2, Basophils # (Auto) 0.1, Immature Granulocyte # (Auto) 0.1, Sodium Level 137, Potassium Level 4.1, Chloride Level 93L, Carbon Dioxide Level 31, Anion Gap 13, Blood Urea Nitrogen 10, Creatinine 0.74, Estimat Glomerular Filtration Rate > 60, BUN/Creatinine Ratio 14, Glucose Level 135H, Lactic Acid Level 0.94, Calcium Level 9.9, Corrected Calcium 10.1, Total Bilirubin 0.4, Aspartate Amino Transf (AST/SGOT) 22, Alanine Aminotransferase (ALT/SGPT) 22, Alkaline Phosphatase 66, Total Protein 6.6, Albumin 3.7 12/01/20 15:56: Glucometer 119H 12/01/20 20:43: Glucometer 113H 12/02/20 05:56: Glucometer 96 12/02/20 08:08: White Blood Count 8.4, Red Blood Count 4.03, Hemoglobin 11.6, Hematocrit 36, Mean Corpuscular Volume 90, Mean Corpuscular Hemoglobin 29, Mean Corpuscular Hemoglobin Concent 32, Red Cell Distribution Width 13.6, Platelet Count 333, Mean Platelet Volume 9.2, Immature Granulocyte % (Auto) 1, Neutrophils (%) (Auto) 72, Lymphocytes (%) (Auto) 19, Monocytes (%) (Auto) 6, Eosinophils (%) (Auto) 2, Basophils (%) (Auto) 1, Neutrophils # (Auto) 6.0, Lymphocytes # (Auto) 1.6, Monocytes # (Auto) 0.5, Eosinophils # (Auto) 0.2, Basophils # (Auto) 0.1, Immature Granulocyte # (Auto) 0.1, Sodium Level 135, Potassium Level 3.7, C hloride Level 95L, Carbon Dioxide Level 30, Anion Gap 10, Blood Urea Nitrogen 11, Creatinine 0.78, Estimat Glomerular Filtration Rate > 60, BUN/Creatinine Ratio 14, Glucose Level 180H, Calcium Level 9.3, Corrected Calcium 9.7, Total Bilirubin 0.4, Aspartate Amino Transf (AST/SGOT) 19, Alanine Aminotransferase (ALT/SGPT) 20, Alkaline Phosphatase 57, Total Protein 6.3L, Albumin 3.5 12/02/20 11:30: Glucometer 137H 12/02/20 16:56: Glucometer 82 12/02/20 20:23: Glucometer 210H 12/03/20 05:48: Glucometer 84 12/03/20 10:49: Glucometer 146H 12/03/20 16:25: Glucometer 94 12/03/20 22:12: Glucometer 86 12/04/20 05:37: Glucometer 85 12/04/20 10:43: Glucometer 135H 12/04/20 15:33: Glucometer 163H 12/04/20 20:17: Glucometer 126H 12/05/20 05:07: Glucometer 88 12/05/20 10:41: Glucometer 202H 12/05/20 15:26: Glucometer 192H 12/05/20 20:18: Glucometer 296H 12/06/20 05:29: Glucometer 165H 12/06/20 10:45: Glucometer 264H 12/06/20 15:45: Glucometer 208H 12/06/20 20:53: Glucometer 192H 12/07/20 05:19: Glucometer 152H 12/07/20 05:28: White Blood Count 5.1, Red Blood Count 4.09, Hemoglobin 11.6, Hematocrit 37, Mean Corpuscular Volume 91, Mean Corpuscular Hemoglobin 28, Mean Corpuscular Hemoglobin Concent 31L, Red Cell Distribution Width 14.0, Platelet Count 326, Mean Platelet Volume 10.2, Immature Granulocyte % (Auto) 1, Neutrophils (%) ( Auto) 50, Lymphocytes (%) (Auto) 35, Monocytes (%) (Auto) 8, Eosinophils (%) (Auto) 5, Basophils (%) (Auto) 1, Neutrophils # (Auto) 2.6, Lymphocytes # (Auto) 1.8, Monocytes # (Auto) 0.4, Eosinophils # (Auto) 0.3, Basophils # (Auto) 0.1, Immature Granulocyte # (Auto) 0.0, Sodium Level 139, Potassium Level 4.1, Chloride Level 101, Carbon Dioxide Level 29, Anion Gap 9, Blood Urea Nitrogen 7, Creatinine 0.74, Estimat Glomerular Filtration Rate > 60, BUN/Creatinine Ratio 9, Glucose Level 153H, Calcium Level 9.4, Corrected Calcium 10.0, Total Bilirubin 0.3, Aspartate Amino Transf (AST/SGOT) 25, Alanine Aminotransferase (ALT/SGPT) 21, Alkaline Phosphatase 55, Total Protein 5.8L, Albumin 3.2 12/07/20 10:53: Glucometer 193H 12/07/20 15:23: Glucometer 243H 12/07/20 21:10: Glucometer 223H 12/08/20 05:47: Glucometer 147H 12/08/20 10:49: Glucometer 243H 12/08/20 15:50: Glucometer 309H 12/08/20 20:58: Glucometer 72 12/09/20 00:03: Glucometer 167H 12/09/20 05:03: Glucometer 159H 12/09/20 10:42: Glucometer 215H 12/09/20 15:44: Glucometer 213H 12/09/20 21:23: Glucometer 208H 12/10/20 05:23: Glucometer 135H 12/10/20 11:09: Glucometer 283H 12/10/20 16:25: Glucometer 132H 12/10/20 20:26: Glucometer 165H 12/11/20 05:49: Glucometer 173H 12/11/20 10:45: Glucometer 225H 12/11/20 16:18: Glucometer 168H 12/11/20 20:35: Glucometer 183H 12/12/20 06:31: Glucometer 159H 12/12/20 10:43: Glucometer 232H 12/12/20 16:18: Glucometer 201H 12/12/20 20:22: Glucometer 182H 12/13/20 06:35: Glucometer 132H 12/13/20 12:33: Glucometer 223H 12/13/20 15:35: Glucometer 200H 12/13/20 21:38: Glucometer 269H 12/14/20 06:52: Glucometer 175H 12/14/20 06:53: White Blood Count 9.7, Red Blood Count 4.26, Hemoglobin 12.0, Hematocrit 39, Mean Corpuscular Volume 91, Mean Corpuscular Hemoglobin 28, Mean Corpuscular Hemoglobin Concent 31L, Red Cell Distribution Width 13.8, Platelet Count 274, Mean Platelet Volume 10.0, Immature Granulocyte % (Auto) 0, Neutrophils (%) (Auto) 73, Lymphocytes (%) (Auto) 15, Monocytes (%) (Auto) 9, Eosinophils (%) (Auto) 3, Basophils (%) (Auto) 0, Neutrophils # (Auto) 7.1, Lymphocytes # (Auto) 1.5, Monocytes # (Auto) 0.8, Eosinophils # (Auto) 0.3, Basophils # (Auto) 0.0, Immature Granulocyte # (Auto) 0.0, Sodium Level 141, Potassium Level 3.4L, Chloride Level 99, Carbon Dioxide Level 28, Anion Gap 14, Blood Urea Nitrogen 8, Creatinine 0.82, Estimat Glomerular Filtration Rate 68, BUN/Creatinine Ratio 10, Glucose Level 178H, Calcium Level 9.6, Corrected Calcium 10.0, Total Bilirubin 0.4, Aspartate Amino Transf (AST/SGOT) 20, Alanine Aminotransferase (ALT/SGPT) 19, Alkaline Phosphatase 60, Total Protein 6.4, Albumin 3.5 12/14/20 10:44: Glucometer 293H 12/14/20 17:06: Glucometer 168H 12/14/20 20:48: Glucometer 162H 12/15/20 05:45: Glucometer 109 Microbiology 11/29/20 Urine Culture - Final, Complete Morganella morganii Escherichia coli Pending Labs Microbiology Date/Time Source Procedure Growth Status 11/29/20 17:21 Urine Straight Cath, In/Out Urine Culture - Final Morganella morganii Escherichia coli Complete Laboratory Tests 11/28/20 09:30: Lab Scanned Report Referred Lab Report 11/28/20 16:06: Glucometer 147 11/28/20 19:58: Glucometer 170 11/29/20 05:15: White Blood Count 8.8, Red Blood Count 4.16, Hemoglobin 11.8, Hematocrit 37, Mean Corpuscular Volume 88, Mean Corpuscular Hemoglobin 28, Mean Corpuscular Hemoglobin Concent 32, Red Cell Distribution Width 13.7, Platelet Count 343, Mean Platelet Volume 9.8, Immature Granulocyte % (Auto) 2, Neutrophils (%) (Auto) 56, Lymphocytes (%) (Auto) 30, Monocytes (%) (Auto) 8, Eosinophils (%) (Auto) 3, Basophils (%) (Auto) 1, Neutrophils # (Auto) 5.0, Lymphocytes # (Auto) 2.7, Monocytes # (Auto) 0.7, Eosinophils # (Auto) 0.2, Basophils # (Auto) 0.1, Immature Granulocyte # (Auto) 0.2, Sodium Level 135, Potassium Level 4.2, Chloride Level 99, Carbon Dioxide Level 26, Anion Gap 10, Blood Urea Nitrogen 10, Creatinine 0.70, Estimat Glomerular Filtration Rate > 60, BUN/Creatinine Ratio 14, Glucose Level 154, Calcium Level 9.6, Corrected Calcium 10.2, Total Bilirubin 0.4, Aspartate Amino Transf (AST/SGOT) 20, Alanine Aminotransferase (ALT/SGPT) 25, Alkaline Phosphatase 59, Total Protein 5.9, Albumin 3.3 11/29/20 06:12: Glucometer 149 11/29/20 10:48: Glucometer 201 11/29/20 15:55: Glucometer 122 11/29/20 17:21: Urine Color YELLOW, Urine Clarity SL CLOUDY, Urine pH 7.0, Urine Specific Rosebud 1.010, Urine Protein NEGATIVE, Urine Glucose (UA) NEGATIVE, Urine Ketones NEGATIVE, Urine Nitrite NEGATIVE, Urine Bilirubin NEGATIVE, Urine Urobilinogen 0.2, Urine Leukocyte Esterase 1+, Urine RBC (Auto) NEGATIVE, Urine RBC NONE, Urine WBC 50-100, Urine Squamous Epithelial Cells 0-2, Urine Crystals NONE, Urine Bacteria MODERATE, Urine Casts NONE, Urine Mucus NEGATIVE, Urine Culture Indicated YES 11/29/20 20:33: Glucometer 149 11/30/20 05:36: Glucometer 155 11/30/20 10:47: Glucometer 170 11/30/20 16:27: Glucometer 133 11/30/20 21:49: Glucometer 106 12/01/20 05:30: Glucometer 124 12/01/20 11:15: Glucometer 151 12/01/20 13:30: White Blood Count 9.2, Red Blood Count 4.38, Hemoglobin 12.7, Hematocrit 39, Mean Corpuscular Volume 90, Mean Corpuscular Hemoglobin 29, Mean Corpuscular Hemoglobin Concent 32, Red Cell Distribution Width 13.6, Platelet Count 358, Mean Platelet Volume 9.5, Immature Granulocyte % (Auto) 1, Neutrophils (%) (Auto) 71, Lymphocytes (%) (Auto) 20, Monocytes (%) (Auto) 6, Eosinophils (%) (Auto) 2, Basophils (%) (Auto) 1, Neutrophils # (Auto) 6.6, Lymphocytes # (Auto) 1.8, Monocytes # (Auto) 0.5, Eosinophils # (Auto) 0.2, Basophils # (Auto) 0.1, Immature Granulocyte # (Auto) 0.1, Sodium Level 137, Potassium Level 4.1, Chloride Level 93, Carbon Dioxide Level 31, Anion Gap 13, Blood Urea Nitrogen 10, Creatinine 0.74, Estimat Glomerular Filtration Rate > 60, BUN/Creatinine Ratio 14, Glucose Level 135, Lactic Acid Level 0.94, Calcium Level 9.9, Corrected Calcium 10.1, Total Bilirubin 0.4, Aspartate Amino Transf (AST/SGOT) 22, Alanine Aminotransferase (ALT/SGPT) 22, Alkaline Phosphatase 66, Total Protein 6.6, Albumin 3.7 12/01/20 15:56: Glucometer 119 12/01/20 20:43: Glucometer 113 12/02/20 05:56: Glucometer 96 12/02/20 08:08: White Blood Count 8.4, Red Blood Count 4.03, Hemoglobin 11.6, Hematocrit 36, Mean Corpuscular Volume 90, Mean Corpuscular Hemoglobin 29, Mean Corpuscular Hemoglobin Concent 32, Red Cell Distribution Width 13.6, Platelet Count 333, Mean Platelet Volume 9.2, Immature Granulocyte % (Auto) 1, Neutrophils (%) (Auto) 72, Lymphocytes (%) (Auto) 19, Monocytes (%) (Auto) 6, Eosinophils (%) (Auto) 2, Basophils (%) (Auto) 1, Neutrophils # (Auto) 6.0, Lymphocytes # (Auto) 1.6, Monocytes # (Auto) 0.5, Eosinophils # (Auto) 0.2, Basophils # (Auto) 0.1, Immature Granulocyte # (Auto) 0.1, Sodium Level 135, Potassium Level 3.7, Chloride Level 95, Carbon Dioxide Level 30, Anion Gap 10, Blood Urea Nitrogen 11, Creatinine 0.78, Estimat Glomerular Filtration Rate > 60, BUN/Creatinine Ratio 14, Glucose Level 180, Calcium Level 9.3, Corrected Calcium 9.7, Total Bilirubin 0.4, Aspartate Amino Transf (AST/SGOT) 19, Alanine Aminotransferase (ALT/SGPT) 20, Alkaline Phosphatase 57, Total Protein 6.3, Albumin 3.5 12/02/20 11:30: Glucometer 137 12/02/20 16:56: Glucometer 82 12/02/20 20:23: Glucometer 210 12/03/20 05:48: Glucometer 84 12/03/20 10:49: Glucometer 146 12/03/20 16:25: Glucometer 94 12/03/20 22:12: Glucometer 86 12/04/20 05:37: Glucometer 85 12/04/20 10:43: Glucometer 135 12/04/20 15:33: Glucometer 163 12/04/20 20:17: Glucometer 126 12/05/20 05:07: Glucometer 88 12/05/20 10:41: Glucometer 202 12/05/20 15:26: Glucometer 192 12/05/20 20:18: Glucometer 296 12/06/20 05:29: Glucometer 165 12/06/20 10:45: Glucometer 264 12/06/20 15:45: Glucometer 208 12/06/20 20:53: Glucometer 192 12/07/20 05:19: Glucometer 152 12/07/20 05:28: White Blood Count 5.1, Red Blood Count 4.09, Hemoglobin 11.6, Hematocrit 37, Mean Corpuscular Volume 91, Mean Corpuscular Hemoglobin 28, Mean Corpuscular Hemoglobin Concent 31, Red Cell Distribution Width 14.0, Platelet Count 326, Mean Platelet Volume 10.2, Immature Granulocyte % (Auto) 1, Neutrophils (%) (Auto) 50, Lymphocytes (%) (Auto) 35, Monocytes (%) (Auto) 8, Eosinophils (%) (Auto) 5, Basophils (%) (Auto) 1, Neutrophils # (Auto) 2.6, Lymphocytes # (Auto) 1.8, Monocytes # (Auto) 0.4, Eosinophils # (Auto) 0.3, Basophils # (Auto) 0.1, Immature Granulocyte # (Auto) 0.0, Sodium Level 139, Potassium Level 4.1, Chloride Level 101, Carbon Dioxide Level 29, Anion Gap 9, Blood Urea Nitrogen 7, Creatinine 0.74, Estimat Glomerular Filtration Rate > 60, BUN/Creatinine Ratio 9, Glucose Level 153, Calcium Level 9.4, Corrected Calcium 10.0, Total Bilirubin 0.3, Aspartate Amino Transf (AST/SGOT) 25, Alanine Aminotransferase (ALT/SGPT) 21, Alkaline Phosphatase 55, Total Protein 5.8, Albumin 3.2 12/07/20 10:53: Glucometer 193 12/07/20 15:23: Glucometer 243 12/07/20 21:10: Glucometer 223 12/08/20 05:47: Glucometer 147 12/08/20 10:49: Glucometer 243 12/08/20 15:50: Glucometer 309 12/08/20 20:58: Glucometer 72 12/09/20 00:03: Glucometer 167 12/09/20 05:03: Glucometer 159 12/09/20 10:42: Glucometer 215 12/09/20 15:44: Glucometer 213 12/09/20 21:23: Glucometer 208 12/10/20 05:23: Glucometer 135 12/10/20 11:09: Glucometer 283 12/10/20 16:25: Glucometer 132 12/10/20 20:26: Glucometer 165 12/11/20 05:49: Glucometer 173 12/11/20 10:45: Glucometer 225 12/11/20 16:18: Glucometer 168 12/11/20 20:35: Glucometer 183 12/12/20 06:31: Glucometer 159 12/12/20 10:43: Glucometer 232 12/12/20 16:18: Glucometer 201 12/12/20 20:22: Glucometer 182 12/13/20 06:35: Glucometer 132 12/13/20 12:33: Glucometer 223 12/13/20 15:35: Glucometer 200 12/13/20 21:38: Glucometer 269 12/14/20 06:52: Glucometer 175 12/14/20 06:53: White Blood Count 9.7, Red Blood Count 4.26, Hemoglobin 12.0, Hematocrit 39, Mean Corpuscular Volume 91, Mean Corpuscular Hemoglobin 28, Mean Corpuscular Hemoglobin Concent 31, Red Cell Distribution Width 13.8, Platelet Count 274, Mean Platelet Volume 10.0, Immature Granulocyte % (Auto) 0, Neutrophils (%) (Auto) 73, Lymphocytes (%) (Auto) 15, Monocytes (%) (Auto) 9, Eosinophils (%) (Auto) 3, Basophils (%) (Auto) 0, Neutrophils # (Auto) 7.1, Lymphocytes # (Auto) 1.5, Monocytes # (Auto) 0.8, Eosinophils # (Auto) 0.3, Basophils # (Auto) 0.0, Immature Granulocyte # (Auto) 0.0, Sodium Level 141, Potassium Level 3.4, Chloride Level 99, Carbon Dioxide Level 28, Anion Gap 14, Blood Urea Nitrogen 8, Creatinine 0.82, Estimat Glomerular Filtration Rate 68, BUN/Creatinine Ratio 10, Glucose Level 178, Calcium Level 9.6, Corrected Calcium 10.0, Total Bilirubin 0.4, Aspartate Amino Transf (AST/SGOT) 20, Alanine Aminotransferase (ALT/SGPT) 19, Alkaline Phosphatase 60, Total Protein 6.4, Albumin 3.5 12/14/20 10:44: Glucometer 293 12/14/20 17:06: Glucometer 168 12/14/20 20:48: Glucometer 162 12/15/20 05:45: Glucometer 109 Discharge Home Medications: Active Scripts Active Urielaglanabell Yepez U-100 (Insulin Glargine,Hum.rec.anlog) 100 Unit/1 Ml Insuln.pen 5 Unit SC BID 30 Days Urecholine (Bethanechol Chloride) 10 Mg Tablet 25 Mg PO BID Pantoprazole Sodium 40 Mg Tablet.dr 40 Mg PO DAILY Transderm-Scop (Scopolamine) 1 Each Patch.td72 1.5 Mg TD Q72H Ondansetron Odt (Ondansetron) 4 Mg Tab.rapdis 8 Mg PO Q4HR PRN Meclizine HCl 25 Mg Tablet 25 Mg PO TID Lisinopril 40 Mg Tablet 40 Mg PO DAILY Carvedilol 12.5 Mg Tablet 12.5 Mg PO BID Flomax (Tamsulosin HCl) 0.4 Mg Cap 0.4 Mg PO DAILY@1800 Reported Tylenol Extra Strength (Acetaminophen) 500 Mg Tablet 500-1,000 Mg PO Q6H PRN Multivitamin 1 Each Tablet 1 Each PO DAILY Pravastatin Sodium 80 Mg Tablet 80 Mg PO HS Aspirin EC (Aspirin) 81 Mg Tablet.dr 81 Mg PO DAILY Magnesium (Magnesium Oxide) 250 Mg Tablet 250 Mg PO BID Instructions to patient/family Please see electronic discharge instructions given to patient. Diagnosis/Problems Diagnosis/Problems (1) CVA (cerebral vascular accident) Status: Acute (2) Intracranial hemorrhage Status: Acute (3) Status post craniotomy Status: Acute (4) Status post evacuation of hematoma Status: Acute (5) Dysmetria Status: Acute (6) Diplopia Status: Acute (7) HTN (hypertension) Status: Acute Qualifiers: Qualified Codes: I10 - Essential (primary) hypertension (8) Orthostatic hypotension Status: Acute (9) Debility (10) HLD (hyperlipidemia) Status: Chronic (11) T2DM (type 2 diabetes mellitus) Status: Chronic Qualifiers: ELSY ORNELAS DO Dec 15, 2020 05:26
[2020-12-15] MEDS: inSUlin ASPART (NovoLOG) 1 UNIT/0.01 ML (CHARGE PER UNIT) SC SCH (05:50)
[2020-12-15] MEDS: MULTIVIT W/MINERALS TAB (THERAGRAN M) PO SCH (06:44)
[2020-12-15] MEDS: MECLIZINE 25 MG (ANTIVERT) TAB PO SCH (06:44)
[2020-12-15] MEDS: CATHETER FLUSH 10 ML SYR IV SCH (06:45)
[2020-12-15 07:52] VITALS: BP 167/69
[2020-12-15] MEDS: ASPIRIN E.C. 81 MG (ECOTRIN) TAB PO SCH (09:04)
[2020-12-15] MEDS: PANTOPRAZOLE 40 MG (PROTONIX) TAB PO SCH (09:04)
[2020-12-15] MEDS: ACETAMINOPHEN 500 MG TAB (TYLENOL) PO SCH (09:04)
[2020-12-15] MEDS: MAGNESIUM OXIDE (MAG-OX)400 MG TAB PO SCH (09:04)
[2020-12-15] MEDS: BETHANECHOL 25 MG (URECHOLINE) TAB PO SCH (09:05)
[2020-12-15] MEDS: lisINopril 40 MG (PRINIVIL) TABLET PO SCH (09:05)
[2020-12-15] MEDS: polyethylene glycoL POWDER 17 GM (MIRALAX) PACK PO SCH (09:06)
[2020-12-15] MEDS: MILK OF MAGNESIA 400 MG/5 ML 30 ML UDC PO SCH (09:06)
[2020-12-15] MEDS: DOCUSATE SODIUM 100 MG (COLACE) CAP PO SCH (09:06)
[2020-12-15] MEDS: SENNA W/DOCUSATE (SENOKOT S) TABLET PO SCH (09:06)
[2020-12-15] MEDS: CALCIUM CARB + VIT D 600 MG (CALCARB + D) TAB PO SCH (09:07)
--- NOTE | 2020-12-15 09:24 | Progress Note - Urology ---
Progress Note-Urology Progress Notes/Assess & Plan Progress/Assessment & Plan DOING VERY WELL CASTRO. GOING HOME TODAY. TO STAY ON FLOMAX DAILY AND URECHOLINE 25 BID. TO FOLLOW UP WITH PCP AND UROLOGIST OF HER CHOICE Final Diagnosis URINE RETENTION ( RESOLVED) ZAY JAFFE MD Dec 15, 2020 09:23
--- NOTE | 2020-12-15 10:02 | Therapy Team Discharge Summary ---
Therapy Discharge Summary Discharge Recommendations Date of Discharge Occupational Therapy Decreased Activ Tolerance, Decreased UE Strength, Dependent Transfers, Impaired Funct Balance, Impaired I ADL's, Impaired Self-Care Skills Speech-Language Pathology Patient is a 75 y/o female who was admitted to the ARU s/p CVA with brain surgery. The patient was evaluated upon admission with moderate cognitive deficits. The patient had her first CVA approximately 5 years ago and has had memory/cognitive deficits since that time. The patient has received skilled ST since her admission with progress made, however she continues to be confused and has ongoing cognitive deficits. She is returning to her home today where she lives with her . She will have family/friends staying with her to assist her with daily needs. She is also going to be receiving home health services. PT [facility] Goals Birdcage Assembler Goals PT Birdcage Assembler Goals Time Frame: Dec 19, 2020 Roll Left to Right (QC): 6 Sit to Lying (QC): 6 Lying-Sitting on Side/Bed(QC): 6 Sit to Stand (QC): 6 Chair/See-ky-Zworo Xfer(QC): 6 Car Transfer (QC): 6 Does the Patient Walk: Yes Walk 10 feet (QC): 6 Walk 10ft-Uneven Surface(QC): 6 Walk 50ft with 2 Turns (QC): 6 Walk 150 ft (QC): 6 Does the Pt use WC or Scooter?: No Wheel 50 feet with 2 turns (QC: 9 1 Step (curb) (QC): 6 4 Steps (QC): 6 12 Steps (QC): 6 Picking up an Object (QC): 6 OT [facility] Goals Birdcage Assembler Goals Time Frame: Dec 14, 2020 Eating (QC): 6 Oral Hygiene (QC): 6 Shower/Bathe Self (QC): 6 Upper Body Dressing (QC): 6 Lower Body Dressing (QC): 6 On/Off Footwear (QC): 6 Toileting Hygiene (QC): 6 Toilet/Commode Transfer (QC): 6 Additional Goals: 1-Demonstrate ADL Tasks, 2-Verbalize Understanding, 3- ImproveStrength/Miguel 1=Demonstrate adherence to instructed precautions during ADL tasks. 2=Patient will verbalize/demonstrate understanding of assistive devices/modifications for ADL. 3=Patient will improve strength/tolerance for activity to enable patient to perform ADL's. Speech Birdcage Assembler Goals [facility]iary Goals Patient will utilize memory and safety awareness strategies as trained in order to require decreased assist. YAMILA HAGER Dec 15, 2020 10:02
[2020-12-15 11:34] VITALS: BP 167/69
--- NOTE | 2020-12-15 14:15 | Therapy Team Discharge Summary ---
Therapy Discharge Summary Discharge Recommendations Date of Discharge Dec 15, 2020 at 10:15 Physical Therapy Patient came to rehab following a CVA. Upon evaluation patient performed bed mobility and supine <-> sit with independence, sit <-> stand and transfers with min/mod assist, car transfer min/mod assist, ambulated 80' with a rolling walker with min assist (including 50' with at least 2 turns of 90 degrees and 10' over an uneven surface), and went up and down 1 step using a rolling walker with min/mod assist. Patient has been performing bed mobility and transfer training, balance and endurance training, functional strengthening, stair training, gait training, and education. Patient has made fair progress but has not met any of her terminal computer operator goals. Now, patient performs bed mobility and transfers with SBA, car transfer SBA, ambulates 150' with a rolling walker with SBA (including 50' with at least 2 turns of 90 degrees and 10' over an uneven surface), and can go up and down 4 steps using 2 handrails with SBA. Patient has been discharged from this facility and will be discharged from PT at this time. Occupational Therapy Decreased Activ Tolerance, Decreased UE Strength, Dependent Transfers, Impaired Funct Balance, Impaired I ADL's, Impaired Self-Care Skills PT Legal Document Assistant Goals Legal Document Assistant Goals PT [facility] Goals Time Frame: Dec 19, 2020 Roll Left to Right (QC): 6 Sit to Lying (QC): 6 Lying-Sitting on Side/Bed(QC): 6 Sit to Stand (QC): 6 Chair/Vzn-jc-Jgnjr Xfer(QC): 6 Car Transfer (QC): 6 Does the Patient Walk: Yes Walk 10 feet (QC): 6 Walk 10ft-Uneven Surface(QC): 6 Walk 50ft with 2 Turns (QC): 6 Walk 150 ft (QC): 6 Does the Pt use WC or Scooter?: No Wheel 50 feet with 2 turns (QC: 9 1 Step (curb) (QC): 6 4 Steps (QC): 6 12 Steps (QC): 6 Picking up an Object (QC): 6 OT [facility] Goals Legal Document Assistant Goals Time Frame: Dec 14, 2020 Eating (QC): 6 Oral Hygiene (QC): 6 Shower/Bathe Self (QC): 6 Upper Body Dressing (QC): 6 Lower Body Dressing (QC): 6 On/Off Footwear (QC): 6 Toileting Hygiene (QC): 6 Toilet/Commode Transfer (QC): 6 Additional Goals: 1-Demonstrate ADL Tasks, 2-Verbalize Understanding, 3- ImproveStrength/Miguel 1=Demonstrate adherence to instructed precautions during ADL tasks. 2=Patient will verbalize/demonstrate understanding of assistive devices/modifications for ADL. 3=Patient will improve strength/tolerance for activity to enable patient to perform ADL's. Speech [facility] Goals Legal Document Assistant Goals Patient will utilize memory and safety awareness strategies as trained in order to require decreased assist. LUIS MANUEL HAQ PT Dec 15, 2020 14:15
--- NOTE | 2020-12-16 13:01 | Therapy Team Discharge Summary ---
Therapy Discharge Summary Discharge Recommendations Date of Discharge Dec 15, 2020 at 10:15 Therapy D/C Recommendations: Home w/ Family Support, Occupational Therapy Home Care Occupational Therapy Pt. was seen by Occupational therapy to increase overall strength and independence with daily skills. Pt. met goal of eating, but did not meat other goals due to continual fatigue, dizziness, and nausea. Pt. did require SBA/C GA/min assist with most tasks at discharge, but discharged with spouse and continued family support. Pt. fully educated on adaptive equipment to make dressing and bathing tasks easier. Spouse purchased hip kit before leaving. Pt. to have home health therapy at discharge, and walker/shower chair. Decreased Activ Tolerance, Decreased UE Strength, Dependent Transfers, Impaired Funct Balance, Impaired I ADL's, Impaired Self-Care Skills PT Airline Counter Agent Goals Shelter Goals PT Airline Counter Agent Goals Time Frame: Dec 19, 2020 Roll Left to Right (QC): 6 Sit to Lying (QC): 6 Lying-Sitting on Side/Bed(QC): 6 Sit to Stand (QC): 6 Chair/Tzj-rl-Vdbea Xfer(QC): 6 Car Transfer (QC): 6 Does the Patient Walk: Yes Walk 10 feet (QC): 6 Walk 10ft-Uneven Surface(QC): 6 Walk 50ft with 2 Turns (QC): 6 Walk 150 ft (QC): 6 Does the Pt use WC or Scooter?: No Wheel 50 feet with 2 turns (QC: 9 1 Step (curb) (QC): 6 4 Steps (QC): 6 12 Steps (QC): 6 Picking up an Object (QC): 6 OT Shelter Goals Shelter Goals Time Frame: Dec 14, 2020 Eating (QC): 6 (met) Oral Hygiene (QC): 6 (not met) Shower/Bathe Self (QC): 6 (not met) Upper Body Dressing (QC): 6 (not met) Lower Body Dressing (QC): 6 (not met) On/Off Footwear (QC): 6 (not met) Toileting Hygiene (QC): 6 (not met) Toilet/Commode Transfer (QC): 6 (not met) Additional Goals: 1-Demonstrate ADL Tasks, 2-Verbalize Understanding, 3-ImproveStrength/Miguel 1=Demonstrate adherence to instructed precautions during ADL tasks. 2=Patient will verbalize/demonstrate understanding of assistive devices/modifications for ADL. 3=Patient will improve strength/tolerance for activity to enable patient to perform ADL's. Speech Shelter Goals Airline Counter Agent Goals Patient will utilize memory and safety awareness strategies as trained in order to require decreased assist. JASMINE PONCE OT Dec 16, 2020 13:01
== END 2020-12-15 10:15 | disposition home health service (06) | DRG 57 ==
PROVIDERS: ADMIT Internal Medicine; ATTEND Internal Medicine
DX: I69.298 Other sequelae of other nontraumatic intracranial hemorrhage (principal); N39.0 Urinary tract infection, site not specified; R27.8 Other lack of coordination; E11.9 Type 2 diabetes mellitus without complications; E78.5 Hyperlipidemia, unspecified; H54.3 Unqualified visual loss, both eyes; I95.1 Orthostatic hypotension; I10 Essential (primary) hypertension; B96.89 Other specified bacterial agents as the cause of diseases classified elsewhere; B96.20 Unspecified Escherichia coli [E. coli] as the cause of diseases classified elsewhere; R33.9 Retention of urine, unspecified; N31.9 Neuromuscular dysfunction of bladder, unspecified; Z88.6 Allergy status to analgesic agent; Z79.4 Long term (current) use of insulin
CPT/HCPCS: 36415; 80053; 81000; 82947; 83605; 85025; 87077; 87088; 87186